=== PATIENT | male | born 1980 | race Caucasian/White ===

== ENCOUNTER 2016-12-22 23:49 | Emergency (ER) | payer OTHER ==
[~2016-12-22] VITALS: Ht 175.3 cm; Wt 137.8 kg
[~2016-12-22 23:49] MED LIST: ALBU1AER9 INH; CEPH500C2 PO; PRLSR20 PO; SERT50TA PO
[2016-12-23 00:03] VITALS: TEMP 37; Ht 175.3 cm; Wt 137.8 kg
[2016-12-23 00:15] VITALS: BP 154/100; PULSE 80; O2SAT 98
[2016-12-23] MEDS ORDERED: CEPH500C PO (00:20)
[2016-12-23] MEDS ORDERED: HYDR-5688 PO (00:20)
--- NOTE | 2016-12-23 00:25 | EMERGENCY ROOM VISIT NOTE ---
History First contact with patient: 00:06 Chief Complaint: WOUND INFECTION Stated Complaint: CYST UNDER LEFT ARM Nursing Triage Summary: Pt complains of cyst under left arm. Its been going on for a while. History of Present Illness The patient is a 36 year old male who presents to the Emergency Room with complaints of a left chest wall infection that has been worsening over the past 2 weeks. The patient reports a history of multiple skin abscesses. He has been trying to express the infection without relief. He reports that the area is now about the size of a marble. He also has a few other areas that are breaking out as well. He denies any fevers or chills. He rates his discomfort a 6 out of 10. The patient reports that he was recently diagnosed with stage I throat cancer, and is currently being managed through [facility] in [place]. Review of Systems 10 system review was performed and was negative except for pertinent positives and negatives as indicated in history of present illness Past Medical/Surgical History Medical Problems: (1) Abscess (2) Acute lymphangitis (3) Anxiety (4) Asthma, Unspecified (5) Cellulitis of scalp (6) Cellulitis of scalp (7) Diverticulitis (8) Diverticulitis (9) Tobacco user Surgical Problems: (1) History of bowel resection Family History Diabetes mellitus FH: heart disease Hypertension Social History Smoking Status: Current Every Day Smoker Alcohol Use: none Drug Use: marijuana Marital Status: single Housing Status: lives with family Occupation Status: disabled Current/Historical Medications Scheduled Cephalexin Monohydrate (Keflex), 500 MG PO QID Cephalexin Monohydrate (Keflex), 500 MG PO QID Omeprazole (Prilosec), 40 MG PO BID Ropinirole HCl (Ropinirole HCl), 1 MG PO HS Sertraline (Zoloft), 50 MG PO DAILY Scheduled PRN Albuterol (Proair Hfa), 2 PUFFS INH Q4H PRN for Shortness of Breath Hydrocodone/Acetaminophen 5MG/325MG ([place] 5MG/325MG), 1-2 TABLET PO Q4H PRN for Pain Allergies Coded Allergies: Doxycycline (Verified Allergy, Unknown, NEURO COMPLICATIONS, 12/23/16) GMG Prednisone (Unverified Allergy, Unknown, ., 12/23/16) Sulfa Drugs (Unverified Allergy, Unknown, hives, 12/23/16) Sulfamethoxazole w/Trimethoprim (Unverified Allergy, Unknown, hives, ) Physical Exam Vital Signs Date Time Temp Pulse Resp B/P Pulse Ox O2 Delivery O2 Flow Rate FiO2 12/23/16 00:03 37.0 93 20 156/99 97 Room Air Physical Exam CONSTITUTIONAL: Morbidly obese male, alert and oriented X 3 with positive affect. She does not appear in any acute distress. HEENT: Normocephalic, atraumatic. Pupils equal, round and reactive. NECK: Full active range of motion without discomfort. RESPIRATORY: Clear to auscultation bilaterally with no wheezing, crackles, rhonchi or stridor. CARDIOVASCULAR: Regular rate and rhythm with no murmurs, rubs or gallops. GASTROINTESTINAL: Bowel sounds present in all quadrants. MUSCULOSKELETAL: Full range of motion of all joints without discomfort. INTEGUMENTARY: Examination shows a marble-sized indurated mass on the left lateral chest wall. He has a few adjacent erythematous papules. There is no fluctuance or drainage from the larger mass. LYMPHATICS: No left axillary adenopathy noted. NEUROLOGIC: No focal neurologic deficits noted. Medical Decision & Procedures ED Course Patient history and physical exam were performed. Nurse's notes were reviewed. I did review prior medical records, showing a history of multiple skin abscesses. Review of cultures shows that most of them are pansensitive. The patient is allergic to sulfa medications. He therefore received home packs and prescriptions for Keflex and [place] 5/325. He was encouraged to keep the wounds covered with an ointment, and apply moist heat frequently to help promote drainage. He was encouraged to follow-up with his PCP in the next 2-3 days for recheck, returning to the emergency department for any significantly worsening swelling or developing fever. The patient was happy with plan of care, voiced understanding of all discharge instructions, and rated his pain a 5 out of 10 at the conclusion of my exam. Medical Decision Impression Primary Impression: Left chest wall folliculitis Departure Information Dispostion Home / Self-Care Prescriptions Hydrocodone/Acetaminophen 5MG/325MG ([place] 5MG/325MG) Tab 1-2 TABLET PO Q4H Y for Pain, #15 TAB For Initial Treatment Prov: Allan Carolina PA 12/23/16 Cephalexin Monohydrate (Keflex) 500 Mg Cap 500 MG PO QID for 6 Days, #24 CAP Prov: Allan Carolina PA 12/23/16 Forms HOME CARE DOCUMENTATION FORM, IMPORTANT VISIT INFORMATION Patient Instructions My [facility] Additional Instructions Complete all Keflex antibiotics as prescribed. Keep the larger wound covered with an ointment/salve and dressing to help promote drainage. Ibuprofen 600 mg every 6 hours for pain. [place] if needed for worse pain. Return for significantly worsening swelling or developing fever, otherwise follow-up with your family doctor in 2-3 days for recheck.
[2016-12-23] MEDS ORDERED: CEPHALEXIN 500MG HOME PACK 1 EA BTL PO ONE (00:30)
[2016-12-23] MEDS ORDERED: NORCO 5/325MG HOME PACK PO ONE (00:30)
[2017-01-13] MEDS ORDERED: morphine (13:24)
[2017-01-13] MEDS ORDERED: NCDT21X TOP (13:30)
[2017-01-18] MEDS ORDERED: MORPHINE PO (14:17)
[2017-01-21] MEDS ORDERED: OXYC-57 PO (13:14)
[2017-02-03] MEDS ORDERED: VNTHFA/IN PO (00:30)
[2017-02-03] MEDS ORDERED: RANI300T PO (00:31)
[2017-02-03] MEDS ORDERED: SUCR1TAB PO (00:31)
[2017-02-03] MEDS ORDERED: ACET-1256 PO (19:25)
[2017-02-03] MEDS ORDERED: ROPI1TAB29 PO (21:29)
[2017-02-09] MEDS ORDERED: VNCS125 PO (11:43)
[2017-02-21] MEDS ORDERED: RXNS20 PO (23:24)
[2017-02-23] MEDS ORDERED: VNCS125 PO (12:29)
[2017-02-23] MEDS ORDERED: BNT10 PO (12:29)
[2017-02-23] MEDS ORDERED: QSTP PO (12:29)
[2017-03-03] MEDS ORDERED: LCTX PO (16:52)
[2017-03-03] MEDS ORDERED: LVNIS120 SQ (16:52)
[2017-03-03] MEDS ORDERED: LVQ750 PO (16:52)
== END 2016-12-23 00:30 | disposition home or self-care (01) ==
LOC: C.EDB 23:50 → C.EDC 12-23 00:30
DX: L73.9 Follicular disorder, unspecified (principal); F17.200 Nicotine dependence, unspecified, uncomplicated; F41.9 Anxiety disorder, unspecified; J45.909 Unspecified asthma, uncomplicated

== ENCOUNTER 2017-01-06 18:29 | Emergency (ER) | payer OTHER ==
[~2017-01-06] VITALS: Ht 175.3 cm; Wt 136.1 kg
[~2017-01-06 18:29] MED LIST changes: -ALBU1AER9 INH; -CEPH500C2 PO; +HYDR-5688 PO
[2017-01-06 18:31] VITALS: TEMP 36.5; Ht 175.3 cm; Wt 136.1 kg
[2017-01-06] MEDS ORDERED: OMEP40CA41 PO (19:26)
[2017-01-06] MEDS ORDERED: SODIUM CHLORIDE 0.9% 500ML 500 ML IV STA (19:42)
[2017-01-06] MEDS ORDERED: MoRPHine SULFATE 4 MG/ML 1 ML CARP\\VIAL IV STA (19:42)
[2017-01-06] MEDS ORDERED: MAGIC SWIZZLE PO ONE (19:45)
[2017-01-06 19:56] LABS: BASO % 0.4 %; BASO ABS # 0.03 K/uL (0-0.2); COMPLETE YES; EOS % 2.4 %; HEMATOCRIT 41.8 % (42-52); IG% 0.4 %; LYMPH % 33.7 %; LYMPH ABS # 2.67 K/uL (1.2-3.4); MEAN CELL VOLUME 94.1 fL (80-100); MEAN CORPUSCULAR HEMOGLOBIN 33.6 pg (25-34); MEAN CORPUSCULAR HGB CONC 35.6 g/dl (32-36); MEAN PLATELET VOLUME 8.5 fL (7.4-10.4); MONO % 10.1 %; PLATELET COUNT 304 K/uL (130-400); RED BLOOD COUNT 4.44 M/uL (4.7-6.1); WHITE BLOOD COUNT 7.93 K/uL (4.8-10.8)
[2017-01-06] MEDS ORDERED: LIDOCAINE HCL 2% VISCOUS SOLN 1.25 ML, DiphenhydrAMINE HCL SYRUP 3.125 MG, ALUMINUM/MAG... MT ONE ×4 (20:00)
[2017-01-06 20:10] LABS: BUN/CREATININE RATIO 6.9 (10-20); CALCIUM 8.5 mg/dl (8.5-10.1); CREATININE 0.98 mg/dl (0.60-1.40); POTASSIUM 3.6 mmol/L (3.5-5.1)
--- NOTE | 2017-01-06 20:34 | DIAGNOSTIC IMAGING REPORT ---
CHEST 2 VIEWS ROUTINE CLINICAL HISTORY: Throat pain. COMPARISON STUDY: Chest radiograph September 30, 2015. FINDINGS: Lung volumes are normal. There is no consolidation to suggest pneumonia. There is no pneumothorax, pleural effusion or evidence of pneumomediastinum. Cardiomediastinal silhouette is normal. Interstitial prominence is unchanged. IMPRESSION: No acute cardiopulmonary findings. Electronically signed by: Saud Ryan M.D. 01/06/2017 8:33 PM Dictated Date/Time: 01/06/2017 8:32 PM
[2017-01-06] MEDS ORDERED: KETOROLAC TROMETHAMINE 30 MG/ML VIAL IV STA (21:26)
[2017-01-06] MEDS ORDERED: MBXC PO (22:06)
[2017-01-06 22:14] VITALS: BP 128/76; PULSE 74; O2SAT 97
--- NOTE | 2017-01-07 01:10 | EMERGENCY ROOM VISIT NOTE ---
History Report prepared by Padilla: Felipa Crawford Under the Supervision of: Dr. Rey Alonso D.O. First contact with patient: 19:10 Chief Complaint: PAIN (GENERALIZED) Stated Complaint: IN A LOT OF PAIN History of Present Illness The patient is a 36 year old male who presents to the Emergency Room with complaints of constant throat pain since last night. 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 He had a biopsy done about a month ago and yesterday he was at [facility] and had an US of his throat. The patient has had chronic pain on the left side of his throat for about a year. He finally went to his PCP and they found this cancer. The pain that he started having last night is much worse than normal and he has never experienced pain this bad before. It is located in the same spot as his chronic pain. The patient describes his pain as dull and achy, and he rates it as a 7/10 in severity. He has pain in his neck as well as nausea. He has been taking Tylenol for his pain. He has not been eating much because he has worsening pain with swallowing. The GI doctor at [facility] advised him to come to the ED with worsening symptoms. The patient is waiting to schedule an appointment with oncology. He denies vomiting, hematemesis, and black or bloody stools. Source of History: patient Onset: last night Position: throat Symptom Intensity: 7/10 Quality: ache, dull Timing: constant Modifying Factors (Worsening): eating, other (swallowing) Modifying Factors (Relieving): tylenol Associated Symptoms: + nausea, + neck pain, No hematochezia, No melena, No vomiting Review of Systems See HPI for pertinent positives & negatives. A total of 10 systems reviewed and were otherwise negative. Past Medical & Surgical Medical Problems: (1) Abscess (2) Acute lymphangitis (3) Anxiety (4) Asthma, Unspecified (5) Cellulitis of scalp (6) Cellulitis of scalp (7) Diverticulitis (8) Diverticulitis (9) Tobacco user Surgical Problems: (1) History of bowel resection Family History Diabetes mellitus FH: heart disease Hypertension Social History Smoking Status: Former Smoker Alcohol Use: none Drug Use: marijuana Marital Status: single Housing Status: lives with family Occupation Status: disabled Current/Historical Medications Scheduled Magic Swizzle (Magic Swizzle - SUCRALFA/ALUM/MAG/DIPHEN/LIDO), 3-4 TSP PO ACHS Omeprazole (Prilosec), 40 MG PO BID Ranitidine Hcl (Zantac), 300 MG PO DAILY Ropinirole HCl (Ropinirole HCl), 1 MG PO HS Sertraline (Zoloft), 50 MG PO DAILY Sucralfate (Sucralfate), 1 GM PO BID Scheduled PRN Acetaminophen (Tylenol), 500-1,500 MG PO DIRECTED PRN for Pain Albuterol Hfa (Ventolin Hfa), 2 PUFFS PO QID PRN for SOB/Wheezing Allergies Coded Allergies: Doxycycline (Verified Allergy, Unknown, NEURO COMPLICATIONS, 01/06/17) GMG Prednisone (Verified Allergy, Unknown, ., 01/06/17) Sulfa Drugs (Verified Allergy, Unknown, hives, 01/06/17) Sulfamethoxazole w/Trimethoprim (Verified Allergy, Unknown, hives, 01/06/17) Physical Exam Vital Signs Date Time Temp Pulse Resp B/P Pulse Ox O2 Delivery O2 Flow Rate FiO2 01/06/17 22:14 74 20 128/76 97 01/06/17 20:54 82 20 129/85 98 Room Air 01/06/17 19:24 80 20 143/90 99 Room Air 01/06/17 18:31 36.5 86 20 157/92 98 Room Air Physical Exam GENERAL: alert, sitting up in bed, well appearing, obese, no acute distress, non -toxic EYE EXAM: normal conjunctiva, PERRL and EOM's intact OROPHARYNX: no exudate, no erythema, lips, buccal mucosa, and tongue normal and mucous membranes are moist NECK: supple, no nuchal rigidity, no adenopathy, non-tender, no stridor, normal speech and voice, able to tolerate secretions. LUNGS: Clear to auscultation. Normal chest wall mechanics HEART: no murmurs, S1 normal and S2 normal ABDOMEN: abdomen soft, non-tender, normo-active bowel sounds, no masses, no rebound or guarding. BACK: Back is symmetrical on inspection and there is no deformity, no midline tenderness, no CVA tenderness. SKIN: no rashes and no bruising UPPER EXTREMITIES: upper extremities are grossly normal. LOWER EXTREMITIES: No pitting edema. NEURO EXAM: Normal sensorium, cranial nerves II-XII grossly intact, normal speech, no gross weakness of arms, no gross weakness of legs. Medical Decision & Procedures ER Provider Diagnostic Interpretation: Radiology results as stated below per my review and the radiologist's interpretation: CHEST 2 VIEWS ROUTINE CLINICAL HISTORY: Throat pain. COMPARISON STUDY: Chest radiograph September 30, 2015. FINDINGS: Lung volumes are normal. There is no consolidation to suggest pneumonia. There is no pneumothorax, pleural effusion or evidence of pneumomediastinum. Cardiomediastinal silhouette is normal. Interstitial prominence is unchanged. IMPRESSION: No acute cardiopulmonary findings. Electronically signed by: Saud Ryan M.D. 01/06/2017 8:33 PM Dictated Date/Time: 01/06/2017 8:32 PM Laboratory Results 01/06/17 19:45 Red Blood Count 4.44, Mean Corpuscular Volume 94.1, Mean Corpuscular Hemoglobin 33.6, Mean Corpuscular Hemoglobin Concent 35.6, Mean Platelet Volume 8.5, Neutrophils (%) (Auto) 53.0, Lymphocytes (%) (Auto) 33.7, Monocytes (%) (Auto) 10.1, Eosinophils (%) (Auto) 2.4, Basophils (%) (Auto) 0.4, Neutrophils # (Auto ) 4.21, Lymphocytes # (Auto) 2.67, Monocytes # (Auto) 0.80, Eosinophils # (Auto ) 0.19, Basophils # (Auto) 0.03 01/06/17 19:45 Test 01/06/17 19:45 White Blood Count 7.93 K/uL (4.8-10.8) Red Blood Count 4.44 M/uL (4.7-6.1) Hemoglobin 14.9 g/dL (14.0-18.0) Hematocrit 41.8 % (42-52) Mean Corpuscular Volume 94.1 fL (80-100) Mean Corpuscular Hemoglobin 33.6 pg (25-34) Mean Corpuscular Hemoglobin Concent 35.6 g/dl (32-36) Platelet Count 304 K/uL (130-400) Mean Platelet Volume 8.5 fL (7.4-10.4) Neutrophils (%) (Auto) 53.0 % Lymphocytes (%) (Auto) 33.7 % Monocytes (%) (Auto) 10.1 % Eosinophils (%) (Auto) 2.4 % Basophils (%) (Auto) 0.4 % Neutrophils # (Auto) 4.21 K/uL (1.4-6.5) Lymphocytes # (Auto) 2.67 K/uL (1.2-3.4) Monocytes # (Auto) 0.80 K/uL (0.11-0.59) Eosinophils # (Auto) 0.19 K/uL (0-0.5) Basophils # (Auto) 0.03 K/uL (0-0.2) RDW Standard Deviation 50.0 fL (36.4-46.3) RDW Coefficient of Variation 14.6 % (11.5-14.5) Immature Granulocyte % (Auto) 0.4 % Immature Granulocyte # (Auto) 0.03 K/uL (0.00-0.02) Anion Gap 5.0 mmol/L (3-11) Est Creatinine Clear Calc Drug Dose 142.8 ml/min Estimated GFR () 114.5 Estimated GFR (Non- 98.8 BUN/Creatinine Ratio 6.9 (10-20) Calcium Level 8.5 mg/dl (8.5-10.1) Laboratory results per my review. Medications Administered Medications (Trade) Dose Ordered Sig/Kaylin Route Start Time Stop Time Status Last Admin Dose Admin Sodium Chloride (Nss 500ml) 500 ml @ 999 mls/hr Q31M STAT IV 01/06/17 19:42 01/06/17 20:12 DC 01/06/17 19:52 999 MLS/HR Morphine Sulfate (MoRPHine SULFATE INJ) 4 mg NOW STAT IV 01/06/17 19:42 01/06/17 19:44 DC 01/06/17 19:51 4 MG Ketorolac Tromethamine (Toradol Inj) 30 mg NOW STAT IV 01/06/17 21:26 01/06/17 21:28 DC 01/06/17 21:34 30 MG ED Course ED COURSE: Vital signs were reviewed and showed normal vitals. The patients medical record was reviewed The above diagnostic studies were performed and reviewed. ED treatments and interventions as stated above. 0: The patient was evaluated in room A10. A complete history and physical examination was performed. 1941: Morphine sulfate 4 mg IV, NSS 500 ml @ 999 mls/hr IV 2123: Upon reevaluation, the patient is still having some mild pain. I discussed my findings with the patient and he understands and agrees with the treatment plan. Based on the patients age, coexisting illnesses, exam and lab findings the decision to treat as an outpatient was made. The patient remained stable while under my care. The patient appeared well at the time of discharge. 2125: Toradol 30 mg IV Medical Decision Differential diagnoses includes esophageal rupture, mass, infection, food bolus. 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 He had an upper endoscopy performed yesterday and since then has been having worsening of his chronic pain in his throat. He is able to eat and drink without difficulty. Has no shortness of breath. Labs show no significant leukocytosis or anemia. X-rays show no obvious perforation. Patient was given Toradol and narcotic IV. He felt significantly better. Following this he was discharged and I did not feel the need to CT him as he was well-appearing tolerating liquids and had no biopsy done or any symptoms to suggest a perforation. Discussed with Pt concerning signs and symptoms to watch out for. Pt was instructed to follow up with their PCP and discussed with the patient their option to return to the ED at anytime for persistent or worsening symptoms. The appropriate anticipatory guidance and out-patient management, including indications for return to the emergency department, were explained at length to the patient and understood. Impression Primary Impression: Throat pain in adult Scribe Attestation The scribe's documentation has been prepared under my direction and personally reviewed by me in its entirety. I confirm that the note above accurately reflects all work, treatment, procedures, and medical decision making performed by me. Departure Information Dispostion Home / Self-Care Prescriptions Magic Swizzle (Magic Swizzle - SUCRALFA/ALUM/MAG/DIPHEN/LIDO) 240 Ml Susp 3-4 TSP PO ACHS, #100 ML 100ml Sucralfate 50ml Maalox 50ml Diphenhydramine 40ml 2% Aq. Lidocaine Swish and Swallow Prov: Rey Alonso, DO 01/06/17 Referrals Camilo Weiner M.D. (PCP) Forms HOME CARE DOCUMENTATION FORM, IMPORTANT VISIT INFORMATION, WORK / SCHOOL INSTRUCTIONS Patient Instructions My [facility], Sore Throat Additional Instructions Please follow up with your primary care doctor with in the next 24 hours. Any worsening of your symptoms, please return to the ED immediately. This includes fevers greater than 100.4, inability to swallow, worsening pain, passing out, vomiting blood, or any other concerning signs or symptoms from your standpoint.
[2017-01-13] MEDS ORDERED: morphine (13:24)
[2017-01-13] MEDS ORDERED: NCDT21X TOP (13:30)
[2017-01-18] MEDS ORDERED: MORPHINE PO (14:17)
[2017-01-21] MEDS ORDERED: OXYC-57 PO (13:14)
[2017-02-03] MEDS ORDERED: VNTHFA/IN PO (00:30)
[2017-02-03] MEDS ORDERED: SUCR1TAB PO (00:31)
[2017-02-03] MEDS ORDERED: RANI300T PO (00:31)
[2017-02-03] MEDS ORDERED: ACET-1256 PO (19:25)
[2017-02-03] MEDS ORDERED: ROPI1TAB29 PO (21:29)
[2017-02-09] MEDS ORDERED: VNCS125 PO (11:43)
[2017-02-21] MEDS ORDERED: RXNS20 PO (23:24)
[2017-02-23] MEDS ORDERED: VNCS125 PO (12:29)
[2017-02-23] MEDS ORDERED: QSTP PO (12:29)
[2017-02-23] MEDS ORDERED: BNT10 PO (12:29)
[2017-03-03] MEDS ORDERED: LVNIS120 SQ (16:52)
[2017-03-03] MEDS ORDERED: LCTX PO (16:52)
[2017-03-03] MEDS ORDERED: LVQ750 PO (16:52)
== END 2017-01-06 22:15 | disposition home or self-care (01) ==
LOC: C.EDB 18:30 → C.EDA 22:15
DX: C15.9 Malignant neoplasm of esophagus, unspecified (principal); R07.0 Pain in throat; K22.70 Barrett's esophagus without dysplasia; Z87.891 Personal history of nicotine dependence

== ENCOUNTER 2017-01-21 11:04 | Day surgery (SDC) | payer OTHER ==
[2017-01-18 14:02] VITALS: BMI 43.0
[~2017-01-21] VITALS: Ht 175.3 cm; Wt 134.1 kg
[~2017-01-21 11:04] MED LIST changes: +CLINDAMYCIN 600 MG/54 ML D5W IV SCH; -HYDR-5688 PO; +LACTATED RINGER'S 1000ML 1,000 ML IV SCH; +MBXC PO; +MORPHINE PO; +NCDT21X TOP; +OMEP40CA41 PO; -PRLSR20 PO
[2017-01-21] MEDS ORDERED: BUPIVACAINE 0.5 % 5 MG/1 ML MPF 30ML VIAL ONE (11:08)
[2017-01-21] MEDS ORDERED: LIDOCAINE HCL 1% 20 ML VIAL ONE (11:08)
[2017-01-21] MEDS ORDERED: BACITRACIN OINT 15 GM TUBE ONE (11:08)
[2017-01-21 11:39] VITALS: BP 125/70; PULSE 88; TEMP 37; O2SAT 98; Ht 175.3 cm; Wt 134.1 kg
--- NOTE | 2017-01-21 11:42 | History & Physical Bridge Note ---
H&P Re-Evaluation Bridge Note: I have examined the patient, reviewed the History & Physical and in the interval since the performance of the History & Physical I have noted the following changes of clinical significance: No changes noted
[2017-01-21] MEDS ORDERED: MIDAZOLAM HCL 1 MG/ML 2ML VIAL ONE ×2 (11:46→12:26)
[2017-01-21] MEDS ORDERED: PROPOFOL IV EMULSION 10 MG/ML 20 ML VIAL IV ONE ×2 (11:46→12:45)
[2017-01-21] MEDS ORDERED: FENTANYL CITRATE INJ 50 MCG/1 ML 2 ML VIAL ONE (11:46)
[2017-01-21] MEDS ORDERED: LIDOCAINE HCL 2% 2 ML VIAL (20MG/ML) ONE (11:46)
[2017-01-21] MEDS ORDERED: ATROPINE SULFATE 0.1 MG/ML 5ML SYR IV PRN (12:00)
[2017-01-21] MEDS ORDERED: ONDANSETRON INJ 2 MG/ML 2 ML VIAL IV PRN (12:00)
[2017-01-21] MEDS ORDERED: FENTANYL CITRATE INJ 50 MCG/1 ML 2 ML VIAL IV PRN (12:00)
--- NOTE | 2017-01-21 13:09 | [facility] Post Operative Brief Note ---
Immediate Operative Summary Operative Date Jan 21, 2017. Pre-Operative Diagnosis Esphogeal cancer Post-Operative Diagnosis Esphogeal cancer Procedure(s) Performed Infusaport Insertion into Right Internal Jugular Vein Surgeon Dr. Oreilly [employer] Coordinator Surgeon(s) none Estimated Blood Loss 5mL Findings normal finding Fluids (cc crystalloids) 1000ml Specimens none per surgeon Drains none Anesthesia sedation + local Complication(s) None Disposition Recovery Room / PACU
[2017-01-21] MEDS ORDERED: SODIUM CHLORIDE 0.9% 1000ML 1,000 ML IV SCH ×3 (13:10)
[2017-01-21] MEDS ORDERED: OXYC-57 PO (13:14)
[2017-01-21] MEDS ORDERED: OXYCODONE/ACETAMINOPHEN 5-325 TAB PO PRN (13:15)
--- NOTE | 2017-01-21 13:17 | Discharge Instructions ---
Discharge Instructions Date of Service Jan 21, 2017. Visit Reason for Visit: Malignant Neoplasm Of The Esophagus Discharge Discharge Diagnosis / Problem: S/P port insertion Discharge Goals Goal(s): Decrease discomfort, Improve function Activity Recommendations Activity Limitations: per Instructions/Follow-up section Lifting Limitations: no more than 25 pounds Exercise/Sports Limitations: gradually increase as tolerated May Resume Sexual Activity: when tolerated Shower/Bathe: may shower/bathe in 3 days Driving or Machine Use: resume 3 days after discharge Anesthesia . Post Anesthesia Instructions: If you have had General Anesthesia or IV Sedation: * Do not drive today. * Resume driving when surgeon permits. * Do not make important decisions or sign legal documents today. * Call surgeon for: 1. Temperature elevations greater than 101 degrees F. 2. Uncontrollable pain. 3. Excessive bleeding. 4. Persistent nausea and vomiting. 5. Medication intolerance (nausea, vomiting or rash). * For nausea and vomiting use only clear liquids such as: tea, soda, bouillon until nausea subsides, then gradually increase diet as tolerated. * If you have any concerns or questions, call your surgeon's office. If physician is unavailable and it is an emergency, call 911 or go to the nearest emergency room. . Instructions / Follow-Up Instructions / Follow-Up keep the dressing on for 4 days, he can take a shower on 01/25/2017, no driving while taking pain medicine, follow up 1 week, . Diet Recommendations Recommended Home Diet: resume previous diet Procedures Procedures Performed: Infusaport Insertion into Right Internal Jugular Vein Pending Studies Studies pending at discharge: no Medical Emergencies . Who to Call and When: Medical Emergencies: If at any time you feel your situation is an emergency, please call 911 immediately. . Non-Emergent Contact Non-Emergency issues call your: Surgeon Call Non-Emergent contact if: you have a fever, temperature is above 100.5, your pain is not controlled, your pain is worsening, wound has increased drainage, wound has increased redness . . "Provider Documentation" section prepared by Yari Oreilly. . [place] Drug Monitoring Program Search Results: patient reviewed within database, no issues identified
--- NOTE | 2017-01-21 13:31 | DIAGNOSTIC IMAGING REPORT ---
SINGLE VIEW CHEST CLINICAL HISTORY: Infusion port placement. FINDINGS: An AP, portable, upright chest radiograph is compared to study dated 01/06/2017. Correlation is made with chest CT dated 11/19/2016. The examination is degraded by portable technique, large body habitus, and patient rotation. A right internal jugular central venous infusion port has been placed. The tip of the catheter projects over the confluence of the innominate veins. The cardiomediastinal silhouette is unremarkable. Mild emphysema and chronic interstitial thickening are similar to previous. No airspace consolidation or pleural effusion is identified. No pneumothorax is seen. The bony thorax is grossly intact. IMPRESSION: 1. A right internal jugular central venous infusion port has been placed. No pneumothorax is seen post procedure. 2. Mild emphysema with no airspace consolidation or pleural effusion. Electronically signed by: Fadi Mao M.D. 01/21/2017 1:29 PM Dictated Date/Time: 01/21/2017 1:25 PM
--- NOTE | 2017-01-21 13:31 | Anesthesiology Progress Note ---
Anesthesia Post Op Note Date & Time Jan 21, 2017 at 13:30 Vital Signs Pain Intensity: 0 Vital Signs Past 12 Hours Date Time Temp Pulse Resp B/P Pulse Ox O2 Delivery O2 Flow Rate FiO2 01/21/17 13:20 66 16 129/99 99 Room Air 01/21/17 13:10 36.2 73 16 120/81 100 Room Air 01/21/17 11:39 37 88 18 125/70 98 Room Air Notes Mental Status: alert / awake / arousable, participated in evaluation Pt Amnestic to Procedure: Yes Nausea / Vomiting: adequately controlled Pain: adequately controlled Airway Patency, RR, SpO2: stable & adequate BP & HR: stable & adequate Hydration State: stable & adequate Anesthetic Complications: no major complications apparent
[2017-01-21 13:35] VITALS: BP 126/82; PULSE 75; TEMP 37.2; O2SAT 95
[2017-01-21 14:05] VITALS: BP 137/91; PULSE 80; TEMP 36.9; O2SAT 96
--- NOTE | 2017-01-21 14:16 | OPERATIVE REPORT ---
DATE OF OPERATION: 01/21/2017 PREOPERATIVE DIAGNOSES: Need catheter insertion. POSTOPERATIVE DIAGNOSIS: Same. PROCEDURE: [id number] insertion on the right internal jugular vein. SURGEON: Dr. Yari Oreilly. ANESTHESIA: Conscious sedation plus local. ESTIMATED BLOOD LOSS: About 5 mL. IV FLUIDS: 1000 mL. FINDINGS: Normal finding. COMPLICATIONS: None. INDICATIONS FOR THE PROCEDURE: This is a 36-year-old gentleman who was diagnosed cancer. The patient need chemo treatment. The patient needs [id number]-Q-Hoalhpum insertion. I did talk to the patient about the benefit and risk alternate procedure. I indicated the risks may include but not limited such as bleeding, infection, dysfunction catheter, injury lung, may need more procedure, abscess, even . The patient understands. He signed informed consent and I answered all questions. DETAILS OF PROCEDURE: We brought the patient to the OR, put the patient in the supine position. The patient received SCD on bilateral legs to prevent DVT. Also, the patient received 600 mg of clindamycin IV for prophylactic antibiotic. The patient received conscious sedation by the anesthesiology. The patient's right side of the neck and right side upper chest was prepped and draped in routine sterile fashion. After a timeout, I used ultrasound to locate the right internal jugular vein and the injection local, made a small incision about 0.5 cm, then I used a 16 gauge needle to puncture the right internal trocar vein without difficulty, easy blood return, then I passed the wire in and removed the needle. Then I injected local anesthesia on the right upper chest, made about 2.5 cm incision, create a pouch for the port, then I used metal tunneler transducer connected to the incision and passed to the catheter in and then I used another sheath passed the wire over the right internal jugular vein and removed the wire and passed the catheter through the sheath and removed the sheath without difficulty. Once the wire in I used the C-arm to conform wire located in the SVC and now the catheter in. Again, I used the C-arm to locate the catheter around the junction between the internal jugular vein to the right atrium. Now I sided the catheter and connected the port and used 2-0 Prolene to fix the port on the chest wall at 3 points, tied the suture and hemostasis obtained. Then I used 2-0 Vicryl to close subcutaneous layer continuous running, closed skin by using 4-0 Vicryl continuous running. Then I used needle to puncture the port. I easily returned blood. Then I injection heparin saline 10 mL to the catheter. Then we put the dressing on. The patient tolerated the procedure well. All the instrument, needle and sponge count correct x2 at the end of case. The patient transferred to recovery room in stable condition. After the procedure and before the procedure also, I saw the patient and gave the patient the postop care instruction and I did talk to the patient about the OR finding and procedure we did. The patient understands. We will follow up the patient in 1 week. I attest to the content of the Intraoperative Record and any orders documented therein. Any exceptions are noted below. [id number]
[2017-01-21 14:25] VITALS: BP 131/85; PULSE 73; TEMP 36.5; O2SAT 96
[2017-01-22] MEDS ORDERED: CEFAZOLIN IV 2,000 MG/60 ML D5W IV ONE (06:00)
[2017-02-03] MEDS ORDERED: VNTHFA/IN PO (00:30)
[2017-02-03] MEDS ORDERED: SUCR1TAB PO (00:31)
[2017-02-03] MEDS ORDERED: RANI300T PO (00:31)
[2017-02-03] MEDS ORDERED: ACET-1256 PO (19:25)
[2017-02-03] MEDS ORDERED: ROPI1TAB29 PO (21:29)
[2017-02-09] MEDS ORDERED: VNCS125 PO (11:43)
[2017-02-21] MEDS ORDERED: RXNS20 PO (23:24)
[2017-02-23] MEDS ORDERED: VNCS125 PO (12:29)
[2017-02-23] MEDS ORDERED: QSTP PO (12:29)
[2017-02-23] MEDS ORDERED: BNT10 PO (12:29)
[2017-03-03] MEDS ORDERED: LCTX PO (16:52)
[2017-03-03] MEDS ORDERED: LVNIS120 SQ (16:52)
[2017-03-03] MEDS ORDERED: LVQ750 PO (16:52)
== END 2017-01-21 14:25 | disposition home or self-care (01) ==
LOC: C.ACU 11:04
PROVIDERS: ATTEND Surgery
DX: C15.5 Malignant neoplasm of lower third of esophagus (principal); K21.0 Gastro-esophageal reflux disease with esophagitis; G25.81 Restless legs syndrome; E66.9 Obesity, unspecified; Z68.41 Body mass index [BMI] 40.0-44.9, adult; Z87.891 Personal history of nicotine dependence; Z83.3 Family history of diabetes mellitus; Z82.5 Family history of asthma and other chronic lower respiratory diseases; Z82.49 Family history of ischemic heart disease and other diseases of the circulatory system; Z82.3 Family history of stroke

== ENCOUNTER 2017-02-03 22:28 | Emergency (ER) | payer OTHER ==
[~2017-02-03] VITALS: Ht 175.3 cm; Wt 56.7 kg
[~2017-02-03 22:28] MED LIST changes: +ACET-1256 PO; -CLINDAMYCIN 600 MG/54 ML D5W IV SCH; -LACTATED RINGER'S 1000ML 1,000 ML IV SCH; +RANI300T PO; +ROPI1TAB29 PO; +SUCR1TAB PO; +VNTHFA/IN PO
[2017-02-03 22:34] VITALS: O2SAT 97
[2017-02-03 22:41] VITALS: TEMP 36.8; Ht 175.3 cm; Wt 56.7 kg
[2017-02-03] MEDS ORDERED: ZLF/50 PO (22:55)
[2017-02-03] MEDS ORDERED: [UNRECOGNIZED DRUG - CODE] PO (22:55)
[2017-02-03] MEDS ORDERED: DXM/4 PO (22:55)
[2017-02-03] MEDS ORDERED: CMP/10 PO (22:55)
[2017-02-03] MEDS ORDERED: ONDA-63 PO (22:55)
[2017-02-03] MEDS ORDERED: OMEP20CA9 PO (22:55)
[2017-02-03] MEDS ORDERED: MAGIC1 PO (22:56)
[2017-02-03 23:31] LABS: HEMATOCRIT 39.8 % (42-52); MEAN CELL VOLUME 94.8 fL (80-100); MEAN CORPUSCULAR HEMOGLOBIN 33.1 pg (25-34); MEAN CORPUSCULAR HGB CONC 34.9 g/dl (32-36); PLATELET COUNT 253 K/uL (130-400); WHITE BLOOD COUNT 9.02 K/uL (4.8-10.8)
[2017-02-03] MEDS ORDERED: SODIUM CHLORIDE 0.9% 500ML 500 ML IV STA (23:44)
[2017-02-03] MEDS ORDERED: GI COCKTAIL PO STA (23:44)
[2017-02-03] MEDS ORDERED: HYDROmorphone INJ 1 MG/ML SYR IV STA (23:44)
[2017-02-03 23:47] LABS: INR 1.1 (0.9-1.1); PROTHROMBIN TIME (PATIENT) 11.5 SECONDS (9.0-12.0)
[2017-02-03 23:54] LABS: BUN/CREATININE RATIO 19.1 (10-20); CALCIUM 8.4 mg/dl (8.5-10.1); CREATININE 0.97 mg/dl (0.60-1.40); POTASSIUM 3.5 mmol/L (3.5-5.1)
[2017-02-03] MEDS ORDERED: ALUMINUM/MAGNESIUM SUSP 30 ML UDC ONE (23:55)
[2017-02-03] MEDS ORDERED: LIDOCAINE HCL 2% VISC SOLN 20 ML UDC ONE (23:55)
[2017-02-03 23:59] LABS: ALB/GLOB RATIO 1.1 (0.9-2)
--- NOTE | 2017-02-04 00:17 | EMERGENCY ROOM VISIT NOTE ---
History Report prepared by Padilla: Kelly Peralta Under the Supervision of: Dr. Jacob Diaz M.D. First contact with patient: 23:35 Chief Complaint: CHEST PAIN Stated Complaint: CHEST PAIN Nursing Triage Summary: Reports moderate, mid sternal CP that radiates to left & into back. Rates pain #5/10 at this time. Mild pain started intermittently at approx 1700 and has become consistant & increased in severity. Also reports "pressure" to chest but denies SOB. Denies cardiac hx Diagnosed with esophageal cancer in Oct this year. Last chemo tx on 02/02/17 & last radiation tx today 02/03/17 History of Present Illness The patient is a 36 year old male who presents to the Emergency Room with complaints of worsening mid chest pain starting about 6 hours ago. He reports pain radiation to into his back. He also reports some right sided neck pain. He currently rates a pain intensity of 5/10. He denies loss of consciousness, shortness of breath, nausea, vomiting, pain/swelling in lower extremities, or any other complaints. He denies any history of similar symptoms. He denies any history of heart disease. He does not have any personal or family history of blood clots. He is being treated for esophageal cancer. He last received chemotherapy yesterday and last received radiation treatment today. The patient has been prescribed Morphine as needed but does not take it since he states that he "does not want to become addicted". Source of History: patient Onset: about 6 hours ago Position: chest (mid) Symptom Intensity: 5/10 Timing: worsening Associated Symptoms: + neck pain, No LOC, No SOB, No nausea, No vomiting Review of Systems See HPI for pertinent positives & negatives. A total of 10 systems reviewed and were otherwise negative. Past Medical & Surgical Medical Problems: (1) Abscess (2) Acute lymphangitis (3) Anxiety (4) Asthma, Unspecified (5) Cellulitis of scalp (6) Cellulitis of scalp (7) Diverticulitis (8) Diverticulitis (9) Esophageal adenocarcinoma (10) Tobacco user Surgical Problems: (1) History of bowel resection Family History Diabetes mellitus FH: heart disease Hypertension Social History Smoking Status: Current Every Day Smoker Alcohol Use: none Drug Use: marijuana Marital Status: single Housing Status: lives with family Occupation Status: disabled Current/Historical Medications Scheduled Omeprazole (Prilosec), 40 MG PO BID Ranitidine Hcl (Zantac), 300 MG PO DAILY Ropinirole HCl (Ropinirole HCl), 1 MG PO HS Sertraline HCl (Sertraline HCl), 50 MG PO HS Sucralfate (Sucralfate), 1 GM PO BID Scheduled PRN Acetaminophen (Tylenol), 500-1,500 MG PO UD PRN for Pain Albuterol Hfa (Ventolin Hfa), 2 PUFFS PO Q4H PRN for Wheezing Dexamethasone (Decadron), 4 MG PO UD PRN for CHEMO PRE TREAT Diphenhy/Alum/Mag/Sucralfa (Magic Swizzle - Diphenhy/Alum/Mag/Sucralfa), 3-4 TSP PO ACHS PRN for Swallowing Pain Morphine Sulfate (Morphine Sulfate), 0.5 ML PO Q4-6HRS PRN for Pain Ondansetron (Ondansetron HCl), 8 MG PO TID PRN for Nausea Prochlorperazine Maleate (Prochlorperazine Maleate), 10 MG PO Q6H PRN for Nausea Allergies Coded Allergies: Prednisone (Verified Allergy, Intermediate, HIVES, 01/21/17) Sulfa Antibiotics (Verified Allergy, Intermediate, Hives/Thrush, 01/21/17) Doxycycline (Verified Allergy, Unknown, NEURO COMPLICATIONS, 01/21/17) GMG Sulfamethoxazole w/Trimethoprim (Verified Allergy, Unknown, hives, 01/21/17 ) Physical Exam Vital Signs Date Time Temp Pulse Resp B/P Pulse Ox O2 Delivery O2 Flow Rate FiO2 02/04/17 01:45 137/86 02/04/17 01:33 89 21 97 02/04/17 01:03 81 16 97 02/04/17 01:00 125/107 02/04/17 00:33 77 16 97 02/04/17 00:28 74 20 98 02/04/17 00:12 83 18 135/77 98 Room Air 02/03/17 23:28 91 14 02/03/17 22:41 97 Room Air 02/03/17 22:41 36.8 97 18 129/77 97 Room Air 02/03/17 22:39 85 02/03/17 22:36 129/77 02/03/17 22:34 97 Room Air Physical Exam GENERAL: Patient is uncomfortable appearing and in moderate distress. HEENT: No acute trauma, normocephalic atraumatic, mucous membranes moist, no nasal congestion, no scleral icterus. NECK: No stridor, no adenopathy, no meningismus, trachea is midline. CHEST: Port in the right upper chest. LUNGS: No dyspnea. Clear to auscultation and equal bilaterally. No wheeze, no rhonchi. HEART: Regular rate and rhythm. No murmurs, rubs, gallops appreciated. ABDOMEN: Soft, nontender, bowel sounds positive, no masses appreciated, no peritonitis. BACK: No midline tenderness, no CVA tenderness EXTREMITIES: Normal motion all extremities, no cyanosis, no edema. NEUROLOGIC: Alert and oriented, no acute motor or sensory deficits, no focal weakness, cranial nerves grossly intact. SKIN: No rash, no jaundice, no diaphoresis. Medical Decision & Procedures ER Provider Diagnostic Interpretation: X ray results are stated below per my interpretation: Chest: 1 view: No infiltrate, no effusion, normal cardiac border. Port right upper chest, line in place. Laboratory Results 02/03/17 23:15 02/03/17 23:15 Test 02/03/17 23:15 02/04/17 00:52 Red Blood Count 4.20 M/uL (4.7-6.1) Mean Corpuscular Volume 94.8 fL (80-100) Mean Corpuscular Hemoglobin 33.1 pg (25-34) Mean Corpuscular Hemoglobin Concent 34.9 g/dl (32-36) RDW Standard Deviation 46.9 fL (36.4-46.3) RDW Coefficient of Variation 13.6 % (11.5-14.5) Mean Platelet Volume 9.0 fL (7.4-10.4) Prothrombin Time 11.5 SECONDS (9.0-12.0) Prothromb Time International Ratio 1.1 (0.9-1.1) Activated Partial Thromboplast Time 26.0 SECONDS (21.0-31.0) Partial Thromboplastin Ratio 1.0 Anion Gap 9.0 mmol/L (3-11) Est Creatinine Clear Calc Drug Dose 84.4 ml/min Estimated GFR () 115.9 Estimated GFR (Non- 100.0 BUN/Creatinine Ratio 19.1 (10-20) Calcium Level 8.4 mg/dl (8.5-10.1) Total Bilirubin 0.6 mg/dl (0.2-1) Aspartate Amino Transf (AST/SGOT) 8 U/L (15-37) Alanine Aminotransferase (ALT/SGPT) 30 U/L (12-78) Alkaline Phosphatase 47 U/L (45-117) Total Creatine Kinase 67 U/L (39-308) Creatine Kinase MB 0.7 ng/ml (0.5-3.6) Creatine Kinase MB Ratio 1.0 (0-3.0) Total Protein 6.8 gm/dl (6.4-8.2) Albumin 3.5 gm/dl (3.4-5.0) Globulin 3.3 gm/dl (2.5-4.0) Albumin/Globulin Ratio 1.1 (0.9-2) Bedside Troponin I 0.000 ng/ml (0-0.045) Laboratory results as reviewed by me. Medications Administered Medications (Trade) Dose Ordered Sig/Kaylin Route Start Time Stop Time Status Last Admin Dose Admin Hydromorphone HCl 1 mg 1 mg NOW STAT IV 02/03/17 23:44 02/03/17 23:45 DC 02/03/17 23:58 1 MG Sodium Chloride (Nss 500ml) 500 ml @ 999 mls/hr Q31M STAT IV 02/03/17 23:44 02/04/17 00:14 DC 02/04/17 00:00 999 MLS/HR Lidocaine HCl (Viscous Lidocaine 2% Soln) 20 ml STK-MED ONCE .ROUTE 02/03/17 23:55 02/03/17 23:56 DC 02/04/17 00:00 10 ML Al Hydroxide/Mg Hydroxide (Maalox Susp) 30 ml STK-MED ONCE .ROUTE 02/03/17 23:55 02/03/17 23:56 DC 02/03/17 23:58 30 ML Hydromorphone HCl (Dilaudid Inj) 1 mg NOW STAT IV 02/04/17 01:00 02/04/17 01:02 DC 02/04/17 01:13 1 MG ECG Indication: chest pain Rate (beats per minute): 76 Rhythm: normal sinus Findings: no acute ischemic change, no ectopy ED Course 2335: The patient was evaluated in room C02B. A complete history and physical exam was performed. 2344: Sodium Chloride 500 ml @ 999 mls/hr IV, Dilaudid Inj 1 mg IV 0044: I reevaluated the patient who is feeling better but would like some more pain medications. We discussed CT scan and given his many previous, he would like to avoid that. 0100: Dilaudid Inj 1 mg IV 0130: Reevaluated the patient. Discussed results and discharge instructions: He verbalized understanding and agreement. The patient is ready for discharge. Medical Decision Differential: Cardiac Ischemia (STEMI, NSTEMI, Unstable Angina, etc), Aortic Dissection, Arrhythmia, Pulmonary Embolism, Pneumonia, Pneumothorax, MSK, Infectious, Pericarditis/Myocarditis, Esophageal Rupture, Gastrointestinal, amongst other pathologies entertained. 36 yr old male with esophageal cancer felt secondary to tobacco use and GERD who is currently undergoing chemo/radiation with last radiation this afternoon. Substernal chest pain radiating to back. No evidence dissection. Not significantly SHOB, hypoxic nor tachycardic without TTP of calves, nor history of PE. I feel Dimer unnecessary as even if positive may likely be chemo/cancer related. Discussed CT PE study with patient as only way to know for sure but with shared decision making he wishes to hold off on CT imaging at this time. Pain resolved with IV narcotics. POC trop x 2 > 6 hours post symptoms starting are both negative. EKG unremarkable. Patient feeling well. He has narcotics at home for this cancer related pain but has not been taking due to concern addiction. We had lengthy discussion about this and agree trying to avoid addiction but clearly there will be pain associated with his cancer and treatment. Wishes to go home with family which seems reasonable. Aware RTED at any time if worsening or other concerns. Stable and feels well at discharge. Impression Primary Impression: Cancer associated pain Additional Impression: Substernal precordial chest pain Scribe Attestation The scribe's documentation has been prepared under my direction and personally reviewed by me in its entirety. I confirm that the note above accurately reflects all work, treatment, procedures, and medical decision making performed by me. Departure Information Dispostion Home / Self-Care Referrals Camilo Weiner M.D. (PCP) Forms HOME CARE DOCUMENTATION FORM, IMPORTANT VISIT INFORMATION Patient Instructions ED Chest Pain Atypical Unkn Cause, My [facility] Problem Qualifiers
[2017-02-04] MEDS ORDERED: HYDROmorphone INJ 1 MG/ML SYR IV STA (01:00)
[2017-02-04 01:33] VITALS: PULSE 89; O2SAT 97
[2017-02-04 01:45] VITALS: BP 137/86
--- NOTE | 2017-02-04 06:38 | DIAGNOSTIC IMAGING REPORT ---
CHEST ONE VIEW PORTABLE CLINICAL HISTORY: Chest pain. COMPARISON STUDY: Chest radiograph January 21, 2017. FINDINGS: Lung volumes are normal. A right internal jugular Udnarg-s-Cdoi is in place. There is no pneumothorax or pleural effusion. Cardiomediastinal silhouette is within normal limits. There is no evidence of pulmonary edema. No consolidation is identified. IMPRESSION: No acute cardiopulmonary findings. Electronically signed by: Saud Ryan M.D. 02/04/2017 6:37 AM Dictated Date/Time: 02/04/2017 6:36 AM
[2017-02-09] MEDS ORDERED: VNCS125 PO (11:43)
[2017-02-21] MEDS ORDERED: RXNS20 PO (23:24)
[2017-02-23] MEDS ORDERED: QSTP PO (12:29)
[2017-02-23] MEDS ORDERED: VNCS125 PO (12:29)
[2017-02-23] MEDS ORDERED: BNT10 PO (12:29)
[2017-03-03] MEDS ORDERED: LVNIS120 SQ (16:52)
[2017-03-03] MEDS ORDERED: LVQ750 PO (16:52)
[2017-03-03] MEDS ORDERED: LCTX PO (16:52)
== END 2017-02-04 01:45 | disposition home or self-care (01) ==
LOC: EDBD 22:28 → C.EDC 22:30
DX: R07.2 Precordial pain (principal); G89.3 Neoplasm related pain (acute) (chronic); F41.9 Anxiety disorder, unspecified; K57.92 Diverticulitis of intestine, part unspecified, without perforation or abscess without bleeding; J45.909 Unspecified asthma, uncomplicated; F17.200 Nicotine dependence, unspecified, uncomplicated; Z86.19 Personal history of other infectious and parasitic diseases; Z85.01 Personal history of malignant neoplasm of esophagus; Z79.899 Other long term (current) drug therapy; Z98.890 Other specified postprocedural states; Z88.2 Allergy status to sulfonamides; Z88.3 Allergy status to other anti-infective agents; Z88.8 Allergy status to other drugs, medicaments and biological substances; Z83.3 Family history of diabetes mellitus; Z82.49 Family history of ischemic heart disease and other diseases of the circulatory system

== ENCOUNTER 2017-02-05 13:47 | Emergency (ER) | payer OTHER ==
[~2017-02-05] VITALS: Ht 172.7 cm; Wt 130.0 kg
[~2017-02-05 13:47] MED LIST changes: +CMP/10 PO; +DXM/4 PO; +MAGIC1 PO; -MBXC PO; -MORPHINE PO; -NCDT21X TOP; +OMEP20CA9 PO; -OMEP40CA41 PO; +ONDA-63 PO; -SERT50TA PO; +ZLF/50 PO; +[UNRECOGNIZED DRUG - CODE] PO
[2017-02-05 13:50] VITALS: TEMP 36.7; Ht 172.7 cm; Wt 130.0 kg
[2017-02-05 14:09] VITALS: O2SAT 96
[2017-02-05] MEDS ORDERED: HYDROmorphone INJ 1 MG/ML SYR IV STA (14:39)
[2017-02-05] MEDS ORDERED: SODIUM CHLORIDE 0.9% 1000ML 1,000 ML IV ONE (14:39)
[2017-02-05] MEDS ORDERED: SODIUM CHLORIDE 0.9% 1000ML 1,000 ML IV STA (14:39)
[2017-02-05] MEDS ORDERED: METOCLOPRAMIDE HCL INJ 5 MG/ML 2 ML VIAL IV STA (14:39)
--- NOTE | 2017-02-05 14:41 | EMERGENCY ROOM VISIT NOTE ---
History Report prepared by Padilla: Matthias Emery Under the Supervision of: Dr. Yan Hawkins M.D. First contact with patient: 14:25 Chief Complaint: WEAKNESS Stated Complaint: WEAKNESS, DIARRHEA Nursing Triage Summary: pt here with feeling weak since yesterday. pt began with diarrhea yesterday. pt sent here from radiation also has had 2 chemo tx for throat cancer. pt here this past wednesday night for chest pain History of Present Illness The patient is a 36 year old male who presents to the Emergency Room with complaints of episodes of diarrhea that started yesterday. He has throat cancer , and last had chemotherapy 3 days ago. The patient says that he started getting weak yesterday as well, and has not been sleeping well. He has been having episodes where he gets cold, and then gets hot. The patient states that earlier this morning, he had diarrhea every time he moved. He has been having associated abdominal pain. The patient denies any hematochezia. Source of History: patient Onset: Yesterday Position: other (global - diarrhea) Timing: other (episodes) Associated Symptoms: + abdominal pain, + weakness, No hematochezia Note: Associated symptoms: Gets hot, then cold. Review of Systems See HPI for pertinent positives & negatives. A total of 10 systems reviewed and were otherwise negative. Past Medical & Surgical Medical Problems: (1) Abscess (2) Acute lymphangitis (3) Anxiety (4) Asthma, Unspecified (5) C. difficile diarrhea (6) Cellulitis of scalp (7) Cellulitis of scalp (8) Diverticulitis (9) Diverticulitis (10) Esophageal adenocarcinoma (11) Tobacco user Surgical Problems: (1) History of bowel resection Family History Diabetes mellitus FH: heart disease Hypertension Social History Smoking Status: Current Every Day Smoker Alcohol Use: none Drug Use: marijuana Marital Status: single Housing Status: lives with family Occupation Status: disabled Current/Historical Medications Scheduled Omeprazole (Prilosec), 40 MG PO BID Ranitidine Hcl (Zantac), 300 MG PO DAILY Ropinirole HCl (Ropinirole HCl), 1 MG PO HS Sertraline HCl (Sertraline HCl), 50 MG PO HS Sucralfate (Sucralfate), 1 GM PO BID Scheduled PRN Albuterol Hfa (Ventolin Hfa), 2 PUFFS PO Q4H PRN for Wheezing Dexamethasone (Decadron), 4 MG PO UD PRN for CHEMO PRE TREAT Diphenhy/Alum/Mag/Sucralfa (Magic Swizzle - Diphenhy/Alum/Mag/Sucralfa), 3-4 TSP PO ACHS PRN for Swallowing Pain Morphine Sulfate (Morphine Sulfate), 0.5 ML PO Q4-6HRS PRN for Pain Ondansetron (Ondansetron HCl), 8 MG PO TID PRN for Nausea Prochlorperazine Maleate (Prochlorperazine Maleate), 10 MG PO Q6H PRN for Nausea Allergies Coded Allergies: Prednisone (Verified Allergy, Intermediate, HIVES, 02/05/17) Sulfa Antibiotics (Verified Allergy, Intermediate, Hives/Thrush, 02/05/17) Doxycycline (Verified Allergy, Unknown, NEURO COMPLICATIONS, 02/05/17) GMG Sulfamethoxazole w/Trimethoprim (Verified Allergy, Unknown, hives, 02/05/17) Physical Exam Vital Signs Date Time Temp Pulse Resp B/P Pulse Ox O2 Delivery O2 Flow Rate FiO2 02/05/17 16:57 99 16 133/76 97 Room Air 02/05/17 15:36 95 18 142/109 97 Room Air 02/05/17 14:10 90 02/05/17 14:09 96 18 150/91 97 Room Air 02/05/17 14:09 96 Room Air 02/05/17 13:50 36.7 109 16 134/92 97 Room Air Physical Exam GENERAL: Patient is a healthy-appearing well-nourished 36 year old male HEAD: Normocephalic atraumatic EYES: Ocular movements intact pupils equal and react to light OROPHARYNX mucous membranes are moist no exudates present no erythema or edema present NECK: Supple no nuchal rigidity CHEST: Good equal expansion LUNGS: Clear and equal to auscultation CARDIAC: Normal S1 and S2 ABDOMEN: Soft nontender no guarding BACK: No CVA tenderness EXTREMITIES: No pain upon palpation normal muscle strength in all groups no clubbing cyanosis or edema NEURO: Patient is following commands is answering questions appropriately. Alert and oriented x3 Cranial Nerves 2-12 grossly intact Medical Decision & Procedures ER Provider Diagnostic Interpretation: Radiology results as stated below per my review and radiologist interpretation: SINGLE VIEW CHEST CLINICAL HISTORY: Sepsis. FINDINGS: An AP, portable, upright chest radiograph is compared to study dated 02/03/2017. Correlation is made with chest CT dated 11/19/2016. The examination is degraded by portable technique, large body habitus, and patient rotation. A right internal jugular central venous infusion port is unchanged in position. The cardiomediastinal silhouette is unremarkable. Mild emphysema and chronic interstitial thickening are similar to previous. No airspace consolidation or pleural effusion is identified. No pneumothorax is seen. The bony thorax is grossly intact. IMPRESSION: Mild emphysema with no acute cardiopulmonary abnormality. Electronically signed by: Fadi Mao M.D. 02/05/2017 3:08 PM Dictated Date/Time: 02/05/2017 3:07 PM ABDOMEN AND PELVIS CT WITH IV CONTRAST CT DOSE: 1838.39 mGy.cm HISTORY: Pain Pt c/o diffuse abd pain TECHNIQUE: Multiaxial CT images of the abdomen and pelvis were performed following the use of intravenous contrast. COMPARISON STUDY: 03/31/2016 FINDINGS: Lung bases are clear. Liver spleen and pancreas are unremarkable. Bowel pattern is considered nonobstructive. Postoperative changes produces described are now completely resolved. There is an unremarkable anastomotic site of the mid sigmoid. Bladder is midline. There are no contained calcifications. The appendix is normal. IMPRESSION: No acute process of the abdomen or pelvis. Small hiatal hernia Electronically signed by: Isra Vazquez M.D. 02/05/2017 4:19 PM Dictated Date/Time: 02/05/2017 4:17 PM Laboratory Results 02/05/17 15:10 Red Blood Count 4.24, Mean Corpuscular Volume 94.8, Mean Corpuscular Hemoglobin 34.0, Mean Corpuscular Hemoglobin Concent 35.8, Mean Platelet Volume 9.1, Neutrophils (%) (Auto) 81.3, Lymphocytes (%) (Auto) 13.0, Monocytes (%) (Auto) 5.0, Eosinophils (%) (Auto) 0.3, Basophils (%) (Auto) 0.1, Neutrophils # (Auto) 9.07, Lymphocytes # (Auto) 1.45, Monocytes # (Auto) 0.56, Eosinophils # (Auto) 0.03, Basophils # (Auto) 0.01 02/05/17 15:10 Test 02/05/17 15:10 02/05/17 15:17 02/05/17 15:18 02/05/17 15:45 White Blood Count 11.15 K/uL (4.8-10.8) Red Blood Count 4.24 M/uL (4.7-6.1) Hemoglobin 14.4 g/dL (14.0-18.0) Hematocrit 40.2 % (42-52) Mean Corpuscular Volume 94.8 fL (80-100) Mean Corpuscular Hemoglobin 34.0 pg (25-34) Mean Corpuscular Hemoglobin Concent 35.8 g/dl (32-36) Platelet Count 236 K/uL (130-400) Mean Platelet Volume 9.1 fL (7.4-10.4) Neutrophils (%) (Auto) 81.3 % Lymphocytes (%) (Auto) 13.0 % Monocytes (%) (Auto) 5.0 % Eosinophils (%) (Auto) 0.3 % Basophils (%) (Auto) 0.1 % Neutrophils # (Auto) 9.07 K/uL (1.4-6.5) Lymphocytes # (Auto) 1.45 K/uL (1.2-3.4) Monocytes # (Auto) 0.56 K/uL (0.11-0.59) Eosinophils # (Auto) 0.03 K/uL (0-0.5) Basophils # (Auto) 0.01 K/uL (0-0.2) RDW Standard Deviation 46.2 fL (36.4-46.3) RDW Coefficient of Variation 13.4 % (11.5-14.5) Immature Granulocyte % (Auto) 0.3 % Immature Granulocyte # (Auto) 0.03 K/uL (0.00-0.02) Prothrombin Time 11.4 SECONDS (9.0-12.0) Prothromb Time International Ratio 1.1 (0.9-1.1) Activated Partial Thromboplast Time 25.7 SECONDS (21.0-31.0) Partial Thromboplastin Ratio 1.0 Est Creatinine Clear Calc Drug Dose 161.9 ml/min Estimated GFR () 131.2 Estimated GFR (Non- 113.2 BUN/Creatinine Ratio 16.2 (10-20) Calcium Level 9.1 mg/dl (8.5-10.1) Total Bilirubin 1.4 mg/dl (0.2-1) Aspartate Amino Transf (AST/SGOT) 13 U/L (15-37) Alanine Aminotransferase (ALT/SGPT) 28 U/L (12-78) Alkaline Phosphatase 51 U/L (45-117) Total Protein 7.3 gm/dl (6.4-8.2) Albumin 3.8 gm/dl (3.4-5.0) Globulin 3.5 gm/dl (2.5-4.0) Albumin/Globulin Ratio 1.1 (0.9-2) Bedside Lactic Acid Venous 1.26 mmol/L (0.90-1.70) Bedside Hemoglobin 14.3 g/dl (14.0-18.0) Bedside Hematocrit 42 % (42-52) Bedside Sodium 140 mEq/L (135-144) Bedside Potassium 3.9 mEq/L (3.3-5.0) Bedside Chloride 104 mEq/L (101-112) Bedside Total CO2 22 mEq/l (24-31) Anion Gap 19.0 mmol/L (16-25) Bedside Blood Urea Nitrogen 13 mg/dl (7-18) Bedside Creatinine 0.8 mg/dl (0.6-1.3) Bedside Glucose (other) 91 mg/dl (70-99) Bedside Ionized Calcium (Kayla) 1.18 mmol/l (1.12-1.32) Influenza Type A (RT-PCR) Neg for Influ A (NEG) Influenza Type A Antigen Neg for Influ A (NEG) Influenza Type B Antigen Neg for Influ B (NEG) Influenza Type B (RT-PCR) Neg for Influ B (NEG) Labs reviewed by ED physician. Medications Administered Medications (Trade) Dose Ordered Sig/Kaylin Route Start Time Stop Time Status Last Admin Dose Admin Sodium Chloride 1,000 ml @ 999 mls/hr Q1H1M ONCE IV 02/05/17 14:39 02/05/17 15:39 DC 02/05/17 15:40 999 MLS/HR Sodium Chloride (Nss 1000ml) 1,000 ml @ 999 mls/hr Q1H1M STAT IV 02/05/17 14:39 02/05/17 15:39 DC 02/05/17 15:40 999 MLS/HR Hydromorphone HCl (Dilaudid Inj) 1 mg NOW STAT IV 02/05/17 14:39 02/05/17 14:44 DC 5/5/17 15:40 1 MG Metoclopramide HCl (Reglan Inj) 10 mg NOW STAT IV 02/05/17 14:39 02/05/17 14:44 DC 02/05/17 15:36 10 MG Heparin Sodium (Porcine) (Heparin 100 Unit/ml 5ml Flush) 5 ml STK-MED ONCE .ROUTE 02/05/17 17:00 02/05/17 17:01 DC 02/05/17 17:06 5 ML ECG Indication: weakness Rate (beats per minute): 90 Rhythm: normal sinus Findings: no acute ischemic change, no ectopy ED Course 1437: Past medical records reviewed. The patient was evaluated in room C1B. A complete history and physical examination was performed. 1439: Ordered Reglan Inj 10 mg IV, Dilaudid Inj 1 mg IV, NSS 1000 ml @ 999 mls/ hr IV. 1645: Upon reexamination the patient is resting comfortably. I discussed results and treatment plan with the patient. He verbalizes agreement and understanding. The patient is ready for discharge. Medical Decision Prior records/ancillary studies reviewed. Triage Nursing notes reviewed. Differential diagnosis: Etiologies such as viral syndrome, otitis, pharyngitis, pneumonia, influenza, meningitis, urinary tract infection, sepsis, bacteremia, as well as others were entertained. This is a 36-year-old male who presents emergency department complaining of diffuse abdominal pain. The patient does not have an elevation in his white blood count has a normal renal profile has normal liver profile. He is given normal saline bolus here in the emergency department. Repeat examination revealed improvement patient's symptoms. I do believe that the patient as well as to be discharged home. Patient family were in agreement with the treatment plan. Impression Primary Impression: Diarrhea Scribe Attestation The scribe's documentation has been prepared under my direction and personally reviewed by me in its entirety. I confirm that the note above accurately reflects all work, treatment, procedures, and medical decision making performed by me. Departure Information Dispostion Home / Self-Care Referrals Camilo Weiner M.D. (PCP) Forms HOME CARE DOCUMENTATION FORM, IMPORTANT VISIT INFORMATION, School Instructions, Work Instructions Patient Instructions ED Diet Vomiting Diarrhea, ED Vomiting Diarrhea Nonspecific Ad, My [facility] Additional Instructions Use probiotic yogurt for diarrhea Increase fluids over next 48 hours Culture results are usually available in approx 48 hours You have been examined and treated today on an emergency basis only. This is not a substitute for, or an effort to provide, complete comprehensive medical care. It is impossible to recognize and treat all injuries or illnesses in a single emergency department visit. It is therefore important that you follow up closely with DR Weiner. Call as soon as possible for an appointment. Thank you for your time and consideration. I look forward to speaking with you again soon. Please don't hesitate to call us if you have any questions. Problem Qualifiers Primary Impression: Diarrhea Diarrhea type: unspecified type Qualified Codes: R19.7 - Diarrhea, unspecified
--- NOTE | 2017-02-05 15:09 | DIAGNOSTIC IMAGING REPORT ---
SINGLE VIEW CHEST CLINICAL HISTORY: Sepsis. FINDINGS: An AP, portable, upright chest radiograph is compared to study dated 02/03/2017. Correlation is made with chest CT dated 11/19/2016. The examination is degraded by portable technique, large body habitus, and patient rotation. A right internal jugular central venous infusion port is unchanged in position. The cardiomediastinal silhouette is unremarkable. Mild emphysema and chronic interstitial thickening are similar to previous. No airspace consolidation or pleural effusion is identified. No pneumothorax is seen. The bony thorax is grossly intact. IMPRESSION: Mild emphysema with no acute cardiopulmonary abnormality. Electronically signed by: Fadi Mao M.D. 02/05/2017 3:08 PM Dictated Date/Time: 02/05/2017 3:07 PM
[2017-02-05 15:27] LABS: BASO % 0.1 %; BASO ABS # 0.01 K/uL (0-0.2); COMPLETE YES; EOS % 0.3 %; HEMATOCRIT 40.2 % (42-52); IG% 0.3 %; LYMPH ABS # 1.45 K/uL (1.2-3.4); MEAN CELL VOLUME 94.8 fL (80-100); MEAN CORPUSCULAR HGB CONC 35.8 g/dl (32-36); MEAN PLATELET VOLUME 9.1 fL (7.4-10.4); NEUT % 81.3 %; PLATELET COUNT 236 K/uL (130-400); RED BLOOD COUNT 4.24 M/uL (4.7-6.1); WHITE BLOOD COUNT 11.15 K/uL (4.8-10.8)
[2017-02-05 15:34] LABS: INR 1.1 (0.9-1.1); PROTHROMBIN TIME (PATIENT) 11.4 SECONDS (9.0-12.0)
[2017-02-05 15:44] LABS: BUN/CREATININE RATIO 16.2 (10-20); CALCIUM 9.1 mg/dl (8.5-10.1); CREATININE 0.83 mg/dl (0.60-1.40); POTASSIUM 3.9 mmol/L (3.5-5.1)
[2017-02-05 16:01] LABS: ISTAT CREATININE 0.8 mg/dl (0.6-1.3); ISTAT HEMOGLOBIN 14.3 g/dl (14.0-18.0); ISTAT IONIZED CALCIUM 1.18 mmol/l (1.12-1.32)
[2017-02-05 16:16] LABS: ALB/GLOB RATIO 1.1 (0.9-2)
--- NOTE | 2017-02-05 16:20 | DIAGNOSTIC IMAGING REPORT ---
ABDOMEN AND PELVIS CT WITH IV CONTRAST CT DOSE: 1838.39 mGy.cm HISTORY: Pain Pt c/o diffuse abd pain TECHNIQUE: Multiaxial CT images of the abdomen and pelvis were performed following the use of intravenous contrast. COMPARISON STUDY: 03/31/2016 FINDINGS: Lung bases are clear. Liver spleen and pancreas are unremarkable. Bowel pattern is considered nonobstructive. Postoperative changes produces described are now completely resolved. There is an unremarkable anastomotic site of the mid sigmoid. Bladder is midline. There are no contained calcifications. The appendix is normal. IMPRESSION: No acute process of the abdomen or pelvis. Small hiatal hernia Electronically signed by: Isra Vazquez M.D. 02/05/2017 4:19 PM Dictated Date/Time: 02/05/2017 4:17 PM
[2017-02-05 16:57] VITALS: BP 133/76; PULSE 99; O2SAT 97
[2017-02-05 17:36] LABS: INFLUENZA A PCR Neg for Influ A (NEG); INFLUENZA B PCR Neg for Influ B (NEG)
[2017-02-09] MEDS ORDERED: VNCS125 PO (11:43)
[2017-02-21] MEDS ORDERED: RXNS20 PO (23:24)
[2017-02-23] MEDS ORDERED: BNT10 PO (12:29)
[2017-02-23] MEDS ORDERED: QSTP PO (12:29)
[2017-02-23] MEDS ORDERED: VNCS125 PO (12:29)
[2017-03-03] MEDS ORDERED: LCTX PO (16:52)
[2017-03-03] MEDS ORDERED: LVNIS120 SQ (16:52)
[2017-03-03] MEDS ORDERED: LVQ750 PO (16:52)
== END 2017-02-05 17:07 | disposition home or self-care (01) ==
LOC: C.EDB 13:50 → C.EDC 17:07
DX: R19.7 Diarrhea, unspecified (principal); F41.9 Anxiety disorder, unspecified; J45.909 Unspecified asthma, uncomplicated; K57.92 Diverticulitis of intestine, part unspecified, without perforation or abscess without bleeding; F17.200 Nicotine dependence, unspecified, uncomplicated; Z86.19 Personal history of other infectious and parasitic diseases; Z85.01 Personal history of malignant neoplasm of esophagus; Z79.899 Other long term (current) drug therapy; Z88.2 Allergy status to sulfonamides; Z88.3 Allergy status to other anti-infective agents; Z88.8 Allergy status to other drugs, medicaments and biological substances; Z83.3 Family history of diabetes mellitus; Z82.49 Family history of ischemic heart disease and other diseases of the circulatory system

== ENCOUNTER 2017-02-06 13:05 | Inpatient (IN) | payer OTHER ==
[~2017-02-06] VITALS: Ht 175.3 cm; Wt 127.4 kg
[2017-02-06] MEDS ORDERED: PROMETHAZINE HCL INJ 25 MG/ML 1 ML VIAL IV STA (14:09)
[2017-02-06] MEDS ORDERED: SODIUM CHLORIDE 0.9% 1000ML 1,000 ML IV STA ×2 (14:09)
[2017-02-06] MEDS ORDERED: MoRPHine SULFATE 4 MG/ML 1 ML CARP\\VIAL IV PRN (14:15)
--- NOTE | 2017-02-06 14:22 | EMERGENCY ROOM VISIT NOTE ---
History Report prepared by Padilla: Matthias Emery Under the Supervision of: Dr. Fadi Villavicencio M.D. First contact with patient: 14:02 Chief Complaint: DIARRHEA Stated Complaint: DIARRHEA X 3 DAYS WEAK History of Present Illness The patient is a 36 year old male who presents to the Emergency Room with complaints of persistent diarrhea that started 4 days ago. He says he has been having diarrhea constantly, and whenever he eats, it comes out shortly thereafter. The patient notes that his rectum is sore, and he has had some blood in his diarrhea when wiping. He states that there is no blood visible in the toilet. The patient says that he cannot urinate much because he feels dehydrated. The patient states that his pain from the diarrhea is a 6 or a 7 out of 10. He has not been using any medications for the pain. The patient also notes leg pain and foot pain. He denies any vomiting. The patient is currently being treated for stage 1 throat cancer with chemo and radiation--last chemo was Wednesday, the day before the diarrhea started. The patient was given fluids here in the ER yesterday, but he was unable to produce a bowel sample. The patient had a CT of his abdomen/pelvis with IV contrast, which was negative. His lab work yesterday was normal except for an elevated white count at 11.1. The patient has no history of bowel problems, and he denies any sick contacts recently. He has not used any antibiotics lately. Source of History: patient Onset: 4 days ago Position: other (global - diarrhea) Symptom Intensity: "constant Timing: other (persistent) Associated Symptoms: + hematochezia, + urinary symptoms (not urinating much - dehydrated), No vomiting Note: Associated symptoms: Rectal pain. Leg pain, foot pain. Review of Systems See HPI for pertinent positives & negatives. A total of 10 systems reviewed and were otherwise negative. Past Medical & Surgical Medical Problems: (1) Abscess (2) Acute lymphangitis (3) Anxiety (4) Asthma, Unspecified (5) C. difficile diarrhea (6) Cellulitis of scalp (7) Cellulitis of scalp (8) Diverticulitis (9) Diverticulitis (10) Esophageal adenocarcinoma (11) Tobacco user Surgical Problems: (1) History of bowel resection Family History Diabetes mellitus FH: heart disease Hypertension Social History Smoking Status: Current Every Day Smoker Alcohol Use: none Drug Use: marijuana Marital Status: single Housing Status: lives with family Occupation Status: disabled Current/Historical Medications Scheduled Omeprazole (Prilosec), 40 MG PO BID Ranitidine Hcl (Zantac), 300 MG PO DAILY Ropinirole HCl (Ropinirole HCl), 1 MG PO HS Sertraline HCl (Sertraline HCl), 50 MG PO HS Sucralfate (Sucralfate), 1 GM PO BID Scheduled PRN Albuterol Hfa (Ventolin Hfa), 2 PUFFS PO Q4H PRN for Wheezing Dexamethasone (Decadron), 4 MG PO UD PRN for CHEMO PRE TREAT Diphenhy/Alum/Mag/Sucralfa (Magic Swizzle - Diphenhy/Alum/Mag/Sucralfa), 3-4 TSP PO ACHS PRN for Swallowing Pain Morphine Sulfate (Morphine Sulfate), 0.5 ML PO Q4-6HRS PRN for Pain Ondansetron (Ondansetron HCl), 8 MG PO TID PRN for Nausea Prochlorperazine Maleate (Prochlorperazine Maleate), 10 MG PO Q6H PRN for Nausea Allergies Coded Allergies: Prednisone (Verified Allergy, Intermediate, HIVES, 02/05/17) Sulfa Antibiotics (Verified Allergy, Intermediate, Hives/Thrush, 02/05/17) Doxycycline (Verified Allergy, Unknown, NEURO COMPLICATIONS, 02/05/17) GMG Sulfamethoxazole w/Trimethoprim (Verified Allergy, Unknown, hives, 02/05/17) Physical Exam Vital Signs Date Time Temp Pulse Resp B/P Pulse Ox O2 Delivery O2 Flow Rate FiO2 02/06/17 15:22 101 20 121/73 100 Room Air 02/06/17 13:09 36.7 114 20 136/94 96 Room Air Physical Exam GENERAL: Patient is in no acute distress. HEENT: No acute trauma, normocephalic atraumatic, mucous membranes dry, no nasal congestion, no scleral icterus. NECK: No stridor, no adenopathy, no meningismus, trachea is midline. LUNGS: Clear to auscultation bilaterally, no wheeze, no rhonchi, breath sounds equal. HEART: Tachycardic with a regular rhythm, no murmurs. ABDOMEN: Soft, diffusely mildly tender, bowel sounds positive, no hernias, no peritonitis. EXTREMITIES: No cyanosis or edema, full range of motion of all the joints without pain or difficulty, no signs for acute trauma. NEUROLOGIC: Oriented x 3, no acute motor or sensory deficits, no focal weakness. SKIN: No rash, no jaundice, no diaphoresis. Medical Decision & Procedures Laboratory Results 02/06/17 14:35 Red Blood Count 4.35, Mean Corpuscular Volume 94.0, Mean Corpuscular Hemoglobin 33.6, Mean Corpuscular Hemoglobin Concent 35.7, Mean Platelet Volume 9.0, Neutrophils (%) (Auto) 78.3, Lymphocytes (%) (Auto) 9.6, Monocytes (%) (Auto) 11.1, Eosinophils (%) (Auto) 0.6, Basophils (%) (Auto) 0.2, Neutrophils # (Auto ) 6.91, Lymphocytes # (Auto) 0.85, Monocytes # (Auto) 0.98, Eosinophils # (Auto ) 0.05, Basophils # (Auto) 0.02 02/06/17 14:35 Test 02/06/17 14:35 02/06/17 15:40 White Blood Count 8.83 K/uL (4.8-10.8) Red Blood Count 4.35 M/uL (4.7-6.1) Hemoglobin 14.6 g/dL (14.0-18.0) Hematocrit 40.9 % (42-52) Mean Corpuscular Volume 94.0 fL (80-100) Mean Corpuscular Hemoglobin 33.6 pg (25-34) Mean Corpuscular Hemoglobin Concent 35.7 g/dl (32-36) Platelet Count 236 K/uL (130-400) Mean Platelet Volume 9.0 fL (7.4-10.4) Neutrophils (%) (Auto) 78.3 % Lymphocytes (%) (Auto) 9.6 % Monocytes (%) (Auto) 11.1 % Eosinophils (%) (Auto) 0.6 % Basophils (%) (Auto) 0.2 % Neutrophils # (Auto) 6.91 K/uL (1.4-6.5) Lymphocytes # (Auto) 0.85 K/uL (1.2-3.4) Monocytes # (Auto) 0.98 K/uL (0.11-0.59) Eosinophils # (Auto) 0.05 K/uL (0-0.5) Basophils # (Auto) 0.02 K/uL (0-0.2) RDW Standard Deviation 45.5 fL (36.4-46.3) RDW Coefficient of Variation 13.3 % (11.5-14.5) Immature Granulocyte % (Auto) 0.2 % Immature Granulocyte # (Auto) 0.02 K/uL (0.00-0.02) Anion Gap 10.0 mmol/L (3-11) Est Creatinine Clear Calc Drug Dose 158.6 ml/min Estimated GFR () 129.3 Estimated GFR (Non- 111.6 BUN/Creatinine Ratio 11.5 (10-20) Calcium Level 9.2 mg/dl (8.5-10.1) Magnesium Level 2.0 mg/dl (1.8-2.4) Total Bilirubin 1.4 mg/dl (0.2-1) Aspartate Amino Transf (AST/SGOT) 16 U/L (15-37) Alanine Aminotransferase (ALT/SGPT) 34 U/L (12-78) Alkaline Phosphatase 53 U/L (45-117) Total Protein 7.5 gm/dl (6.4-8.2) Albumin 3.9 gm/dl (3.4-5.0) Globulin 3.6 gm/dl (2.5-4.0) Albumin/Globulin Ratio 1.1 (0.9-2) Lipase 87 U/L (73-393) Urine Color YELLOW Urine Appearance CLEAR (CLEAR) Urine pH 8.0 (4.5-7.5) Urine Specific [place] 1.011 (1.000-1.030) Urine Protein NEG (NEG) Urine Glucose (UA) NEG (NEG) Urine Ketones NEG (NEG) Urine Occult Blood NEG (NEG) Urine Nitrite NEG (NEG) Urine Bilirubin NEG (NEG) Urine Urobilinogen NEG (NEG) Urine Leukocyte Esterase NEG (NEG) Laboratory results reviewed by me. Medications Administered Medications (Trade) Dose Ordered Sig/Kaylin Route Start Time Stop Time Status Last Admin Dose Admin Sodium Chloride 1,000 ml @ 200 mls/hr Q5H STAT IV 02/06/17 14:09 02/06/17 19:07 DC 02/06/17 15:38 200 MLS/HR Sodium Chloride (Nss 1000ml) 1,000 ml @ 999 mls/hr Q1H1M STAT IV 02/06/17 14:09 02/06/17 15:09 DC 02/06/17 14:35 999 MLS/HR Morphine Sulfate 4 mg 4 mg Q30M PRN IV 02/06/17 14:15 02/06/17 18:58 DC 02/06/17 15:19 4 MG Promethazine HCl 12.5 mg/Sodium Chloride 50.5 ml @ 202 mls/hr TODAY@1500 ONCE IV 02/06/17 15:00 02/06/17 15:14 DC 02/06/17 15:19 202 MLS/HR Sodium Chloride (Nss 1000ml) 1,000 ml @ 80 mls/hr [id number] IV 02/06/17 16:00 03/08/17 15:59 02/06/17 18:55 80 MLS/HR ED Course 1403: The patient was evaluated in room C11B. A complete history and physical exam was performed. 1409: Ordered NSS 1000 ml @ 999 mls/hr IV, NSS 1000 ml @ 200 mls/hr IV, Phenergan Inj 12.5 mg IV. 1415: Ordered Morphine Sulfate Inj 4 mg IV PRN. 1500: Ordered Promethazine HCl 12.5 mg/Sodium Chloride 50.5 ml @ 202 mls/hr IV. 1514: I discussed the patient with Dr. Sharath Ledesma collar shaper operator - she will evaluate the patient for further treatment. 1515: Upon reexamination the patient is resting in bed. I discussed results and treatment plan with the patient. He verbalizes agreement and understanding. The patient will be evaluated for further management. Medical Decision Differential diagnosis includes but is not limited to dehydration, electrolyte imbalance, medication reaction, bacterial or viral intestinal infection, C. difficile colitis, failed outpatient treatment. There is no leukocytosis or concerning anemia. No significant electrolyte abnormality, kidney failure or hepatitis. Urinalysis did not show evidence for infection. Stool cultures are pending. Stool C. difficile testing did return positive. The patient received IV saline, IV Phenergan and IV morphine. He requires admission/observation. He has persistent diarrhea since his last chemotherapy. He he is dehydrated. He has failed outpatient treatment. He does appear to have C. difficile colitis. I spoke to the patient and case management. The on- call hospitalist was consulted. Consults Time Called: 1510 Consulting Physician: Dr. Sharath Ledesma collar shaper operator Returned Call: 1514 I discussed the patient with Dr. Sharath Ledesma collar shaper operator - she will evaluate the patient for further treatment. Impression Primary Impression: Dehydration Additional Impressions: Diffuse abdominal pain Diarrhea C. difficile colitis Scribe Attestation The scribe's documentation has been prepared under my direction and personally reviewed by me in its entirety. I confirm that the note above accurately reflects all work, treatment, procedures, and medical decision making performed by me. Departure Information Dispostion Being Evaluated By Hospitalist Referrals Camilo Weiner M.D. (PCP) Patient Instructions My [facility] Problem Qualifiers
[2017-02-06 14:53] LABS: BASO % 0.2 %; BASO ABS # 0.02 K/uL (0-0.2); COMPLETE YES; EOS % 0.6 %; HEMATOCRIT 40.9 % (42-52); IG% 0.2 %; LYMPH % 9.6 %; LYMPH ABS # 0.85 K/uL (1.2-3.4); MEAN CORPUSCULAR HEMOGLOBIN 33.6 pg (25-34); MEAN CORPUSCULAR HGB CONC 35.7 g/dl (32-36); MONO % 11.1 %; NEUT % 78.3 %; PLATELET COUNT 236 K/uL (130-400); RED BLOOD COUNT 4.35 M/uL (4.7-6.1); WHITE BLOOD COUNT 8.83 K/uL (4.8-10.8)
[2017-02-06] MEDS ORDERED: PROMETHAZINE HCL INJ 12.5 MG in SODIUM CHLORIDE 0.9% 50ML 50 ML IV ONE (15:00)
[2017-02-06 15:04] LABS: BUN/CREATININE RATIO 11.5 (10-20); CALCIUM 9.2 mg/dl (8.5-10.1); CREATININE 0.86 mg/dl (0.60-1.40); POTASSIUM 3.7 mmol/L (3.5-5.1)
[2017-02-06 15:07] LABS: ALB/GLOB RATIO 1.1 (0.9-2)
[2017-02-06 15:51] LABS: URINE APPEARANCE CLEAR (CLEAR); URINE BILIRUBIN NEG (NEG); URINE COLOR YELLOW; URINE NITRITE NEG (NEG); URINE SPECIFIC GRAVITY 1.011 (1.000-1.030); UROBILINOGEN NEG (NEG); ZZUR CULT IF INDIC CLEAN CATCH NO
[2017-02-06 15:52] LABS: MANUAL MICROSCOPIC REQUIRED? NO; REVIEW REQ? NO
[2017-02-06] MEDS ORDERED: ONDANSETRON INJ 2 MG/ML 2 ML VIAL IV PRN (16:00)
[2017-02-06] MEDS ORDERED: ACETAMINOPHEN 325 MG TAB PO PRN (16:00)
[2017-02-06] MEDS ORDERED: NON-FORMULARY MEDICATION (Diphenhy/Alum/Mag/Sucralfa (Magic Swizzle - Diphenhy/Alum/Mag/Su PO PRN (16:15)
[2017-02-06] MEDS ORDERED: ALBUTEROL HFA 8 GM INHALER INH PRN (16:15)
[2017-02-06] MEDS ORDERED: MoRPHine SULFATE 0.4 MG/1 ML UDP PO PRN (16:15)
--- NOTE | 2017-02-06 16:29 | Progress Note ---
Progress Note Date of Service February 06, 2017. Progress Note Patient was seen and evaluated with TAD Bullard. Patient was here in ED yesterday for diarrhea and today for same reason. Diarrhea x 4 days- unable to cough, loose, with some blood. Abdominal pain, generalized. No fever, chills vomiting. CT scan abd/pelvis done yesterday- no acute abnormalities. On exam Gen- AAOX3, no distress Neck- No JVD Lungs- AEBE, no distress Heart- Sinus tachycardia Abd- soft, mild tenderness, generalized, BS present Ext- No edema LABS - no significant abnormalities A/P: DIARRHEA Secondary to C diff colitis/Chemotherapy induced diarrhea -Dehydrated clinically -IV Fluids C DIFF COLITIS First episode -Flagyl IV TID -Probiotics -IV Fluids STAGE I THROAT CARCINOMA -On chemotherapy/radiation rx -Last chemo on wednesday Agree with A/P of TAD Bullard.
--- NOTE | 2017-02-06 16:34 | History and Physical ---
History & Physical Date & Time of Service: February 06, 2017 at 16:14 Chief Complaint: Diarrhea X 3 Days Weak Primary Care Physician: Camilo Weiner M.D. History of Present Illness Source: patient This is a 36 y/o male with PMHx of Esophageal CA currently undergoing chemo and radiation and other problems as outlined below who presents to the ED c/o diarrhea x 4 days. Pt reports that 4 days ago after receiving chemotherapy he developed diarrhea. He estimates he has >20 episodes of watery diarrhea daily. He has noticed occasional small amounts of bright red blood on the tissue when he wipes but no blood in the toilet bowl. Sxs are assoc with weakness, fatigue, generalized abdominal pain and decreased urination. Pt has been unable to eat as everything he eats "runs through" him. Pt denies any recent abx use or sick contacts at home. Pt was recently diagnosed with Stage I esophageal CA. He is currently undergoing chemotherapy once weekly (Wednesday). He follows with oncology, Dr. Early. Pt denies fever/chills, chest pain, palpitations, SOB, N/V , LE edema ,calf pain, lightheadedness/dizziness. In the ED, mildly tachy otherwise stable. Pt is afebrile with no leukocytosis. Renal function and electrolytes WNL. C. diff positive. Pt will be admitted for further evaluation and treatment. Past Medical/Surgical History Medical Problems: (1) Abscess Status: Resolved (2) Acute lymphangitis Status: Resolved (3) Anxiety Status: Chronic (4) Asthma, Unspecified Status: Chronic (5) Cellulitis of scalp Status: Resolved (6) Cellulitis of scalp Status: Resolved (7) Diverticulitis Status: Resolved (8) Diverticulitis Status: Resolved (9) Tobacco user Status: Chronic Surgical Problems: (1) History of bowel resection Status: Resolved Family History Diabetes mellitus FH: heart disease Hypertension Social History Smoking Status: Current Every Day Smoker (1/2 ppd x 20 years; decreased to 4 cigarettes per day; trying to quit) Alcohol Use: rarely Drug Use: marijuana Marital Status: single Housing status: lives alone Occupational Status: disabled Immunizations History of Influenza Vaccine: Yes History of Tetanus Vaccine?: Yes History of Pneumococcal: Yes History of Hepatitis B Vaccine: Unknown Multi-Drug Resistant Organisms History of MDRO: No Allergies Coded Allergies: Prednisone (Verified Allergy, Intermediate, HIVES, 02/05/17) Sulfa Antibiotics (Verified Allergy, Intermediate, Hives/Thrush, 02/05/17) Doxycycline (Verified Allergy, Unknown, NEURO COMPLICATIONS, 02/05/17) GMG Sulfamethoxazole w/Trimethoprim (Verified Allergy, Unknown, hives, 02/05/17) Home Medications Scheduled Omeprazole (Prilosec), 40 MG PO BID Ranitidine Hcl (Zantac), 300 MG PO DAILY Ropinirole HCl (Ropinirole HCl), 1 MG PO HS Sertraline HCl (Sertraline HCl), 50 MG PO HS Sucralfate (Sucralfate), 1 GM PO BID Scheduled PRN Albuterol Hfa (Ventolin Hfa), 2 PUFFS PO Q4H PRN for Wheezing Dexamethasone (Decadron), 4 MG PO UD PRN for CHEMO PRE TREAT Diphenhy/Alum/Mag/Sucralfa (Magic Swizzle - Diphenhy/Alum/Mag/Sucralfa), 3-4 TSP PO ACHS PRN for Swallowing Pain Morphine Sulfate (Morphine Sulfate), 0.5 ML PO Q4-6HRS PRN for Pain Ondansetron (Ondansetron HCl), 8 MG PO TID PRN for Nausea Prochlorperazine Maleate (Prochlorperazine Maleate), 10 MG PO Q6H PRN for Nausea Review of Systems Constitutional: + fatigue, + weakness, No chills, No fever, No sweats Eyes: No worsening of vision ENT: No hearing loss Respiratory: No cough, No shortness of breath Cardiovascular: No chest pain, No claudication, No edema Abdomen: + diarrhea, + pain, No GI bleeding, No constipation, No nausea, No vomiting Musculoskeletal: No calf pain, No swelling Genitourinary - Male: + problem reported (decreased urination), No dysuria Neurologic: + weakness Psychiatric: No depression symptoms Endocrine: + fatigue Hematologic / Lymphatic: No abnormal bleeding/bruising Integumentary: No new/changing skin lesions Physical Exam Vital Signs Date Time Temp Pulse Resp B/P Pulse Ox O2 Delivery O2 Flow Rate FiO2 02/06/17 15:22 101 20 121/73 100 Room Air 02/06/17 13:09 36.7 114 20 136/94 96 Room Air General Appearance: WD/WN, no apparent distress, + obese, + pertinent finding ( Pt is sitting up in bed with no family at bedside) Head: normocephalic, atraumatic Eyes: normal inspection ENT: hearing grossly normal Neck: supple Respiratory/Chest: chest non-tender, lungs clear, normal breath sounds, no respiratory distress Cardiovascular: regular rate, rhythm, no edema, no murmur Abdomen/GI: normal bowel sounds, soft, + tenderness (mild diffuse) Back: normal inspection Extremities/Musculoskelatal: normal inspection, no calf tenderness, no pedal edema Neurologic/Psych: alert, normal mood/affect, oriented x 3 Skin: normal color, warm/dry Diagnostics Laboratory Results Results Past 24 Hours Test 02/06/17 14:35 02/06/17 15:40 Range/Units White Blood Count 8.83 4.8-10.8 K/uL Red Blood Count 4.35 4.7-6.1 M/uL Hemoglobin 14.6 14.0-18.0 g/dL Hematocrit 40.9 42-52 % Mean Corpuscular Volume 94.0 80-100 fL Mean Corpuscular Hemoglobin 33.6 25-34 pg Mean Corpuscular Hemoglobin Concent 35.7 32-36 g/dl Platelet Count 236 130-400 K/uL Mean Platelet Volume 9.0 7.4-10.4 fL Neutrophils (%) (Auto) 78.3 % Lymphocytes (%) (Auto) 9.6 % Monocytes (%) (Auto) 11.1 % Eosinophils (%) (Auto) 0.6 % Basophils (%) (Auto) 0.2 % Neutrophils # (Auto) 6.91 1.4-6.5 K/uL Lymphocytes # (Auto) 0.85 1.2-3.4 K/uL Monocytes # (Auto) 0.98 0.11-0.59 K/uL Eosinophils # (Auto) 0.05 0-0.5 K/uL Basophils # (Auto) 0.02 0-0.2 K/uL RDW Standard Deviation 45.5 36.4-46.3 fL RDW Coefficient of Variation 13.3 11.5-14.5 % Immature Granulocyte % (Auto) 0.2 % Immature Granulocyte # (Auto) 0.02 0.00-0.02 K/uL Sodium Level 141 136-145 mmol/L Potassium Level 3.7 3.5-5.1 mmol/L Chloride Level 107 98-107 mmol/L Carbon Dioxide Level 24 21-32 mmol/L Anion Gap 10.0 3-11 mmol/L Blood Urea Nitrogen 10 7-18 mg/dl Creatinine 0.86 0.60-1.40 mg/dl Est Creatinine Clear Calc Drug Dose 158.6 ml/min Estimated GFR () 129.3 Estimated GFR (Non- 111.6 BUN/Creatinine Ratio 11.5 10-20 Random Glucose 88 70-99 mg/dl Calcium Level 9.2 8.5-10.1 mg/dl Total Bilirubin 1.4 0.2-1 mg/dl Aspartate Amino Transf (AST/SGOT) 16 15-37 U/L Alanine Aminotransferase (ALT/SGPT) 34 12-78 U/L Alkaline Phosphatase 53 45-117 U/L Total Protein 7.5 6.4-8.2 gm/dl Albumin 3.9 3.4-5.0 gm/dl Globulin 3.6 2.5-4.0 gm/dl Albumin/Globulin Ratio 1.1 0.9-2 Lipase 87 73-393 U/L Urine Color YELLOW Urine Appearance CLEAR CLEAR Urine pH 8.0 4.5-7.5 Urine Specific [place] 1.011 1.000-1.030 Urine Protein NEG NEG Urine Glucose (UA) NEG NEG Urine Ketones NEG NEG Urine Occult Blood NEG NEG Urine Nitrite NEG NEG Urine Bilirubin NEG NEG Urine Urobilinogen NEG NEG Urine Leukocyte Esterase NEG NEG Microbiology Results 02/06/17 Shiga Toxin Test, Received Pending 02/06/17 Stool Culture, Received Pending 02/06/17 C.difficile Toxin B Gene (PCR) - Final, Complete Positive for C. difficile toxin B gene Impression Assessment and Plan C. DIFF COLITIS pt presented with >20 episodes of diarrhea daily for 4 days assoc with mild diffuse abd pain; no recent abx use -admit to med/surg -pt is afebrile with no leukocytosis -CT abd/pelvis yesterday-no acute abnormalities -renal function and electrolytes WNL; check mag -stool + C.diff -start Flagyl, IVF and probiotic -contact precautions -monitor STAGE I ESOPHAGEAL CA -dx October 2016; currently undergoing chemo and radiation -cont magic swizzle and morphine PRN pain -counseled regarding importance of smoking cessation -follows with oncology, Dr. Early GERD -cont PPI ANXIETY/DEPRESSION -stable -cont Zoloft DVT PROPHYLAXIS -subq Lovenox DISPO -Observation status until further workup is complete. Pt seen in collaboration with Dr. Early. Please see her addendum for further details. Thanks! -Of note: patient will be followed by Dr. Valadez starting tomorrow AM. VTE Prophylaxis VTE Risk Assessment Done? Y/N: Yes Risk Level: High
[2017-02-06 17:11] VITALS: O2SAT 100; Ht 175.3 cm; Wt 127.4 kg
[2017-02-06] MEDS ORDERED: MoRPHine SULFATE 2 MG/ML CARP IV PRN (18:15)
[2017-02-06] MEDS: SODIUM CHLORIDE 0.9% 1000ML 1,000 ML IV SCH (18:55)
[2017-02-06 19:00] VITALS: BP 112/82; PULSE 99; TEMP 36.9; O2SAT 100
[2017-02-06] MEDS ORDERED: OXYCODONE/ACETAMINOPHEN 5-325 TAB PO PRN (19:00)
[2017-02-06] MEDS ORDERED: MoRPHine SULFATE 2.5 MG/0.125 ML UDP PO PRN (19:30)
[2017-02-06 19:35] VITALS: BP 120/80; PULSE 94; TEMP 36.7; O2SAT 98
[2017-02-06] MEDS ORDERED: LIDOCAINE HCL 2% VISCOUS SOLN 60 ML, DiphenhydrAMINE HCL SYRUP 150 MG, ALUMINUM/MAGNESI... MT PRN ×4 (19:45)
[2017-02-06] MEDS: LACTOBACILLUS ACIDOPHILUS (FLORANEX) TAB PO SCH (21:22)
[2017-02-06] MEDS: METRONIDAZOLE / NSS 500 MG in PREMIXED NSS 100 ML IV SCH (21:22)
[2017-02-06] MEDS: SUCRALFATE 1 GM TAB PO SCH (21:23)
[2017-02-06] MEDS: ROPINIROLE HCL 1 MG TAB PO SCH (21:24)
[2017-02-06] MEDS: PANTOprazole SOD 40 MG TAB PO SCH (21:24)
[2017-02-06] MEDS: ENOXAPARIN 40 MG/0.4 ML SYR SQ SCH (21:24)
[2017-02-06] MEDS: SERTRALINE HCL 50 MG TAB PO SCH (21:25)
[2017-02-06 23:08] VITALS: BP 122/74; PULSE 97; TEMP 36.9; O2SAT 97
[2017-02-07] VITALS (8 sets, daily range): BP systolic 113–152; BP diastolic 65–86; PULSE 66–90; TEMP 36.4–36.9; O2SAT 97–100
[2017-02-07] MEDS: METRONIDAZOLE / NSS 500 MG in PREMIXED NSS 100 ML IV SCH ×2 (03:36→11:57)
[2017-02-07] MEDS: SODIUM CHLORIDE 0.9% 1000ML 1,000 ML IV SCH (04:56)
[2017-02-07 06:07] LABS: HEMATOCRIT 38.1 % (42-52); MEAN CELL VOLUME 95.7 fL (80-100); MEAN CORPUSCULAR HEMOGLOBIN 32.9 pg (25-34); MEAN CORPUSCULAR HGB CONC 34.4 g/dl (32-36); MEAN PLATELET VOLUME 8.9 fL (7.4-10.4); PLATELET COUNT 212 K/uL (130-400); RED BLOOD COUNT 3.98 M/uL (4.7-6.1); WHITE BLOOD COUNT 6.44 K/uL (4.8-10.8)
[2017-02-07 06:38] LABS: BUN/CREATININE RATIO 13.3 (10-20); CALCIUM 8.4 mg/dl (8.5-10.1); CREATININE 0.71 mg/dl (0.60-1.40)
[2017-02-07] MEDS: LACTOBACILLUS ACIDOPHILUS (FLORANEX) TAB PO SCH ×3 (08:13→18:04)
[2017-02-07] MEDS: SUCRALFATE 1 GM TAB PO SCH ×2 (08:13→21:03)
[2017-02-07] MEDS: RANITIDINE HCL 150 MG TAB PO SCH (08:13)
[2017-02-07] MEDS: PANTOprazole SOD 40 MG TAB PO SCH (10:37)
[2017-02-07] MEDS ORDERED: NURSING VERBAL MED ORDER ONE (13:45)
[2017-02-07] MEDS: VANCOMYCIN HCL 125 MG/2.5ML SOLN PO SCH ×3 (13:46→21:04)
[2017-02-07] MEDS: RASPBERRY SYRUP 5 ML UDP PO SCH ×3 (13:47→21:04)
--- NOTE | 2017-02-07 17:27 | Progress Note ---
Medicine Progress Note Date & Time of Visit: February 07, 2017 at 13:00. Subjective 36 yo M s/p two cycles of chemo and XRT in preparation for surgery for treatment of esophageal cancer (Stg I) who presents with voluminous diarrhea and was found to have c-diff colitis -he is tolerating clears this morning but drank some OJ and is now having some LLQ pain -bowel activity is present on that left side only on exam via auscultation -he has been without fevers or chills overnight and denies any nausea, vomiting , chest pain, shortness of breath or other symptoms at this time -he reports that his diarrhea has slowed down and he only has had 4 bouts of it this morning. Objective Last 8 Hrs Date Time Temp Pulse Resp B/P Pulse Ox O2 Delivery O2 Flow Rate FiO2 02/07/17 11:20 36.5 71 18 130/78 99 Room Air 02/07/17 08:30 99 Room Air 02/07/17 07:25 36.7 80 18 152/85 99 Room Air Physical Exam: GEN: WNWD, in no acute distress, alert and appropriate, not clinically ill- appearing HEENT: NC/AT, normal sclerae, mucous membranes are moist CARDIO: reg rate, S1/2 heard without m/g/r LUNGS: CTA bilaterally, no crackles, rales or wheezes, good diaphragmatic excursion ABD: soft, TTP in LLQ, non-distended, no rebound or guarding EXTREMITY: RP and DP palpable 2+ bilat, no LE swelling or edema, extremities are warm and well-perfused NEURO: CN 2-12 grossly intact MUSC: moves around easily in bed, no focal deficits SKIN: warm and dry Laboratory Results: 02/07/17 05:33 02/07/17 05:33 Test 02/06/17 14:35 02/06/17 15:40 02/07/17 05:33 Immature Granulocyte % (Auto) 0.2 % White Blood Count 8.83 K/uL (4.8-10.8) Red Blood Count 4.35 M/uL (4.7-6.1) 3.98 M/uL (4.7-6.1) Hemoglobin 14.6 g/dL (14.0-18.0) Hematocrit 40.9 % (42-52) Mean Corpuscular Volume 94.0 fL (80-100) 95.7 fL (80-100) Mean Corpuscular Hemoglobin 33.6 pg (25-34) 32.9 pg (25-34) Mean Corpuscular Hemoglobin Concent 35.7 g/dl (32-36) 34.4 g/dl (32-36) Platelet Count 236 K/uL (130-400) Mean Platelet Volume 9.0 fL (7.4-10.4) 8.9 fL (7.4-10.4) Neutrophils (%) (Auto) 78.3 % Lymphocytes (%) (Auto) 9.6 % Monocytes (%) (Auto) 11.1 % Eosinophils (%) (Auto) 0.6 % Basophils (%) (Auto) 0.2 % Neutrophils # (Auto) 6.91 K/uL (1.4-6.5) Lymphocytes # (Auto) 0.85 K/uL (1.2-3.4) Monocytes # (Auto) 0.98 K/uL (0.11-0.59) Eosinophils # (Auto) 0.05 K/uL (0-0.5) Basophils # (Auto) 0.02 K/uL (0-0.2) Immature Granulocyte # (Auto) 0.02 K/uL (0.00-0.02) Magnesium Level 2.0 mg/dl (1.8-2.4) Total Bilirubin 1.4 mg/dl (0.2-1) Aspartate Amino Transf (AST/SGOT) 16 U/L (15-37) Alanine Aminotransferase (ALT/SGPT) 34 U/L (12-78) Alkaline Phosphatase 53 U/L (45-117) Total Protein 7.5 gm/dl (6.4-8.2) Albumin 3.9 gm/dl (3.4-5.0) Globulin 3.6 gm/dl (2.5-4.0) Albumin/Globulin Ratio 1.1 (0.9-2) Lipase 87 U/L (73-393) Urine Color YELLOW Urine Appearance CLEAR (CLEAR) Urine pH 8.0 (4.5-7.5) Urine Specific [place] 1.011 (1.000-1.030) Urine Protein NEG (NEG) Urine Glucose (UA) NEG (NEG) Urine Ketones NEG (NEG) Urine Occult Blood NEG (NEG) Urine Nitrite NEG (NEG) Urine Bilirubin NEG (NEG) Urine Urobilinogen NEG (NEG) Urine Leukocyte Esterase NEG (NEG) RDW Standard Deviation 46.8 fL (36.4-46.3) RDW Coefficient of Variation 13.4 % (11.5-14.5) Anion Gap 7.0 mmol/L (3-11) Est Creatinine Clear Calc Drug Dose 192.1 ml/min Estimated GFR () 139.9 Estimated GFR (Non- 120.7 BUN/Creatinine Ratio 13.3 (10-20) Calcium Level 8.4 mg/dl (8.5-10.1) Date/Time Source Procedure Growth Status 02/06/17 14:35 Stool Shiga Toxin Test - Preliminary No E. Coli shiga toxin 1 or shiga tox... Resulted 02/06/17 14:35 Stool Stool Culture - Preliminary NO SALMONELLA ISOLATED TO DATE,... Resulted Last 24 Hours Test 02/06/17 14:35 02/06/17 15:40 02/07/17 05:33 White Blood Count 8.83 K/uL 6.44 K/uL Red Blood Count 4.35 M/uL 3.98 M/uL Hemoglobin 14.6 g/dL 13.1 g/dL Hematocrit 40.9 % 38.1 % Mean Corpuscular Volume 94.0 fL 95.7 fL Mean Corpuscular Hemoglobin 33.6 pg 32.9 pg Mean Corpuscular Hemoglobin Concent 35.7 g/dl 34.4 g/dl Platelet Count 236 K/uL 212 K/uL Mean Platelet Volume 9.0 fL 8.9 fL Neutrophils (%) (Auto) 78.3 % Lymphocytes (%) (Auto) 9.6 % Monocytes (%) (Auto) 11.1 % Eosinophils (%) (Auto) 0.6 % Basophils (%) (Auto) 0.2 % Neutrophils # (Auto) 6.91 K/uL Lymphocytes # (Auto) 0.85 K/uL Monocytes # (Auto) 0.98 K/uL Eosinophils # (Auto) 0.05 K/uL Basophils # (Auto) 0.02 K/uL RDW Standard Deviation 45.5 fL 46.8 fL RDW Coefficient of Variation 13.3 % 13.4 % Immature Granulocyte % (Auto) 0.2 % Immature Granulocyte # (Auto) 0.02 K/uL Sodium Level 141 mmol/L 142 mmol/L Potassium Level 3.7 mmol/L 4.0 mmol/L Chloride Level 107 mmol/L 110 mmol/L Carbon Dioxide Level 24 mmol/L 25 mmol/L Anion Gap 10.0 mmol/L 7.0 mmol/L Blood Urea Nitrogen 10 mg/dl 9 mg/dl Creatinine 0.86 mg/dl 0.71 mg/dl Est Creatinine Clear Calc Drug Dose 158.6 ml/min 192.1 ml/min Estimated GFR () 129.3 139.9 Estimated GFR (Non- 111.6 120.7 BUN/Creatinine Ratio 11.5 13.3 Random Glucose 88 mg/dl 89 mg/dl Calcium Level 9.2 mg/dl 8.4 mg/dl Magnesium Level 2.0 mg/dl Total Bilirubin 1.4 mg/dl Aspartate Amino Transf (AST/SGOT) 16 U/L Alanine Aminotransferase (ALT/SGPT) 34 U/L Alkaline Phosphatase 53 U/L Total Protein 7.5 gm/dl Albumin 3.9 gm/dl Globulin 3.6 gm/dl Albumin/Globulin Ratio 1.1 Lipase 87 U/L Urine Color YELLOW Urine Appearance CLEAR Urine pH 8.0 Urine Specific [place] 1.011 Urine Protein NEG Urine Glucose (UA) NEG Urine Ketones NEG Urine Occult Blood NEG Urine Nitrite NEG Urine Bilirubin NEG Urine Urobilinogen NEG Urine Leukocyte Esterase NEG Date/Time Source Procedure Growth Status 02/06/17 14:35 Stool Shiga Toxin Test - Preliminary No E. Coli shiga toxin 1 or shiga tox... Resulted 02/06/17 14:35 Stool Stool Culture - Preliminary NO SALMONELLA ISOLATED TO DATE,... Resulted 02/06/17 14:35 Stool C.difficile Toxin B Gene (PCR) - Final Positive for C. difficile toxin B gene Complete Assessment & Plan 36 yo M s/p two cycles of chemo and XRT in preparation for surgery for treatment of esophageal cancer (Stg I) who presents with voluminous diarrhea and was found to have c-diff colitis C. DIFF COLITIS pt presented with >20 episodes of diarrhea daily for 4 days assoc with mild diffuse abd pain; no recent abx use -this has slowed down this morning on the Flagyl IV -he remains afebrile with no leukocytosis -CT abd/pelvis yesterday-no acute abnormalities -renal function and electrolytes WNL -stop IVF as pt is tolerating PO, switch Flagyl IV to Vanc PO in preparation for discharge in next 1-2 days. -will cont this for 10 day course -contact precautions STAGE I ESOPHAGEAL CA -carboplatin and paclitaxel last received on 02/02 -October 2016; currently undergoing chemo and radiation in preparation for surgery -cont magic swizzle and morphine PRN pain -counseled regarding importance of smoking cessation -follows with oncology, Dr. Early -port in place on r anterior chest wall-looks clean with no signs of infection DYSPHAGIA per cork molder report, patient did not mention this to me likely a result of ongoing cancer therapy and location of cancer itself appreciate recs to boost nutrition and CRANE OILER eval GERD -stopping Protonix in setting of c-diff as there is no hard indication for it -will use Ranitidine and TUMS for any heartburn and sulcralfate, as well ANXIETY/DEPRESSION -stable -cont Zoloft DVT PROPHYLAXIS -subq Lovenox in setting of malignancy DISPO-cont to monitor him inpatient; change to inpatient status. Likely home in the next 1-2 days based on response to abx. Elyssa Valadez DO [facility] Hospitalist Current Inpatient Medications: Current Inpatient Medications Medications (Trade) Dose Ordered Sig/Kaylin Route Start Time Stop Time Status Last Admin Dose Admin Enoxaparin Sodium (Lovenox Inj) 40 mg Q24H SQ 02/06/17 20:00 03/08/17 19:59 02/06/17 21:24 40 MG Acetaminophen (Tylenol Tab) 650 mg Q4H PRN PO 02/06/17 16:00 03/08/17 15:59 Ondansetron HCl (Zofran Inj) 4 mg Q6H PRN IV 02/06/17 16:00 03/08/17 15:59 Albuterol (Ventolin Hfa Inhaler) 2 puffs Q4H PRN INH 02/06/17 16:15 03/08/17 16:14 Ropinirole HCl (Requip Tab) 1 mg HS PO 02/06/17 21:00 03/08/17 20:59 02/06/17 21:24 1 MG Sertraline HCl (Zoloft Tab) 50 mg HS PO 02/06/17 21:00 03/08/17 20:59 02/06/17 21:25 50 MG Sucralfate (Carafate Tab) 1 gm BID PO 02/06/17 20:00 03/08/17 20:59 02/07/17 08:13 1 GM Pantoprazole Sodium (Protonix Tab) 40 mg BID PO 02/06/17 20:00 03/08/17 20:59 02/07/17 10:37 40 MG Ranitidine HCl (zANTac TAB) 300 mg DAILY PO 02/07/17 08:00 03/09/17 08:59 02/07/17 08:13 300 MG Lactobacillus Acidophilus (Floranex Tab) 4 tab TIDM PO 02/06/17 18:00 03/08/17 17:59 02/07/17 11:57 4 TAB Morphine Sulfate (MoRPHine SULFATE INJ) 2 mg Q4H PRN IV 02/06/17 18:15 02/20/17 18:14 02/06/17 21:49 2 MG Morphine Sulfate 2.5 mg Q4H PRN PO 02/06/17 19:30 02/20/17 19:29 Lidocaine HCl/ Diphenhydramine HCl/Al Hydroxide/ Mg Hydroxide/ Glycerin/Barcode (VISCOUS LIDOCAINE 2% Soln/ Benadryl Syrup/ Maalox Susp/ Glycerin Anhydrous Soln) ACHS PRN MT 02/06/17 19:45 03/08/17 19:44 Heparin Sodium (Porcine) (Heparin 100 Unit/ml 5ml Flush) 5 ml PRN PRN IV 02/07/17 01:30 03/09/17 01:29
[2017-02-07] MEDS ORDERED: CALCIUM CARBONATE 500 MG CHEWABLE PO PRN (17:45)
[2017-02-07] MEDS: BOOST BREEZE NUTRITION DRINK 1 BOX PO SCH (21:02)
[2017-02-07] MEDS: SERTRALINE HCL 50 MG TAB PO SCH (21:05)
[2017-02-07] MEDS: ROPINIROLE HCL 1 MG TAB PO SCH (21:05)
[2017-02-07] MEDS: ENOXAPARIN 40 MG/0.4 ML SYR SQ SCH (21:05)
[2017-02-08] VITALS (8 sets, daily range): BP systolic 111–161; BP diastolic 64–85; PULSE 59–110; TEMP 36.5–36.9; O2SAT 94–100
[2017-02-08 06:12] LABS: HEMATOCRIT 37.8 % (42-52); MEAN CELL VOLUME 95.5 fL (80-100); MEAN CORPUSCULAR HEMOGLOBIN 34.1 pg (25-34); MEAN CORPUSCULAR HGB CONC 35.7 g/dl (32-36); PLATELET COUNT 193 K/uL (130-400); RED BLOOD COUNT 3.96 M/uL (4.7-6.1); WHITE BLOOD COUNT 6.14 K/uL (4.8-10.8)
[2017-02-08 06:42] LABS: BUN/CREATININE RATIO 11.1 (10-20); CALCIUM 8.8 mg/dl (8.5-10.1); CREATININE 0.8 mg/dl (0.60-1.40); MAGNESIUM 2.2 mg/dl (1.8-2.4); POTASSIUM 3.7 mmol/L (3.5-5.1)
[2017-02-08] MEDS: VANCOMYCIN HCL 125 MG/2.5ML SOLN PO SCH ×4 (08:42→20:48)
[2017-02-08] MEDS: RASPBERRY SYRUP 5 ML UDP PO SCH ×4 (08:42→20:48)
[2017-02-08] MEDS: RANITIDINE HCL 150 MG TAB PO SCH (08:42)
[2017-02-08] MEDS: LACTOBACILLUS ACIDOPHILUS (FLORANEX) TAB PO SCH ×3 (08:43→16:45)
[2017-02-08] MEDS: BOOST BREEZE NUTRITION DRINK 1 BOX PO SCH ×3 (08:43→20:00)
[2017-02-08] MEDS: SUCRALFATE 1 GM TAB PO SCH ×2 (08:43→20:51)
--- NOTE | 2017-02-08 09:31 | Radiation Oncology Progress Nt ---
Radiation Oncology Progress Nt Date of Service Date of Service: February 08, 2017. Subjective Pt evaluation today including: conversation w/ application support consultant Objective Vital Signs Date Time Temp Pulse Resp B/P Pulse Ox O2 Delivery O2 Flow Rate FiO2 02/08/17 08:40 Room Air 02/08/17 07:46 36.5 62 18 115/73 97 02/08/17 04:00 36.7 59 18 126/75 100 Room Air 02/08/17 00:00 Room Air 02/07/17 22:54 36.7 90 20 119/86 97 Room Air 02/07/17 19:20 36.9 72 18 113/65 100 Room Air 02/07/17 16:00 Room Air 02/07/17 15:13 36.4 66 18 122/77 100 Room Air 02/07/17 11:20 36.5 71 18 130/78 99 Room Air Laboratory Results Last 24 Hours Test 02/08/17 05:10 White Blood Count 6.14 K/uL Red Blood Count 3.96 M/uL Hemoglobin 13.5 g/dL Hematocrit 37.8 % Mean Corpuscular Volume 95.5 fL Mean Corpuscular Hemoglobin 34.1 pg Mean Corpuscular Hemoglobin Concent 35.7 g/dl RDW Standard Deviation 45.8 fL RDW Coefficient of Variation 13.3 % Platelet Count 193 K/uL Mean Platelet Volume 9.0 fL Sodium Level 142 mmol/L Potassium Level 3.7 mmol/L Chloride Level 108 mmol/L Carbon Dioxide Level 25 mmol/L Anion Gap 9.0 mmol/L Blood Urea Nitrogen 9 mg/dl Creatinine 0.80 mg/dl Est Creatinine Clear Calc Drug Dose 170.5 ml/min Estimated GFR () 133.2 Estimated GFR (Non- 114.9 BUN/Creatinine Ratio 11.1 Random Glucose 85 mg/dl Calcium Level 8.8 mg/dl Magnesium Level 2.2 mg/dl Assessment and Plan Mr. Roblero is a 36-year-old male who is currently under treatment for locally advanced esophageal cancer with concurrent chemoradiation therapy. The patient was seen in our clinic last week and was having severe diarrhea and was sent to the emergency room. The patient was admitted to the hospital and was diagnosed with C. difficile colitis. The patient is currently undergoing antibiotic therapy and IV hydration. I've spoken with the patient's primary care physician in the hospital and we have agreed to continue radiation therapy while the patient is in the inpatient setting. I did have the opportunity to evaluate the patient for myself as well and he is currently stable and eligible to undergo radiation therapy while on the inpatient setting.
[2017-02-08] MEDS: ENOXAPARIN 40 MG/0.4 ML SYR SQ SCH (20:49)
[2017-02-08] MEDS: ROPINIROLE HCL 1 MG TAB PO SCH (20:50)
[2017-02-08] MEDS: SERTRALINE HCL 50 MG TAB PO SCH (20:50)
[2017-02-09 04:05] VITALS: BP 132/80; PULSE 80; TEMP 36.5; O2SAT 98
[2017-02-09 07:27] VITALS: BP 130/84; PULSE 102; TEMP 36.7; O2SAT 99
[2017-02-09] MEDS: LACTOBACILLUS ACIDOPHILUS (FLORANEX) TAB PO SCH ×2 (07:43→12:21)
[2017-02-09] MEDS: RASPBERRY SYRUP 5 ML UDP PO SCH ×2 (07:43→12:20)
[2017-02-09] MEDS: SUCRALFATE 1 GM TAB PO SCH (07:43)
[2017-02-09] MEDS: VANCOMYCIN HCL 125 MG/2.5ML SOLN PO SCH ×2 (07:43→12:21)
[2017-02-09] MEDS: RANITIDINE HCL 150 MG TAB PO SCH (07:43)
[2017-02-09 07:45] VITALS: O2SAT 99
[2017-02-09] MEDS: BOOST BREEZE NUTRITION DRINK 1 BOX PO SCH (07:45)
--- NOTE | 2017-02-09 07:46 | Progress Note ---
Medicine Progress Note Date & Time of Visit: February 08, 2017. 0900 Subjective -pt reports doing well today -he is tolerating regular food and has no abdominal pain -He reports 3-4 loose stools this morning -ambulatory -afebrile and otherwise feeling fine -we discussed ways to avoid spreading infection at home when he is discharged including using a separate toilet and bathroom from other family members until diarrhea has resolved. He verbalized understanding that handwashing with soap and water is granda -XRT today as scheduled Objective 36.5 62 18 115/73 97% RA Physical Exam: GEN: WNWD, in no acute distress, alert and appropriate, appears well, sitting up , peppy disposition HEENT: NC/AT, normal sclerae, mucous membranes are moist CARDIO: reg rate, S1/2 heard without m/g/r LUNGS: CTA bilaterally, no crackles, rales or wheezes, good diaphragmatic excursion ABD: soft, nontender, non-distended, no rebound or guarding EXTREMITY: RP and DP palpable 2+ bilat, no LE swelling or edema, extremities are warm and well-perfused NEURO: CN 2-12 grossly intact MUSC: moves around easily in bed, no focal deficits SKIN: warm and dry Laboratory Results: 02/08/17 05:10 02/08/17 05:10 Test 02/06/17 14:35 02/06/17 15:40 02/08/17 05:10 Immature Granulocyte % (Auto) 0.2 % White Blood Count 8.83 K/uL (4.8-10.8) Red Blood Count 4.35 M/uL (4.7-6.1) 3.96 M/uL (4.7-6.1) Hemoglobin 14.6 g/dL (14.0-18.0) Hematocrit 40.9 % (42-52) Mean Corpuscular Volume 94.0 fL (80-100) 95.5 fL (80-100) Mean Corpuscular Hemoglobin 33.6 pg (25-34) 34.1 pg (25-34) Mean Corpuscular Hemoglobin Concent 35.7 g/dl (32-36) 35.7 g/dl (32-36) Platelet Count 236 K/uL (130-400) Mean Platelet Volume 9.0 fL (7.4-10.4) 9.0 fL (7.4-10.4) Neutrophils (%) (Auto) 78.3 % Lymphocytes (%) (Auto) 9.6 % Monocytes (%) (Auto) 11.1 % Eosinophils (%) (Auto) 0.6 % Basophils (%) (Auto) 0.2 % Neutrophils # (Auto) 6.91 K/uL (1.4-6.5) Lymphocytes # (Auto) 0.85 K/uL (1.2-3.4) Monocytes # (Auto) 0.98 K/uL (0.11-0.59) Eosinophils # (Auto) 0.05 K/uL (0-0.5) Basophils # (Auto) 0.02 K/uL (0-0.2) Immature Granulocyte # (Auto) 0.02 K/uL (0.00-0.02) Total Bilirubin 1.4 mg/dl (0.2-1) Aspartate Amino Transf (AST/SGOT) 16 U/L (15-37) Alanine Aminotransferase (ALT/SGPT) 34 U/L (12-78) Alkaline Phosphatase 53 U/L (45-117) Total Protein 7.5 gm/dl (6.4-8.2) Albumin 3.9 gm/dl (3.4-5.0) Globulin 3.6 gm/dl (2.5-4.0) Albumin/Globulin Ratio 1.1 (0.9-2) Lipase 87 U/L (73-393) Urine Color YELLOW Urine Appearance CLEAR (CLEAR) Urine pH 8.0 (4.5-7.5) Urine Specific [place] 1.011 (1.000-1.030) Urine Protein NEG (NEG) Urine Glucose (UA) NEG (NEG) Urine Ketones NEG (NEG) Urine Occult Blood NEG (NEG) Urine Nitrite NEG (NEG) Urine Bilirubin NEG (NEG) Urine Urobilinogen NEG (NEG) Urine Leukocyte Esterase NEG (NEG) RDW Standard Deviation 45.8 fL (36.4-46.3) RDW Coefficient of Variation 13.3 % (11.5-14.5) Anion Gap 9.0 mmol/L (3-11) Est Creatinine Clear Calc Drug Dose 170.5 ml/min Estimated GFR () 133.2 Estimated GFR (Non- 114.9 BUN/Creatinine Ratio 11.1 (10-20) Calcium Level 8.8 mg/dl (8.5-10.1) Magnesium Level 2.2 mg/dl (1.8-2.4) Date/Time Source Procedure Growth Status 02/06/17 14:35 Stool Shiga Toxin Test - Preliminary No E. Coli shiga toxin 1 or shiga tox... Resulted 02/06/17 14:35 Stool Stool Culture - Preliminary NO SALMONELLA ISOLATED TO DATE,... Resulted Assessment & Plan 36 yo M s/p two cycles of chemo and XRT in preparation for surgery for treatment of esophageal cancer (Stg I) who presents with voluminous diarrhea and was found to have c-diff colitis C. DIFF COLITIS pt presented with >20 episodes of diarrhea daily for 4 days assoc with mild diffuse abd pain; no recent abx use but on PPI -started on Flagyl IV-->switched to Vanc PO on 02/07 with improvement -CT abd/pelvis-no acute abnormalities -he remains afebrile with no leukocytosis -renal function and electrolytes WNL -will cont this for 10 day course -contact precautions STAGE I ESOPHAGEAL CA -carboplatin and paclitaxel last received on 02/02 -dx October 2016; currently undergoing chemo and radiation in preparation for surgery -XRT set up for today -cont magic swizzle and morphine PRN pain -counseled regarding importance of smoking cessation -follows with oncology, Dr. Early -port in place on r anterior chest wall-looks clean with no signs of infection DYSPHAGIA likely a result of ongoing cancer therapy and location of cancer itself appreciate recs to boost nutrition and DAMASCENER eval would reassess after treatment is completed--currently maintaining weight and reports no issues today GERD -stopping Protonix in setting of c-diff as there is no hard indication for it -will use Ranitidine and TUMS for any heartburn and sulcralfate, as well -patient is aware of this change and the relationship with C-diff ANXIETY/DEPRESSION -stable -cont Zoloft DVT PROPHYLAXIS -subq Lovenox in setting of malignancy DISPO-pt requesting to stay one more night to ensure no changes after XRT today. Plan for ssc in am. Elyssa Valadez DO [facility] Hospitalist Current Inpatient Medications: Current Inpatient Medications Medications (Trade) Dose Ordered Sig/Kaylin Route Start Time Stop Time Status Last Admin Dose Admin Enoxaparin Sodium (Lovenox Inj) 40 mg Q24H SQ 02/06/17 20:00 03/08/17 19:59 02/08/17 20:49 40 MG Acetaminophen (Tylenol Tab) 650 mg Q4H PRN PO 02/06/17 16:00 03/08/17 15:59 Ondansetron HCl (Zofran Inj) 4 mg Q6H PRN IV 02/06/17 16:00 03/08/17 15:59 Albuterol (Ventolin Hfa Inhaler) 2 puffs Q4H PRN INH 02/06/17 16:15 03/08/17 16:14 Ropinirole HCl (Requip Tab) 1 mg HS PO 02/06/17 21:00 03/08/17 20:59 02/08/17 20:50 1 MG Sertraline HCl (Zoloft Tab) 50 mg HS PO 02/06/17 21:00 03/08/17 20:59 02/08/17 20:50 50 MG Sucralfate (Carafate Tab) 1 gm BID PO 02/06/17 20:00 03/08/17 20:59 02/08/17 20:51 1 GM Ranitidine HCl (zANTac TAB) 300 mg DAILY PO 02/07/17 08:00 03/09/17 08:59 02/08/17 08:42 300 MG Lactobacillus Acidophilus (Floranex Tab) 4 tab TIDM PO 02/06/17 18:00 03/08/17 17:59 02/08/17 16:45 4 TAB Morphine Sulfate (MoRPHine SULFATE INJ) 2 mg Q4H PRN IV 02/06/17 18:15 02/20/17 18:14 02/06/17 21:49 2 MG Morphine Sulfate 2.5 mg Q4H PRN PO 02/06/17 19:30 02/20/17 19:29 Lidocaine HCl/ Diphenhydramine HCl/Al Hydroxide/ Mg Hydroxide/ Glycerin/Barcode (VISCOUS LIDOCAINE 2% Soln/ Benadryl Syrup/ Maalox Susp/ Glycerin Anhydrous Soln) ACHS PRN MT 02/06/17 19:45 03/08/17 19:44 Heparin Sodium (Porcine) (Heparin 100 Unit/ml 5ml Flush) 5 ml PRN PRN IV 02/07/17 01:30 03/09/17 01:29 02/07/17 16:35 5 ML Vancomycin HCl (Vancomycin Oral Soln) 125 mg QID PO 02/07/17 13:30 02/21/17 13:29 02/08/17 20:48 125 MG Raspberry (Raspberry Syrup 5ml Cup) 5 ml QID PO 02/07/17 13:30 02/21/17 13:29 02/08/17 20:48 5 ML Enteral Nutritional Formula (Boost Breeze Nutritional Drink) 1 box TID PO 02/07/17 20:00 03/09/17 19:59 02/08/17 15:21 1 BOX Calcium Carbonate (Tums Chew Tab) 500 mg Q6H PRN PO 02/07/17 17:45 03/09/17 17:44
[2017-02-09 11:20] VITALS: BP 146/82; PULSE 92; TEMP 36.7; O2SAT 99
[2017-02-09] MEDS ORDERED: VNCS125 PO (11:43)
--- NOTE | 2017-02-09 11:50 | Discharge Instructions ---
Discharge Instructions Date of Service February 09, 2017. Admission Reason for Admission: C Difficile Diarrhea Discharge Discharge Diagnosis / Problem: C- difficile diarrhea Discharge Goals Goal(s): Therapeutic intervention Activity Recommendations Activity Limitations: per Instructions/Follow-up section . Instructions / Follow-Up Instructions / Follow-Up Please take all medications as instructed. You antibiotic has been called into your pharmacy. Please note that Protonix has been stopped. It is HIGHLY recommended that you quit smoking. You are contagious until your diarrhea is completely resolved. Until this time , please use a separate bathroom than family members. Also, as we discussed, you will need to practice good handwashing techniques after using the restroom and before any food preparation to prevent the spread of this infection. You will need to follow-up with Dr. Weiner for re-evaluation to monitor your improvement. You are scheduled with him 02/15 @ 11:05am. Please bring all paperwork from this hospitalization with you and arrive 15 minutes early for appointment. It was a pleasure taking care of you! Call if you have any questions or problems. You can reach a [facility] hospitalist on duty at [facility] 24 hours a day by calling [phone]. Take care of yourself. Elyssa Valadez DO [facility] Hospitalist Current Hospital Diet Patient's current hospital diet: Regular Diet Discharge Diet Recommended Diet: Regular Diet Procedures Procedures Performed: none. Pending Studies Studies pending at discharge: no Medical Emergencies . Who to Call and When: Medical Emergencies: If at any time you feel your situation is an emergency, please call 911 immediately. . Non-Emergent Contact Non-Emergency issues call your: Primary Care Provider . . "Provider Documentation" section prepared by Elyssa Valadez. . VTE Core Measure Inpt VTE Proph given/why not?: Enoxaparin (Lovenox)SQ
--- NOTE | 2017-02-09 11:54 | Discharge Summary ---
Discharge Summary Date of Service February 09, 2017. Discharge Summary Admission Date: February 06, 2017 at 16:05 Discharge Date: February 09, 2017 Discharge Disposition: Home Principal Diagnosis: C-diff infection Stg I esophageal cancer-under treatment Dysphagia GERD Depression Procedures: XRT treatment-02/08/17 Vaccinations: None. Consultations: Radiation Oncology Pending Studies/Follow-Up: see instructions below Medication Reconciliation New Medications: Vancomycin HCl (Vancomycin HCl) 125 Mg/2.5 Ml Susp 125 MG PO QID for 10 Days, #40 DOSE Cont abx until complete. Last day is 02/09/17. Continued Medications: Albuterol Hfa (Ventolin Hfa) 200 Puffs/43136 Mcg Aers 2 PUFFS PO Q4H PRN for Wheezing Dexamethasone (Decadron) 4 Mg Tab 4 MG PO UD PRN for CHEMO PRE TREAT TAKE 3 TABLETS (12 MG) WITH FOOD THE NIGHT BEFORE CHEMO AND ON THE MORNING OF CHEMO. REPEAT WITH EACH CYCLE. Diphenhy/Alum/Mag/Sucralfa (Magic Swizzle - Diphenhy/Alum/Mag/Sucralfa) Susp 3-4 TSP PO ACHS PRN for Swallowing Pain, ML 30ML DIPHENHYDRAMINE SLN 12.5/5ML 60ML MAALOX 4GM CARAFATE SWISH AND SPIT Morphine Sulfate (Morphine Sulfate) 0.2 Mg/0.5 Ml Soln 0.5 ML PO Q4-6HRS PRN for Pain Ondansetron (Ondansetron HCl) 8 Mg Tab 8 MG PO TID PRN for Nausea Prochlorperazine Maleate (Prochlorperazine Maleate) 10 Mg Tab 10 MG PO Q6H PRN for Nausea Ranitidine Hcl (Zantac) 300 Mg Tab 300 MG PO DAILY Ropinirole HCl (Ropinirole HCl) 1 Mg Tab 1 MG PO HS Sertraline HCl (Sertraline HCl) 50 Mg Tab 50 MG PO HS Sucralfate (Sucralfate) 1 Gm Tab 1 GM PO BID Discontinued Medications: Omeprazole (Prilosec) 20 Mg Cap 40 MG PO BID Admission Information HPI (per Admitting provider): This is a 36 y/o male with PMHx of Esophageal CA currently undergoing chemo and radiation and other problems as outlined below who presents to the ED c/o diarrhea x 4 days. Pt reports that 4 days ago after receiving chemotherapy he developed diarrhea. He estimates he has >20 episodes of watery diarrhea daily. He has noticed occasional small amounts of bright red blood on the tissue when he wipes but no blood in the toilet bowl. Sxs are assoc with weakness, fatigue, generalized abdominal pain and decreased urination. Pt has been unable to eat as everything he eats "runs through" him. Pt denies any recent abx use or sick contacts at home. Pt was recently diagnosed with Stage I esophageal CA. He is currently undergoing chemotherapy once weekly (Wednesday). He follows with oncology, Dr. Early. Pt denies fever/chills, chest pain, palpitations, SOB, N/V , LE edema ,calf pain, lightheadedness/dizziness. In the ED, mildly tachy otherwise stable. Pt is afebrile with no leukocytosis. Renal function and electrolytes WNL. C. diff positive. Pt will be admitted for further evaluation and treatment. Physical Exam (per Admitting): General Appearance: WD/WN, no apparent distress, + obese, + pertinent finding (Pt is sitting up in bed with no family at bedside) Head: normocephalic, atraumatic Eyes: normal inspection ENT: hearing grossly normal Neck: supple Respiratory/Chest: chest non-tender, lungs clear, normal breath sounds, no respiratory distress Cardiovascular: regular rate, rhythm, no edema, no murmur Abdomen/GI: normal bowel sounds, soft, + tenderness (mild diffuse) Back: normal inspection Extremities/Musculoskelatal: normal inspection, no calf tenderness, no pedal edema Neurologic/Psych: alert, normal mood/affect, oriented x 3 Skin: normal color, warm/dry Hospital Course The patient was admitted to the medical floor and initially treated with IV Flagyl. He remained afebrile with no leukocytosis and normal renal function and electrolytes. He initially presented with >20 episodes of diarrhea daily for 4 days and after two days on Vancomycin PO (switched to this on HD2) he was down to 3-4 daily. On day on discharge he was afebrile and hemodynamically stable and was tolerating regular food for two days. He was ambulatory and was rearranging furniture in the room. He underwent his regularly scheduled XRT while in the hospital to stay on track with treatment. It is likely that his Protonix was related to this c-diff infection so this was stopped. He was taught and verbalized understanding of how to maintain infection control at home so others do not get sick. A follow-up appointment with his PCP was scheduled for him prior to discharge. He was discharged in good condition with a very strong recommendation to quit smoking. DO [facility] Total time spent on discharge = 60 minutes This includes examination of the patient, discharge planning, medication reconciliation, and communication with other providers. Discharge Instructions Discharge Instructions Date of Service February 09, 2017. Admission Reason for Admission: C Difficile Diarrhea Discharge Discharge Diagnosis / Problem: C- difficile diarrhea Discharge Goals Goal(s): Therapeutic intervention Activity Recommendations Activity Limitations: per Instructions/Follow-up section . Instructions / Follow-Up Instructions / Follow-Up Please take all medications as instructed. You antibiotic has been called into your pharmacy. Please note that Protonix has been stopped. It is HIGHLY recommended that you quit smoking. You are contagious until your diarrhea is completely resolved. Until this time , please use a separate bathroom than family members. Also, as we discussed, you will need to practice good handwashing techniques after using the restroom and before any food preparation to prevent the spread of this infection. You will need to follow-up with Dr. Weiner for re-evaluation to monitor your improvement. You are scheduled with him 02/15 @ 11:05am. Please bring all paperwork from this hospitalization with you and arrive 15 minutes early for appointment. It was a pleasure taking care of you! Call if you have any questions or problems. You can reach a [facility] on duty at [facility] 24 hours a day by calling [phone]. Take care of yourself. DO [facility] Additional Copies To Camilo Weiner M.D.
[2017-02-09 12:00] VITALS: BP 146/82; PULSE 92; TEMP 36.7; O2SAT 99
[2017-02-21] MEDS ORDERED: RXNS20 PO (23:24)
[2017-02-23] MEDS ORDERED: VNCS125 PO (12:29)
[2017-02-23] MEDS ORDERED: QSTP PO (12:29)
[2017-02-23] MEDS ORDERED: BNT10 PO (12:29)
[2017-03-03] MEDS ORDERED: LVQ750 PO (16:52)
[2017-03-03] MEDS ORDERED: LCTX PO (16:52)
[2017-03-03] MEDS ORDERED: LVNIS120 SQ (16:52)
== END 2017-02-09 13:00 | disposition home or self-care (01) | DRG 372 ==
LOC: ENRESERVTM → ENRESERVDT → C.EDB 13:06 → C.4E 16:05
PROVIDERS: ADMIT Internal Medicine; ATTEND Hospitalist
DX: A04.7 Enterocolitis due to Clostridium difficile (principal); C15.9 Malignant neoplasm of esophagus, unspecified; Z68.41 Body mass index [BMI] 40.0-44.9, adult; K52.1 Toxic gastroenteritis and colitis; E66.9 Obesity, unspecified; K21.9 Gastro-esophageal reflux disease without esophagitis; F41.9 Anxiety disorder, unspecified; F32.9 Major depressive disorder, single episode, unspecified; F17.210 Nicotine dependence, cigarettes, uncomplicated; E86.0 Dehydration; J45.909 Unspecified asthma, uncomplicated; T45.1X5A Adverse effect of antineoplastic and immunosuppressive drugs, initial encounter; T47.1X5A Adverse effect of other antacids and anti-gastric-secretion drugs, initial encounter; R10.9 Unspecified abdominal pain; R49.0 Dysphonia; Z87.19 Personal history of other diseases of the digestive system; Z90.49 Acquired absence of other specified parts of digestive tract; Z79.899 Other long term (current) drug therapy; Z79.52 Long term (current) use of systemic steroids; Z79.891 Long term (current) use of opiate analgesic; R19.7 Diarrhea, unspecified; F17.200 Nicotine dependence, unspecified, uncomplicated; Z86.19 Personal history of other infectious and parasitic diseases; Z85.01 Personal history of malignant neoplasm of esophagus; Z88.2 Allergy status to sulfonamides; Z88.3 Allergy status to other anti-infective agents; Z88.8 Allergy status to other drugs, medicaments and biological substances; Z83.3 Family history of diabetes mellitus; Z82.49 Family history of ischemic heart disease and other diseases of the circulatory system; R07.2 Precordial pain; G89.3 Neoplasm related pain (acute) (chronic); Z98.890 Other specified postprocedural states; Z51.0 Encounter for antineoplastic radiation therapy

== ENCOUNTER 2017-02-21 13:45 | Inpatient (IN) | payer OTHER ==
[~2017-02-21] VITALS: Ht 177.8 cm; Wt 125.3 kg
[~2017-02-21 13:45] MED LIST changes: -ACET-1256 PO; -OMEP20CA9 PO; +VNCS125 PO
[2017-02-21] MEDS ORDERED: MoRPHine SULFATE 4 MG/ML 1 ML CARP\\VIAL IV STA ×2 (14:14→17:43)
[2017-02-21] MEDS ORDERED: ONDANSETRON INJ 2 MG/ML 2 ML VIAL IV STA (14:14)
[2017-02-21] MEDS ORDERED: KETOROLAC TROMETHAMINE 30 MG/ML VIAL IV STA (14:14)
[2017-02-21] MEDS ORDERED: SODIUM CHLORIDE 0.9% 1000ML 2,000 ML IV STA (14:14)
[2017-02-21 14:40] LABS: BASO % 0.2 %; BASO ABS # 0.01 K/uL (0-0.2); COMPLETE YES; EOS % 0.5 %; HEMATOCRIT 38.2 % (42-52); IG% 0.2 %; LYMPH % 8.6 %; MEAN CELL VOLUME 95.3 fL (80-100); MEAN CORPUSCULAR HEMOGLOBIN 33.7 pg (25-34); MEAN CORPUSCULAR HGB CONC 35.3 g/dl (32-36); MEAN PLATELET VOLUME 9.2 fL (7.4-10.4); MONO % 7.5 %; PLATELET COUNT 143 K/uL (130-400); RED BLOOD COUNT 4.01 M/uL (4.7-6.1); WHITE BLOOD COUNT 5.83 K/uL (4.8-10.8)
[2017-02-21 15:04] LABS: BUN/CREATININE RATIO 10.7 (10-20); CREATININE 1.1 mg/dl (0.60-1.40); POTASSIUM 3.6 mmol/L (3.5-5.1)
--- NOTE | 2017-02-21 16:12 | DIAGNOSTIC IMAGING REPORT ---
CHEST AND ABDOMEN 2 VIEWS HISTORY: Generalized abdominal pain. COMPARISON: Abdomen and pelvis CT 02/05/2017. Chest 02/05/2017. FINDINGS: The lungs are clear. The cardiomediastinal silhouette is within normal limits. There is no pneumoperitoneum or pneumatosis. The bowel gas pattern is unremarkable. No evidence for bowel obstruction. No renal calculi. The right jugular Port-A-Cath has been slightly pulled back and likely resides at the brachiocephalic/internal jugular vein junction. IMPRESSION: No acute cardiopulmonary process. No evidence for bowel obstruction. Right jugular Port-A-Cath has been slightly pulled back and likely resides at the brachiocephalic/internal vein junction. Electronically signed by: Dane Betts M.D. 02/21/2017 4:11 PM Dictated Date/Time: 02/21/2017 4:09 PM
[2017-02-21 16:26] LABS: URINE APPEARANCE CLOUDY (CLEAR); URINE COLOR DK YELLOW; URINE NITRITE NEG (NEG); URINE PH 5.5 (4.5-7.5); URINE SPECIFIC GRAVITY 1.028 (1.000-1.030); UROBILINOGEN NEG (NEG); ZZUR CULT IF INDIC CLEAN CATCH NO
[2017-02-21 16:28] LABS: MANUAL MICROSCOPIC REQUIRED? NO; REVIEW REQ? YES
[2017-02-21 16:29] LABS: URINE BILIRUBIN NEG (NEG)
[2017-02-21] MEDS ORDERED: VANCOMYCIN HCL 150 MG/3 ML SOLN PO SCH (17:30)
--- NOTE | 2017-02-21 18:01 | History and Physical ---
History & Physical Date & Time of Service: February 21, 2017 at 18:00 . Chief Complaint: diarrhea, nausea, vomiting . Primary Care Physician: Camilo Weiner M.D. . History of Present Illness Source: patient, clinic records, hospital records 36 YO male followed by Dr. Weiner for Family Medicine and Dr. Bin Early for Hematology / Oncology. History of esophageal carcinoma, undergoing radiation therapy and chemotherapy. Hospitalized at [facility] 02/06/17 with diarrhea and dehydration. Found to have C diff. Treated with vancomycin with improvement. Discharged to home on 02/09/17. Continued to have intermittent loose stools without blood. Completed 10 day course of vancomycin yesterday. Worsening diarrhea today- about 10 episodes of watery stool. Associated with nausea and vomiting. No fever, abdominal pain, hematemesis, melena, hematochezia. . Past Medical/Surgical History Chronic Medical Problems: Diverticular disease of colon Status: Chronic Diverticulitis Status: Resolved Esophageal adenocarcinoma Permanent Comment: -Presented with dysphagia in May 2016 -Upper EGD - 11/16/16 - Biopsy - Adenocarinoma -Upper EGD with EUS - 11/24/16 Status: Chronic Gastroesophageal reflux disease Status: Chronic Surgical Problems: Status post partial colectomy Permanent Comment: diverticulitis with perforation Status: Chronic . Family History Diabetes mellitus FH: heart disease Hypertension Social History Smoking Status: Former Smoker Drug Use: marijuana Marital Status: single Housing status: lives alone Occupational Status: disabled Immunizations History of Influenza Vaccine: Yes History of Tetanus Vaccine?: Yes History of Pneumococcal: Yes History of Hepatitis B Vaccine: Unknown Multi-Drug Resistant Organisms History of MDRO: No Allergies Coded Allergies: Prednisone (Verified Allergy, Intermediate, HIVES, 02/05/17) Sulfa Antibiotics (Verified Allergy, Intermediate, Hives/Thrush, 02/05/17) Doxycycline (Verified Allergy, Unknown, NEURO COMPLICATIONS, 02/05/17) GMG Mushroom (Verified Allergy, Unknown, GI SYMPTOMS, 02/07/17) Sulfamethoxazole w/Trimethoprim (Verified Allergy, Unknown, hives, 02/05/17) Home Medications Scheduled Ranitidine Hcl (Zantac), 300 MG PO DAILY Ropinirole HCl (Ropinirole HCl), 1 MG PO HS Sertraline HCl (Sertraline HCl), 100 MG PO HS Sucralfate (Sucralfate), 1 GM PO BID Scheduled PRN Albuterol Hfa (Ventolin Hfa), 2 PUFFS PO Q4H PRN for Wheezing Dexamethasone (Decadron), 4 MG PO UD PRN for CHEMO PRE TREAT Diphenhy/Alum/Mag/Sucralfa (Magic Swizzle - Diphenhy/Alum/Mag/Sucralfa), 3-4 TSP PO ACHS PRN for Swallowing Pain Morphine Sulfate (Morphine Sulfate), 0.5 ML PO UD PRN for Pain Ondansetron (Ondansetron HCl), 8 MG PO TID PRN for Nausea Prochlorperazine Maleate (Prochlorperazine Maleate), 10 MG PO Q6H PRN for Nausea Review of Systems Constitutional: + weight loss, No fever Eyes: No worsening of vision ENT: No nasal symptoms, No sore throat Respiratory: No cough, No shortness of breath Cardiovascular: No chest pain, No edema Abdomen: + problem reported (as noted in HPI) Musculoskeletal: + joint pain, + muscle pain Genitourinary - Male: No dysuria, No hematuria Endocrine: + fatigue, No excessive thirst, No excessive urination Hematologic / Lymphatic: + abnormal bleeding/bruising (bruises easily) Integumentary: No new/changing skin lesions, No rash Physical Exam Vital Signs Date Time Temp Pulse Resp B/P Pulse Ox O2 Delivery O2 Flow Rate FiO2 02/21/17 16:58 107 20 114/69 94 Room Air 02/21/17 15:24 36.7 106 20 117/71 94 Room Air 02/21/17 13:49 36.7 111 20 114/69 94 Room Air General Appearance: WD/WN, no apparent distress, + mild distress Head: normocephalic, atraumatic Eyes: normal inspection, PERRL, EOMI, sclerae normal, + pertinent finding ( conjunctivae pink) ENT: normal ENT inspection, hearing grossly normal, pharynx normal Neck: supple, no adenopathy, thyroid normal, no JVD, trachea midline Respiratory/Chest: lungs clear, no respiratory distress, no accessory muscle use Cardiovascular: regular rate, rhythm, no edema, no gallop, no JVD, no murmur Abdomen/GI: normal bowel sounds, non tender, soft, no organomegaly, no pulsatile mass, + pertinent finding (slightly distended) Extremities/Musculoskelatal: normal inspection, no calf tenderness Neurologic/Psych: assessment director II-XII nml as tested (PERRL, EOMI, no facial palsy, no dysarthria), no motor/sensory deficits (motor grossly intact), alert, oriented x 3 Skin: normal color, warm/dry, no rash Lymphatic: no adenopathy (cervical) Diagnostics Laboratory Results Results Past 24 Hours Test 02/21/17 14:30 02/21/17 16:15 02/21/17 16:40 Range/Units White Blood Count 5.83 4.8-10.8 K/uL Red Blood Count 4.01 4.7-6.1 M/uL Hemoglobin 13.5 14.0-18.0 g/dL Hematocrit 38.2 42-52 % Mean Corpuscular Volume 95.3 80-100 fL Mean Corpuscular Hemoglobin 33.7 25-34 pg Mean Corpuscular Hemoglobin Concent 35.3 32-36 g/dl Platelet Count 143 130-400 K/uL Mean Platelet Volume 9.2 7.4-10.4 fL Neutrophils (%) (Auto) 83.0 % Lymphocytes (%) (Auto) 8.6 % Monocytes (%) (Auto) 7.5 % Eosinophils (%) (Auto) 0.5 % Basophils (%) (Auto) 0.2 % Neutrophils # (Auto) 4.84 1.4-6.5 K/uL Lymphocytes # (Auto) 0.50 1.2-3.4 K/uL Monocytes # (Auto) 0.44 0.11-0.59 K/uL Eosinophils # (Auto) 0.03 0-0.5 K/uL Basophils # (Auto) 0.01 0-0.2 K/uL RDW Standard Deviation 47.2 36.4-46.3 fL RDW Coefficient of Variation 13.9 11.5-14.5 % Immature Granulocyte % (Auto) 0.2 % Immature Granulocyte # (Auto) 0.01 0.00-0.02 K/uL Sodium Level 142 136-145 mmol/L Potassium Level 3.6 3.5-5.1 mmol/L Chloride Level 109 98-107 mmol/L Carbon Dioxide Level 21 21-32 mmol/L Anion Gap 12.0 3-11 mmol/L Blood Urea Nitrogen 12 7-18 mg/dl Creatinine 1.10 0.60-1.40 mg/dl Est Creatinine Clear Calc Drug Dose 119.5 ml/min Estimated GFR () 99.6 Estimated GFR (Non- 85.9 BUN/Creatinine Ratio 10.7 10-20 Random Glucose 146 70-99 mg/dl Calcium Level 9.0 8.5-10.1 mg/dl Total Bilirubin 0.8 0.2-1 mg/dl Direct Bilirubin 0.2 0-0.2 mg/dl Aspartate Amino Transf (AST/SGOT) 24 15-37 U/L Alanine Aminotransferase (ALT/SGPT) 57 12-78 U/L Alkaline Phosphatase 55 45-117 U/L Total Protein 7.4 6.4-8.2 gm/dl Albumin 3.8 3.4-5.0 gm/dl Lipase 101 73-393 U/L Urine Color DK YELLOW Urine Appearance CLOUDY CLEAR Urine pH 5.5 4.5-7.5 Urine Specific [place] 1.028 1.000-1.030 Urine Protein 1+ NEG Urine Glucose (UA) NEG NEG Urine Ketones TRACE NEG Urine Occult Blood NEG NEG Urine Nitrite NEG NEG Urine Bilirubin NEG NEG Urine Urobilinogen NEG NEG Urine Leukocyte Esterase NEG NEG Urine WBC (Auto) 1-5 0-5 /hpf Urine RBC (Auto) 0-4 0-4 /hpf Urine Hyaline Casts (Auto) 10-30 0-5 /lpf Urine Epithelial Cells (Auto) 10-20 0-5 /lpf Urine Bacteria (Auto) NEG NEG Urine Crystals CALCIUM OXALATE NONE PRSENT Lactic Acid Level 1.2 0.4-2.0 mmol/L Diagnostic Radiology CHEST AND ABDOMEN 2 VIEWS FINDINGS: The lungs are clear. The cardiomediastinal silhouette is within normal limits. There is no pneumoperitoneum or pneumatosis. The bowel gas pattern is unremarkable. No evidence for bowel obstruction. No renal calculi. The right jugular Port-A-Cath has been slightly pulled back and likely resides at the brachiocephalic/internal jugular vein junction. IMPRESSION: No acute cardiopulmonary process. No evidence for bowel obstruction. Right jugular Port-A-Cath has been slightly pulled back and likely resides at the brachiocephalic/internal vein junction. Electronically signed by: Dane Betts M.D. 02/21/2017 4:11 PM Dictated Date/Time: 02/21/2017 4:09 PM . Impression Assessment and Plan SEVERE DIARRHEA Just finished course of vancomycin for C diff. Persistent or recurrent C diff? Other etiology? Check stools for C diff and routine enteric pathogens. Monitor fluid status, lytes. ESOPHAGEAL CA Management per Hematology / Oncology. VTE PROPHYLAXIS Moderate-high risk for VTE. SQ enoxaparin. Ambulate. DISPOSITION Admit to Oncology Unit. Expected discharge to home. Family Medicine follow-up with Dr. Weiner. Hematology / Oncology follow-up with Dr. Bin Early. . VTE Prophylaxis Risk Level: Moderate Given or contraindicated: Enoxaparin (Lovenox)SQ
[2017-02-21] MEDS ORDERED: ONDANSETRON INJ 2 MG/ML 2 ML VIAL IV PRN (18:15)
[2017-02-21 18:27] VITALS: BMI 41.9
[2017-02-21] MEDS ORDERED: VANCOMYCIN HCL 150 MG/3 ML SOLN PO ONE (18:30)
[2017-02-21] MEDS ORDERED: RASPBERRY SYRUP 5 ML UDP PO ONE (18:30)
[2017-02-21 18:41] LABS: INR 1.1 (0.9-1.1); PROTHROMBIN TIME (PATIENT) 11.5 SECONDS (9.0-12.0)
[2017-02-21 19:21] VITALS: O2SAT 98
[2017-02-21 19:45] VITALS: BP 125/94; PULSE 99; TEMP 36.5; O2SAT 99
[2017-02-21] MEDS: ENOXAPARIN 40 MG/0.4 ML SYR SQ SCH (20:22)
--- NOTE | 2017-02-21 21:08 | EMERGENCY ROOM VISIT NOTE ---
History Report prepared by Padilla: Viktor Simons Under the Supervision of: Dr. Rey Alonso D.O. First contact with patient: 14:02 Chief Complaint: DIARRHEA Stated Complaint: DIARRHEA,ABDOMINAL PAIN,VOMITING,NAUSEA Nursing Triage Summary: triage note: pt reports hx of stage 1 throat cancer. pt reports he was dx with c-diff and admitted to hospital approx 2 weeks ago. pt reports continued diarrhea. History of Present Illness The patient is a 36 year old male who presents to the Emergency Room with complaints of persistent diarrhea beginning two weeks ago. He was found to have C-Diff two weeks ago and was hospitalized for it. He states that he was discharged on antibiotics, and finished the treatment yesterday. The patient also complains of abdominal pain, body aches, SOB, weakness, and nausea. He states "everything I eat just goes right through me". He states that the diarrhea has been constant and has not improved since it began two weeks ago. Pt denies headache, change in vision, fevers, chest pain, vomiting, pain with urination, and melena. He has a history of stage 1 esophageal cancer. He is receiving chemotherapy and radiation therapy with his most recent chemotherapy treatment occurring three days ago. Source of History: patient Onset: Two weeks ago Quality: other (diarrhea) Timing: other (persistent) Associated Symptoms: + SOB, + abdominal pain, + nausea, + weakness, No back pain, No chest pain, No chills, No fevers, No headache, No vomiting Note: The patient also complains of body aches. Review of Systems See HPI for pertinent positives & negatives. A total of 10 systems reviewed and were otherwise negative. Past Medical & Surgical Medical Problems: (1) Abscess (2) Acute lymphangitis (3) Anxiety (4) Asthma, Unspecified (5) C. difficile diarrhea (6) Cellulitis of scalp (7) Cellulitis of scalp (8) Diarrhea (9) Diverticulitis (10) Diverticulitis (11) Esophageal adenocarcinoma (12) Esophageal carcinoma (13) Tobacco user Surgical Problems: (1) History of bowel resection Family History Diabetes mellitus FH: heart disease Hypertension Social History Smoking Status: Current Every Day Smoker Alcohol Use: none Drug Use: marijuana Marital Status: single Housing Status: lives with family Occupation Status: disabled Current/Historical Medications Scheduled Ranitidine Hcl (Zantac), 300 MG PO DAILY Ropinirole HCl (Ropinirole HCl), 1 MG PO HS Sertraline HCl (Sertraline HCl), 100 MG PO HS Sucralfate (Sucralfate), 1 GM PO BID Scheduled PRN Albuterol Hfa (Ventolin Hfa), 2 PUFFS PO Q4H PRN for Wheezing Dexamethasone (Decadron), 4 MG PO UD PRN for CHEMO PRE TREAT Diphenhy/Alum/Mag/Sucralfa (Magic Swizzle - Diphenhy/Alum/Mag/Sucralfa), 3-4 TSP PO ACHS PRN for Swallowing Pain Morphine Sulfate (Morphine Sulfate), 0.5 ML PO Q4-6HRS PRN for Pain Ondansetron (Ondansetron HCl), 8 MG PO TID PRN for Nausea Prochlorperazine Maleate (Prochlorperazine Maleate), 10 MG PO Q6H PRN for Nausea Allergies Coded Allergies: Prednisone (Verified Allergy, Intermediate, HIVES, 02/05/17) Sulfa Antibiotics (Verified Allergy, Intermediate, Hives/Thrush, 02/05/17) Doxycycline (Verified Allergy, Unknown, NEURO COMPLICATIONS, 02/05/17) GMG Mushroom (Verified Allergy, Unknown, GI SYMPTOMS, 02/07/17) Sulfamethoxazole w/Trimethoprim (Verified Allergy, Unknown, hives, 02/05/17) Physical Exam Vital Signs Date Time Temp Pulse Resp B/P Pulse Ox O2 Delivery O2 Flow Rate FiO2 02/21/17 16:58 107 20 114/69 94 Room Air 02/21/17 15:24 36.7 106 20 117/71 94 Room Air 02/21/17 13:49 36.7 111 20 114/69 94 Room Air Physical Exam GENERAL: Sitting up in bed, disheveled, no distress, non-toxic EYE EXAM: normal conjunctiva OROPHARYNX: no exudate, no erythema, lips, buccal mucosa, and tongue normal and mucous membranes are moist NECK: supple, no nuchal rigidity, no adenopathy, non-tender LUNGS: Clear to auscultation. Normal chest wall mechanics HEART: no murmurs, S1 normal and S2 normal ABDOMEN: abdomen soft, normo-active bowel sounds, no masses, no rebound or guarding. Mild diffuse tenderness to palpation. BACK: Back is symmetrical on inspection and there is no deformity, no CVA tenderness. Acute reproducible tenderness along the right medial aspect of the scaphoid. Pain worsens with ROM of the shoulder. SKIN: no rashes and no bruising UPPER EXTREMITIES: upper extremities are grossly normal. LOWER EXTREMITIES: No pitting edema. NEURO EXAM: Normal sensorium, cranial nerves II-XII grossly intact, normal speech, no gross weakness of arms, no gross weakness of legs. Medical Decision & Procedures ER Provider Diagnostic Interpretation: Radiology results as stated below per my review and the radiologist's interpretation: CHEST AND ABDOMEN 2 VIEWS FINDINGS: The lungs are clear. The cardiomediastinal silhouette is within normal limits. There is no pneumoperitoneum or pneumatosis. The bowel gas pattern is unremarkable. No evidence for bowel obstruction. No renal calculi. The right jugular Port-A-Cath has been slightly pulled back and likely resides at the brachiocephalic/internal jugular vein junction. IMPRESSION: No acute cardiopulmonary process. No evidence for bowel obstruction. Right jugular Port-A-Cath has been slightly pulled back and likely resides at the brachiocephalic/internal vein junction. Electronically signed by: Dane Betts M.D. Laboratory Results 02/21/17 14:30 Red Blood Count 4.01, Mean Corpuscular Volume 95.3, Mean Corpuscular Hemoglobin 33.7, Mean Corpuscular Hemoglobin Concent 35.3, Mean Platelet Volume 9.2, Neutrophils (%) (Auto) 83.0, Lymphocytes (%) (Auto) 8.6, Monocytes (%) (Auto) 7.5, Eosinophils (%) (Auto) 0.5, Basophils (%) (Auto) 0.2, Neutrophils # (Auto) 4.84, Lymphocytes # (Auto) 0.50, Monocytes # (Auto) 0.44, Eosinophils # (Auto) 0.03, Basophils # (Auto) 0.01 02/21/17 14:30 Test 02/21/17 14:30 02/21/17 16:15 02/21/17 16:40 White Blood Count 5.83 K/uL (4.8-10.8) Red Blood Count 4.01 M/uL (4.7-6.1) Hemoglobin 13.5 g/dL (14.0-18.0) Hematocrit 38.2 % (42-52) Mean Corpuscular Volume 95.3 fL (80-100) Mean Corpuscular Hemoglobin 33.7 pg (25-34) Mean Corpuscular Hemoglobin Concent 35.3 g/dl (32-36) Platelet Count 143 K/uL (130-400) Mean Platelet Volume 9.2 fL (7.4-10.4) Neutrophils (%) (Auto) 83.0 % Lymphocytes (%) (Auto) 8.6 % Monocytes (%) (Auto) 7.5 % Eosinophils (%) (Auto) 0.5 % Basophils (%) (Auto) 0.2 % Neutrophils # (Auto) 4.84 K/uL (1.4-6.5) Lymphocytes # (Auto) 0.50 K/uL (1.2-3.4) Monocytes # (Auto) 0.44 K/uL (0.11-0.59) Eosinophils # (Auto) 0.03 K/uL (0-0.5) Basophils # (Auto) 0.01 K/uL (0-0.2) RDW Standard Deviation 47.2 fL (36.4-46.3) RDW Coefficient of Variation 13.9 % (11.5-14.5) Immature Granulocyte % (Auto) 0.2 % Immature Granulocyte # (Auto) 0.01 K/uL (0.00-0.02) Prothrombin Time 11.5 SECONDS (9.0-12.0) Prothromb Time International Ratio 1.1 (0.9-1.1) Activated Partial Thromboplast Time 26.1 SECONDS (21.0-31.0) Partial Thromboplastin Ratio 1.0 Anion Gap 12.0 mmol/L (3-11) Est Creatinine Clear Calc Drug Dose 119.5 ml/min Estimated GFR () 99.6 Estimated GFR (Non- 85.9 BUN/Creatinine Ratio 10.7 (10-20) Calcium Level 9.0 mg/dl (8.5-10.1) Total Bilirubin 0.8 mg/dl (0.2-1) Direct Bilirubin 0.2 mg/dl (0-0.2) Aspartate Amino Transf (AST/SGOT) 24 U/L (15-37) Alanine Aminotransferase (ALT/SGPT) 57 U/L (12-78) Alkaline Phosphatase 55 U/L (45-117) Total Protein 7.4 gm/dl (6.4-8.2) Albumin 3.8 gm/dl (3.4-5.0) Lipase 101 U/L (73-393) Urine Color DK YELLOW Urine Appearance CLOUDY (CLEAR) Urine pH 5.5 (4.5-7.5) Urine Specific [place] 1.028 (1.000-1.030) Urine Protein 1+ (NEG) Urine Glucose (UA) NEG (NEG) Urine Ketones TRACE (NEG) Urine Occult Blood NEG (NEG) Urine Nitrite NEG (NEG) Urine Bilirubin NEG (NEG) Urine Urobilinogen NEG (NEG) Urine Leukocyte Esterase NEG (NEG) Urine WBC (Auto) 1-5 /hpf (0-5) Urine RBC (Auto) 0-4 /hpf (0-4) Urine Hyaline Casts (Auto) 10-30 /lpf (0-5) Urine Epithelial Cells (Auto) 10-20 /lpf (0-5) Urine Bacteria (Auto) NEG (NEG) Urine Crystals CALCIUM OXALATE (NONE Lactic Acid Level 1.2 mmol/L (0.4-2.0) Laboratory results per my review. Medications Administered Medications (Trade) Dose Ordered Sig/Kaylin Route Start Time Stop Time Status Last Admin Dose Admin Sodium Chloride (Nss 1000ml) 2,000 ml @ 999 mls/hr Q2H1M STAT IV 02/21/17 14:14 02/21/17 16:14 DC 02/21/17 14:41 999 MLS/HR Ondansetron HCl (Zofran Inj) 4 mg NOW STAT IV 02/21/17 14:14 02/21/17 14:16 DC 02/21/17 14:41 4 MG Morphine Sulfate (MoRPHine SULFATE INJ) 4 mg NOW STAT IV 02/21/17 14:14 02/21/17 14:16 DC 02/21/17 14:42 4 MG Ketorolac Tromethamine (Toradol Inj) 30 mg NOW STAT IV 02/21/17 14:14 02/21/17 14:16 DC 02/21/17 14:41 30 MG Morphine Sulfate (MoRPHine SULFATE INJ) 4 mg NOW STAT IV 02/21/17 17:43 02/21/17 17:44 DC 02/21/17 17:53 4 MG ED Course ED COURSE: Vital signs were reviewed and showed tachycardia The patients medical record was reviewed The above diagnostic studies were performed and reviewed. ED treatments and interventions as stated above. 1405: The patient was evaluated in room B12B. A complete history and physical examination was performed. 1414: Ordered Toradol Inj 30 mg IV, Morphine Sulfate 4 mg IV, Zofran Inj 4 mg IV , Sodium Chloride 2000 ml @ 999 mls/hr IV. 1730: Ordered Vancomycin HCl 150 mg PO. 1743: Ordered Morphine Sulfate 4 mg IV. 1747: Upon reevaluation, the patient is resting comfortably. I discussed my findings with the patient and he understands and agrees with the treatment plan. Based on the patients age, coexisting illnesses, exam and lab findings the decision to treat as an inpatient was made. The patient remained stable while under my care. The patient will be evaluated for further management. Medical Decision Differential diagnoses includes but is not limited to gastritis, peptic ulcer disease, GERD, gallbladder disease, pancreatitis, small bowel obstruction, acute coronary syndrome, pericarditis, ischemic bowel, irritable bowel disease, irritable bowel syndrome, appendicitis, diverticulitis, malignancy, hernia, urinary tract infection, torsion, perforation, trauma, infectious. Patient is a 36-year-old who presents the ER for persistent diarrhea. He was recently admitted on the sixth and found to have C. difficile and was eventually discharged on vancomycin. He is receiving chemotherapy with his last dose early last week. He notes that he has been feeling extremely weak and tired. Abdominal exam was benign. He was given 2 L normal saline he remained persistently tachycardic. I discussed the case with his district medical examiner oncologist they recommended observation. Labs show no significant leukocytosis or anemia. BMP is unremarkable along with LFTs, bilirubin and lipase. Lactic acid was negative. UA was negative. No stool is obtained along the ER. Obstruction series was unremarkable. He was given a dose of oral vancomycin and was discussed with internal medicine for observation overnight. Consults Time Called: 1724 Consulting Physician: Dr. Early -Hematology/Oncology Returned Call: [phone] I reviewed the patient's case. Dr. Early recommends that the patient be observed overnight. Additional Consults: Time Called: 174 Consulted Physician: Dr. Devi Dunn Returned Call: 174 Additional Comments: I reviewed the patient's case with Dr. Quinonez. Baltazar will evaluate the patient for further management. Impression Primary Impression: C. difficile diarrhea Additional Impressions: Dehydration Failure of outpatient treatment Scribe Attestation The scribe's documentation has been prepared under my direction and personally reviewed by me in its entirety. I confirm that the note above accurately reflects all work, treatment, procedures, and medical decision making performed by me. Departure Information Referrals Camilo Weiner M.D. (PCP) Patient Instructions [facility] Problem Qualifiers
[2017-02-21] MEDS ORDERED: ALBUTEROL HFA 8 GM INHALER INH PRN (23:00)
[2017-02-21] MEDS ORDERED: RXNS20 PO ×2 (23:24)
[2017-02-21] MEDS ORDERED: MoRPHine SULFATE 10 MG/0.5 ML UDP PO PRN (23:30)
[2017-02-21 23:42] VITALS: BP 107/74; PULSE 102; TEMP 36.7; O2SAT 99
[2017-02-22] MEDS ORDERED: DIPHENOXYLATE/ATROPINE 2.5/0.025MG TAB PO PRN (04:15)
[2017-02-22 04:45] VITALS: BP 104/75; PULSE 115; TEMP 36.7; O2SAT 97
[2017-02-22 06:14] LABS: HEMATOCRIT 35.8 % (42-52); MEAN CELL VOLUME 95.7 fL (80-100); MEAN CORPUSCULAR HEMOGLOBIN 32.6 pg (25-34); MEAN CORPUSCULAR HGB CONC 34.1 g/dl (32-36); MEAN PLATELET VOLUME 9.7 fL (7.4-10.4); PLATELET COUNT 138 K/uL (130-400); RED BLOOD COUNT 3.74 M/uL (4.7-6.1); WHITE BLOOD COUNT 4.01 K/uL (4.8-10.8)
[2017-02-22 06:19] VITALS: BMI 41.7
[2017-02-22 06:54] LABS: BUN/CREATININE RATIO 12.1 (10-20); CALCIUM 8.3 mg/dl (8.5-10.1); CREATININE 0.85 mg/dl (0.60-1.40); POTASSIUM 4.4 mmol/L (3.5-5.1)
[2017-02-22] MEDS: LACTATED RINGER'S 1000ML 1,000 ML IV SCH ×2 (07:10→12:06)
[2017-02-22] MEDS: RANITIDINE HCL 150 MG TAB PO SCH (07:31)
[2017-02-22] MEDS: SUCRALFATE 1 GM TAB PO SCH ×2 (07:32→20:08)
[2017-02-22 07:38] VITALS: BP 116/72; PULSE 88; TEMP 36.7; O2SAT 98
--- NOTE | 2017-02-22 08:15 | Gastrointestinal Consultation ---
Gastrointestinal Consultation Date of Consultation: February 22, 2017 Attending Physician: Rory Consulting Physician: Rivera Reason for Consultation: diarrhea, h/o c.diff History of Present Illness Patient is a 36 year old male w/ PMH significant for GERD, diverticulitis s/p partial colectomy, esophageal adenocarcinoma diagnosed 11/20 started on paclitaxel and carboplatin once weekly with daily radiation, asthma, depression , anxiety and tobacco use who presents through the ED for evaluation of weakness , fatigue and worsening diarrhea. He was admitted and discharged 02/06/17-02/09/17 for c.diff diarrhea. He took his last dose of PO vancomycin Wednesday prior to arrival. He notes mild improvement of his diarrheal symptoms while being on vancomycin, however, his stool remained loose with abdominal cramping and urgency. Yesterday he had 10+ BMs that were watery with abdominal pain before a BM and up to 5 minutes after a BM. No black or bloody stools. No mucous in his stools. This AM he is feeling better. 3 loose, watery stools with urgency and abdominal cramping. + nausea which has been persistent since starting chemotherapy. + unintentional weight loss. No black/bloody stools. He denies fever, chills, chest pain, SOB, painful/difficulty swallowing, epigastric pain/ burning, hematemesis/coffee ground emesis. Stool for c.diff negative. Stool culture pending. Family history of IBD: unaware ABD XRAY 02/21/17: No acute cardiopulmonary process. No evidence for bowel obstruction. Right jugular Port-A-Cath has been slightly pulled back and likely resides at the brachiocephalic/internal vein junction. EUS 01/20/17: A previously known mass was found in the gastroesophageal junction , consistent with adenocarcinoma. This was staged T3 N0 Mx by endosonographic criteria. There was abnormal echogenicity in the left lobe of the liver suggestive of focal fatty sparing. Fine needle aspiration performed to rule out metastatic disease. EUS-guided fiducial markers were successfully deployed in the GE junction mass for upcoming radiation therapy. EGD 01/20/17: Partially obstructing, known malignant esophageal tumor was found in the lower third of the esophagus and at the gastroesophageal junction. Balloon cryotherapy ablation using nitrous oxide for tumor debulking to help with symptomatic dysphagia was successfully performed. EUS 01/05/17: A mass was found in the gastroesophageal junction and in the lower third of the esophagus. The esophagitis has significantly improved allowing for better staging. A tissue diagnosis was obtained prior to this exam. This is consistent with adenocarcinoma. This was staged T3 N0 Mx by endosonographic criteria. EGD 01/05/17: Previously known malignant esophageal tumor(adenocarcinoma) was found in the lower third of the esophagus and at the gastroesophageal junction. The esophagitis has significantly improved allowing for better staging, which now shows a T3 N0 mass, thus endoscopic resection was not performed. EUS 11/24/16: A mass was found in the lower third of the esophagus. A tissue diagnosis was obtained prior to this exam. This is consistent with adenocarcinoma. This was staged T1b N0 Mx by endosonographic criteria. Endosonographic images of the left adrenal gland were unremarkable. There was abnormal echogenicity in the entire examined liver. This was hyperechoic. The diagnosis is fatty infiltration. No specimens collected. EGD 11/16/16: LA Grade D reflux esophagitis. Rule out Samson's esophagus. Hiatus hernia. Normal stomach. Normal examined duodenum. Multiple biopsies were obtained at 36, 38 and 40 cm from the incisors. EGD 09/14/16: LA Grade C reflux esophagitis. Normal gastric body. No specimens collected Colonoscopy 09/12/13: Patent end-to-side ileo-colonic anastomosis. Past Medical/Surgical History Medical Problems: (1) Abdominal pain Status: Acute (2) C. difficile colitis Status: Acute (3) Cancer associated pain Status: Acute (4) Chest wall pain Status: Acute (5) Dehydration Status: Acute (6) Diarrhea Status: Acute (7) Diarrhea Status: Acute (8) Diffuse abdominal pain Status: Acute (9) Substernal precordial chest pain Status: Acute (10) Throat pain in adult Status: Acute Past Medical History: GERD, diverticulitis s/p partial colectomy, esophageal adenocarcinoma, asthma, depression, anxiety and tobacco use Past Surgical History: EGD, EUS, colonoscopy, partial colectomy Family History Diabetes mellitus FH: heart disease Hypertension Social History Smoking Status: Current Every Day Smoker Alcohol Use: none Drug Use: marijuana Marital Status: single Housing Status: lives with family Occupation Status: disabled Allergies Coded Allergies: Prednisone (Verified Allergy, Intermediate, HIVES, 02/05/17) Sulfa Antibiotics (Verified Allergy, Intermediate, Hives/Thrush, 02/05/17) Doxycycline (Verified Allergy, Unknown, NEURO COMPLICATIONS, 02/05/17) GMG Mushroom (Verified Allergy, Unknown, GI SYMPTOMS, 02/07/17) Sulfamethoxazole w/Trimethoprim (Verified Allergy, Unknown, hives, 02/05/17) Current Medications Home Meds and Scripts Medications Dose Route/Sig Max Daily Dose Days Date Category Dose Instructions Morphine Sulfate 20 Mg/1 Ml Soln 0.5 Ml PO UD PRN 02/21/17 Reported 0.5 ML (=10 MG) by mouth every 4-6 hours as needed for pain Magic Swizzle - Diphenhy/Alum/Mag/Sucralfa (Miscellaneous Medication) Susp 3-4 Tsp PO ACHS PRN 02/03/17 Reported 30ML DIPHENHYDRAMINE SLN 12.5/5ML 60ML MAALOX 4GM CARAFATE SWISH AND SPIT Sertraline HCl 50 Mg Tab 100 Mg PO HS 02/03/17 Reported Ondansetron HCl (Ondansetron) 8 Mg Tab 8 Mg PO TID PRN 02/03/17 Reported Decadron (Dexamethasone) 4 Mg Tab 4 Mg PO UD PRN 02/03/17 Reported TAKE 3 TABLETS (12 MG) WITH FOOD THE NIGHT BEFORE CHEMO AND ON THE MORNING OF CHEMO. REPEAT WITH EACH CYCLE. Prochlorperazine Maleate 10 Mg Tab 10 Mg PO Q6H PRN 02/03/17 Reported Sucralfate 1 Gm Tab 1 Gm PO BID 12/23/16 Reported Zantac (Ranitidine Hcl) 300 Mg Tab 300 Mg PO DAILY 12/23/16 Reported Ventolin Hfa (Albuterol) 200 Puffs/97440 Mcg Aers 2 Puffs PO Q4H PRN 12/23/16 Reported Ropinirole HCl 1 Mg Tab 1 Mg PO HS 06/03/14 Reported Review of Systems Constitutional: No chills, No fever Respiratory: No cough, No shortness of breath Cardiac: No chest pain, No edema Abdomen: + diarrhea (3 episodes of loose, watery stools this AM), + nausea ( chronic since starting chemotherapy - well controlled on antiemetics ), + pain ( bilateral lower abdominal cramping w/ radiation to his back before a BM and up to 5 minutes after a BM), No GI bleeding, No constipation, No dysphagia, No odynophagia, No vomiting Physical Exam Date Time Temp Pulse Resp B/P Pulse Ox O2 Delivery O2 Flow Rate FiO2 02/22/17 07:40 Room Air 02/22/17 07:38 36.7 88 20 116/72 98 Room Air 02/22/17 04:45 36.7 115 20 104/75 97 Room Air 02/22/17 00:00 Room Air 02/21/17 23:42 36.7 102 20 107/74 99 Room Air 02/21/17 20:30 Room Air 02/21/17 19:45 36.5 99 20 125/94 99 Room Air 02/21/17 19:21 36.7 98 18 118/67 98 02/21/17 19:20 98 18 118/67 98 Room Air 02/21/17 18:47 98 18 118/67 98 Room Air 02/21/17 18:27 Room Air 02/21/17 16:58 107 20 114/69 94 Room Air 02/21/17 15:24 36.7 106 20 117/71 94 Room Air 02/21/17 13:49 36.7 111 20 114/69 94 Room Air General Appearance: no apparent distress Eyes: PERRL ENT: hearing grossly normal Neck: supple Respiratory/Chest: lungs clear, normal breath sounds, no respiratory distress, no accessory muscle use Cardiovascular: regular rate, rhythm, no gallop, no JVD Abdomen: normal bowel sounds, non tender, soft, no organomegaly, no pulsatile mass Neurologic/Psych: alert, normal mood/affect, oriented x 3 Skin: normal color, no jaundice Laboratory Results Last 24 Hours Test 02/21/17 14:30 02/21/17 16:15 02/21/17 16:40 02/22/17 05:35 White Blood Count 5.83 K/uL 4.01 K/uL Red Blood Count 4.01 M/uL 3.74 M/uL Hemoglobin 13.5 g/dL 12.2 g/dL Hematocrit 38.2 % 35.8 % Mean Corpuscular Volume 95.3 fL 95.7 fL Mean Corpuscular Hemoglobin 33.7 pg 32.6 pg Mean Corpuscular Hemoglobin Concent 35.3 g/dl 34.1 g/dl Platelet Count 143 K/uL 138 K/uL Mean Platelet Volume 9.2 fL 9.7 fL Neutrophils (%) (Auto) 83.0 % Lymphocytes (%) (Auto) 8.6 % Monocytes (%) (Auto) 7.5 % Eosinophils (%) (Auto) 0.5 % Basophils (%) (Auto) 0.2 % Neutrophils # (Auto) 4.84 K/uL Lymphocytes # (Auto) 0.50 K/uL Monocytes # (Auto) 0.44 K/uL Eosinophils # (Auto) 0.03 K/uL Basophils # (Auto) 0.01 K/uL RDW Standard Deviation 47.2 fL 48.4 fL RDW Coefficient of Variation 13.9 % 14.3 % Immature Granulocyte % (Auto) 0.2 % Immature Granulocyte # (Auto) 0.01 K/uL Prothrombin Time 11.5 SECONDS Prothromb Time International Ratio 1.1 Activated Partial Thromboplast Time 26.1 SECONDS Partial Thromboplastin Ratio 1.0 Sodium Level 142 mmol/L 144 mmol/L Potassium Level 3.6 mmol/L 4.4 mmol/L Chloride Level 109 mmol/L 112 mmol/L Carbon Dioxide Level 21 mmol/L 25 mmol/L Anion Gap 12.0 mmol/L 7.0 mmol/L Blood Urea Nitrogen 12 mg/dl 10 mg/dl Creatinine 1.10 mg/dl 0.85 mg/dl Est Creatinine Clear Calc Drug Dose 119.5 ml/min 154.3 ml/min Estimated GFR () 99.6 129.9 Estimated GFR (Non- 85.9 112.1 BUN/Creatinine Ratio 10.7 12.1 Random Glucose 146 mg/dl 84 mg/dl Calcium Level 9.0 mg/dl 8.3 mg/dl Total Bilirubin 0.8 mg/dl Direct Bilirubin 0.2 mg/dl Aspartate Amino Transf (AST/SGOT) 24 U/L Alanine Aminotransferase (ALT/SGPT) 57 U/L Alkaline Phosphatase 55 U/L Total Protein 7.4 gm/dl Albumin 3.8 gm/dl Lipase 101 U/L Urine Color DK YELLOW Urine Appearance CLOUDY Urine pH 5.5 Urine Specific [place] 1.028 Urine Protein 1+ Urine Glucose (UA) NEG Urine Ketones TRACE Urine Occult Blood NEG Urine Nitrite NEG Urine Bilirubin NEG Urine Urobilinogen NEG Urine Leukocyte Esterase NEG Urine WBC (Auto) 1-5 /hpf Urine RBC (Auto) 0-4 /hpf Urine Hyaline Casts (Auto) 10-30 /lpf Urine Epithelial Cells (Auto) 10-20 /lpf Urine Bacteria (Auto) NEG Urine Crystals CALCIUM OXALATE Lactic Acid Level 1.2 mmol/L Chemistry Specimen Hemolysis Impression Patient is a 36 year old male with 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 Repeat stool for c.diff was negative. Cultures are pending. He is also s/p partial colectomy for complicated diverticulitis. Differentials include infectious diarrhea, post- infectious IBS, medication induced diarrhea etc. KUB rules out overflow diarrhea. Plan Conservative management IVF Clear liquids as tolerated for bowel rest Monitor electrolytes Follow up stool culture Tapering course of vancomycin for suspected recurrent c.diff Vanco 125 TID x 5 days Vanco 125 BID x 5 days Vanco 125 daily x 5 days Further recommendations pending results of stool Continue antiemetics PRN Continue pain medications PRN Trial of Questran as needed Trial of Bentyl 10 mg TID PRN Medication induced? PPI vs Sertraline vs Paclitaxel vs Carboplatin Attg addendum: I interviewed and examined pt, reviewe chart and labs. He has esophageal cancer on chemo/XRT, s/p recent hosp for C diff. He is admit for diarrhea, which is improved. I assume that he has chemo induced diarrhea. - will give bentyl. He is at high risk for C diff recurrence - will plan Vanco taper. He is ok for discharge; no need for GI f/u, but please reconsult as needed.
[2017-02-22 11:45] VITALS: BP 121/82; PULSE 89; TEMP 36.6; O2SAT 99
[2017-02-22] MEDS ORDERED: VANCOMYCIN HCL 125 MG/2.5ML SOLN PO SCH (12:00)
[2017-02-22] MEDS ORDERED: RASPBERRY SYRUP 5 ML UDP PO SCH (12:00)
[2017-02-22] MEDS: DICYCLOMINE HCL 10 MG CAP PO SCH ×2 (12:05→20:08)
--- NOTE | 2017-02-22 13:00 | Clinical Documentation Query ---
QUERY 1 OF [address] SÁNCHEZ, In your clinical opinion is this patient being managed for: ( ) possible Gastroenteritis due to radiation ( x ) possible Toxic gastroenteritis due to chemotherapy ( ) Other explanation of clinical findings (Please Explain) ( ) Unable to determine (Please Define) ( ) Need to Discuss ( ) Not Agree The medical record reflects the following clinical findings, treatment, and risk factors. Clinical Indicators:46 yo male presenting with persistent diarrhea who was recently treated for C diff colitis. Currently stool for C diff is negative. Pt also with hx of esophagel cancer, currently receiving chemotherapy and radiation treatments with most recent chemo on 02/18/17. Pt also experiencing nausea and vomiting and abdominal pain Treatment: GI consult, IV fluids including IV bolus in ER, IV morphine, IV toradol, CL diet, trial of questran and bentyl, zantac, IV zofran, Risk Factors: esophageal cancer with current radiation and chemotherapy tx. Radiation Colitis Review your patient's underlying history closely; if the patient is/has undergone radiation therapy, your patient may have a more definitive diagnosis_ What is radiation colitis? an inflammation of the colon that occurs as a side effect of cancer radiation therapy to the abdomen or pelvis. The condition can arise from internal or external radiation treatment. The severity of the condition depends on the size of the radiation dose and other factors such as the frequency of treatment and tumor size. Radiation colitis can be acute or chronic; patients with acute radiation colitis develop symptoms within eight weeks of starting their treatment. With the chronic form of the condition, symptoms may not arise until months or years after radiation therapy is over. Signs and Symptoms: abdominal cramps, diarrhea, nausea, vomiting, rectal bleeding, weight loss, fatty stools How is it treated? The symptoms are treated (nausea, vomiting, diarrhea) and steroids might be given to treat inflammation. In rare cases, the patient may need a bypass procedure to allow the gut to rest. If the colon is too damaged, a colectomy may be required. Toxic Gastroenteritis Chemotherapy can cause inflammation anywhere along the GI tract resulting in the symptoms generally associated with "GE." GE caused by chemotherapy (or exposure to other toxic substances) is referred to as "toxic gastroenteritis." QUERY 2 OF 2 In your clinical opinion is this patient being managed for: ( ) Morbid obesity with BMI 41.7 ( ) Other explanation of clinical findings (Please Explain) ( ) Unable to determine (Please Define) ( ) Need to Discuss ( ) Not Agree The medical record reflects the following clinical findings, treatment, and risk factors. Clinical Indicators: Noted BMI of 41.7 BMI: A significantly high (> 40) BMI will impact the severity of illness and risk of mortality of your patient. However, the physician must document a correlating diagnosis in the medical Record. Please clarify and document your clinical opinion in the progress notes and discharge summary. Terms such as "probable", "suspected", "likely", "questionable", "possible", or "still to be ruled out" are acceptable. IF IN AGREEMENT, YOU MUST DOCUMENT ABOVE DIAGNOSTIC STATEMENT IN DAILY PROGRESS NOTES AND DISCHARGE SUMMARY. This document is not part of the patient's record. Thank You, Lucrecia Cohn, RN [phone]
--- NOTE | 2017-02-22 14:16 | Progress Note ---
Medicine Progress Note Date & Time of Visit: February 22, 2017 at 14:06. Subjective 36 yo M with active esophageal cancer undergoing XRT and chemo presents with recurrent diarrhea s/p recent c-diff infection. -3 BMs loose today -tolerating PO ; eating lunch right now. -ambulatory -some abdominal cramping during BMs that resolves after -denies fevers or chills. Objective Last 8 Hrs Date Time Temp Pulse Resp B/P Pulse Ox O2 Delivery O2 Flow Rate FiO2 02/22/17 11:45 36.6 89 20 121/82 99 Room Air 02/22/17 07:40 Room Air 02/22/17 07:38 36.7 88 20 116/72 98 Room Air Physical Exam: GEN: Obese, in no acute distress, alert and appropriate HEENT: NC/AT, pupils equal and round, normal sclerae, MMM CARDIO: reg rate, S1/2 heard without m/g/r LUNGS: CTA bilaterally, no crackles, rales or wheezes, good diaphragmatic excursion ABD: soft, non-tender, non-distended, no rebound or guarding, +BS EXTREMITY: extremities are warm and well-perfused NEURO: CN 2-12 grossly intact MUSC: moves all extremities equally, no gross focal deficits. SKIN: warm and dry Laboratory Results: 02/22/17 05:35 02/22/17 05:35 Test 02/21/17 14:30 02/21/17 16:15 02/21/17 16:40 02/22/17 05:35 Immature Granulocyte % (Auto) 0.2 % White Blood Count 5.83 K/uL (4.8-10.8) Red Blood Count 4.01 M/uL (4.7-6.1) 3.74 M/uL (4.7-6.1) Hemoglobin 13.5 g/dL (14.0-18.0) Hematocrit 38.2 % (42-52) Mean Corpuscular Volume 95.3 fL (80-100) 95.7 fL (80-100) Mean Corpuscular Hemoglobin 33.7 pg (25-34) 32.6 pg (25-34) Mean Corpuscular Hemoglobin Concent 35.3 g/dl (32-36) 34.1 g/dl (32-36) Platelet Count 143 K/uL (130-400) Mean Platelet Volume 9.2 fL (7.4-10.4) 9.7 fL (7.4-10.4) Neutrophils (%) (Auto) 83.0 % Lymphocytes (%) (Auto) 8.6 % Monocytes (%) (Auto) 7.5 % Eosinophils (%) (Auto) 0.5 % Basophils (%) (Auto) 0.2 % Neutrophils # (Auto) 4.84 K/uL (1.4-6.5) Lymphocytes # (Auto) 0.50 K/uL (1.2-3.4) Monocytes # (Auto) 0.44 K/uL (0.11-0.59) Eosinophils # (Auto) 0.03 K/uL (0-0.5) Basophils # (Auto) 0.01 K/uL (0-0.2) Immature Granulocyte # (Auto) 0.01 K/uL (0.00-0.02) Prothrombin Time 11.5 SECONDS (9.0-12.0) Prothromb Time International Ratio 1.1 (0.9-1.1) Activated Partial Thromboplast Time 26.1 SECONDS (21.0-31.0) Partial Thromboplastin Ratio 1.0 Total Bilirubin 0.8 mg/dl (0.2-1) Direct Bilirubin 0.2 mg/dl (0-0.2) Aspartate Amino Transf (AST/SGOT) 24 U/L (15-37) Alanine Aminotransferase (ALT/SGPT) 57 U/L (12-78) Alkaline Phosphatase 55 U/L (45-117) Total Protein 7.4 gm/dl (6.4-8.2) Albumin 3.8 gm/dl (3.4-5.0) Lipase 101 U/L (73-393) Urine Color DK YELLOW Urine Appearance CLOUDY (CLEAR) Urine pH 5.5 (4.5-7.5) Urine Specific [place] 1.028 (1.000-1.030) Urine Protein 1+ (NEG) Urine Glucose (UA) NEG (NEG) Urine Ketones TRACE (NEG) Urine Occult Blood NEG (NEG) Urine Nitrite NEG (NEG) Urine Bilirubin NEG (NEG) Urine Urobilinogen NEG (NEG) Urine Leukocyte Esterase NEG (NEG) Urine WBC (Auto) 1-5 /hpf (0-5) Urine RBC (Auto) 0-4 /hpf (0-4) Urine Hyaline Casts (Auto) 10-30 /lpf (0-5) Urine Epithelial Cells (Auto) 10-20 /lpf (0-5) Urine Bacteria (Auto) NEG (NEG) Urine Crystals CALCIUM OXALATE (NONE Lactic Acid Level 1.2 mmol/L (0.4-2.0) RDW Standard Deviation 48.4 fL (36.4-46.3) RDW Coefficient of Variation 14.3 % (11.5-14.5) Anion Gap 7.0 mmol/L (3-11) Est Creatinine Clear Calc Drug Dose 154.3 ml/min Estimated GFR () 129.9 Estimated GFR (Non- 112.1 BUN/Creatinine Ratio 12.1 (10-20) Calcium Level 8.3 mg/dl (8.5-10.1) Chemistry Specimen Hemolysis Date/Time Source Procedure Growth Status 02/21/17 22:45 Stool C.difficile Toxin B Gene (PCR) - Final No C. difficile toxin B gene detected Complete Last 24 Hours Test 02/21/17 14:30 02/21/17 16:15 02/21/17 16:40 02/22/17 05:35 White Blood Count 5.83 K/uL 4.01 K/uL Red Blood Count 4.01 M/uL 3.74 M/uL Hemoglobin 13.5 g/dL 12.2 g/dL Hematocrit 38.2 % 35.8 % Mean Corpuscular Volume 95.3 fL 95.7 fL Mean Corpuscular Hemoglobin 33.7 pg 32.6 pg Mean Corpuscular Hemoglobin Concent 35.3 g/dl 34.1 g/dl Platelet Count 143 K/uL 138 K/uL Mean Platelet Volume 9.2 fL 9.7 fL Neutrophils (%) (Auto) 83.0 % Lymphocytes (%) (Auto) 8.6 % Monocytes (%) (Auto) 7.5 % Eosinophils (%) (Auto) 0.5 % Basophils (%) (Auto) 0.2 % Neutrophils # (Auto) 4.84 K/uL Lymphocytes # (Auto) 0.50 K/uL Monocytes # (Auto) 0.44 K/uL Eosinophils # (Auto) 0.03 K/uL Basophils # (Auto) 0.01 K/uL RDW Standard Deviation 47.2 fL 48.4 fL RDW Coefficient of Variation 13.9 % 14.3 % Immature Granulocyte % (Auto) 0.2 % Immature Granulocyte # (Auto) 0.01 K/uL Prothrombin Time 11.5 SECONDS Prothromb Time International Ratio 1.1 Activated Partial Thromboplast Time 26.1 SECONDS Partial Thromboplastin Ratio 1.0 Sodium Level 142 mmol/L 144 mmol/L Potassium Level 3.6 mmol/L 4.4 mmol/L Chloride Level 109 mmol/L 112 mmol/L Carbon Dioxide Level 21 mmol/L 25 mmol/L Anion Gap 12.0 mmol/L 7.0 mmol/L Blood Urea Nitrogen 12 mg/dl 10 mg/dl Creatinine 1.10 mg/dl 0.85 mg/dl Est Creatinine Clear Calc Drug Dose 119.5 ml/min 154.3 ml/min Estimated GFR () 99.6 129.9 Estimated GFR (Non- 85.9 112.1 BUN/Creatinine Ratio 10.7 12.1 Random Glucose 146 mg/dl 84 mg/dl Calcium Level 9.0 mg/dl 8.3 mg/dl Total Bilirubin 0.8 mg/dl Direct Bilirubin 0.2 mg/dl Aspartate Amino Transf (AST/SGOT) 24 U/L Alanine Aminotransferase (ALT/SGPT) 57 U/L Alkaline Phosphatase 55 U/L Total Protein 7.4 gm/dl Albumin 3.8 gm/dl Lipase 101 U/L Urine Color DK YELLOW Urine Appearance CLOUDY Urine pH 5.5 Urine Specific [place] 1.028 Urine Protein 1+ Urine Glucose (UA) NEG Urine Ketones TRACE Urine Occult Blood NEG Urine Nitrite NEG Urine Bilirubin NEG Urine Urobilinogen NEG Urine Leukocyte Esterase NEG Urine WBC (Auto) 1-5 /hpf Urine RBC (Auto) 0-4 /hpf Urine Hyaline Casts (Auto) 10-30 /lpf Urine Epithelial Cells (Auto) 10-20 /lpf Urine Bacteria (Auto) NEG Urine Crystals CALCIUM OXALATE Lactic Acid Level 1.2 mmol/L Chemistry Specimen Hemolysis Date/Time Source Procedure Growth Status 02/21/17 22:45 Stool C.difficile Toxin B Gene (PCR) - Final No C. difficile toxin B gene detected Complete 02/21/17 22:45 Stool Shiga Toxin Test Pending Received 02/21/17 22:45 Stool Stool Culture Pending Received Assessment & Plan 36 yo M with active esophageal cancer undergoing XRT and chemo presents with recurrent diarrhea s/p recent c-diff infection. SEVERE DIARRHEA Just finished course of vancomycin for C diff. Poss persistent of recurrent c- diff. Per GI will extend course of Vanc another 10 days. Would cont contact precautions in the meantime until diarrhea resolves despite repeat c-diff negative. Tolerating PO and only 3 BMs this am. Will stop IVF right now and follow electrolytes in am. Questran and Bentyl added by GI team. ESOPHAGEAL CA Management per Hematology / Oncology. Had 4 chemo treatments, last was 5 days ago. XRT ongoing, but will hold this today in the setting of severe diarrhea just yesterday. Will consult Rad Oncology to consider resuming treatments as inpatient. OBESITY TOBACCO ABUSE VTE PROPHYLAXIS Moderate-high risk for VTE. SQ enoxaparin. Ambulate. DISPOSITION Expected discharge to home in next 1-2 days. Family Medicine follow-up with Dr. Weiner. Hematology / Oncology follow-up with Dr. Bin Early. . Elyssa Valadez DO [facility] Hospitalist Current Inpatient Medications: Current Inpatient Medications Medications (Trade) Dose Ordered Sig/Kaylin Route Start Time Stop Time Status Last Admin Dose Admin Enoxaparin Sodium (Lovenox Inj) 40 mg HS SQ 02/21/17 21:00 03/23/17 20:59 02/21/17 20:22 40 MG Ondansetron HCl (Zofran Inj) 4 mg Q6H PRN IV 02/21/17 18:15 03/23/17 18:14 02/22/17 07:37 4 MG Albuterol (Ventolin Hfa Inhaler) 2 puffs Q4H PRN INH 02/21/17 23:00 03/23/17 22:59 Ropinirole HCl (Requip Tab) 1 mg HS PO 02/22/17 21:00 03/24/17 20:59 Sertraline HCl (Zoloft Tab) 100 mg HS PO 02/22/17 21:00 03/24/17 20:59 Sucralfate (Carafate Tab) 1 gm BID PO 02/22/17 08:00 03/24/17 07:59 02/22/17 07:32 1 GM Miscellaneous Information (Order Awaiting Action) 1 ea QS N/A 02/22/17 08:00 03/24/17 07:59 Ranitidine HCl (zANTac TAB) 300 mg DAILY PO 02/22/17 08:00 03/24/17 07:59 02/22/17 07:31 300 MG Morphine Sulfate (Roxanol Oral Soln) 10 mg Q4H PRN PO 02/21/17 23:30 03/07/17 23:29 02/22/17 07:38 10 MG Diphenoxylate HCl/ Atropine 1 tab 1 tab Q6H PRN PO 02/22/17 04:15 03/24/17 04:14 Lactated Ringer's (Lr 1000ml) 1,000 ml @ 150 mls/hr Q6H40M IV 02/22/17 04:15 03/24/17 04:14 02/22/17 12:06 150 MLS/HR Heparin Sodium (Porcine) (Heparin 100 Unit/ml 5ml Flush) 5 ml PRN PRN IV 02/22/17 06:30 03/24/17 06:29 Dicyclomine HCl (Bentyl Cap) 10 mg TID PO 02/22/17 14:00 03/24/17 13:59 02/22/17 12:05 10 MG Cholestyramine Resin (Questran Powder Light) 1 gm BID@1000,2200 PO 02/22/17 22:00 03/24/17 21:59 Vancomycin HCl (Vancomycin Oral Soln) 125 mg QID PO 02/22/17 12:00 03/04/17 11:59 02/22/17 12:04 125 MG Raspberry (Raspberry Syrup 5ml Cup) 5 ml QID PO 02/22/17 12:00 03/08/17 11:59 02/22/17 12:04 5 ML
[2017-02-22 15:35] VITALS: BP 110/75; PULSE 75; TEMP 36.7; O2SAT 100
--- NOTE | 2017-02-22 18:23 | Radiation Oncology Progress Nt ---
Radiation Oncology Progress Nt Date of Service Date of Service: February 22, 2017. Subjective Pt evaluation today including: conversation w/ consultant rn (Dr. Valadez) Objective Vital Signs Date Time Temp Pulse Resp B/P Pulse Ox O2 Delivery O2 Flow Rate FiO2 02/22/17 16:05 Room Air 02/22/17 15:35 36.7 75 18 110/75 100 02/22/17 11:45 36.6 89 20 121/82 99 Room Air 02/22/17 07:40 Room Air 02/22/17 07:38 36.7 88 20 116/72 98 Room Air 02/22/17 04:45 36.7 115 20 104/75 97 Room Air 02/22/17 00:00 Room Air 02/21/17 23:42 36.7 102 20 107/74 99 Room Air 02/21/17 20:30 Room Air 02/21/17 19:45 36.5 99 20 125/94 99 Room Air 02/21/17 19:21 36.7 98 18 118/67 98 02/21/17 19:20 98 18 118/67 98 Room Air 02/21/17 18:47 98 18 118/67 98 Room Air 02/21/17 18:27 Room Air Laboratory Results Last 24 Hours Test 02/22/17 05:35 White Blood Count 4.01 K/uL Red Blood Count 3.74 M/uL Hemoglobin 12.2 g/dL Hematocrit 35.8 % Mean Corpuscular Volume 95.7 fL Mean Corpuscular Hemoglobin 32.6 pg Mean Corpuscular Hemoglobin Concent 34.1 g/dl RDW Standard Deviation 48.4 fL RDW Coefficient of Variation 14.3 % Platelet Count 138 K/uL Mean Platelet Volume 9.7 fL Sodium Level 144 mmol/L Potassium Level 4.4 mmol/L Chloride Level 112 mmol/L Carbon Dioxide Level 25 mmol/L Anion Gap 7.0 mmol/L Blood Urea Nitrogen 10 mg/dl Creatinine 0.85 mg/dl Est Creatinine Clear Calc Drug Dose 154.3 ml/min Estimated GFR () 129.9 Estimated GFR (Non- 112.1 BUN/Creatinine Ratio 12.1 Random Glucose 84 mg/dl Calcium Level 8.3 mg/dl Chemistry Specimen Hemolysis Assessment and Plan Mr. Roblero is a 36-year-old gentleman who is currently under treatment for esophageal cancer with chemotherapy and radiation therapy. The patient has been admitted for nausea, vomiting and diarrhea. I have spoken on the phone with Dr. Valadez who is the patient's primary provider in the hospital setting. Dr. Valadez has recommended against radiation therapy today due to the patient's condition which we feel is reasonable. We will reevaluate the patient tomorrow and discuss the patient's case with Dr. Valadez. If the patient is doing better , we can potentially consider continuing radiation therapy while the patient is in the inpatient setting. Please call so any further questions or concerns.
[2017-02-22] MEDS ORDERED: NURSING VERBAL MED ORDER ONE (19:30)
[2017-02-22 19:31] VITALS: BP 127/80; PULSE 92; TEMP 36.7; O2SAT 98
[2017-02-22] MEDS: CALCIUM CARBONATE 500 MG CHEWABLE PO PRN (19:42)
[2017-02-22] MEDS: VANCOMYCIN HCL 125 MG/2.5ML SOLN PO SCH (20:07)
[2017-02-22] MEDS: RASPBERRY SYRUP 5 ML UDP PO SCH (20:07)
[2017-02-22] MEDS ORDERED: SERTRALINE HCL 100 MG TAB PO SCH (21:00)
[2017-02-22] MEDS ORDERED: ROPINIROLE HCL 1 MG TAB PO SCH (21:00)
[2017-02-22] MEDS: ENOXAPARIN 40 MG/0.4 ML SYR SQ SCH (21:38)
[2017-02-22] MEDS ORDERED: CHOLESTYRAMINE LIGHT 4 GM PKT PO SCH ×2 (22:00)
[2017-02-23 00:24] VITALS: BP 114/70; PULSE 90; TEMP 37; O2SAT 97
[2017-02-23 05:02] VITALS: BP 109/75; PULSE 90; TEMP 36.7; O2SAT 97
[2017-02-23 07:01] VITALS: Ht 177.8 cm; Wt 125.3 kg
[2017-02-23 07:27] VITALS: BP 112/79; PULSE 100; TEMP 36.8; O2SAT 98
[2017-02-23] MEDS: VANCOMYCIN HCL 125 MG/2.5ML SOLN PO SCH ×2 (08:28→12:49)
[2017-02-23] MEDS: RANITIDINE HCL 150 MG TAB PO SCH (08:28)
[2017-02-23] MEDS: RASPBERRY SYRUP 5 ML UDP PO SCH ×2 (08:29→12:49)
[2017-02-23] MEDS: CALCIUM CARBONATE 500 MG CHEWABLE PO PRN (08:29)
[2017-02-23] MEDS: SUCRALFATE 1 GM TAB PO SCH (08:29)
[2017-02-23] MEDS: DICYCLOMINE HCL 10 MG CAP PO SCH ×2 (08:30→12:49)
--- NOTE | 2017-02-23 10:00 | Gastroenterology Progress Note ---
Progress Note Date of Service: February 23, 2017 Subjective Pt evaluation today including: conversation w/ patient, physical exam, chart review Pt was seen and examined this morning. He had two loose BMs since rounds yesterday with abdominal pain and cramping before and for a few minutes after the BM. No black/bloody stools. He has no complaints this AM and wants to go home. He did not have radiation yesterday. Denies fever, chills, chest pain, SOB , black/bloody stools, nausea or vomiting. Review of Systems Constitutional: No fever Respiratory: No cough Cardiac: No chest pain Abdomen: + diarrhea, No GI bleeding, No constipation, No nausea, No pain, No vomiting Medications Current Inpatient Medications Medications (Trade) Dose Ordered Sig/Kaylin Route Start Time Stop Time Status Last Admin Dose Admin Enoxaparin Sodium (Lovenox Inj) 40 mg HS SQ 02/21/17 21:00 03/23/17 20:59 02/22/17 21:38 40 MG Ondansetron HCl (Zofran Inj) 4 mg Q6H PRN IV 02/21/17 18:15 03/23/17 18:14 02/22/17 07:37 4 MG Albuterol (Ventolin Hfa Inhaler) 2 puffs Q4H PRN INH 02/21/17 23:00 03/23/17 22:59 Ropinirole HCl (Requip Tab) 1 mg HS PO 02/22/17 21:00 03/24/17 20:59 02/22/17 21:38 1 MG Sertraline HCl (Zoloft Tab) 100 mg HS PO 02/22/17 21:00 03/24/17 20:59 02/22/17 21:38 100 MG Sucralfate (Carafate Tab) 1 gm BID PO 02/22/17 08:00 03/24/17 07:59 02/23/17 08:29 1 GM Miscellaneous Information (Order Awaiting Action) 1 ea QS N/A 02/22/17 08:00 03/24/17 07:59 Ranitidine HCl (zANTac TAB) 300 mg DAILY PO 02/22/17 08:00 03/24/17 07:59 02/23/17 08:28 300 MG Morphine Sulfate (Roxanol Oral Soln) 10 mg Q4H PRN PO 02/21/17 23:30 03/07/17 23:29 02/22/17 07:38 10 MG Diphenoxylate HCl/ Atropine (Lomotil Tab) 1 tab Q6H PRN PO 02/22/17 04:15 03/24/17 04:14 Heparin Sodium (Porcine) (Heparin 100 Unit/ml 5ml Flush) 5 ml PRN PRN IV 02/22/17 06:30 03/24/17 06:29 02/23/17 09:55 5 ML Dicyclomine HCl (Bentyl Cap) 10 mg TID PO 02/22/17 14:00 03/24/17 13:59 02/23/17 08:30 10 MG Cholestyramine Resin (Questran Powder Light) 1 gm Q24H PO 02/22/17 22:00 03/24/17 21:59 02/22/17 22:08 1 GM Raspberry (Raspberry Syrup 5ml Cup) 5 ml TID PO 02/22/17 20:00 03/08/17 19:59 02/23/17 08:29 5 ML Vancomycin HCl (Vancomycin Oral Soln) 125 mg TID PO 02/22/17 20:00 02/27/17 11:59 02/23/17 08:28 125 MG Calcium Carbonate (Tums Chew Tab) 1,000 mg QID PRN PO 02/22/17 19:30 03/24/17 19:29 02/23/17 08:29 1,000 MG Objective Vital Signs Date Time Temp Pulse Resp B/P Pulse Ox O2 Delivery O2 Flow Rate FiO2 02/23/17 07:27 36.8 100 20 112/79 98 Room Air 02/23/17 05:02 36.7 90 20 109/75 97 Room Air 02/23/17 00:24 37.0 90 18 114/70 97 Room Air 02/23/17 00:00 Room Air 02/22/17 19:31 36.7 92 18 127/80 98 Room Air 02/22/17 16:05 Room Air 02/22/17 15:35 36.7 75 18 110/75 100 02/22/17 11:45 36.6 89 20 121/82 99 Room Air Physical Exam General Appearance: no apparent distress Eyes: PERRL ENT: hearing grossly normal Neck: supple Respiratory/Chest: lungs clear, no respiratory distress Cardiovascular: regular rate, rhythm, no murmur Abdomen: normal bowel sounds, non tender, soft, no organomegaly, no pulsatile mass, + pertinent finding (obese abdomen) Neurologic/Psych: alert, normal mood/affect, oriented x 3 Skin: normal color Laboratory Results Last 24 Hours Test 02/23/17 04:44 Assessment and Plan Patient is a 36 year old male with 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 Repeat stool for c.diff was negative. Cultures are pending. He is also s/p partial colectomy for complicated diverticulitis. Differentials include infectious diarrhea, post- infectious IBS, medication induced diarrhea etc. KUB rules out overflow diarrhea. Conservative management IVF Clear liquids as tolerated for bowel rest Monitor electrolytes Follow up stool culture Tapering course of vancomycin for suspected recurrent c.diff Vanco 125 TID x 5 days Vanco 125 BID x 5 days Vanco 125 daily x 5 days Continue antiemetics PRN Continue pain medications PRN Trial of Questran HS as needed for loose stools Trial of Bentyl 10 mg TID PRN Attg addendum I reviewed chart and labs. Pt improved. OK for d/c, can use Bentyl and Questran PRN for diarrhea.
[2017-02-23 10:39] LABS: BUN/CREATININE RATIO 11.3 (10-20); CALCIUM 8.3 mg/dl (8.5-10.1); CREATININE 0.77 mg/dl (0.60-1.40)
[2017-02-23 11:30] VITALS: BP 117/74; PULSE 64; TEMP 36.5; O2SAT 100
[2017-02-23] MEDS ORDERED: BNT10 PO ×2 (12:29)
[2017-02-23] MEDS ORDERED: VNCS125 PO ×2 (12:29)
[2017-02-23] MEDS ORDERED: QSTP PO ×2 (12:29)
--- NOTE | 2017-02-23 12:35 | Discharge Instructions ---
Discharge Instructions Date of Service February 23, 2017. Admission Reason for Admission: Diarrhea; Esophageal Carcinoma Discharge Discharge Diagnosis / Problem: Diarrhea Discharge Goals Goal(s): Prevent Disease Progression Activity Recommendations Activity Limitations: per Instructions/Follow-up section . Instructions / Follow-Up Instructions / Follow-Up Please take all medications as instructed. Your new scripts were sent electronically to the [facility] pharmacy you assigned. You have a hospital follow-up scheduled with your PCP, Dr. Weiner, scheduled on 03/03 @ 11:05. Please bring all paperwork from this hospital stay with you. It was a pleasure taking care of you! Call if you have any questions or problems. You can reach a [facility] hospitalist on duty at [facility] 24 hours a day by calling [phone]. Take care of yourself. Elyssa Valadez DO [facility] Hospitalist Current Hospital Diet Patient's current hospital diet: Low Lactose Diet, Low Fat Diet Discharge Diet Recommended Diet: Low Fat Diet, Low Lactose Diet Procedures Procedures Performed: Radiation therapy Pending Studies Studies pending at discharge: no Medical Emergencies . Who to Call and When: Medical Emergencies: If at any time you feel your situation is an emergency, please call 911 immediately. . Non-Emergent Contact Non-Emergency issues call your: Primary Care Provider . . "Provider Documentation" section prepared by Elyssa Valadez. . VTE Core Measure Inpt VTE Proph given/why not?: Enoxaparin (Lovenox)SQ
--- NOTE | 2017-02-23 12:43 | Discharge Summary ---
Discharge Summary Date of Service February 23, 2017. Discharge Summary Admission Date: February 21, 2017 at 18:13 Discharge Date: February 23, 2017 Discharge Disposition: Home Principal Diagnosis: Recurrent diarrhea 2/2 possible toxic gastroenteritis 2/2 chemotherapy vs postinfectious IBS vs recurrent c-diff infection Esophageal cancer Morbid obesity Tobacco abuse Procedures: Radiation Vaccinations: None. Consultations: Radiation Oncology, GI Pending Studies/Follow-Up: see instructions below Medication Reconciliation New Medications: Cholestyramine (Cholestyramine Light) 4 Gm Pack 1 GM PO Q24H PRN for diarrhea for 4 Days, #4 GM 1 Refill Continue as needed while diarrhea persists. Dicyclomine HCl (Dicyclomine HCl) 10 Mg Cap 10 MG PO TID PRN for diarrhea for 20 Days, #30 CAP Vancomycin HCl (Vancomycin HCl) 125 Mg/2.5 Ml Susp 125 MG PO UD for 15 Days, #30 EA 125mg by mouth three times daily x 5 days, then 125mg by mouth twice daily x 5 days, then 125mg by mouth daily, then stop. Continued Medications: Albuterol Hfa (Ventolin Hfa) 200 Puffs/81855 Mcg Aers 2 PUFFS PO Q4H PRN for Wheezing Dexamethasone (Decadron) 4 Mg Tab 4 MG PO UD PRN for CHEMO PRE TREAT TAKE 3 TABLETS (12 MG) WITH FOOD THE NIGHT BEFORE CHEMO AND ON THE MORNING OF CHEMO. REPEAT WITH EACH CYCLE. Diphenhy/Alum/Mag/Sucralfa (Magic Swizzle - Diphenhy/Alum/Mag/Sucralfa) Susp 3-4 TSP PO ACHS PRN for Swallowing Pain, ML 30ML DIPHENHYDRAMINE SLN 12.5/5ML 60ML MAALOX 4GM CARAFATE SWISH AND SPIT Morphine Sulfate (Morphine Sulfate) 20 Mg/1 Ml Soln 0.5 ML PO UD PRN for Pain 0.5 ML (=10 MG) by mouth every 4-6 hours as needed for pain Ondansetron (Ondansetron HCl) 8 Mg Tab 8 MG PO TID PRN for Nausea Prochlorperazine Maleate (Prochlorperazine Maleate) 10 Mg Tab 10 MG PO Q6H PRN for Nausea Ranitidine Hcl (Zantac) 300 Mg Tab 300 MG PO DAILY Ropinirole HCl (Ropinirole HCl) 1 Mg Tab 1 MG PO HS Sertraline HCl (Sertraline HCl) 50 Mg Tab 100 MG PO HS Sucralfate (Sucralfate) 1 Gm Tab 1 GM PO BID Admission Information HPI (per Admitting provider): 36 YO male followed by Dr. Weiner for Family Medicine and Dr. Bin Early for Hematology / Oncology. History of esophageal carcinoma, undergoing radiation therapy and chemotherapy. Hospitalized at [facility] 02/06/17 with diarrhea and dehydration. Found to have C diff. Treated with vancomycin with improvement. Discharged to home on 02/09/17. Continued to have intermittent loose stools without blood. Completed 10 day course of vancomycin yesterday. Worsening diarrhea today- about 10 episodes of watery stool. Associated with nausea and vomiting. No fever, abdominal pain, hematemesis, melena, hematochezia. . Physical Exam (per Admitting): General Appearance: WD/WN, no apparent distress, + mild distress Head: normocephalic, atraumatic Eyes: normal inspection, PERRL, EOMI, sclerae normal, + pertinent finding ( conjunctivae pink) ENT: normal ENT inspection, hearing grossly normal, pharynx normal Neck: supple, no adenopathy, thyroid normal, no JVD, trachea midline Respiratory/Chest: lungs clear, no respiratory distress, no accessory muscle use Cardiovascular: regular rate, rhythm, no edema, no gallop, no JVD, no murmur Abdomen/GI: normal bowel sounds, non tender, soft, no organomegaly, no pulsatile mass, + pertinent finding (slightly distended) Extremities/Musculoskelatal: normal inspection, no calf tenderness Neurologic/Psych: 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 Last chemo treatment for esophageal cancer was 5 days prior to arrival and he is simultaneously undergoing XRT. Just finished course of vancomycin for C diff. Poss persistent of recurrent c-diff. GI was consulted and restarted vancomycin taper. BM slowed down and firmed up within 24 hours. By discharge he was tolerating regular food, hemodynamically stable and afebrile , and ambulatory. He was discharged on a vancomycin taper with devorayl and Questran for symptom management. Total time spent on discharge = 60 minutes This includes examination of the patient, discharge planning, medication reconciliation, and communication with other providers. Discharge Instructions Discharge Instructions Date of Service February 23, 2017. Admission Reason for Admission: Diarrhea; Esophageal Carcinoma Discharge Discharge Diagnosis / Problem: Diarrhea Discharge Goals Goal(s): Prevent Disease Progression Activity Recommendations Activity Limitations: per Instructions/Follow-up section . Instructions / Follow-Up Instructions / Follow-Up Please take all medications as instructed. Your new scripts were sent electronically to the [facility] pharmacy you assigned. You have a hospital follow-up scheduled with your PCP, Dr. Weiner, scheduled on 03/03 @ 11:05. Please bring all paperwork from this hospital stay with you. It was a pleasure taking care of you! Call if you have any questions or problems. You can reach a [facility] hospitalist on duty at [facility] 24 hours a day by calling [phone]. Take care of yourself. Elyssa Valadez, [facility] Hospitalist Current Hospital Diet Patient's current hospital diet: Low Lactose Diet, Low Fat Diet Discharge Diet Recommended Diet: Low Fat Diet, Low Lactose Diet Procedures Procedures Performed: Radiation therapy Pending Studies Studies pending at discharge: no Additional Copies To Camilo Weiner M.D.
[2017-02-23 13:31] VITALS: BP 110/73; PULSE 97; TEMP 36.8; O2SAT 98
[2017-02-23 14:07] VITALS: BP 110/73; PULSE 97; TEMP 36.8; O2SAT 98
[2017-02-23] MEDS ORDERED: OXYC1TAB3 PO (22:06)
[2017-03-03] MEDS ORDERED: LCTX PO (16:52)
[2017-03-03] MEDS ORDERED: LVQ750 PO (16:52)
[2017-03-03] MEDS ORDERED: LVNIS120 SQ (16:52)
== END 2017-02-23 15:00 | disposition home or self-care (01) | DRG 372 ==
LOC: ENRESERVDT → ENRESERVTM → C.EDB 13:47 → C.4E 18:13
PROVIDERS: ADMIT Hospitalist; ATTEND Hospitalist
DX: A04.7 Enterocolitis due to Clostridium difficile (principal); K52.1 Toxic gastroenteritis and colitis; C16.0 Malignant neoplasm of cardia; T45.1X5A Adverse effect of antineoplastic and immunosuppressive drugs, initial encounter; E86.0 Dehydration; K21.9 Gastro-esophageal reflux disease without esophagitis; J45.909 Unspecified asthma, uncomplicated; F32.9 Major depressive disorder, single episode, unspecified; F41.9 Anxiety disorder, unspecified; F17.200 Nicotine dependence, unspecified, uncomplicated; E66.01 Morbid (severe) obesity due to excess calories; Z68.39 Body mass index [BMI] 39.0-39.9, adult; Z90.49 Acquired absence of other specified parts of digestive tract; Z79.891 Long term (current) use of opiate analgesic; Z79.899 Other long term (current) drug therapy

== ENCOUNTER 2017-02-23 20:46 | Emergency (ER) | payer OTHER ==
[~2017-02-23] VITALS: Ht 172.7 cm; Wt 122.0 kg
[~2017-02-23 20:46] MED LIST changes: +BNT10 PO; +QSTP PO; +RXNS20 PO
[2017-02-23 20:54] VITALS: TEMP 36.8; Ht 172.7 cm; Wt 122.0 kg
[2017-02-23] MEDS ORDERED: HYDROmorphone INJ 1 MG/ML SYR IV STA (21:13)
[2017-02-23] MEDS ORDERED: CYCLOBENZAPRINE HCL 10 MG TAB PO STA (21:13)
[2017-02-23] MEDS ORDERED: KETOROLAC TROMETHAMINE 30 MG/ML VIAL IV STA (21:13)
[2017-02-23] MEDS ORDERED: OXYC1TAB3 PO (22:06)
--- NOTE | 2017-02-23 22:13 | EMERGENCY ROOM VISIT NOTE ---
History First contact with patient: 21:04 Chief Complaint: PAIN (GENERALIZED) Stated Complaint: SEVERE PAIN GOING DOWN RIGHT SIDE History of Present Illness The patient is a 36 year old male who presents to the Emergency Room with complaints of right-sided pain. The patient states that the pain starts in his back and goes down the right side of his chest, side of abdomen and into his right hip. The patient states this has been intermittent. He states he complained of these symptoms in the past when he was here as well as while he was hospitalized today. He was just discharged today from the hospital. The patient did not take any morphine today. The patient states he does not like the way it makes him feel plus he does not want to get addicted to the morphine. The patient states that the pain makes it difficult for him to ambulate. He also states it hurts to take in a deep breath. The patient has stage I esophageal cancer. The patient's family doctor is Dr. Weiner. He has never been referred to pain management.. Review of Systems 10 system review was performed and was negative unless stated otherwise history of present illness. Past Medical/Surgical History Medical Problems: (1) Abscess (2) Acute lymphangitis (3) Cellulitis of scalp (4) Cellulitis of scalp (5) Diverticular disease of colon (6) Diverticulitis (7) Diverticulitis (8) Diverticulitis (9) Esophageal adenocarcinoma (10) Gastroesophageal reflux disease Surgical Problems: (1) History of bowel resection (2) Status post partial colectomy Family History Diabetes mellitus FH: heart disease Hypertension Social History Smoking Status: Current Some Day Smoker Alcohol Use: none Drug Use: marijuana Marital Status: single Housing Status: lives with family Occupation Status: disabled Current/Historical Medications Scheduled Ranitidine Hcl (Zantac), 300 MG PO DAILY Ropinirole HCl (Ropinirole HCl), 1 MG PO HS Sertraline HCl (Sertraline HCl), 100 MG PO HS Sucralfate (Sucralfate), 1 GM PO BID Vancomycin HCl (Vancomycin HCl), 125 MG PO UD Scheduled PRN Albuterol Hfa (Ventolin Hfa), 2 PUFFS PO Q4H PRN for Wheezing Cholestyramine (Cholestyramine Light), 1 GM PO Q24H PRN for diarrhea Dexamethasone (Decadron), 4 MG PO UD PRN for CHEMO PRE TREAT Dicyclomine HCl (Dicyclomine HCl), 10 MG PO TID PRN for diarrhea Diphenhy/Alum/Mag/Sucralfa (Magic Swizzle - Diphenhy/Alum/Mag/Sucralfa), 3-4 TSP PO ACHS PRN for Swallowing Pain Morphine Sulfate (Morphine Sulfate), 0.5 ML PO UD PRN for Pain Ondansetron (Ondansetron HCl), 8 MG PO TID PRN for Nausea Oxycodone Immediate Rel Tab (Roxicodone Ir), 1-2 TAB PO Q6 PRN for Pain Prochlorperazine Maleate (Prochlorperazine Maleate), 10 MG PO Q6H PRN for Nausea Allergies Coded Allergies: Prednisone (Verified Allergy, Intermediate, HIVES, 02/23/17) Sulfa Antibiotics (Verified Allergy, Intermediate, Hives/Thrush, 02/23/17) Doxycycline (Verified Allergy, Unknown, NEURO COMPLICATIONS, 02/23/17) GMG Mushroom (Verified Allergy, Unknown, GI SYMPTOMS, 02/23/17) Sulfamethoxazole w/Trimethoprim (Verified Allergy, Unknown, hives, 02/23/17 ) Physical Exam Vital Signs Date Time Temp Pulse Resp B/P Pulse Ox O2 Delivery O2 Flow Rate FiO2 02/23/17 20:54 36.8 67 16 112/72 98 Room Air Physical Exam GENERAL: Obese 36-year-old white male appears in no acute distress. MENTAL Status: Alert and oriented 3. EYES: PERRLA. NECK: Firm this noted on the right side of the neck. Left sided supple and nontender. LUNGS: Clear auscultation without wheezes rales or rhonchi. CARDIAC: Regular rate and rhythm without murmur. Pulses is full and equal throughout. CHEST WALL: Patient has tenderness palpation over the right lateral chest wall. RIGHT SHOULDER: Tenderness palpation over the entire shoulder joint. ABDOMEN: Positive bowel sounds all 4 quadrants. Patient has tenderness to palpation over the right flank area otherwise nontender. RIGHT HIP: No gross bony deformity noted. No erythema or edema noted. Patient is tenderness palpation over the lateral aspect of the hip joint. Medical Decision & Procedures Medications Administered Medications (Trade) Dose Ordered Sig/Kaylin Route Start Time Stop Time Status Last Admin Dose Admin Hydromorphone HCl (Dilaudid Inj) 1 mg NOW STAT IV 02/23/17 21:13 02/23/17 21:15 DC 02/23/17 21:35 1 MG Ketorolac Tromethamine (Toradol Inj) 30 mg NOW STAT IV 02/23/17 21:13 02/23/17 21:15 DC 02/23/17 21:34 30 MG Cyclobenzaprine HCl (Flexeril Tab) 10 mg NOW STAT PO 02/23/17 21:13 02/23/17 21:15 DC 02/23/17 21:34 10 MG ED Course The patient's EMR and medication list were reviewed. The patient complained of the same symptoms on his ER encounter of 02/05/2017. The patient has a port which will be access for his medications. The patient was given Dilaudid 1 mg via port as well as Toradol 30 mg IV. Patient was also given Flexeril 10 mg by mouth. The patient was reevaluated and was feeling much better. The patient was given an OxyIR home pack to take this evening if needed. The patient was discharged home in stable condition with a family member driving. The patient also later stated that he was out of the morphine at home. I looked the patient up and the prescription drug monitoring program and he was given 20 days worth of the morphine over one month ago. Therefore he is eligible for narcotic pain medication. Medical Decision The patient has had chronic pain in this area for over a month therefore no diagnostic imaging was performed. The patient did not take any pain medication at home and therefore he was given medication here which relieved the pain. Impression Primary Impression: Neck pain on right side Additional Impression: Right-sided chest wall pain Departure Information Dispostion Home / Self-Care Condition GOOD Prescriptions Oxycodone Immediate Rel Tab (ROXICODONE IR) 5 Mg Tab 1-2 TAB PO Q6 Y for Pain, #14 TAB Prov: Birdie Vazquez PA-C 02/23/17 Referrals No Doctor, Assigned (PCP) Forms HOME CARE DOCUMENTATION FORM, IMPORTANT VISIT INFORMATION, WORK / SCHOOL INSTRUCTIONS Patient Instructions My [facility] Additional Instructions Take OxyIR as directed for pain. Do not drive while taking the OxyIR. Call your oncologist for a prescription for your morphine. Continue all other medications as prescribed. Problem Qualifiers
[2017-02-23] MEDS ORDERED: OXYCODONE IR HOME PACK PO ONE (22:15)
[2017-02-23 22:28] VITALS: BP 121/76; PULSE 71; O2SAT 99
[2017-03-03] MEDS ORDERED: LCTX PO (16:52)
[2017-03-03] MEDS ORDERED: LVQ750 PO (16:52)
[2017-03-03] MEDS ORDERED: LVNIS120 SQ (16:52)
== END 2017-02-23 22:32 | disposition home or self-care (01) ==
LOC: C.EDB 20:48 → C.EDA 22:32
DX: M54.2 Cervicalgia (principal); R07.89 Other chest pain; K21.9 Gastro-esophageal reflux disease without esophagitis; K57.90 Diverticulosis of intestine, part unspecified, without perforation or abscess without bleeding; K57.92 Diverticulitis of intestine, part unspecified, without perforation or abscess without bleeding; F17.200 Nicotine dependence, unspecified, uncomplicated; Z85.01 Personal history of malignant neoplasm of esophagus; Z86.19 Personal history of other infectious and parasitic diseases; Z79.899 Other long term (current) drug therapy; Z98.890 Other specified postprocedural states; Z88.2 Allergy status to sulfonamides; Z88.3 Allergy status to other anti-infective agents; Z88.8 Allergy status to other drugs, medicaments and biological substances; Z83.3 Family history of diabetes mellitus; Z82.49 Family history of ischemic heart disease and other diseases of the circulatory system

== ENCOUNTER 2017-02-27 22:04 | Inpatient (IN) | payer OTHER ==
[~2017-02-27] VITALS: Ht 172.7 cm; Wt 120.2 kg
[~2017-02-27 22:04] MED LIST changes: +OXYC1TAB3 PO; -[UNRECOGNIZED DRUG - CODE] PO
[2017-02-27] MEDS ORDERED: ALUMINUM/MAGNESIUM SUSP 30 ML UDC PO STA (22:34)
[2017-02-27] MEDS ORDERED: LIDOCAINE HCL 2% VISC SOLN 20 ML UDC PO STA (22:34)
[2017-02-27] MEDS ORDERED: METOCLOPRAMIDE HCL INJ 5 MG/ML 2 ML VIAL IV STA (22:34)
[2017-02-27] MEDS ORDERED: DiphenhydrAMINE HCL 50 MG/ML VIAL IV STA (22:34)
[2017-02-27] MEDS ORDERED: RANITIDINE HCL 50 MG/100 ML D5W IV STA (22:34)
[2017-02-27] MEDS ORDERED: SODIUM CHLORIDE 0.9% 1000ML 1,000 ML IV STA ×2 (22:34)
--- NOTE | 2017-02-27 23:00 | DIAGNOSTIC IMAGING REPORT ---
SINGLE VIEW CHEST CLINICAL HISTORY: Atypical chest pain. FINDINGS: An AP, portable, upright chest radiograph is compared to study dated 02/21/2017. Correlation is made with chest CT dated 11/19/2016. The examination is degraded by portable technique, large body habitus, and patient rotation. A right internal jugular central venous infusion port is unchanged in position. The cardiomediastinal silhouette is unremarkable. Mild emphysema and chronic interstitial thickening are similar to previous. No airspace consolidation or pleural effusion is identified. No pneumothorax is seen. The bony thorax is grossly intact. IMPRESSION: Mild emphysema with no acute cardiopulmonary abnormality. No significant change from 02/21/2017. Electronically signed by: Fadi Mao M.D. 02/27/2017 10:59 PM Dictated Date/Time: 02/27/2017 10:58 PM
[2017-02-27 23:27] LABS: BASO % 0.2 %; BASO ABS # 0.01 K/uL (0-0.2); COMPLETE YES; EOS % 0.4 %; HEMATOCRIT 36.2 % (42-52); IG% 0.2 %; LYMPH % 11.5 %; LYMPH ABS # 0.63 K/uL (1.2-3.4); MEAN CORPUSCULAR HEMOGLOBIN 33.7 pg (25-34); MEAN CORPUSCULAR HGB CONC 35.1 g/dl (32-36); MEAN PLATELET VOLUME 9.4 fL (7.4-10.4); MONO % 12.4 %; NEUT % 75.3 %; PLATELET COUNT 140 K/uL (130-400); RED BLOOD COUNT 3.77 M/uL (4.7-6.1); WHITE BLOOD COUNT 5.47 K/uL (4.8-10.8)
[2017-02-27 23:50] LABS: ALT/SGPT 47 U/L (12-78); AST/SGOT 15 U/L (15-37); BLOOD UREA NITROGEN 10 mg/dl (7-18); BUN/CREATININE RATIO 10.8 (10-20); CALCIUM 8.6 mg/dl (8.5-10.1); CARBON DIOXIDE 24 mmol/L (21-32); CHLORIDE 110 mmol/L (98-107); CREATININE 0.93 mg/dl (0.60-1.40); GLUCOSE 88 mg/dl (70-99); MAGNESIUM 1.9 mg/dl (1.8-2.4); POTASSIUM 3.9 mmol/L (3.5-5.1); SODIUM 145 mmol/L (136-145)
[2017-02-27 23:59] LABS: ALKALINE PHOSPHATASE 55 U/L (45-117); THYROID STIMULATING HORMONE 0.981 uIu/ml (0.300-4.500)
[2017-02-28] MEDS ORDERED: OPTIRAY 320 IV PRN
[2017-02-28] MEDS ORDERED: HEPARIN SOD (PORCINE) 1000 UNIT/ML 10 ML VIAL ONE (02:34)
[2017-02-28] MEDS ORDERED: HEPARIN 25000 UNIT/500 ML D5W ONE (02:34)
[2017-02-28 02:58] LABS: INR 1.1 (0.9-1.1); PROTHROMBIN TIME (PATIENT) 11.3 SECONDS (9.0-12.0)
--- NOTE | 2017-02-28 03:59 | EMERGENCY ROOM VISIT NOTE ---
History First contact with patient: 22:25 Chief Complaint: SHORTNESS OF BREATH Stated Complaint: SOB Nursing Triage Summary: patient states around one hour ago he developed SOB/cough and was unable to get in under control. patient states he has hx of stage 1 throat cancer and is having radiation daily and chemo once weekly. currently spo2 100% on RA. patient states breathing has improved upon arrival to ED. History of Present Illness The patient is a 36 year old male who presents to the Emergency Room with complaints of shortness of breath and occasional cough with nausea and vomiting and lightheadedness for the past day. Patient has esophageal carcinoma and follows at Dr. Early. He receives radiation daily for the past 4 weeks. He receives chemotherapy once a week. Last dose was . Patient does smoke. Patient denies fever, chills, chest pain, headache, neck stiffness, abdominal pain, leg pain or swelling. Review of Systems See HPI for pertinent positives & negatives. A total of 10 systems reviewed and were otherwise negative. Past Medical/Surgical History Medical Problems: (1) Abscess (2) Acute lymphangitis (3) Cellulitis of scalp (4) Cellulitis of scalp (5) Diverticular disease of colon (6) Diverticulitis (7) Diverticulitis (8) Diverticulitis (9) Esophageal adenocarcinoma (10) Gastroesophageal reflux disease Surgical Problems: (1) History of bowel resection (2) Status post partial colectomy Family History Diabetes mellitus FH: heart disease Hypertension Social History Smoking Status: Former Smoker Alcohol Use: none Drug Use: marijuana Marital Status: single Housing Status: lives with family Occupation Status: disabled Current/Historical Medications Scheduled Ranitidine Hcl (Zantac), 300 MG PO DAILY Ropinirole HCl (Ropinirole HCl), 1 MG PO HS Sertraline HCl (Sertraline HCl), 100 MG PO HS Sucralfate (Sucralfate), 1 GM PO BID Vancomycin HCl (Vancomycin HCl), 125 MG PO UD Scheduled PRN Albuterol Hfa (Ventolin Hfa), 2 PUFFS PO Q4H PRN for Wheezing Cholestyramine (Cholestyramine Light), 1 GM PO Q24H PRN for diarrhea Dexamethasone (Decadron), 4 MG PO UD PRN for CHEMO PRE TREAT Dicyclomine HCl (Dicyclomine HCl), 10 MG PO TID PRN for diarrhea Diphenhy/Alum/Mag/Sucralfa (Magic Swizzle - Diphenhy/Alum/Mag/Sucralfa), 3-4 TSP PO ACHS PRN for Swallowing Pain Morphine Sulfate (Morphine Sulfate), 0.5 ML PO UD PRN for Pain Ondansetron (Ondansetron HCl), 8 MG PO TID PRN for Nausea Oxycodone Immediate Rel Tab (Roxicodone Ir), 1-2 TAB PO Q6 PRN for Pain Prochlorperazine Maleate (Prochlorperazine Maleate), 10 MG PO Q6H PRN for Nausea Allergies Coded Allergies: Prednisone (Verified Allergy, Intermediate, HIVES, 02/23/17) Sulfa Antibiotics (Verified Allergy, Intermediate, Hives/Thrush, 02/23/17) Doxycycline (Verified Allergy, Unknown, NEURO COMPLICATIONS, 02/23/17) GMG Mushroom (Verified Allergy, Unknown, GI SYMPTOMS, 02/23/17) Sulfamethoxazole w/Trimethoprim (Verified Allergy, Unknown, hives, 02/23/17 ) Physical Exam Vital Signs Date Time Temp Pulse Resp B/P Pulse Ox O2 Delivery O2 Flow Rate FiO2 02/28/17 03:22 91 20 113/79 97 Room Air 02/28/17 03:00 89 02/28/17 01:19 90 20 105/62 95 Room Air 02/28/17 00:25 87 18 117/65 95 Room Air 02/27/17 23:13 110 20 110/76 99 Room Air 02/27/17 22:57 99 Room Air 02/27/17 22:57 99 Room Air 02/27/17 22:15 116 02/27/17 22:09 36.9 110 22 114/79 100 Room Air 02/27/17 22:09 100 Room Air Physical Exam VITALS: Vitals are noted on the nurse's note and reviewed by myself. Vital signs tachycardic. GENERAL: White male, in no acute distress, nondiaphoretic, well-developed well- nourished. SKIN: The skin was without rashes, erythema, edema, or bruising. There is no tenting of the skin. Capillary reflex less than 2 seconds. HEAD: Normocephalic atraumatic. EARS: External auditory canals clear, tympanic membranes pearly kaba without erythema or effusion bilaterally. EYES: Pupils equal round and reactive to light and accommodation. Conjunctivae without injection, sclerae without icterus. Extraocular movements intact. NOSE: Patent, turbinates without inflammation or discharge. MOUTH: Mucous membranes mildly dry. Pharynx without erythema or exudate. Uvula midline. Airway patent. Tongue does not deviate. NECK: Supple without nuchal rigidity. No lymphadenopathy. No thyromegaly. Cervical spine is nontender. No JVD. HEART: Tachycardic Regular rate and rhythm without murmurs gallops or rubs. LUNGS: Clear to auscultation bilaterally without wheezes, rales or rhonchi. No dullness to percussion. No retractions or accessory muscle use. ABDOMEN: Positive bowel sounds x 4. Normal tympanic percussion. Soft, protuberant, obese, nontender, without masses or organomegaly. Morris sign negative. No guarding or rebound tenderness. MUSCULOSKELETAL: No muscle atrophy, erythema, or edema noted. NEURO: Patient was alert and oriented to person place and time. Normal sensation to light and sharp touch. No focal neurological deficits. Medical Decision & Procedures Laboratory Results 02/27/17 23:08 Red Blood Count 3.77, Mean Corpuscular Volume 96.0, Mean Corpuscular Hemoglobin 33.7, Mean Corpuscular Hemoglobin Concent 35.1, Mean Platelet Volume 9.4, Neutrophils (%) (Auto) 75.3, Lymphocytes (%) (Auto) 11.5, Monocytes (%) (Auto) 12.4, Eosinophils (%) (Auto) 0.4, Basophils (%) (Auto) 0.2, Neutrophils # (Auto ) 4.12, Lymphocytes # (Auto) 0.63, Monocytes # (Auto) 0.68, Eosinophils # (Auto ) 0.02, Basophils # (Auto) 0.01 02/27/17 23:08 Test 02/27/17 23:05 02/27/17 23:08 Prothrombin Time 11.3 SECONDS (9.0-12.0) Prothromb Time International Ratio 1.1 (0.9-1.1) Activated Partial Thromboplast Time 25.4 SECONDS (21.0-31.0) Partial Thromboplastin Ratio 1.0 White Blood Count 5.47 K/uL (4.8-10.8) Red Blood Count 3.77 M/uL (4.7-6.1) Hemoglobin 12.7 g/dL (14.0-18.0) Hematocrit 36.2 % (42-52) Mean Corpuscular Volume 96.0 fL (80-100) Mean Corpuscular Hemoglobin 33.7 pg (25-34) Mean Corpuscular Hemoglobin Concent 35.1 g/dl (32-36) Platelet Count 140 K/uL (130-400) Mean Platelet Volume 9.4 fL (7.4-10.4) Neutrophils (%) (Auto) 75.3 % Lymphocytes (%) (Auto) 11.5 % Monocytes (%) (Auto) 12.4 % Eosinophils (%) (Auto) 0.4 % Basophils (%) (Auto) 0.2 % Neutrophils # (Auto) 4.12 K/uL (1.4-6.5) Lymphocytes # (Auto) 0.63 K/uL (1.2-3.4) Monocytes # (Auto) 0.68 K/uL (0.11-0.59) Eosinophils # (Auto) 0.02 K/uL (0-0.5) Basophils # (Auto) 0.01 K/uL (0-0.2) RDW Standard Deviation 48.8 fL (36.4-46.3) RDW Coefficient of Variation 14.7 % (11.5-14.5) Immature Granulocyte % (Auto) 0.2 % Immature Granulocyte # (Auto) 0.01 K/uL (0.00-0.02) Anion Gap 11.0 mmol/L (3-11) Est Creatinine Clear Calc Drug Dose 139.0 ml/min Estimated GFR () 122.0 Estimated GFR (Non- 105.2 BUN/Creatinine Ratio 10.8 (10-20) Calcium Level 8.6 mg/dl (8.5-10.1) Magnesium Level 1.9 mg/dl (1.8-2.4) Total Bilirubin 0.6 mg/dl (0.2-1) Direct Bilirubin < 0.1 mg/dl (0-0.2) Aspartate Amino Transf (AST/SGOT) 15 U/L (15-37) Alanine Aminotransferase (ALT/SGPT) 47 U/L (12-78) Alkaline Phosphatase 55 U/L (45-117) Total Creatine Kinase 38 U/L (39-308) Creatine Kinase MB < 0.5 ng/ml (0.5-3.6) Creatine Kinase MB Ratio (0-3.0) Troponin I < 0.015 ng/ml (0-0.045) Total Protein 7.2 gm/dl (6.4-8.2) Albumin 3.5 gm/dl (3.4-5.0) Lipase 87 U/L (73-393) Thyroid Stimulating Hormone (TSH) 0.981 uIu/ml (0.300-4.500) Medications Administered Medications (Trade) Dose Ordered Sig/Kaylin Route Start Time Stop Time Status Last Admin Dose Admin Sodium Chloride 1,000 ml @ 999 mls/hr Q1H1M STAT IV 02/27/17 22:34 02/27/17 23:34 DC 02/27/17 23:10 999 MLS/HR Sodium Chloride (Nss 1000ml) 1,000 ml @ 125 mls/hr Q8H STAT IV 02/27/17 22:34 02/28/17 06:33 02/27/17 22:34 125 MLS/HR Metoclopramide HCl (Reglan Inj) 10 mg NOW STAT IV 02/27/17 22:34 02/27/17 22:37 DC 02/27/17 23:06 10 MG Diphenhydramine HCl (Benadryl Inj) 12.5 mg NOW STAT IV 02/27/17 22:34 02/27/17 22:37 DC 02/27/17 23:06 12.5 MG Ranitidine HCl (zANTac IV) 50 mg NOW STAT IV 02/27/17 22:34 02/27/17 22:37 DC 02/27/17 23:06 50 MG Lidocaine HCl (Viscous Lidocaine 2% Soln) 10 ml NOW STAT PO 02/27/17 22:34 02/27/17 22:37 DC 02/27/17 23:07 10 ML Al Hydroxide/Mg Hydroxide (Maalox Susp) 30 ml NOW STAT PO 02/27/17 22:34 02/27/17 22:37 DC 02/27/17 23:06 30 ML Heparin Sodium (Porcine) (Heparin Iv Bolus) 10,000 unit STK-MED ONCE .ROUTE 02/28/17 02:34 02/28/17 02:35 DC 02/28/17 02:40 10,000 UNIT Heparin Sodium/ Dextrose (Heparin 25,000 Unit/500ml D5W) 25,000 unit STK-MED ONCE .ROUTE 02/28/17 02:34 02/28/17 02:35 DC 02/28/17 03:11 25,000 UNIT ED Course Prior records/ancillary studies reviewed. Triage Nursing notes reviewed. Additional history obtained from the family. The patient's history was concerning for respiratory difficulties. Differential diagnosis: Etiologies such as infections, reactive airway disease, pneumonia, pneumothorax , COPD, CHF, cardiac ischemia, pulmonary embolism, musculoskeletal, gastrointestinal, as well as others were entertained. Physical examination: As above. ER treatment provided: NSS, reglan, benadryl On reassessment the patient felt better. Diagnostic interpretation by me: The electrocardiogram was negative for acute ischemic or pathologic change. Normal sinus, normal intervals, no acute ST-T wave changes. Impression normal sinus rhythm interpreted by myself The labs revealed mild anemia. Elevated d-dimer. Negative troponin Imaging studies: Chest x-ray as above. SINGLE VIEW CHEST CLINICAL HISTORY: Atypical chest pain. FINDINGS: An AP, portable, upright chest radiograph is compared to study dated 02/21/2017. Correlation is made with chest CT dated 11/19/2016. The examination is degraded by portable technique, large body habitus, and patient rotation. A right internal jugular central venous infusion port is unchanged in position. The cardiomediastinal silhouette is unremarkable. Mild emphysema and chronic interstitial thickening are similar to previous. No airspace consolidation or pleural effusion is identified. No pneumothorax is seen. The bony thorax is grossly intact. IMPRESSION: Mild emphysema with no acute cardiopulmonary abnormality. No significant change from 02/21/2017. Electronically signed by: Fadi Mao M.D. CTA CHEST: Evaluation for pulmonary embolism is somewhat limited by timing of contrast bolus, but there is evidence of pulmonary embolism in the right lower lobe pulmonary artery at segmental branches (image 42, series 2). 2.5 cm wedge-shaped opacity at right lung base is suspicious for small region of pulmonary ischemia and is within distribution of the pulmonary embolism. No evidence of right heart strain. Right-sided infusion port entering via the internal jugular vein and with tip in superior aspect of SVC. Prominent flow of contrast through collateral pathways and the central aspect of the right subclavian vein and superior SVC are predominantly unopacified, consistent with thrombus. No pleural effusion. No significantly enlarged lymph nodes noted. Radiologist: Jacob Lindo MD Study ready at 01:26 and initial results transmitted at 01:57 Critical Value Communications Consultation: A consultation was placed with Dr Del Valle, hospitalist. The case was discussed and diagnostics were reviewed. The patient was evaluated in the ER for further treatment. This appears to be consistent with P with infarct and SVC thrombosis. Patient is no history GI bleeding in the past. Heparin was started. He agrees to treatment plan of admission. Hospitalist was consulted. Patient remained stable throughout his stay in the ER. By the evaluation outlined above emergent etiologies such as CHF, cardiac ischemia, reactive airway disease, pneumonia, pneumothorax, musculoskeletal, serious bacterial infections, as well as others were deemed relatively unlikely. The pt informed about the findings as listed above. All questions were answered and pleased with the treatment. 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 This includes bedside care, interpretation of diagnostic studies, and testing, discussion with consultants, patient, and family members, and other required patient management activities. This 30 minutes is in excess of all separately billable procedures. Departure Information Dispostion Being Evaluated By Hospitalist Condition FAIR Referrals Camilo Weiner M.D. (PCP) Patient Instructions My [facility] Problem Qualifiers Primary Impression: Pulmonary embolism Pulmonary embolism type: other Chronicity: acute Acute cor pulmonale presence: without acute cor pulmonale Qualified Codes: I26.99 - Other pulmonary embolism without acute cor pulmonale
[2017-02-28] MEDS ORDERED: DICYCLOMINE HCL 10 MG CAP PO PRN (04:45)
[2017-02-28] MEDS ORDERED: NON-FORMULARY MEDICATION (Diphenhy/Alum/Mag/Sucralfa (Magic Swizzle - Diphenhy/Alum/Mag/Su PO PRN (04:45)
[2017-02-28] MEDS ORDERED: MoRPHine SULFATE 5 MG/0.25 ML UDP PO PRN (04:45)
--- NOTE | 2017-02-28 04:56 | History and Physical ---
History & Physical Date & Time of Service: February 28, 2017 at 04:48 Chief Complaint: SOB Primary Care Physician: Camilo Weiner M.D. History of Present Illness Source: patient, hospital records 36 year old male with history of Esophageal Cancer on chemo and radiation therapy presenting with shortness of breath. Follows with Dr. Weiner for PCP and Dr. Early for Oncology. Patient was discharged from [facility] last February 23, 2017 for C diff diarrhea. He was doing fine and had last chemo February 25, 2017. Today, patient presents to the ER for shortness of breath. Denies chest pain, dizziness, syncope, cough, fever/chills, diarrhea. CT angio showed right lower lobe pulmonary embolism, possible thrombus in the SVC. Heparin drip started. On exam, patient resting comfortably in bed. Denies chest pain, dyspnea, palpitations, dizziness, bleeding. No other symptoms on my evaluation. Past Medical/Surgical History Medical Problems: (1) Abscess Status: Resolved (2) Acute lymphangitis Status: Resolved (3) Cellulitis of scalp Status: Resolved (4) Cellulitis of scalp Status: Resolved (5) Diverticular disease of colon Status: Chronic (6) Diverticulitis Status: Resolved (7) Diverticulitis Status: Resolved (8) Diverticulitis Status: Resolved (9) Esophageal adenocarcinoma Permanent Comment: -Presented with dysphagia in May 2016 -Upper EGD - 11/16/16 - Biopsy - Adenocarinoma -Upper EGD with EUS - 11/24/16 Status: Chronic (10) Gastroesophageal reflux disease Status: Chronic Surgical Problems: (1) History of bowel resection Status: Resolved (2) Status post partial colectomy Permanent Comment: diverticulitis with perforation Status: Chronic Family History Diabetes mellitus FH: heart disease Hypertension Social History Smoking Status: Former Smoker Alcohol Use: occasionally Drug Use: marijuana Marital Status: single Housing status: lives alone Occupational Status: disabled Immunizations History of Influenza Vaccine: Yes History of Tetanus Vaccine?: Yes History of Pneumococcal: Yes History of Hepatitis B Vaccine: Unknown Multi-Drug Resistant Organisms History of MDRO: No Allergies Coded Allergies: Prednisone (Verified Allergy, Intermediate, HIVES, 02/23/17) Sulfa Antibiotics (Verified Allergy, Intermediate, Hives/Thrush, 02/23/17) Doxycycline (Verified Allergy, Unknown, NEURO COMPLICATIONS, 02/23/17) GMG Mushroom (Verified Allergy, Unknown, GI SYMPTOMS, 02/23/17) Sulfamethoxazole w/Trimethoprim (Verified Allergy, Unknown, hives, 02/23/17 ) Home Medications Scheduled Ranitidine Hcl (Zantac), 300 MG PO DAILY Ropinirole HCl (Ropinirole HCl), 1 MG PO HS Sertraline HCl (Sertraline HCl), 100 MG PO HS Sucralfate (Sucralfate), 1 GM PO BID Vancomycin HCl (Vancomycin HCl), 125 MG PO UD Scheduled PRN Albuterol Hfa (Ventolin Hfa), 2 PUFFS PO Q4H PRN for Wheezing Cholestyramine (Cholestyramine Light), 1 GM PO Q24H PRN for diarrhea Dexamethasone (Decadron), 4 MG PO UD PRN for CHEMO PRE TREAT Dicyclomine HCl (Dicyclomine HCl), 10 MG PO TID PRN for diarrhea Diphenhy/Alum/Mag/Sucralfa (Magic Swizzle - Diphenhy/Alum/Mag/Sucralfa), 3-4 TSP PO ACHS PRN for Swallowing Pain Morphine Sulfate (Morphine Sulfate), 0.5 ML PO UD PRN for Pain Ondansetron (Ondansetron HCl), 8 MG PO TID PRN for Nausea Oxycodone Immediate Rel Tab (Roxicodone Ir), 1-2 TAB PO Q6 PRN for Pain Prochlorperazine Maleate (Prochlorperazine Maleate), 10 MG PO Q6H PRN for Nausea Review of Systems Constitutional- no fever; no weight loss Eyes- no acute visual changes ENT- no sinus drainage; no pharyngitis Pulmonary- (+) as noted above Cardiac- no chest pain, no palpitations, no orthopnea, no dependent edema GI- no nausea, no vomiting, no diarrhea, no melena, no hematochezia - no dysuria, no hematuria Musculoskeletal- no arthralgias, no myalgias Derm- no rashes, no new skin lesions, no changing skin lesions Hematologic- no unusual bruising, no unusual bleeding Lymphatics- no adenopathy Endocrine- no polyuria or polydipsia; no heat or cold intolerance Neuro- no headaches, no focal neurologic symptoms Psych- no anxiety, no depression Physical Exam Vital Signs Date Time Temp Pulse Resp B/P Pulse Ox O2 Delivery O2 Flow Rate FiO2 02/28/17 04:32 102 20 99/61 97 Room Air 02/28/17 03:22 91 20 113/79 97 Room Air 02/28/17 03:00 89 02/28/17 01:19 90 20 105/62 95 Room Air 02/28/17 00:25 87 18 117/65 95 Room Air 02/27/17 23:13 110 20 110/76 99 Room Air 02/27/17 22:57 99 Room Air 02/27/17 22:57 99 Room Air 02/27/17 22:15 116 02/27/17 22:09 36.9 110 22 114/79 100 Room Air 02/27/17 22:09 100 Room Air General Appearance: WD/WN, no apparent distress, + obese Head: normocephalic, atraumatic Eyes: normal inspection, PERRL, EOMI, sclerae normal ENT: normal ENT inspection, hearing grossly normal, pharynx normal Neck: supple, no adenopathy, thyroid normal, no JVD Respiratory/Chest: chest non-tender, lungs clear, normal breath sounds, no respiratory distress, no accessory muscle use Cardiovascular: regular rate, rhythm, no edema, no JVD, no murmur, normal peripheral pulses Abdomen/GI: normal bowel sounds, non tender, soft Back: normal inspection, no CVA tenderness Extremities/Musculoskelatal: normal inspection, no calf tenderness, no pedal edema 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, no motor/sensory deficits, alert, normal mood/affect, normal reflexes, oriented x 3 Skin: normal color, warm/dry, no rash Lymphatic: no adenopathy Diagnostics Laboratory Results Results Past 24 Hours Test 02/27/17 23:05 02/27/17 23:08 Range/Units Prothrombin Time 11.3 9.0-12.0 SECONDS Prothromb Time International Ratio 1.1 0.9-1.1 Activated Partial Thromboplast Time 25.4 21.0-31.0 SECONDS Partial Thromboplastin Ratio 1.0 White Blood Count 5.47 4.8-10.8 K/uL Red Blood Count 3.77 4.7-6.1 M/uL Hemoglobin 12.7 14.0-18.0 g/dL Hematocrit 36.2 42-52 % Mean Corpuscular Volume 96.0 80-100 fL Mean Corpuscular Hemoglobin 33.7 25-34 pg Mean Corpuscular Hemoglobin Concent 35.1 32-36 g/dl Platelet Count 140 130-400 K/uL Mean Platelet Volume 9.4 7.4-10.4 fL Neutrophils (%) (Auto) 75.3 % Lymphocytes (%) (Auto) 11.5 % Monocytes (%) (Auto) 12.4 % Eosinophils (%) (Auto) 0.4 % Basophils (%) (Auto) 0.2 % Neutrophils # (Auto) 4.12 1.4-6.5 K/uL Lymphocytes # (Auto) 0.63 1.2-3.4 K/uL Monocytes # (Auto) 0.68 0.11-0.59 K/uL Eosinophils # (Auto) 0.02 0-0.5 K/uL Basophils # (Auto) 0.01 0-0.2 K/uL RDW Standard Deviation 48.8 36.4-46.3 fL RDW Coefficient of Variation 14.7 11.5-14.5 % Immature Granulocyte % (Auto) 0.2 % Immature Granulocyte # (Auto) 0.01 0.00-0.02 K/uL Sodium Level 145 136-145 mmol/L Potassium Level 3.9 3.5-5.1 mmol/L Chloride Level 110 98-107 mmol/L Carbon Dioxide Level 24 21-32 mmol/L Anion Gap 11.0 3-11 mmol/L Blood Urea Nitrogen 10 7-18 mg/dl Creatinine 0.93 0.60-1.40 mg/dl Est Creatinine Clear Calc Drug Dose 139.0 ml/min Estimated GFR () 122.0 Estimated GFR (Non- 105.2 BUN/Creatinine Ratio 10.8 10-20 Random Glucose 88 70-99 mg/dl Calcium Level 8.6 8.5-10.1 mg/dl Magnesium Level 1.9 1.8-2.4 mg/dl Total Bilirubin 0.6 0.2-1 mg/dl Direct Bilirubin < 0.1 0-0.2 mg/dl Aspartate Amino Transf (AST/SGOT) 15 15-37 U/L Alanine Aminotransferase (ALT/SGPT) 47 12-78 U/L Alkaline Phosphatase 55 45-117 U/L Total Creatine Kinase 38 39-308 U/L Creatine Kinase MB < 0.5 0.5-3.6 ng/ml Creatine Kinase MB Ratio 0-3.0 Troponin I < 0.015 0-0.045 ng/ml Total Protein 7.2 6.4-8.2 gm/dl Albumin 3.5 3.4-5.0 gm/dl Lipase 87 73-393 U/L Thyroid Stimulating Hormone (TSH) 0.981 0.300-4.500 uIu/ml Diagnostic Radiology cxr IMPRESSION: Mild emphysema with no acute cardiopulmonary abnormality. No significant change from 02/21/2017. CT chest per H&P EKG HR 102, sinus rhythm, no acute infarcts Impression Assessment and Plan 36 year old male with history of Esophageal Cancer on chemo and radiation therapy presenting with shortness of breath. ACUTE PULMONARY EMBOLISM, RIGHT LOWER LOBE POSSIBLE SVC THROMBUS - risk factor: underlying CA - Heparin standard dose with bolus started - hemodynamically stable will consult Oncology, may need Lovenox on discharge ESOPHAGEAL CANCER ongoing chemo and radiation therapy will consult oncology HISTORY OF C DIFF no diarrhea continue Vanco taper DVT prophylaxis will be on heparin drip Full code Disposition pending anticipate d/c home when medically stable VTE Prophylaxis VTE Risk Assessment Done? Y/N: Yes Risk Level: Moderate Given or contraindicated: Unfractionated heparin SQ
[2017-02-28 05:23] VITALS: BP 110/75; PULSE 83; TEMP 36.7; O2SAT 98; Ht 172.7 cm; Wt 120.2 kg
[2017-02-28] MEDS: SODIUM CHLORIDE 0.9% 1000ML 1,000 ML IV SCH ×2 (05:43→16:29)
[2017-02-28 07:30] VITALS: BP 108/60; PULSE 76; TEMP 36.7; O2SAT 98
[2017-02-28] MEDS ORDERED: ALUMINUM PO PRN ×3 (07:30)
[2017-02-28] MEDS ORDERED: MAGNESIUM PO PRN ×3 (07:30)
[2017-02-28] MEDS ORDERED: DIPHENHYDRAMINE HCL PO PRN ×3 (07:30)
[2017-02-28] MEDS ORDERED: SUCRALFATE PO PRN ×3 (07:30)
[2017-02-28] MEDS ORDERED: [UNRECOGNIZED DRUG - OTHER] PO PRN ×3 (07:30)
[2017-02-28] MEDS: VANCOMYCIN HCL 125 MG/2.5ML SOLN PO SCH ×2 (08:35→21:35)
[2017-02-28] MEDS: RASPBERRY SYRUP 5 ML UDP PO SCH ×2 (08:35→21:35)
[2017-02-28] MEDS: SUCRALFATE 1 GM TAB PO SCH ×2 (08:35→21:34)
[2017-02-28] MEDS: RANITIDINE HCL 150 MG TAB PO SCH (08:36)
--- NOTE | 2017-02-28 09:20 | DIAGNOSTIC IMAGING REPORT ---
CT ANGIOGRAPHY OF THE CHEST, PULMONARY EMBOLUS PROTOCOL CLINICAL HISTORY: Shortness of breath and elevated d-dimer. History of malignancy. COMPARISON STUDY: Chest CT November 19, 2016 and PET/CT December 02, 2016. TECHNIQUE: Following IV administration of 120 mL of [id number]-[id number], helical axial images of the chest were obtained utilizing the pulmonary embolus protocol. Maximal intensity projections and sagittal and coronal reformats were viewed on an independent 3D workstation. IV contrast was administered without complication. CT DOSE: 690.99 mGy.cm FINDINGS: There are multiple pulmonary emboli within the right lung, including segmental emboli within the right lower lobe. There may be a small segmental embolus within the right upper lobe as well. A small subpleural opacity within the right lower lobe reflects a pulmonary infarct. The size of the heart is normal. There are no enlarged thoracic lymph nodes. Central airways are patent. A right internal jugular [id number] is in place. The tip is within the right brachiocephalic vein. There may be thrombus adjacent to the tip of the catheter. Collaterals are noted within the right lower neck and chest wall which contain contrast. The SVC is somewhat diminutive. The SVC is suboptimally assessed on this exam. There is mild emphysema. IMPRESSION: 1. Multiple segmental pulmonary emboli within the right lung with a small right lower lobe pulmonary infarct. 2. Right internal jugular [id number] in place. Suspected thrombus along the catheter tip. Electronically signed by: Saud Ryan M.D. 02/28/2017 9:19 AM Dictated Date/Time: 02/28/2017 9:07 AM
[2017-02-28 09:38] LABS: PARTIAL THROMBOPLASTIN RATIO 1.8
--- NOTE | 2017-02-28 10:46 | Progress Note ---
Internal Med Progress Note Date of Service: February 28, 2017. Provider Documentation: SUBJECTIVE: The patient was seen and examined Admitted with SOB and nopted to haver Pulmonary Embolism on CAT scan Clinically better this morning OBJECTIVE: Vital Signs-as noted below Exam: General-no distress at rest Eyes-normal ENT-normal Neck-supple Lungs-clear to ausucltate bilaterally Heart-Regular,no murmur appreciated Abdomen-Benign,no masses,bowel sound present Extremities-No edema Neuro-AAOx3 No focal Neuro deficit Lab data as noted below. ASSESSMENT & PLAN: ACUTE PULMONARY EMBOLISM, RIGHT LOWER LOBE POSSIBLE SVC THROMBUS - risk factor: underlying CA - Heparin standard dose with bolus started - hemodynamically stable -will consult Oncology, likely to need Lovenox on discharge -clinically much better ESOPHAGEAL CANCER -ongoing chemo and radiation therapy -will consult oncology -No acute issues now -no problem with feeding HISTORY OF C DIFF no diarrhea continue Vanco taper Check stool for C Diff toxin DVT prophylaxis-IV heparin for now Code status-Full Disposition Awaiting Vital Signs: Date Time Temp Pulse Resp B/P Pulse Ox O2 Delivery O2 Flow Rate FiO2 02/28/17 07:30 36.7 76 20 108/60 98 Room Air 02/28/17 07:30 Room Air 02/28/17 05:23 36.7 83 16 110/75 98 Room Air 02/28/17 04:53 71 20 95/64 98 02/28/17 04:32 102 20 99/61 97 Room Air 02/28/17 03:22 91 20 113/79 97 Room Air 02/28/17 03:00 89 02/28/17 01:19 90 20 105/62 95 Room Air 02/28/17 00:25 87 18 117/65 95 Room Air 02/27/17 23:13 110 20 110/76 99 Room Air 02/27/17 22:57 99 Room Air 02/27/17 22:57 99 Room Air 02/27/17 22:15 116 02/27/17 22:09 36.9 110 22 114/79 100 Room Air 02/27/17 22:09 100 Room Air Lab Results: Results Past 24 Hours Test 02/27/17 23:05 02/27/17 23:08 02/28/17 09:06 Range/Units Prothrombin Time 11.3 9.0-12.0 SECONDS Prothromb Time International Ratio 1.1 0.9-1.1 Activated Partial Thromboplast Time 25.4 47.4 21.0-31.0 SECONDS Partial Thromboplastin Ratio 1.0 1.8 White Blood Count 5.47 4.8-10.8 K/uL Red Blood Count 3.77 4.7-6.1 M/uL Hemoglobin 12.7 14.0-18.0 g/dL Hematocrit 36.2 42-52 % Mean Corpuscular Volume 96.0 80-100 fL Mean Corpuscular Hemoglobin 33.7 25-34 pg Mean Corpuscular Hemoglobin Concent 35.1 32-36 g/dl Platelet Count 140 130-400 K/uL Mean Platelet Volume 9.4 7.4-10.4 fL Neutrophils (%) (Auto) 75.3 % Lymphocytes (%) (Auto) 11.5 % Monocytes (%) (Auto) 12.4 % Eosinophils (%) (Auto) 0.4 % Basophils (%) (Auto) 0.2 % Neutrophils # (Auto) 4.12 1.4-6.5 K/uL Lymphocytes # (Auto) 0.63 1.2-3.4 K/uL Monocytes # (Auto) 0.68 0.11-0.59 K/uL Eosinophils # (Auto) 0.02 0-0.5 K/uL Basophils # (Auto) 0.01 0-0.2 K/uL RDW Standard Deviation 48.8 36.4-46.3 fL RDW Coefficient of Variation 14.7 11.5-14.5 % Immature Granulocyte % (Auto) 0.2 % Immature Granulocyte # (Auto) 0.01 0.00-0.02 K/uL Sodium Level 145 136-145 mmol/L Potassium Level 3.9 3.5-5.1 mmol/L Chloride Level 110 98-107 mmol/L Carbon Dioxide Level 24 21-32 mmol/L Anion Gap 11.0 3-11 mmol/L Blood Urea Nitrogen 10 7-18 mg/dl Creatinine 0.93 0.60-1.40 mg/dl Est Creatinine Clear Calc Drug Dose 139.0 ml/min Estimated GFR () 122.0 Estimated GFR (Non- 105.2 BUN/Creatinine Ratio 10.8 10-20 Random Glucose 88 70-99 mg/dl Calcium Level 8.6 8.5-10.1 mg/dl Magnesium Level 1.9 1.8-2.4 mg/dl Total Bilirubin 0.6 0.2-1 mg/dl Direct Bilirubin < 0.1 0-0.2 mg/dl Aspartate Amino Transf (AST/SGOT) 15 15-37 U/L Alanine Aminotransferase (ALT/SGPT) 47 12-78 U/L Alkaline Phosphatase 55 45-117 U/L Total Creatine Kinase 38 39-308 U/L Creatine Kinase MB < 0.5 0.5-3.6 ng/ml Creatine Kinase MB Ratio 0-3.0 Troponin I < 0.015 0-0.045 ng/ml Total Protein 7.2 6.4-8.2 gm/dl Albumin 3.5 3.4-5.0 gm/dl Lipase 87 73-393 U/L Thyroid Stimulating Hormone (TSH) 0.981 0.300-4.500 uIu/ml Microbiology Results 02/28/17 MRSA DNA Surveillance Screen - Final, Complete Specimen Negative for MRSA by DNA Probe
[2017-02-28 11:30] VITALS: BP 123/68; PULSE 107; TEMP 36.7; O2SAT 98
[2017-02-28 16:00] VITALS: BP 124/66; PULSE 102; TEMP 36.6; O2SAT 98
[2017-02-28] MEDS: HEPARIN 25,000 UNIT/500ML D5W 500 ML IV PRN (17:51)
[2017-02-28 19:51] VITALS: BP 125/87; PULSE 89; TEMP 36.6; O2SAT 98
[2017-02-28] MEDS: ROPINIROLE HCL 1 MG TAB PO SCH (21:34)
[2017-02-28] MEDS: SERTRALINE HCL 50 MG TAB PO SCH (21:35)
[2017-02-28 22:20] VITALS: BP 153/92; PULSE 74
[2017-03-01] VITALS (9 sets, daily range): BP systolic 109–141; BP diastolic 69–82; PULSE 83–112; TEMP 36.7–37.3; O2SAT 97–100
[2017-03-01] MEDS: OXYCODONE HCL IR 5 MG TAB (IMMEDIATE RELEASE) PO PRN ×2 (01:16→22:37)
[2017-03-01] MEDS: SODIUM CHLORIDE 0.9% 1000ML 1,000 ML IV SCH ×2 (06:10→15:06)
[2017-03-01 07:25] LABS: BASO % 0.2 %; BASO ABS # 0.01 K/uL (0-0.2); COMPLETE YES; EOS % 0.6 %; HEMATOCRIT 31.8 % (42-52); IG% 0.2 %; LYMPH % 8.6 %; MEAN CELL VOLUME 96.7 fL (80-100); MEAN CORPUSCULAR HEMOGLOBIN 33.7 pg (25-34); MEAN CORPUSCULAR HGB CONC 34.9 g/dl (32-36); MEAN PLATELET VOLUME 9.4 fL (7.4-10.4); MONO % 13.1 %; NEUT % 77.3 %; PLATELET COUNT 103 K/uL (130-400); RED BLOOD COUNT 3.29 M/uL (4.7-6.1); WHITE BLOOD COUNT 4.65 K/uL (4.8-10.8)
[2017-03-01 07:42] LABS: PARTIAL THROMBOPLASTIN RATIO 1.6
[2017-03-01 07:54] LABS: BUN/CREATININE RATIO 11.1 (10-20); CALCIUM 8.2 mg/dl (8.5-10.1); CREATININE 0.76 mg/dl (0.60-1.40); POTASSIUM 4.2 mmol/L (3.5-5.1)
[2017-03-01] MEDS ORDERED: COUGH DROP (SUGAR FREE) LOZ 24 LOZ/1 BOX ONE (08:03)
[2017-03-01] MEDS: VANCOMYCIN HCL 125 MG/2.5ML SOLN PO SCH ×2 (08:10→20:49)
[2017-03-01] MEDS: RASPBERRY SYRUP 5 ML UDP PO SCH ×2 (08:10→20:43)
[2017-03-01] MEDS: SUCRALFATE 1 GM TAB PO SCH ×2 (08:11→20:44)
[2017-03-01] MEDS: RANITIDINE HCL 150 MG TAB PO SCH (08:11)
[2017-03-01] MEDS ORDERED: HEPARIN IV BOLUS 7,000 UNIT in SYRINGE 0 ML IV ONE (09:15)
[2017-03-01] MEDS: HEPARIN 25,000 UNIT/500ML D5W 500 ML IV PRN ×3 (09:43→16:14)
[2017-03-01 15:35] LABS: PARTIAL THROMBOPLASTIN RATIO 3.1
[2017-03-01] MEDS ORDERED: NURSING VERBAL MED ORDER ONE (15:45)
[2017-03-01] MEDS ORDERED: ONDANSETRON INJ 2 MG/ML 2 ML VIAL IV PRN (18:30)
[2017-03-01] MEDS: SERTRALINE HCL 50 MG TAB PO SCH (20:44)
[2017-03-01] MEDS: ROPINIROLE HCL 1 MG TAB PO SCH (20:44)
[2017-03-01 22:40] LABS: PARTIAL THROMBOPLASTIN RATIO 1.8
[2017-03-02] VITALS (7 sets, daily range): BP systolic 113–143; BP diastolic 63–83; PULSE 72–107; TEMP 36.6–37.1; O2SAT 97–99
[2017-03-02] MEDS: GUAIFENESIN 200 MG TAB PO PRN ×3 (00:23→23:20)
[2017-03-02] MEDS: HEPARIN 25,000 UNIT/500ML D5W 500 ML IV PRN (03:43)
[2017-03-02] MEDS: VANCOMYCIN HCL 125 MG/2.5ML SOLN PO SCH ×2 (07:39→21:09)
[2017-03-02] MEDS: RANITIDINE HCL 150 MG TAB PO SCH (07:39)
[2017-03-02] MEDS: SUCRALFATE 1 GM TAB PO SCH ×2 (07:39→21:09)
[2017-03-02] MEDS: RASPBERRY SYRUP 5 ML UDP PO SCH ×2 (07:39→21:09)
[2017-03-02 07:54] LABS: BASO % 0.3 %; BASO ABS # 0.01 K/uL (0-0.2); COMPLETE YES; EOS % 0.8 %; HEMATOCRIT 33.1 % (42-52); IG% 0.8 %; LYMPH % 15.2 %; LYMPH ABS # 0.59 K/uL (1.2-3.4); MEAN CELL VOLUME 96.8 fL (80-100); MEAN CORPUSCULAR HEMOGLOBIN 34.5 pg (25-34); MEAN CORPUSCULAR HGB CONC 35.6 g/dl (32-36); MEAN PLATELET VOLUME 9.2 fL (7.4-10.4); MONO % 9.3 %; NEUT % 73.6 %; PLATELET COUNT 107 K/uL (130-400); RED BLOOD COUNT 3.42 M/uL (4.7-6.1); WHITE BLOOD COUNT 3.87 K/uL (4.8-10.8)
[2017-03-02 08:19] LABS: BUN/CREATININE RATIO 7.5 (10-20); CREATININE 0.85 mg/dl (0.60-1.40); POTASSIUM 4.3 mmol/L (3.5-5.1)
[2017-03-02 08:47] LABS: CALCIUM 8.9 mg/dl (8.5-10.1)
--- NOTE | 2017-03-02 09:08 | Progress Note ---
Internal Med Progress Note Date of Service: March 01, 2017. Provider Documentation: This is a bill for 03/01/17 SUBJECTIVE: The patient was seen and examined on 03/01/17 Admitted with SOB and noted to have Pulmonary Embolism on CAT scan Clinically better this morning OBJECTIVE: Vital Signs-as noted below Exam: General-no distress at rest Eyes-normal ENT-normal Neck-supple Lungs-clear to ausucltate bilaterally Heart-Regular,no murmur appreciated Abdomen-Benign,no masses,bowel sound present Extremities-No edema Neuro-AAOx3 No focal Neuro deficit Lab data as noted below. ASSESSMENT & PLAN: ACUTE PULMONARY EMBOLISM, RIGHT LOWER LOBE POSSIBLE SVC THROMBUS - risk factor: underlying CA - Heparin standard dose with bolus started - hemodynamically stable -will consult Oncology, likely to need Lovenox on discharge -clinically much better -remains stable ESOPHAGEAL CANCER -ongoing chemo and radiation therapy -will consult oncology -No acute issues now -no problem with feeding -will need Radiation therapy-ongoing HISTORY OF C DIFF no diarrhea continue Vanco taper Check stool for C Diff toxin-negative DVT prophylaxis-IV heparin for now Code status-Full Disposition Awaiting Vital Signs: Date Time Temp Pulse Resp B/P Pulse Ox O2 Delivery O2 Flow Rate FiO2 03/02/17 08:00 Room Air 03/02/17 04:00 Room Air 03/02/17 03:57 36.7 72 18 113/63 97 Room Air 03/01/17 23:59 Room Air 03/01/17 23:33 36.8 96 22 122/79 99 Room Air 03/01/17 20:00 98 Room Air 03/01/17 19:57 36.7 112 22 141/82 98 Room Air 03/01/17 16:00 100 Room Air 03/01/17 15:27 37.3 91 22 111/81 100 Room Air 03/01/17 12:03 36.7 95 22 119/77 97 Room Air 03/01/17 12:00 Room Air Lab Results: Results Past 24 Hours Test 03/01/17 15:12 03/01/17 22:18 03/02/17 07:44 Range/Units Activated Partial Thromboplast Time 81.5 47.6 21.0-31.0 SECONDS Partial Thromboplastin Ratio 3.1 1.8 White Blood Count 3.87 4.8-10.8 K/uL Red Blood Count 3.42 4.7-6.1 M/uL Hemoglobin 11.8 14.0-18.0 g/dL Hematocrit 33.1 42-52 % Mean Corpuscular Volume 96.8 80-100 fL Mean Corpuscular Hemoglobin 34.5 25-34 pg Mean Corpuscular Hemoglobin Concent 35.6 32-36 g/dl Platelet Count 107 130-400 K/uL Mean Platelet Volume 9.2 7.4-10.4 fL Neutrophils (%) (Auto) 73.6 % Lymphocytes (%) (Auto) 15.2 % Monocytes (%) (Auto) 9.3 % Eosinophils (%) (Auto) 0.8 % Basophils (%) (Auto) 0.3 % Neutrophils # (Auto) 2.85 1.4-6.5 K/uL Lymphocytes # (Auto) 0.59 1.2-3.4 K/uL Monocytes # (Auto) 0.36 0.11-0.59 K/uL Eosinophils # (Auto) 0.03 0-0.5 K/uL Basophils # (Auto) 0.01 0-0.2 K/uL RDW Standard Deviation 51.1 36.4-46.3 fL RDW Coefficient of Variation 14.8 11.5-14.5 % Immature Granulocyte % (Auto) 0.8 % Immature Granulocyte # (Auto) 0.03 0.00-0.02 K/uL Sodium Level 139 136-145 mmol/L Potassium Level 4.3 3.5-5.1 mmol/L Chloride Level 110 98-107 mmol/L Carbon Dioxide Level 22 21-32 mmol/L Anion Gap 7.0 3-11 mmol/L Blood Urea Nitrogen 6 7-18 mg/dl Creatinine 0.85 0.60-1.40 mg/dl Est Creatinine Clear Calc Drug Dose 154.1 ml/min Estimated GFR () 129.9 Estimated GFR (Non- 112.1 BUN/Creatinine Ratio 7.5 10-20 Random Glucose 91 70-99 mg/dl Calcium Level 8.9 8.5-10.1 mg/dl
[2017-03-02 11:24] LABS: PARTIAL THROMBOPLASTIN RATIO 1.8
[2017-03-02] MEDS: LEVOFLOXACIN 750 MG TAB PO SCH (12:47)
--- NOTE | 2017-03-02 14:29 | DIAGNOSTIC IMAGING REPORT ---
BILATERAL LOWER EXTREMITY VENOUS DOPPLER HISTORY: R/O DVT ,has pulmonary embolus COMPARISON STUDY: None. FINDINGS: There is normal compressibility, flow, and augmentation within the bilateral lower extremity deep venous systems. IMPRESSION: No DVT within the right or left lower extremity. Electronically signed by: Dane Betts M.D. 03/02/2017 2:27 PM Dictated Date/Time: 03/02/2017 2:27 PM
--- NOTE | 2017-03-02 15:00 | Progress Note ---
Internal Med Progress Note Date of Service: March 02, 2017. Provider Documentation: SUBJECTIVE: The patient was seen and examined Admitted with SOB and noted to have Pulmonary Embolism on CAT scan Has cough with some wheezing No SOB and or Chest pain OBJECTIVE: Vital Signs-as noted below Exam: General-no distress at rest Looks flashed Eyes-normal ENT-normal Neck-supple Lungs-clear to ausucltate bilaterally Heart-Regular,no murmur appreciated Abdomen-Benign,no masses,bowel sound present Extremities-No edema Neuro-AAOx3 No focal Neuro deficit Lab data as noted below. ASSESSMENT & PLAN: ACUTE PULMONARY EMBOLISM, RIGHT LOWER LOBE POSSIBLE SVC THROMBUS - risk factor: underlying CA - Heparin standard dose with bolus started - hemodynamically stable -appreciate Oncology input -US legs -no DVT -Lovenox on discharge -Has cough with sputum -will start Levaquin and Cough Med -likely home in AM ESOPHAGEAL CANCER -ongoing chemo and radiation therapy -will consult oncology -No acute issues now -no problem with feeding -will need Radiation therapy-ongoing HISTORY OF C DIFF no diarrhea continue Vanco taper Check stool for C Diff toxin-negative DVT prophylaxis-IV heparin for now Code status-Full Disposition Likely discharge tomorrow Vital Signs: Date Time Temp Pulse Resp B/P Pulse Ox O2 Delivery O2 Flow Rate FiO2 03/02/17 12:00 Room Air 03/02/17 08:00 Room Air 03/02/17 04:00 Room Air 03/02/17 03:57 36.7 72 18 113/63 97 Room Air 03/01/17 23:59 Room Air 03/01/17 23:33 36.8 96 22 122/79 99 Room Air 03/01/17 20:00 98 Room Air 03/01/17 19:57 36.7 112 22 141/82 98 Room Air 03/01/17 16:00 100 Room Air 03/01/17 15:27 37.3 91 22 111/81 100 Room Air Lab Results: Results Past 24 Hours Test 03/01/17 15:12 03/01/17 22:18 03/02/17 07:44 Range/Units Activated Partial Thromboplast Time 81.5 47.6 46.9 21.0-31.0 SECONDS Partial Thromboplastin Ratio 3.1 1.8 1.8 White Blood Count 3.87 4.8-10.8 K/uL Red Blood Count 3.42 4.7-6.1 M/uL Hemoglobin 11.8 14.0-18.0 g/dL Hematocrit 33.1 42-52 % Mean Corpuscular Volume 96.8 80-100 fL Mean Corpuscular Hemoglobin 34.5 25-34 pg Mean Corpuscular Hemoglobin Concent 35.6 32-36 g/dl Platelet Count 107 130-400 K/uL Mean Platelet Volume 9.2 7.4-10.4 fL Neutrophils (%) (Auto) 73.6 % Lymphocytes (%) (Auto) 15.2 % Monocytes (%) (Auto) 9.3 % Eosinophils (%) (Auto) 0.8 % Basophils (%) (Auto) 0.3 % Neutrophils # (Auto) 2.85 1.4-6.5 K/uL Lymphocytes # (Auto) 0.59 1.2-3.4 K/uL Monocytes # (Auto) 0.36 0.11-0.59 K/uL Eosinophils # (Auto) 0.03 0-0.5 K/uL Basophils # (Auto) 0.01 0-0.2 K/uL RDW Standard Deviation 51.1 36.4-46.3 fL RDW Coefficient of Variation 14.8 11.5-14.5 % Immature Granulocyte % (Auto) 0.8 % Immature Granulocyte # (Auto) 0.03 0.00-0.02 K/uL Sodium Level 139 136-145 mmol/L Potassium Level 4.3 3.5-5.1 mmol/L Chloride Level 110 98-107 mmol/L Carbon Dioxide Level 22 21-32 mmol/L Anion Gap 7.0 3-11 mmol/L Blood Urea Nitrogen 6 7-18 mg/dl Creatinine 0.85 0.60-1.40 mg/dl Est Creatinine Clear Calc Drug Dose 154.1 ml/min Estimated GFR () 129.9 Estimated GFR (Non- 112.1 BUN/Creatinine Ratio 7.5 10-20 Random Glucose 91 70-99 mg/dl Calcium Level 8.9 8.5-10.1 mg/dl
--- NOTE | 2017-03-02 16:34 | Radiation Oncology Progress Nt ---
Radiation Oncology Progress Nt Date of Service Date of Service: March 02, 2017. Subjective Pt evaluation today including: conversation w/ patient, conversation w/ wellness consultant Objective Vital Signs Date Time Temp Pulse Resp B/P Pulse Ox O2 Delivery O2 Flow Rate FiO2 03/02/17 15:33 36.6 97 20 123/81 99 Room Air 03/02/17 12:00 Room Air 03/02/17 08:00 Room Air 03/02/17 04:00 Room Air 03/02/17 03:57 36.7 72 18 113/63 97 Room Air 03/01/17 23:59 Room Air 03/01/17 23:33 36.8 96 22 122/79 99 Room Air 03/01/17 20:00 98 Room Air 03/01/17 19:57 36.7 112 22 141/82 98 Room Air Laboratory Results Last 24 Hours Test 03/01/17 22:18 03/02/17 07:44 Activated Partial Thromboplast Time 47.6 SECONDS 46.9 SECONDS Partial Thromboplastin Ratio 1.8 1.8 White Blood Count 3.87 K/uL Red Blood Count 3.42 M/uL Hemoglobin 11.8 g/dL Hematocrit 33.1 % Mean Corpuscular Volume 96.8 fL Mean Corpuscular Hemoglobin 34.5 pg Mean Corpuscular Hemoglobin Concent 35.6 g/dl Platelet Count 107 K/uL Mean Platelet Volume 9.2 fL Neutrophils (%) (Auto) 73.6 % Lymphocytes (%) (Auto) 15.2 % Monocytes (%) (Auto) 9.3 % Eosinophils (%) (Auto) 0.8 % Basophils (%) (Auto) 0.3 % Neutrophils # (Auto) 2.85 K/uL Lymphocytes # (Auto) 0.59 K/uL Monocytes # (Auto) 0.36 K/uL Eosinophils # (Auto) 0.03 K/uL Basophils # (Auto) 0.01 K/uL RDW Standard Deviation 51.1 fL RDW Coefficient of Variation 14.8 % Immature Granulocyte % (Auto) 0.8 % Immature Granulocyte # (Auto) 0.03 K/uL Sodium Level 139 mmol/L Potassium Level 4.3 mmol/L Chloride Level 110 mmol/L Carbon Dioxide Level 22 mmol/L Anion Gap 7.0 mmol/L Blood Urea Nitrogen 6 mg/dl Creatinine 0.85 mg/dl Est Creatinine Clear Calc Drug Dose 154.1 ml/min Estimated GFR () 129.9 Estimated GFR (Non- 112.1 BUN/Creatinine Ratio 7.5 Random Glucose 91 mg/dl Calcium Level 8.9 mg/dl Assessment and Plan Mr. Roblero is currently under treatment for esophageal cancer with concurrent chemotherapy and radiation therapy. He has been admitted to the hospital due to development of pulmonary emboli. He will remain in the hospital for anti- coagulation and work up regarding his pulmonary symptoms. I have spoken to the primary medical team and we will continue to treat the patient while he is an inpatient. The patient will be brought down today to continue treatment and will be evaluated in our department. Please call us with any questions or concerns.
[2017-03-02] MEDS: ENOXAPARIN 120 MG/0.8 ML SYR SQ SCH (18:01)
--- NOTE | 2017-03-02 18:55 | Medical Consult ---
Consultation Date of Consultation: March 02, 2017. Attending Physician: Lata Machado M.D. Reason for Consultation: Bilateral multiple PE in setting of esophageal cancer treatment History of Present Illness Mr. Roblero is a 36-year-old male known to the consulting Medical Oncology Service for lower esophageal adenocarcinoma. He is currently on neoadjuvant weekly paclitaxel/carboplatin with radiation therapy. This was started on 01/26 and most recent treatment was 02/25/2017. 2 days after his last treatment, he noted dyspnea, chest pain and cough. He was admitted to [facility] on 02/28/2017 and diagnosed with right sided multiple pulmonary emboli. There does appear to be clot on the aspect of his central venous catheter. He was started on heparin drip and the plan is to change therapy over to Lovenox. He states that his respiratory symptoms are improving since admission. He has no lower extremity edema or pain. He denies abdominal pain or bowel issues. He is not having bleeding from any sites or bruising. He has no prior history of VTE. ?Question history of family history VTE with her mother. Past Medical/Surgical History Medical Problems: (1) Abdominal pain Status: Acute (2) C. 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 Family History Diabetes mellitus FH: heart disease Hypertension Social History Smoking Status: Current Some Day Smoker Alcohol Use: occasionally Drug Use: marijuana Marital Status: single Housing Status: lives with family Occupation Status: disabled Allergies Coded Allergies: Prednisone (Verified Allergy, Intermediate, HIVES, 02/23/17) Sulfa Antibiotics (Verified Allergy, Intermediate, Hives/Thrush, 02/23/17) Doxycycline (Verified Allergy, Unknown, NEURO COMPLICATIONS, 02/23/17) GMG Mushroom (Verified Allergy, Unknown, GI SYMPTOMS, 02/23/17) Sulfamethoxazole w/Trimethoprim (Verified Allergy, Unknown, hives, 02/23/17 ) Current Inpatient Medications Current Inpatient Medications Medications (Trade) Dose Ordered Sig/Kaylin Route Start Time Stop Time Status Last Admin Dose Admin Ioversol (Optiray 320) 100 ml UD PRN IV 02/28/17 00:00 03/04/17 00:00 Dicyclomine HCl (Bentyl Cap) 10 mg TID PRN PO 02/28/17 04:45 03/30/17 04:44 Morphine Sulfate (Roxanol Oral Soln) 10 mg Q4H PRN PO 02/28/17 04:45 03/14/17 04:44 Oxycodone HCl (Roxicodone Immediate Rel Tab) 5 mg Q6 PRN PO 02/28/17 04:45 03/14/17 04:44 03/01/17 22:37 5 MG Ropinirole HCl (Requip Tab) 1 mg HS PO 02/28/17 21:00 03/30/17 20:59 03/01/17 20:44 1 MG Sertraline HCl (Zoloft Tab) 100 mg HS PO 02/28/17 21:00 03/30/17 20:59 03/01/17 20:44 100 MG Sucralfate (Carafate Tab) 1 gm BID PO 02/28/17 09:00 03/30/17 08:59 03/02/17 07:39 1 GM Vancomycin HCl (Vancomycin Oral Soln) 125 mg Taper BID PO 02/28/17 09:00 04/04/17 08:59 03/02/17 07:39 125 MG Ranitidine HCl (zANTac TAB) 300 mg DAILY PO 02/28/17 09:00 03/30/17 08:59 03/02/17 07:39 300 MG Raspberry 5 ml Taper BID PO 02/28/17 09:00 04/04/17 08:59 03/02/17 07:39 5 ML Sucralfate/ Diphenhydramine HCl/Al Hydroxide/ Mg Hydroxide/ Barcode (Carafate Susp/ Benadryl Syrup/ Maalox Susp) ACHS PRN PO 02/28/17 07:30 03/30/17 07:29 Ondansetron HCl (Zofran Inj) 4 mg Q6H PRN IV 03/01/17 18:30 03/31/17 18:29 03/01/17 18:36 4 MG Guaifenesin (Organidin Nr Tab) 200 mg Q4H PRN PO 03/01/17 23:30 03/31/17 23:29 03/02/17 07:39 200 MG Levofloxacin (Levaquin Tab) 750 mg DAILY@11 PO 03/02/17 11:00 03/09/17 10:59 03/02/17 12:47 750 MG Codeine Phosphate/ Guaifenesin (Robitussin-AC Sugar Free Syrup) 10 ml Q6H PRN PO 03/02/17 09:15 04/01/17 09:14 Enoxaparin Sodium (Lovenox Inj) 120 mg Q12@0500,1700 SQ 03/02/17 17:00 04/01/17 16:59 03/02/17 18:01 120 MG Review of Systems Constitutional: No chills, No fever Respiratory: + cough, + shortness of breath, No hemoptysis Cardiovascular: + chest pain, No edema Abdomen: No GI bleeding, No constipation, No diarrhea, No nausea, No pain, No vomiting Genitourinary - Male: No hematuria Hematologic / Lymphatic: No abnormal bleeding/bruising Integumentary: No rash Physical Exam Date Time Temp Pulse Resp B/P Pulse Ox O2 Delivery O2 Flow Rate FiO2 03/02/17 18:09 36.9 101 20 114/83 98 Room Air 03/02/17 16:44 36.6 97 20 99 03/02/17 16:23 36.6 97 20 123/81 99 03/02/17 16:00 99 Room Air 03/02/17 15:33 36.6 97 20 123/81 99 Room Air 03/02/17 12:00 Room Air 03/02/17 08:00 Room Air 03/02/17 04:00 Room Air 03/02/17 03:57 36.7 72 18 113/63 97 Room Air 03/01/17 23:59 Room Air 03/01/17 23:33 36.8 96 22 122/79 99 Room Air 03/01/17 20:00 98 Room Air 03/01/17 19:57 36.7 112 22 141/82 98 Room Air General Appearance: WD/WN, no apparent distress ENT: hearing grossly normal Respiratory/Chest: no respiratory distress, no accessory muscle use, + decreased breath sounds Cardiovascular: regular rate, rhythm, no edema Abdomen/GI: normal bowel sounds, non tender, soft Extremities/Musculoskelatal: no calf tenderness, no pedal edema Neurologic/Psych: alert, oriented x 3 Skin: warm/dry, no rash Laboratory Results 02/27/17 23:08 Red Blood Count 3.77, Mean Corpuscular Volume 96.0, Mean Corpuscular Hemoglobin 33.7, Mean Corpuscular Hemoglobin Concent 35.1, Mean Platelet Volume 9.4, Neutrophils (%) (Auto) 75.3, Lymphocytes (%) (Auto) 11.5, Monocytes (%) (Auto) 12.4, Eosinophils (%) (Auto) 0.4, Basophils (%) (Auto) 0.2, Neutrophils # (Auto ) 4.12, Lymphocytes # (Auto) 0.63, Monocytes # (Auto) 0.68, Eosinophils # (Auto ) 0.02, Basophils # (Auto) 0.01 03/01/17 07:03 Red Blood Count 3.29, Mean Corpuscular Volume 96.7, Mean Corpuscular Hemoglobin 33.7, Mean Corpuscular Hemoglobin Concent 34.9, Mean Platelet Volume 9.4, Neutrophils (%) (Auto) 77.3, Lymphocytes (%) (Auto) 8.6, Monocytes (%) (Auto) 13.1, Eosinophils (%) (Auto) 0.6, Basophils (%) (Auto) 0.2, Neutrophils # (Auto ) 3.59, Lymphocytes # (Auto) 0.40, Monocytes # (Auto) 0.61, Eosinophils # (Auto ) 0.03, Basophils # (Auto) 0.01 03/02/17 07:44 Red Blood Count 3.42, Mean Corpuscular Volume 96.8, Mean Corpuscular Hemoglobin 34.5, Mean Corpuscular Hemoglobin Concent 35.6, Mean Platelet Volume 9.2, Neutrophils (%) (Auto) 73.6, Lymphocytes (%) (Auto) 15.2, Monocytes (%) (Auto) 9.3, Eosinophils (%) (Auto) 0.8, Basophils (%) (Auto) 0.3, Neutrophils # (Auto) 2.85, Lymphocytes # (Auto) 0.59, Monocytes # (Auto) 0.36, Eosinophils # (Auto) 0.03, Basophils # (Auto) 0.01 02/27/17 23:08 03/01/17 07:03 03/02/17 07:44 Test 02/27/17 23:05 02/27/17 23:08 02/27/17 23:14 02/28/17 09:06 Prothrombin Time 11.3 SECONDS (9.0-12.0) Prothromb Time International Ratio 1.1 (0.9-1.1) Activated Partial Thromboplast Time 25.4 SECONDS (21.0-31.0) 47.4 SECONDS (21.0-31.0) Partial Thromboplastin Ratio 1.0 1.8 White Blood Count 5.47 K/uL (4.8-10.8) Red Blood Count 3.77 M/uL (4.7-6.1) Hemoglobin 12.7 g/dL (14.0-18.0) Hematocrit 36.2 % (42-52) Mean Corpuscular Volume 96.0 fL (80-100) Mean Corpuscular Hemoglobin 33.7 pg (25-34) Mean Corpuscular Hemoglobin Concent 35.1 g/dl (32-36) Platelet Count 140 K/uL (130-400) Mean Platelet Volume 9.4 fL (7.4-10.4) Neutrophils (%) (Auto) 75.3 % Lymphocytes (%) (Auto) 11.5 % Monocytes (%) (Auto) 12.4 % Eosinophils (%) (Auto) 0.4 % Basophils (%) (Auto) 0.2 % Neutrophils # (Auto) 4.12 K/uL (1.4-6.5) Lymphocytes # (Auto) 0.63 K/uL (1.2-3.4) Monocytes # (Auto) 0.68 K/uL (0.11-0.59) Eosinophils # (Auto) 0.02 K/uL (0-0.5) Basophils # (Auto) 0.01 K/uL (0-0.2) RDW Standard Deviation 48.8 fL (36.4-46.3) RDW Coefficient of Variation 14.7 % (11.5-14.5) Immature Granulocyte % (Auto) 0.2 % Immature Granulocyte # (Auto) 0.01 K/uL (0.00-0.02) Anion Gap 11.0 mmol/L (3-11) Est Creatinine Clear Calc Drug Dose 139.0 ml/min Estimated GFR () 122.0 Estimated GFR (Non- 105.2 BUN/Creatinine Ratio 10.8 (10-20) Calcium Level 8.6 mg/dl (8.5-10.1) Magnesium Level 1.9 mg/dl (1.8-2.4) Total Bilirubin 0.6 mg/dl (0.2-1) Direct Bilirubin < 0.1 mg/dl (0-0.2) Aspartate Amino Transf (AST/SGOT) 15 U/L (15-37) Alanine Aminotransferase (ALT/SGPT) 47 U/L (12-78) Alkaline Phosphatase 55 U/L (45-117) Total Creatine Kinase 38 U/L (39-308) Creatine Kinase MB < 0.5 ng/ml (0.5-3.6) Creatine Kinase MB Ratio (0-3.0) Troponin I < 0.015 ng/ml (0-0.045) Total Protein 7.2 gm/dl (6.4-8.2) Albumin 3.5 gm/dl (3.4-5.0) Lipase 87 U/L (73-393) Thyroid Stimulating Hormone (TSH) 0.981 uIu/ml (0.300-4.500) Bedside D-Dimer > 450 ng/mlFEU (0-450) Bedside Troponin I 0.000 ng/ml (0-0.045) Test 03/01/17 07:03 03/01/17 15:12 03/01/17 22:18 03/02/17 07:44 White Blood Count 4.65 K/uL (4.8-10.8) 3.87 K/uL (4.8-10.8) Red Blood Count 3.29 M/uL (4.7-6.1) 3.42 M/uL (4.7-6.1) Hemoglobin 11.1 g/dL (14.0-18.0) 11.8 g/dL (14.0-18.0) Hematocrit 31.8 % (42-52) 33.1 % (42-52) Mean Corpuscular Volume 96.7 fL (80-100) 96.8 fL (80-100) Mean Corpuscular Hemoglobin 33.7 pg (25-34) 34.5 pg (25-34) Mean Corpuscular Hemoglobin Concent 34.9 g/dl (32-36) 35.6 g/dl (32-36) Platelet Count 103 K/uL (130-400) 107 K/uL (130-400) Mean Platelet Volume 9.4 fL (7.4-10.4) 9.2 fL (7.4-10.4) Neutrophils (%) (Auto) 77.3 % 73.6 % Lymphocytes (%) (Auto) 8.6 % 15.2 % Monocytes (%) (Auto) 13.1 % 9.3 % Eosinophils (%) (Auto) 0.6 % 0.8 % Basophils (%) (Auto) 0.2 % 0.3 % Neutrophils # (Auto) 3.59 K/uL (1.4-6.5) 2.85 K/uL (1.4-6.5) Lymphocytes # (Auto) 0.40 K/uL (1.2-3.4) 0.59 K/uL (1.2-3.4) Monocytes # (Auto) 0.61 K/uL (0.11-0.59) 0.36 K/uL (0.11-0.59) Eosinophils # (Auto) 0.03 K/uL (0-0.5) 0.03 K/uL (0-0.5) Basophils # (Auto) 0.01 K/uL (0-0.2) 0.01 K/uL (0-0.2) RDW Standard Deviation 50.6 fL (36.4-46.3) 51.1 fL (36.4-46.3) RDW Coefficient of Variation 14.7 % (11.5-14.5) 14.8 % (11.5-14.5) Immature Granulocyte % (Auto) 0.2 % 0.8 % Immature Granulocyte # (Auto) 0.01 K/uL (0.00-0.02) 0.03 K/uL (0.00-0.02) Activated Partial Thromboplast Time 40.8 SECONDS (21.0-31.0) 81.5 SECONDS (21.0-31.0) 47.6 SECONDS (21.0-31.0) 46.9 SECONDS (21.0-31.0) Partial Thromboplastin Ratio 1.6 3.1 1.8 1.8 Anion Gap 8.0 mmol/L (3-11) 7.0 mmol/L (3-11) Est Creatinine Clear Calc Drug Dose 174.6 ml/min 154.1 ml/min Estimated GFR () 136.0 129.9 Estimated GFR (Non- 117.4 112.1 BUN/Creatinine Ratio 11.1 (10-20) 7.5 (10-20) Calcium Level 8.2 mg/dl (8.5-10.1) 8.9 mg/dl (8.5-10.1) Date/Time Source Procedure Growth Status 02/28/17 00:00 Nasal MRSA DNA Surveillance Screen - Final Specimen Negative for MRSA by DNA Probe Complete 02/28/17 14:30 Stool C.difficile Toxin B Gene (PCR) - Final No C. difficile toxin B gene detected Complete Chest x-ray from 02/27/2017: Right internal jugular central venous infusion port is unchanged in position. Cardiomediastinal silhouette is unremarkable. Mild emphysema and chronic interstitial thickening are similar to previous. No airspace consolidation or pleural effusion. CT a from 02/27/2017: Multiple pulmonary emboli within the right lung in a including segmental emboli within the right lower lobe. May be a small segmental embolus within the right upper lobe as well. Small subpleural opacity within the right lower lobe with Lexapro pulmonary infarct. No enlarged thoracic lymph nodes. The tip of a right internal jugular feet [id number] is within the right brachiocephalic vein. There may be thrombus adjacent to the tip of the catheter. Bilateral lower extremity Dopplers from 03/02/2017: No DVT within the right or left lower extremities. Assessment & Plan 1. Multiple right lung pulmonary emboli with right pulmonary infarct * Provoked VTE episode in setting of active malignancy * Patient is currently on heparin gtt with transition planned to Lovenox * Patient will likely be managed on Lovenox during time of neoadjuvant treatment for esophageal cancer * Anticoagulation should be able to reversed if patient should develop UGI bleeding 2. Esophageal cancer- T3 N0 * Patient currently on neoadjuvant taxol/carboplatin with RT with planned surgical intervention upon completion 3. Panyctopenia' * WBC and PLT decrease mildly, likely from chemotherapy and RT * PLT is adequate at this time * Anemia about 1 g/dL lower than admission, but better than yesterday when checked * Continue to monitor CBC daily Thanks for the consult. Will continue to follow the patient while hospitalized. I performed history and physical examination of the patient . I have discussed the patient's case, impression and plan with Kalyn Beltran PA-C. Her note reflects my findings and plan. I saw him at bedside, he is sitting comfortably, has some increasing cough, no increasing shortness of breath, received Lovenox yesterday, no new problems, no new bleeding complications. He will go home soon with Lovenox twice a day (for the diagnosis of pulmonary embolism), he will continue to have follow-up with the anticoagulation Clinic. He is due for next cycle of chemotherapy (last cycle) with weekly paclitaxel and carboplatin tomorrow. Will continue chemotherapy as we planned earlier along with radiation treatment. Once he is done with combined chemo and radiation treatment for the esophageal cancer diagnosis, he will have follow-up PET-CT scan followed by surgery evaluation (already scheduled). Dr. Bin Early Hem/Onc (This note was completed using the dictation program Fluency Direct. As such, there may be misspellings, word substitutions, or other variations that should not change the essence of the clinical content of this encounter note. If there is need for further clarification, please direct questions to the provider listed above.)
[2017-03-02] MEDS: ROPINIROLE HCL 1 MG TAB PO SCH (21:09)
[2017-03-02] MEDS: GUAIFENESIN/CODEINE 200MG/20MG 10ML UDC PO PRN (21:09)
[2017-03-02] MEDS: SERTRALINE HCL 50 MG TAB PO SCH (21:09)
[2017-03-02] MEDS: OXYCODONE HCL IR 5 MG TAB (IMMEDIATE RELEASE) PO PRN (23:15)
[2017-03-03 03:57] VITALS: BP 124/78; PULSE 104; TEMP 36.6; O2SAT 97
[2017-03-03 05:51] LABS: BASO % 0.3 %; BASO ABS # 0.01 K/uL (0-0.2); COMPLETE YES; EOS % 1.3 %; HEMATOCRIT 32.8 % (42-52); LYMPH % 14.7 %; LYMPH ABS # 0.58 K/uL (1.2-3.4); MEAN CELL VOLUME 96.2 fL (80-100); MEAN CORPUSCULAR HEMOGLOBIN 33.7 pg (25-34); MEAN CORPUSCULAR HGB CONC 35.1 g/dl (32-36); MEAN PLATELET VOLUME 9.1 fL (7.4-10.4); MONO % 14.2 %; NEUT % 68.5 %; PLATELET COUNT 101 K/uL (130-400); RED BLOOD COUNT 3.41 M/uL (4.7-6.1); WHITE BLOOD COUNT 3.94 K/uL (4.8-10.8)
[2017-03-03] MEDS: ENOXAPARIN 120 MG/0.8 ML SYR SQ SCH ×2 (06:00→16:08)
[2017-03-03] MEDS: OXYCODONE HCL IR 5 MG TAB (IMMEDIATE RELEASE) PO PRN (06:02)
[2017-03-03] MEDS: GUAIFENESIN/CODEINE 200MG/20MG 10ML UDC PO PRN (06:03)
[2017-03-03 06:29] LABS: BUN/CREATININE RATIO 11.8 (10-20); CALCIUM 9.1 mg/dl (8.5-10.1); CREATININE 0.74 mg/dl (0.60-1.40); POTASSIUM 4.1 mmol/L (3.5-5.1)
[2017-03-03 07:38] VITALS: BP 118/72; PULSE 90; TEMP 36.6; O2SAT 97
[2017-03-03] MEDS: RANITIDINE HCL 150 MG TAB PO SCH (08:11)
[2017-03-03] MEDS: RASPBERRY SYRUP 5 ML UDP PO SCH (08:11)
[2017-03-03] MEDS: VANCOMYCIN HCL 125 MG/2.5ML SOLN PO SCH (08:15)
[2017-03-03] MEDS: SUCRALFATE 1 GM TAB PO SCH (08:32)
[2017-03-03] MEDS: LEVOFLOXACIN 750 MG TAB PO SCH (10:50)
[2017-03-03 11:05] VITALS: BP 100/62; PULSE 81; TEMP 36.5; O2SAT 100
--- NOTE | 2017-03-03 12:50 | Progress Note ---
Internal Med Progress Note Date of Service: March 03, 2017. Provider Documentation: SUBJECTIVE: The patient was seen and examined Admitted with SOB and noted to have Pulmonary Embolism on CAT scan Has cough with some wheezing No SOB and or Chest pain Still has some cough and minimal SOB Will get CXR-PA and lateral 2 steps before discharge OBJECTIVE: Vital Signs-as noted below Exam: General-no distress at rest Eyes-normal ENT-normal Neck-supple Lungs-clear to ausucltate bilaterally Heart-Regular,no murmur appreciated Abdomen-Benign,no masses,bowel sound present Extremities-No edema Neuro-AAOx3 No focal Neuro deficit Lab data as noted below. ASSESSMENT & PLAN: ACUTE PULMONARY EMBOLISM, RIGHT LOWER LOBE POSSIBLE SVC THROMBUS - risk factor: underlying CA - Heparin standard dose with bolus started - hemodynamically stable -appreciate Oncology input -US legs -no DVT -Lovenox on discharge -Has cough with sputum -will start Levaquin and Cough Med -likely home this afternoon ESOPHAGEAL CANCER -ongoing chemo and radiation therapy -will consult oncology -No acute issues now -no problem with feeding -will need Radiation therapy-ongoing -RT today before discharge HISTORY OF C DIFF no diarrhea continue Vanco taper Check stool for C Diff toxin-negative No more disrrhea DVT prophylaxis-IV heparin for now Code status-Full Disposition Likely discharge today Vital Signs: Date Time Temp Pulse Resp B/P Pulse Ox O2 Delivery O2 Flow Rate FiO2 03/03/17 11:05 36.5 81 20 100/62 100 Room Air 03/03/17 08:00 Room Air 03/03/17 07:38 36.6 90 18 118/72 97 Room Air 03/03/17 03:57 36.6 104 20 124/78 97 03/03/17 00:25 Room Air 03/02/17 23:52 37.1 107 20 143/71 98 Nasal Cannula 2.0 03/02/17 18:09 36.9 101 20 114/83 98 Room Air 03/02/17 16:44 36.6 97 20 99 03/02/17 16:23 36.6 97 20 123/81 99 03/02/17 16:00 99 Room Air 03/02/17 15:33 36.6 97 20 123/81 99 Room Air Lab Results: Results Past 24 Hours Test 03/03/17 05:20 Range/Units White Blood Count 3.94 4.8-10.8 K/uL Red Blood Count 3.41 4.7-6.1 M/uL Hemoglobin 11.5 14.0-18.0 g/dL Hematocrit 32.8 42-52 % Mean Corpuscular Volume 96.2 80-100 fL Mean Corpuscular Hemoglobin 33.7 25-34 pg Mean Corpuscular Hemoglobin Concent 35.1 32-36 g/dl Platelet Count 101 130-400 K/uL Mean Platelet Volume 9.1 7.4-10.4 fL Neutrophils (%) (Auto) 68.5 % Lymphocytes (%) (Auto) 14.7 % Monocytes (%) (Auto) 14.2 % Eosinophils (%) (Auto) 1.3 % Basophils (%) (Auto) 0.3 % Neutrophils # (Auto) 2.70 1.4-6.5 K/uL Lymphocytes # (Auto) 0.58 1.2-3.4 K/uL Monocytes # (Auto) 0.56 0.11-0.59 K/uL Eosinophils # (Auto) 0.05 0-0.5 K/uL Basophils # (Auto) 0.01 0-0.2 K/uL RDW Standard Deviation 50.6 36.4-46.3 fL RDW Coefficient of Variation 14.8 11.5-14.5 % Immature Granulocyte % (Auto) 1.0 % Immature Granulocyte # (Auto) 0.04 0.00-0.02 K/uL Sodium Level 139 136-145 mmol/L Potassium Level 4.1 3.5-5.1 mmol/L Chloride Level 109 98-107 mmol/L Carbon Dioxide Level 23 21-32 mmol/L Anion Gap 7.0 3-11 mmol/L Blood Urea Nitrogen 9 7-18 mg/dl Creatinine 0.74 0.60-1.40 mg/dl Est Creatinine Clear Calc Drug Dose 177.0 ml/min Estimated GFR () 137.5 Estimated GFR (Non- 118.7 BUN/Creatinine Ratio 11.8 10-20 Random Glucose 84 70-99 mg/dl Calcium Level 9.1 8.5-10.1 mg/dl
--- NOTE | 2017-03-03 14:26 | DIAGNOSTIC IMAGING REPORT ---
CHEST 2 VIEWS ROUTINE CLINICAL HISTORY: Pneumonia. Cough. COMPARISON STUDY: Chest CT February 28, 2017. FINDINGS: A right internal jugular [id number] is in place. There is no pneumothorax or pleural effusion. No consolidation is identified. Cardiac size is normal. Mediastinal contours are normal. There is no evidence of pulmonary edema. IMPRESSION: No acute cardiopulmonary findings. Electronically signed by: Saud Ryan M.D. 03/03/2017 2:25 PM Dictated Date/Time: 03/03/2017 2:24 PM
[2017-03-03 15:39] VITALS: BP 123/78; PULSE 91; TEMP 36.6; O2SAT 100
[2017-03-03] MEDS ORDERED: LVQ750 PO (16:52)
[2017-03-03] MEDS ORDERED: LCTX PO (16:52)
[2017-03-03] MEDS ORDERED: LVNIS120 SQ (16:52)
--- NOTE | 2017-03-03 16:54 | Discharge Instructions ---
Discharge Instructions Date of Service March 03, 2017. Admission Reason for Admission: Pulmonary Embolism Discharge Discharge Diagnosis / Problem: Pulmonary Embolism,Esophageal Cancer Discharge Goals Goal(s): Prevent Disease Progression Activity Recommendations Activity Limitations: resume your previous activity . Instructions / Follow-Up Instructions / Follow-Up Will call with appointments Current Hospital Diet Patient's current hospital diet: Regular Diet Discharge Diet Recommended Diet: Regular Diet Pending Studies Studies pending at discharge: no Medical Emergencies . Who to Call and When: Medical Emergencies: If at any time you feel your situation is an emergency, please call 911 immediately. . Non-Emergent Contact Non-Emergency issues call your: Primary Care Provider . Past History Medical & Surgical History: (1) Thrombosis of superior vena cava (2) Pulmonary embolism (3) Gastroesophageal reflux disease (4) Esophageal adenocarcinoma (5) Status post partial colectomy . "Provider Documentation" section prepared by Lata Machado. . VTE Core Measure Inpt VTE Proph given/why not?: Enoxaparin (Lovenox)SQ, Unfractionated heparin SQ
[2017-03-03 16:59] VITALS: BP 123/78; PULSE 91; TEMP 36.6; O2SAT 100
--- NOTE | 2017-03-03 18:16 | Discharge Summary ---
Discharge Summary Date of Service March 03, 2017. Discharge Summary Admission Date: February 28, 2017 at 04:37 Discharge Date: March 03, 2017 Discharge Disposition: Home Principal Diagnosis: Pulmonary Embolism,Esophageal Cancer,Pancytopenia, likely from chemotherapy and RT was present and treated/monitored during this admission Secondary Diagnoses/Problems: Please see H&P and Hospital Progress note Consultations: Oncology and Radiation Oncology Medication Reconciliation New Medications: Lactobacillus Acidophilus (Lactinex) Tab 2 TAB PO BID, #30 TAB Enoxaparin (Lovenox) 120 Mg/0.8 Ml Inj 120 MG SQ Q12@0500,1700 for 10 Days, #20 Levofloxacin (Levofloxacin) 750 Mg Tab 750 MG PO DAILY@11 for 4 Days, #4 TAB Continued Medications: Albuterol Hfa (Ventolin Hfa) 200 Puffs/21348 Mcg Aers 2 PUFFS PO Q4H PRN for Wheezing Cholestyramine (Cholestyramine Light) 4 Gm Pack 1 GM PO Q24H PRN for diarrhea for 4 Days, #4 GM 1 Refill Continue as needed while diarrhea persists. Dexamethasone (Decadron) 4 Mg Tab 4 MG PO UD PRN for CHEMO PRE TREAT TAKE 3 TABLETS (12 MG) WITH FOOD THE NIGHT BEFORE CHEMO AND ON THE MORNING OF CHEMO. REPEAT WITH EACH CYCLE. Dicyclomine HCl (Dicyclomine HCl) 10 Mg Cap 10 MG PO TID PRN for diarrhea for 20 Days, #30 CAP Diphenhy/Alum/Mag/Sucralfa (Magic Swizzle - Diphenhy/Alum/Mag/Sucralfa) Susp 3-4 TSP PO ACHS PRN for Swallowing Pain, ML 30ML DIPHENHYDRAMINE SLN 12.5/5ML 60ML MAALOX 4GM CARAFATE SWISH AND SPIT Morphine Sulfate (Morphine Sulfate) 20 Mg/1 Ml Soln 0.5 ML PO UD PRN for Pain 0.5 ML (=10 MG) by mouth every 4-6 hours as needed for pain Ondansetron (Ondansetron HCl) 8 Mg Tab 8 MG PO TID PRN for Nausea Oxycodone Immediate Rel Tab (Roxicodone Ir) 5 Mg Tab 1-2 TAB PO Q6 PRN for Pain, #14 TAB Prochlorperazine Maleate (Prochlorperazine Maleate) 10 Mg Tab 10 MG PO Q6H PRN for Nausea Ranitidine Hcl (Zantac) 300 Mg Tab 300 MG PO DAILY Ropinirole HCl (Ropinirole HCl) 1 Mg Tab 1 MG PO HS Sertraline HCl (Sertraline HCl) 50 Mg Tab 100 MG PO HS Sucralfate (Sucralfate) 1 Gm Tab 1 GM PO BID Vancomycin HCl (Vancomycin HCl) 125 Mg/2.5 Ml Susp 125 MG PO UD for 15 Days, #30 EA 125mg by mouth three times daily x 5 days, then 125mg by mouth twice daily x 5 days, then 125mg by mouth daily, then stop. Admission Information HPI (per Admitting provider): 36 year old male with history of Esophageal Cancer on chemo and radiation therapy presenting with shortness of breath. Follows with Dr. Weiner for PCP and Dr. Early for Oncology. Patient was discharged from [facility] last February 23, 2017 for C diff diarrhea. He was doing fine and had last chemo February 25, 2017. Today, patient presents to the ER for shortness of breath. Denies chest pain, dizziness, syncope, cough, fever/chills, diarrhea. CT angio showed right lower lobe pulmonary embolism, possible thrombus in the SVC. Heparin drip started. On exam, patient resting comfortably in bed. Denies chest pain, dyspnea, palpitations, dizziness, bleeding. No other symptoms on my evaluation. Past Medical/Surgical History Medical Problems: (1) Abscess Status: Resolved (2) Acute lymphangitis Status: Resolved (3) Cellulitis of scalp Status: Resolved (4) Cellulitis of scalp Status: Resolved (5) Diverticular disease of colon Status: Chronic (6) Diverticulitis Status: Resolved (7) Diverticulitis Status: Resolved (8) Diverticulitis Status: Resolved (9) Esophageal adenocarcinoma Permanent Comment: -Presented with dysphagia in May 2016 -Upper EGD - 11/16/16 - Biopsy - Adenocarinoma -Upper EGD with EUS - 11/24/16 Status: Chronic (10) Gastroesophageal reflux disease Status: Chronic Surgical Problems: (1) History of bowel resection Status: Resolved (2) Status post partial colectomy Permanent Comment: diverticulitis with perforation Status: Chronic Family History Diabetes mellitus FH: heart disease Hypertension Social History Smoking Status: Former Smoker Alcohol Use: occasionally Drug Use: marijuana Marital Status: single Housing status: lives alone Occupational Status: disabled Immunizations History of Influenza Vaccine: Yes History of Tetanus Vaccine?: Yes History of Pneumococcal: Yes History of Hepatitis B Vaccine: Unknown Multi-Drug Resistant Organisms History of MDRO: No Allergies Coded Allergies: Prednisone (Verified Allergy, Intermediate, HIVES, 02/23/17) Sulfa Antibiotics (Verified Allergy, Intermediate, Hives/Thrush, 02/23/17) Doxycycline (Verified Allergy, Unknown, NEURO COMPLICATIONS, 02/23/17) GMG Mushroom (Verified Allergy, Unknown, GI SYMPTOMS, 02/23/17) Sulfamethoxazole w/Trimethoprim (Verified Allergy, Unknown, hives, 02/23/17 ) Home Medications Scheduled Ranitidine Hcl (Zantac), 300 MG PO DAILY Ropinirole HCl (Ropinirole HCl), 1 MG PO HS Sertraline HCl (Sertraline HCl), 100 MG PO HS Sucralfate (Sucralfate), 1 GM PO BID Vancomycin HCl (Vancomycin HCl), 125 MG PO UD Scheduled PRN Albuterol Hfa (Ventolin Hfa), 2 PUFFS PO Q4H PRN for Wheezing Cholestyramine (Cholestyramine Light), 1 GM PO Q24H PRN for diarrhea Dexamethasone (Decadron), 4 MG PO UD PRN for CHEMO PRE TREAT Dicyclomine HCl (Dicyclomine HCl), 10 MG PO TID PRN for diarrhea Diphenhy/Alum/Mag/Sucralfa (Magic Swizzle - Diphenhy/Alum/Mag/Sucralfa), 3-4 TSP PO ACHS PRN for Swallowing Pain Morphine Sulfate (Morphine Sulfate), 0.5 ML PO UD PRN for Pain Ondansetron (Ondansetron HCl), 8 MG PO TID PRN for Nausea Oxycodone Immediate Rel Tab (Roxicodone Ir), 1-2 TAB PO Q6 PRN for Pain Prochlorperazine Maleate (Prochlorperazine Maleate), 10 MG PO Q6H PRN for Nausea Review of Systems Constitutional- no fever; no weight loss Eyes- no acute visual changes ENT- no sinus drainage; no pharyngitis Pulmonary- (+) as noted above Cardiac- no chest pain, no palpitations, no orthopnea, no dependent edema GI- no nausea, no vomiting, no diarrhea, no melena, no hematochezia - no dysuria, no hematuria Musculoskeletal- no arthralgias, no myalgias Derm- no rashes, no new skin lesions, no changing skin lesions Hematologic- no unusual bruising, no unusual bleeding Lymphatics- no adenopathy Endocrine- no polyuria or polydipsia; no heat or cold intolerance Neuro- no headaches, no focal neurologic symptoms Psych- no anxiety, no depression Physical Ex - H&P Physical Exam Vital Signs Date Time Temp Pulse Resp B/P Pulse Ox O2 Delivery O2 Flow Rate FiO2 02/28/17 04:32 102 20 99/61 97 Room Air 02/28/17 03:22 91 20 113/79 97 Room Air 02/28/17 03:00 89 02/28/17 01:19 90 20 105/62 95 Room Air 02/28/17 00:25 87 18 117/65 95 Room Air 02/27/17 23:13 110 20 110/76 99 Room Air 02/27/17 22:57 99 Room Air 02/27/17 22:57 99 Room Air 02/27/17 22:15 116 02/27/17 22:09 36.9 110 22 114/79 100 Room Air 02/27/17 22:09 100 Room Air General Appearance: WD/WN, no apparent distress, + obese Head: normocephalic, atraumatic Eyes: normal inspection, PERRL, EOMI, sclerae normal ENT: normal ENT inspection, hearing grossly normal, pharynx normal Neck: supple, no adenopathy, thyroid normal, no JVD Respiratory/Chest: chest non-tender, lungs clear, normal breath sounds, no respiratory distress, no accessory muscle use Cardiovascular: regular rate, rhythm, no edema, no JVD, no murmur, normal peripheral pulses Abdomen/GI: normal bowel sounds, non tender, soft Back: normal inspection, no CVA tenderness Extremities/Musculoskelatal: normal inspection, no calf tenderness, no pedal edema Neurologic/Psych: dye can operator II-XII nml as tested, no motor/sensory deficits, alert, normal mood/affect, normal reflexes, oriented x 3 Skin: normal color, warm/dry, no rash Lymphatic: no adenopathy Diagnostics - H&P Diagnostics Laboratory Results Results Past 24 Hours Test 02/27/17 23:05 02/27/17 23:08 Range/Units Prothrombin Time 11.3 9.0-12.0 SECONDS Prothromb Time International Ratio 1.1 0.9-1.1 Activated Partial Thromboplast Time 25.4 21.0-31.0 SECONDS Partial Thromboplastin Ratio 1.0 White Blood Count 5.47 4.8-10.8 K/uL Red Blood Count 3.77 4.7-6.1 M/uL Hemoglobin 12.7 14.0-18.0 g/dL Hematocrit 36.2 42-52 % Mean Corpuscular Volume 96.0 80-100 fL Mean Corpuscular Hemoglobin 33.7 25-34 pg Mean Corpuscular Hemoglobin Concent 35.1 32-36 g/dl Platelet Count 140 130-400 K/uL Mean Platelet Volume 9.4 7.4-10.4 fL Neutrophils (%) (Auto) 75.3 % Lymphocytes (%) (Auto) 11.5 % Monocytes (%) (Auto) 12.4 % Eosinophils (%) (Auto) 0.4 % Basophils (%) (Auto) 0.2 % Neutrophils # (Auto) 4.12 1.4-6.5 K/uL Lymphocytes # (Auto) 0.63 1.2-3.4 K/uL Monocytes # (Auto) 0.68 0.11-0.59 K/uL Eosinophils # (Auto) 0.02 0-0.5 K/uL Basophils # (Auto) 0.01 0-0.2 K/uL RDW Standard Deviation 48.8 36.4-46.3 fL RDW Coefficient of Variation 14.7 11.5-14.5 % Immature Granulocyte % (Auto) 0.2 % Immature Granulocyte # (Auto) 0.01 0.00-0.02 K/uL Sodium Level 145 136-145 mmol/L Potassium Level 3.9 3.5-5.1 mmol/L Chloride Level 110 98-107 mmol/L Carbon Dioxide Level 24 21-32 mmol/L Anion Gap 11.0 3-11 mmol/L Blood Urea Nitrogen 10 7-18 mg/dl Creatinine 0.93 0.60-1.40 mg/dl Est Creatinine Clear Calc Drug Dose 139.0 ml/min Estimated GFR () 122.0 Estimated GFR (Non- 105.2 BUN/Creatinine Ratio 10.8 10-20 Random Glucose 88 70-99 mg/dl Calcium Level 8.6 8.5-10.1 mg/dl Magnesium Level 1.9 1.8-2.4 mg/dl Total Bilirubin 0.6 0.2-1 mg/dl Direct Bilirubin < 0.1 0-0.2 mg/dl Aspartate Amino Transf (AST/SGOT) 15 15-37 U/L Alanine Aminotransferase (ALT/SGPT) 47 12-78 U/L Alkaline Phosphatase 55 45-117 U/L Total Creatine Kinase 38 39-308 U/L Creatine Kinase MB < 0.5 0.5-3.6 ng/ml Creatine Kinase MB Ratio 0-3.0 Troponin I < 0.015 0-0.045 ng/ml Total Protein 7.2 6.4-8.2 gm/dl Albumin 3.5 3.4-5.0 gm/dl Lipase 87 73-393 U/L Thyroid Stimulating Hormone (TSH) 0.981 0.300-4.500 uIu/ml Diagnostic Radiology cxr IMPRESSION: Mild emphysema with no acute cardiopulmonary abnormality. No significant change from 02/21/2017. CT chest per H&P EKG HR 102, sinus rhythm, no acute infarcts Impression - H&P Impression Assessment and Plan 36 year old male with history of Esophageal Cancer on chemo and radiation therapy presenting with shortness of breath. ACUTE PULMONARY EMBOLISM, RIGHT LOWER LOBE POSSIBLE SVC THROMBUS - risk factor: underlying CA - Heparin standard dose with bolus started - hemodynamically stable will consult Oncology, may need Lovenox on discharge ESOPHAGEAL CANCER ongoing chemo and radiation therapy will consult oncology HISTORY OF C DIFF no diarrhea continue Vanco taper DVT prophylaxis will be on heparin drip Full code Disposition pending anticipate d/c home when medically stable VTE Prophylaxis VTE Risk Assessment Done? Y/N: Yes Risk Level: Moderate Given or contraindicated: Unfractionated heparin SQ Physical Exam (per Admitting): General Appearance: WD/WN, no apparent distress, + obese Head: normocephalic, atraumatic Eyes: normal inspection, PERRL, EOMI, sclerae normal ENT: normal ENT inspection, hearing grossly normal, pharynx normal Neck: supple, no adenopathy, thyroid normal, no JVD Respiratory/Chest: chest non-tender, lungs clear, normal breath sounds, no respiratory distress, no accessory muscle use Cardiovascular: regular rate, rhythm, no edema, no JVD, no murmur, normal peripheral pulses Abdomen/GI: normal bowel sounds, non tender, soft Back: normal inspection, no CVA tenderness Extremities/Musculoskelatal: normal inspection, no calf tenderness, no pedal edema Neurologic/Psych: dye can operator II-XII nml as tested, no motor/sensory deficits, alert , normal mood/affect, normal reflexes, oriented x 3 Skin: normal color, warm/dry, no rash Lymphatic: no adenopathy Hospital Course ACUTE PULMONARY EMBOLISM, RIGHT LOWER LOBE POSSIBLE SVC THROMBUS - risk factor: underlying CA - Heparin standard dose with bolus started - hemodynamically stable -appreciate Oncology input -US legs -no DVT -Lovenox on discharge -Has cough with sputum -will start Levaquin and Cough Med -likely home this afternoon Pancytopenia, Likely from chemotherapy and RT was present and treated/monitored during this admission ESOPHAGEAL CANCER -ongoing chemo and radiation therapy -will consult oncology -No acute issues now -no problem with feeding -will need Radiation therapy-ongoing -RT today before discharge HISTORY OF C DIFF no diarrhea continue Vanco taper Check stool for C Diff toxin-negative No more disrrhea DVT prophylaxis-IV heparin for now Code status-Full Disposition Likely discharge today Total time spent on discharge = 35 minutes This includes examination of the patient, discharge planning, medication reconciliation, and communication with other providers. Discharge Instructions Date of Service March 03, 2017. Admission Reason for Admission: Pulmonary Embolism Discharge Discharge Diagnosis / Problem: Pulmonary Embolism,Esophageal Cancer Discharge Goals Goal(s): Prevent Disease Progression Activity Recommendations Activity Limitations: resume your previous activity . Instructions / Follow-Up Instructions / Follow-Up Will call with appointments Current Hospital Diet Patient's current hospital diet: Regular Diet Discharge Diet Recommended Diet: Regular Diet Pending Studies Studies pending at discharge: no Medical Emergencies . Who to Call and When: Medical Emergencies: If at any time you feel your situation is an emergency, please call 911 immediately. . Non-Emergent Contact Non-Emergency issues call your: Primary Care Provider . Past History Medical & Surgical History: (1) Thrombosis of superior vena cava (2) Pulmonary embolism (3) Gastroesophageal reflux disease (4) Esophageal adenocarcinoma (5) Status post partial colectomy . "Provider Documentation" section prepared by Lata Machado. . VTE Core Measure Inpt VTE Proph given/why not?: Enoxaparin (Lovenox)SQ, Unfractionated heparin SQ <Electronically signed by Lata Machado M.D.> Signed: 03/03/17 [id number] Additional Copies To Camilo Weiner M.D.
--- NOTE | 2017-03-04 10:07 | EDITING REQUIRED CODING QUERY ---
CODING QUERY To promote full compliance with coding requirements relating to patient care, provider participation is requested in all cases of publications editor uncertainty. Please assist us with the question(s) below: Coding Question(s): The Consultation by Dr. Sharath Steward on 03/02/17 documents Pancytopenia with WBC and PLT decrease mildly, likely from chemotherapy and RT and anemia about 1 g/dl lower than admission. There is no mention of Pancytopenia on the Discharge Summary. Please clarify below, in your clinical opinion. (+ ) Pancytopenia, likely from chemotherapy and RT was present and treated/monitored during this admission ( ) Pancytopenia was not present and treated/monitored during this admission ( ) Other: Specify Physician's Response(s): Thank you Danisha Stallworth Principal Diagnosis: "_that condition established after study, to be chiefly responsible for occasioning the admission of the patient to the hospital for care." Co-Existing Principal Diagnosis: "_when two or more diagnoses equally meet the criteria for principal diagnosis as determined by the circumstances of admission, diagnostic work up, and/or therapy provided, and the Alphabetic Index, Tabular List, or another coding guideline does not provide sequencing direction, any one of the diagnoses may be sequenced first." "When the physician has documented what appears to be a current diagnosis in the body of the record, but has not included the diagnosis in the final diagnostic statement, the physician should be asked whether the diagnosis should be added." (Source Coding [facility] 2 QTR90. p3-4)
== END 2017-03-03 17:54 | disposition home or self-care (01) | DRG 175 ==
LOC: ENRESERVTM → ENRESERVDT → EDBD 22:04 → C.EDB 22:06 → C.MSICU 02-28 04:37 → C.2T 02-28 18:29 → EDBEDREQSVC 03-02 15:38 → C.4E 03-02 17:46
PROVIDERS: ADMIT Internal Medicine; ATTEND Internal Medicine
DX: I26.99 Other pulmonary embolism without acute cor pulmonale (principal); D61.810 Antineoplastic chemotherapy induced pancytopenia; I82.210 Acute embolism and thrombosis of superior vena cava; Z68.41 Body mass index [BMI] 40.0-44.9, adult; K21.9 Gastro-esophageal reflux disease without esophagitis; E66.9 Obesity, unspecified; F17.200 Nicotine dependence, unspecified, uncomplicated; Z51.81 Encounter for therapeutic drug level monitoring; Z79.899 Other long term (current) drug therapy; Z86.19 Personal history of other infectious and parasitic diseases; Z83.3 Family history of diabetes mellitus; Z82.49 Family history of ischemic heart disease and other diseases of the circulatory system; Z51.0 Encounter for antineoplastic radiation therapy; C15.5 Malignant neoplasm of lower third of esophagus

== ENCOUNTER 2017-03-09 14:21 | Emergency (ER) | payer OTHER ==
[~2017-03-09] VITALS: Ht 175.3 cm; Wt 119.5 kg
[~2017-03-09 14:21] MED LIST changes: +LCTX PO; +LVNIS120 SQ
[2017-03-09 14:25] VITALS: TEMP 36.7
[2017-03-09] MEDS ORDERED: ONDANSETRON INJ 2 MG/ML 2 ML VIAL IV STA (14:36)
[2017-03-09] MEDS ORDERED: SODIUM CHLORIDE 0.9% 1000ML 1,000 ML IV STA ×3 (14:36→18:31)
--- NOTE | 2017-03-09 14:55 | EMERGENCY ROOM VISIT NOTE ---
History Report prepared by Padilla: Felipa Crawford Under the Supervision of: Dr. Yan Hawkins M.D. First contact with patient: 14:29 Chief Complaint: DIZZY Stated Complaint: PULSE DROPS WHEN STANDING, DOCTOR REFERRED Nursing Triage Summary: patient presents with dizziness and bradycardia when standing Patient states symptoms began yesterday Referred to ED by radiation oncology Patient has history of stage 1 throat cancer History of Present Illness The patient is a 37 year old male who presents to the Emergency Room with complaints of intermittent dizziness for the past 2 days. He states that when he stands up his "pulse drops" and he gets extremely dizzy. He has some dizziness all the time, but it is worse with standing. He is currently being treated for throat cancer. The patient was a radiation today and was sent to the ED for further evaluation. He has never experienced these symptoms before. He is having some pain in his spine that he thinks is due to chemotherapy. He denies any abdominal pain. The patient rates his pain as a 7/10 in severity. Source of History: patient Onset: 2 days ago Position: other (global) Symptom Intensity: 7/10 Quality: other (dizziness) Timing: intermittent Modifying Factors (Worsening): other (standing) Associated Symptoms: No abdominal pain Review of Systems See HPI for pertinent positives & negatives. A total of 10 systems reviewed and were otherwise negative. Past Medical & Surgical Medical Problems: (1) Abscess (2) Acute lymphangitis (3) Cellulitis of scalp (4) Cellulitis of scalp (5) Diverticular disease of colon (6) Diverticulitis (7) Diverticulitis (8) Diverticulitis (9) Esophageal adenocarcinoma (10) Gastroesophageal reflux disease Surgical Problems: (1) History of bowel resection (2) Status post partial colectomy Family History Diabetes mellitus FH: heart disease Hypertension Social History Smoking Status: Current Some Day Smoker Alcohol Use: none Drug Use: marijuana Marital Status: single Housing Status: lives with family Occupation Status: disabled Current/Historical Medications Scheduled Enoxaparin (Lovenox), 120 MG SQ Q12@0500,1700 Lactobacillus Acidophilus (Lactinex), 2 TAB PO BID Ranitidine Hcl (Zantac), 300 MG PO DAILY Ropinirole HCl (Ropinirole HCl), 1 MG PO HS Sertraline HCl (Sertraline HCl), 100 MG PO HS Vancomycin HCl (Vancomycin HCl), 125 MG PO UD Scheduled PRN Albuterol Hfa (Ventolin Hfa), 2 PUFFS PO Q4H PRN for Wheezing Cholestyramine (Cholestyramine Light), 1 GM PO Q24H PRN for diarrhea Dexamethasone (Decadron), 4 MG PO UD PRN for CHEMO PRE TREAT Dicyclomine HCl (Dicyclomine HCl), 10 MG PO TID PRN for diarrhea Diphenhy/Alum/Mag/Sucralfa (Magic Swizzle - Diphenhy/Alum/Mag/Sucralfa), 3-4 TSP PO ACHS PRN for Swallowing Pain Morphine Sulfate (Morphine Sulfate), 0.5 ML PO UD PRN for Pain Oxycodone Immediate Rel Tab (Roxicodone Ir), 1-2 TAB PO Q6 PRN for Pain Oxycodone/Acetaminophen 5MG/325MG (Percocet 5MG/325MG), 1-2 TAB PO Q4H PRN for Pain Prochlorperazine Maleate (Prochlorperazine Maleate), 10 MG PO Q6H PRN for Nausea Allergies Coded Allergies: Prednisone (Verified Allergy, Intermediate, HIVES, 03/09/17) Sulfa Antibiotics (Verified Allergy, Intermediate, Hives/Thrush, 03/09/17) Doxycycline (Verified Allergy, Unknown, NEURO COMPLICATIONS, 03/09/17) GMG Mushroom (Verified Allergy, Unknown, GI SYMPTOMS, 03/09/17) Sulfamethoxazole w/Trimethoprim (Verified Allergy, Unknown, hives, 03/09/17) Physical Exam Vital Signs Date Time Temp Pulse Resp B/P (MAP) Pulse Ox O2 Delivery O2 Flow Rate FiO2 03/09/17 22:40 110 20 104/57 100 03/09/17 20:27 127 20 100/63 99 Room Air 03/09/17 18:30 109 18 100/63 100 Nebulizer 8.0 03/09/17 17:40 92 18 95 Room Air 03/09/17 17:00 111 20 146/80 99 Room Air 03/09/17 15:54 94 18 97/64 99 Room Air 03/09/17 15:14 97 16 102/78 99 Room Air 03/09/17 15:08 98 Room Air 03/09/17 15:00 107 16 104/70 99 118 105/64 120 102/87 03/09/17 14:25 36.7 111 20 128/79 97 Room Air Physical Exam GENERAL: Patient is a pale-appearing well-nourished male. HEAD: Normocephalic atraumatic EYES: Ocular movements intact pupils equal and react to light OROPHARYNX mucous membranes are moist no exudates present no erythema or edema present NECK: Supple no nuchal rigidity CHEST: Good equal expansion LUNGS: Clear and equal to auscultation CARDIAC: Normal S1 and S2 ABDOMEN: Soft nontender no guarding BACK: No CVA tenderness EXTREMITIES: No pain upon palpation normal muscle strength in all groups no clubbing cyanosis or edema NEURO: Patient is following commands is answering questions appropriately. Alert and oriented x3 Cranial Nerves 2-12 grossly intact Medical Decision & Procedures ER Provider Diagnostic Interpretation: Radiology results as stated below per my review and radiologist interpretation: CHEST ONE VIEW PORTABLE CLINICAL HISTORY: Pt c/o SOB dyspnea COMPARISON STUDY: 03/03/2017 FINDINGS: Lungs are clear. Diaphragms smooth. Central catheter in superior vena cava. IMPRESSION: No acute process. Electronically signed by: Isra Vazquez M.D. 03/09/2017 2:55 PM Dictated Date/Time: 03/09/2017 2:55 PM Laboratory Results 03/09/17 15:05 Red Blood Count 3.43, Mean Corpuscular Volume 95.6, Mean Corpuscular Hemoglobin 33.8, Mean Corpuscular Hemoglobin Concent 35.4, Mean Platelet Volume 9.6, Neutrophils (%) (Auto) 72.1, Lymphocytes (%) (Auto) 14.9, Monocytes (%) (Auto) 11.8, Eosinophils (%) (Auto) 0.4, Basophils (%) (Auto) 0.0, Neutrophils # (Auto ) 1.84, Lymphocytes # (Auto) 0.38, Monocytes # (Auto) 0.30, Eosinophils # (Auto ) 0.01, Basophils # (Auto) 0.00 03/09/17 15:05 Test 03/09/17 14:56 03/09/17 15:05 03/09/17 15:06 Urine Color DK YELLOW Urine Appearance CLEAR (CLEAR) Urine pH 7.5 (4.5-7.5) Urine Specific Huntly 1.024 (1.000-1.030) Urine Protein 2+ (NEG) Urine Glucose (UA) NEG (NEG) Urine Ketones TRACE (NEG) Urine Occult Blood NEG (NEG) Urine Nitrite NEG (NEG) Urine Bilirubin NEG (NEG) Urine Urobilinogen NEG (NEG) Urine Leukocyte Esterase TRACE (NEG) Urine WBC (Auto) 1-5 /hpf (0-5) Urine RBC (Auto) 0-4 /hpf (0-4) Urine Hyaline Casts (Auto) 5-10 /lpf (0-5) Urine Epithelial Cells (Auto) >30 /lpf (0-5) Urine Bacteria (Auto) NEG (NEG) Urine Renal Epithelial Cells /lpf (0-5) Urine Pathogenic Casts /lpf (0) Urine Mucus PRESENT (NONE PRSENT) White Blood Count 2.55 K/uL (4.8-10.8) Red Blood Count 3.43 M/uL (4.7-6.1) Hemoglobin 11.6 g/dL (14.0-18.0) Hematocrit 32.8 % (42-52) Mean Corpuscular Volume 95.6 fL (80-100) Mean Corpuscular Hemoglobin 33.8 pg (25-34) Mean Corpuscular Hemoglobin Concent 35.4 g/dl (32-36) Platelet Count 96 K/uL (130-400) Mean Platelet Volume 9.6 fL (7.4-10.4) Neutrophils (%) (Auto) 72.1 % Lymphocytes (%) (Auto) 14.9 % Monocytes (%) (Auto) 11.8 % Eosinophils (%) (Auto) 0.4 % Basophils (%) (Auto) 0.0 % Neutrophils # (Auto) 1.84 K/uL (1.4-6.5) Lymphocytes # (Auto) 0.38 K/uL (1.2-3.4) Monocytes # (Auto) 0.30 K/uL (0.11-0.59) Eosinophils # (Auto) 0.01 K/uL (0-0.5) Basophils # (Auto) 0.00 K/uL (0-0.2) RDW Standard Deviation 51.9 fL (36.4-46.3) RDW Coefficient of Variation 15.7 % (11.5-14.5) Immature Granulocyte % (Auto) 0.8 % Immature Granulocyte # (Auto) 0.02 K/uL (0.00-0.02) Platelet Estimate DECREASED Erythrocyte Sedimentation Rate 25 mm/hr (0-14) Prothrombin Time 12.3 SECONDS (9.0-12.0) Prothromb Time International Ratio 1.1 (0.9-1.1) Activated Partial Thromboplast Time 33.3 SECONDS (21.0-31.0) Partial Thromboplastin Ratio 1.3 Anion Gap 10.0 mmol/L (3-11) Est Creatinine Clear Calc Drug Dose 138.8 ml/min Estimated GFR () 121.1 Estimated GFR (Non- 104.5 BUN/Creatinine Ratio 12.2 (10-20) Calcium Level 9.0 mg/dl (8.5-10.1) Total Bilirubin 0.9 mg/dl (0.2-1) Direct Bilirubin 0.2 mg/dl (0-0.2) Aspartate Amino Transf (AST/SGOT) 20 U/L (15-37) Alanine Aminotransferase (ALT/SGPT) 39 U/L (12-78) Alkaline Phosphatase 48 U/L (45-117) Total Creatine Kinase 35 U/L (39-308) Creatine Kinase MB < 0.5 ng/ml (0.5-3.6) Creatine Kinase MB Ratio (0-3.0) Troponin I < 0.015 ng/ml (0-0.045) C-Reactive Protein 1.00 mg/dl (0-0.29) Total Protein 7.3 gm/dl (6.4-8.2) Albumin 3.7 gm/dl (3.4-5.0) Thyroid Stimulating Hormone (TSH) 0.699 uIu/ml (0.300-4.500) Bedside Glucose 100 mg/dl (70-99) Labs reviewed by ED physician. Medications Administered Medications (Trade) Dose Ordered Sig/Kaylin Route Start Time Stop Time Status Last Admin Dose Admin Sodium Chloride 1,000 ml @ 999 mls/hr Q1H1M STAT IV 03/09/17 14:36 03/09/17 15:36 DC 03/09/17 15:09 999 MLS/HR Ondansetron HCl (Zofran Inj) 4 mg NOW STAT IV 03/09/17 14:36 03/09/17 14:39 DC 03/09/17 15:08 4 MG Sodium Chloride 1,000 ml @ 999 mls/hr Q1H1M STAT IV 03/09/17 15:48 03/09/17 16:48 DC 03/09/17 16:06 999 MLS/HR Hydromorphone HCl (Dilaudid Inj) 1 mg NOW STAT IV 03/09/17 16:42 03/09/17 16:43 DC 03/09/17 17:00 1 MG Ketorolac Tromethamine (Toradol Inj) 30 mg NOW STAT IV 03/09/17 16:42 03/09/17 16:43 DC 03/09/17 17:00 30 MG Albuterol (Ventolin Hfa Inhaler) 2 puffs NOW STAT INH 03/09/17 17:18 03/09/17 17:20 DC 03/09/17 17:40 2 PUFFS Albuterol/ Ipratropium (Duoneb) 12 ml ONE ONCE INH 03/09/17 17:30 03/09/17 17:31 DC 03/09/17 17:40 12 ML Heparin Sodium (Porcine) (Heparin 100 Unit/ml 5ml Flush) 5 ml STK-MED ONCE .ROUTE 03/09/17 17:31 03/09/17 17:32 DC 03/09/17 17:31 5 ML Sodium Chloride 1,000 ml @ 999 mls/hr Q1H1M STAT IV 03/09/17 18:31 03/09/17 19:31 DC 03/09/17 18:39 999 MLS/HR Hydromorphone HCl (Dilaudid Inj) 1 mg Q2HWA PRN IV 03/09/17 18:45 03/09/17 23:31 DC 03/09/17 20:24 1 MG Oxycodone/ Acetaminophen (Percocet 5/ 325MG Home Pack) 1 homepack UD STAT PO 03/09/17 18:34 03/09/17 18:36 DC 03/09/17 22:27 1 HOMEPACK Heparin Sodium (Porcine) (Heparin 100 Unit/ml 5ml Flush) 5 ml STK-MED ONCE .ROUTE 03/09/17 22:22 03/09/17 22:23 DC 03/09/17 22:22 5 ML ED Course 1429: Past medical records reviewed. The patient was evaluated in room A2. A complete history and physical examination was performed. 1436: Zofran 4 mg IV, NSS 1000 ml @ 999 mls/hr IV 1548: NSS 1000 ml @ 999 mls/hr IV Medical Decision Etiologies such as metabolic, infection, hypo/hyperglycemia, electrolyte abnormalities, cardiac sources, intracerebral event, toxicologic, neurologic, as well as others were entertained. Medication Reconciliation: I attest that I have personally reviewed the patient' s current medication list. This is a 37-year-old male who presents emergency department complaining of dizziness. I will note that the patient is orthostatic on examination. For this reason IV was established, the patient is given normal saline bolus 2. On repeat examination the patient is complaining of back pain that he states started suddenly. I will note that the patient is on Lovenox for previous PE. He denies missing any doses. The patient is slightly wheezing on examination therefore he was given an hour-long breathing treatment and was given an albuterol inhaler for home. Due to the fact that the patient has acute back pain along with cancer along with the fact that he is on Lovenox, he was sent for an MRI of the back. The patient has a normal MRI and I feels well enough to be discharged home. I will note he is afebrile here. Impression Primary Impression: Back pain Scribe Attestation The scribe's documentation has been prepared under my direction and personally reviewed by me in its entirety. I confirm that the note above accurately reflects all work, treatment, procedures, and medical decision making performed by me. Departure Information Dispostion Home / Self-Care Prescriptions Oxycodone/Acetaminophen 5MG/325MG (PERCOCET 5MG/325MG) Tab 1-2 TAB PO Q4H Y for Pain, #14 TAB Prov: Yan Hawkins MD 03/09/17 Referrals Camilo Weiner M.D. (PCP) Patient Instructions My [facility] Problem Qualifiers Primary Impression: Back pain Back pain location: low back pain Chronicity: acute Back pain laterality: midline Sciatica presence: without sciatica Qualified Codes: M54.5 - Low back pain
[2017-03-09 15:07] VITALS: Ht 175.3 cm; Wt 119.5 kg
[2017-03-09 15:08] VITALS: O2SAT 98
[2017-03-09 15:15] LABS: HEMATOCRIT 32.8 % (42-52); MEAN CELL VOLUME 95.6 fL (80-100); MEAN CORPUSCULAR HEMOGLOBIN 33.8 pg (25-34); MEAN CORPUSCULAR HGB CONC 35.4 g/dl (32-36); RED BLOOD COUNT 3.43 M/uL (4.7-6.1); WHITE BLOOD COUNT 2.55 K/uL (4.8-10.8)
[2017-03-09 15:34] LABS: BLOOD UREA NITROGEN 11 mg/dl (7-18); BUN/CREATININE RATIO 12.2 (10-20); CARBON DIOXIDE 21 mmol/L (21-32); CHLORIDE 110 mmol/L (98-107); CREATININE 0.93 mg/dl (0.60-1.40); GLUCOSE 90 mg/dl (70-99); POTASSIUM 3.7 mmol/L (3.5-5.1); SODIUM 141 mmol/L (136-145)
[2017-03-09 15:35] LABS: URINE APPEARANCE CLEAR (CLEAR); URINE COLOR DK YELLOW; URINE EPITHELIAL CELL AUTO >30 /lpf (0-5); URINE NITRITE NEG (NEG); URINE PH 7.5 (4.5-7.5); URINE SPECIFIC GRAVITY 1.024 (1.000-1.030); UROBILINOGEN NEG (NEG)
[2017-03-09 15:43] LABS: COMPLETE YES; EOS % 0.4 %; IG% 0.8 %; LYMPH % 14.9 %; LYMPH ABS # 0.38 K/uL (1.2-3.4); MEAN PLATELET VOLUME 9.6 fL (7.4-10.4); MONO % 11.8 %; NEUT % 72.1 %; PLATELET COUNT 96 K/uL (130-400); PLT ESTIMATE DECREASED
[2017-03-09 15:45] LABS: ALKALINE PHOSPHATASE 48 U/L (45-117); ALT/SGPT 39 U/L (12-78); AST/SGOT 20 U/L (15-37); THYROID STIMULATING HORMONE 0.699 uIu/ml (0.300-4.500)
[2017-03-09 15:57] LABS: MANUAL MICROSCOPIC REQUIRED? NO; REVIEW REQ? YES; SULFASALICYLIC ACID POS (NEG); URINE BILIRUBIN NEG (NEG)
[2017-03-09 15:58] LABS: URINE MUCUS PRESENT (NONE PRSENT)
[2017-03-09] MEDS ORDERED: HYDROmorphone INJ 1 MG/ML SYR IV STA (16:42)
[2017-03-09] MEDS ORDERED: KETOROLAC TROMETHAMINE 30 MG/ML VIAL IV STA (16:42)
[2017-03-09] MEDS ORDERED: ALBUTEROL HFA 8 GM INHALER INH STA (17:18)
[2017-03-09] MEDS ORDERED: ALBUT/IPRATROP 3MG/0.5MG NEB 3 ML VIAL INH ONE (17:30)
[2017-03-09 17:38] LABS: INR 1.1 (0.9-1.1); PARTIAL THROMBOPLASTIN RATIO 1.3; PROTHROMBIN TIME (PATIENT) 12.3 SECONDS (9.0-12.0)
[2017-03-09 17:40] VITALS: PULSE 92; O2SAT 95
[2017-03-09] MEDS ORDERED: PERCOCET HOME PACK PO STA (18:34)
[2017-03-09] MEDS ORDERED: OXYC-57 PO (18:38)
[2017-03-09] MEDS ORDERED: ONDANSETRON INJ 2 MG/ML 2 ML VIAL IV PRN (18:45)
[2017-03-09] MEDS ORDERED: HYDROmorphone INJ 1 MG/ML SYR IV PRN (18:45)
[2017-03-09] MEDS ORDERED: GADAVIST IV PRN (20:15)
--- NOTE | 2017-03-09 21:38 | DIAGNOSTIC IMAGING REPORT ---
MRI LUMBAR SPINE COMBO CLINICAL HISTORY: Back pain. COMPARISON STUDY: Abdominal CT dated 02/05/2017. TECHNIQUE: MRI of the lumbar spine is performed utilizing various T1 and T2-weighted sequences in the axial and sagittal planes. Contrast-enhanced sequences are acquired following the IV administration of 11.5 cc of Gadavist. The postcontrast images are significantly degraded by motion artifact. The patient was unable to tolerate repeat examination. FINDINGS: Lumbar spine: Vertebral body height and alignment are maintained throughout the lumbar spine. The transverse and spinous processes appear intact. There is no evidence of spondylolysis. Chronic degenerative endplate change/sclerosis is seen at L5-S1. No marrow edema is seen. There is no evidence of destructive bony lesion. Intervertebral discs: There is degenerative disc desiccation and moderate loss of height at L5-S1. Mild desiccation is seen at L4-L5. The remaining discs are normal in height and signal intensity. Spinal cord: The visualized spinal cord is normal in morphology and signal intensity. The conus medullaris terminates at the T12-L1 interspace. The nerve roots of the cauda equina are normal in morphology. No abnormal enhancement is seen on the postcontrast images. L1-L2: Unremarkable. L2-L3: Unremarkable. L3-L4: Unremarkable. L4-L5: There is minimal posterior disc bulge. The central canal and neural foramina are widely patent. L5-S1: There is posterior disc bulge eccentric to the left. There is no central canal stenosis. The disc bulge causes mild left-sided subarticular stenosis. The neural foramina are patent. The disc bulge may abut the transiting left S1 nerve root. Sacrum: Visualized sacrum is normal in morphology and signal intensity. Soft tissues: The paraspinous soft tissues are within normal limits. The partially imaged retroperitoneal structures are grossly unremarkable but incompletely assessed. A circumaortic left renal vein is incidentally noted. IMPRESSION: 1. There is no disc herniation, central canal stenosis, or significant neural foraminal narrowing seen throughout the lumbar spine. 2. Degenerative disc disease at L4-L5 and L5-S1 as above. See discussion for detailed level by level analysis. 3. No destructive bony process is seen. 4. Chronic degenerative endplate change/sclerosis is noted at L5-S1. Dictated: 03/09/2017 8:15 PM Transcribed: 03/09/2017 9:38 PM [email or web address] Electronically signed by: Fadi Mao M.D. 03/09/2017 9:39 PM Dictated Date/Time: 03/09/2017 8:15 PM
[2017-03-09] MEDS ORDERED: PERCOCET HOME PACK PO ONE (22:30)
[2017-03-09 22:40] VITALS: BP 104/57; PULSE 110; O2SAT 100
== END 2017-03-09 22:58 | disposition home or self-care (01) ==
LOC: C.EDB 14:22 → C.EDA 22:58
DX: R42 Dizziness and giddiness (principal); C15.5 Malignant neoplasm of lower third of esophagus; Z51.0 Encounter for antineoplastic radiation therapy; M54.9 Dorsalgia, unspecified; K21.9 Gastro-esophageal reflux disease without esophagitis; K57.30 Diverticulosis of large intestine without perforation or abscess without bleeding; K57.92 Diverticulitis of intestine, part unspecified, without perforation or abscess without bleeding; F17.200 Nicotine dependence, unspecified, uncomplicated; Z86.711 Personal history of pulmonary embolism; Z85.01 Personal history of malignant neoplasm of esophagus; Z86.19 Personal history of other infectious and parasitic diseases; Z90.49 Acquired absence of other specified parts of digestive tract; Z79.899 Other long term (current) drug therapy; Z88.2 Allergy status to sulfonamides; Z88.8 Allergy status to other drugs, medicaments and biological substances; Z83.3 Family history of diabetes mellitus; Z82.49 Family history of ischemic heart disease and other diseases of the circulatory system

== ENCOUNTER 2017-03-11 20:35 | Emergency (ER) | payer OTHER ==
[~2017-03-11] VITALS: Ht 172.7 cm; Wt 123.0 kg
[~2017-03-11 20:35] MED LIST changes: -ONDA-63 PO; +OXYC-57 PO; -SUCR1TAB PO
[2017-03-11 20:40] VITALS: Ht 172.7 cm; Wt 123.0 kg
[2017-03-11] MEDS ORDERED: SODIUM CHLORIDE 0.9% 1000ML 1,000 ML IV STA (21:22)
[2017-03-11] MEDS ORDERED: KETOROLAC TROMETHAMINE 30 MG/ML VIAL IV STA (21:22)
[2017-03-11] MEDS ORDERED: HYDROmorphone INJ 1 MG/ML SYR IV STA (21:22)
[2017-03-11] MEDS ORDERED: ONDANSETRON INJ 2 MG/ML 2 ML VIAL IV STA (21:22)
[2017-03-11 22:22] LABS: BASO % 0.3 %; BASO ABS # 0.01 K/uL (0-0.2); COMPLETE YES; EOS % 0.6 %; HEMATOCRIT 32.7 % (42-52); IG% 0.9 %; MEAN CELL VOLUME 97.6 fL (80-100); MEAN CORPUSCULAR HEMOGLOBIN 33.1 pg (25-34); MEAN CORPUSCULAR HGB CONC 33.9 g/dl (32-36); MEAN PLATELET VOLUME 10.2 fL (7.4-10.4); MONO % 21.9 %; NEUT % 64.3 %; PLATELET COUNT 119 K/uL (130-400); RED BLOOD COUNT 3.35 M/uL (4.7-6.1); WHITE BLOOD COUNT 3.34 K/uL (4.8-10.8)
[2017-03-11 22:52] LABS: ALT/SGPT 39 U/L (12-78); AST/SGOT 22 U/L (15-37); BLOOD UREA NITROGEN 6 mg/dl (7-18); BUN/CREATININE RATIO 6.4 (10-20); CALCIUM 8.9 mg/dl (8.5-10.1); CARBON DIOXIDE 26 mmol/L (21-32); CHLORIDE 110 mmol/L (98-107); GLUCOSE 81 mg/dl (70-99); POTASSIUM 3.6 mmol/L (3.5-5.1); SODIUM 146 mmol/L (136-145)
[2017-03-11 22:54] LABS: ALKALINE PHOSPHATASE 49 U/L (45-117)
[2017-03-11] MEDS ORDERED: GI COCKTAIL PO STA (23:06)
[2017-03-11] MEDS ORDERED: SUCRALFATE 1 GM TAB PO STA (23:06)
[2017-03-11] MEDS ORDERED: FAMOTIDINE 20 MG TAB PO STA (23:06)
[2017-03-11 23:10] LABS: ISTAT CREATININE 0.8 mg/dl (0.6-1.3); ISTAT HEMOGLOBIN 9.2 g/dl (14.0-18.0); ISTAT IONIZED CALCIUM 1.2 mmol/l (1.12-1.32)
[2017-03-11] MEDS ORDERED: ALUMINUM/MAGNESIUM SUSP 30 ML UDC ONE (23:11)
[2017-03-11] MEDS ORDERED: LIDOCAINE HCL 2% VISC SOLN 20 ML UDC ONE (23:11)
[2017-03-11] MEDS ORDERED: OPTIRAY 320 IV PRN (23:45)
[2017-03-12] MEDS ORDERED: ENOXAPARIN 1 MG/KG SQ STA (00:09)
[2017-03-12] MEDS ORDERED: ENOXAPARIN 120 MG/0.8 ML SYR SQ STA (00:13)
[2017-03-12 00:23] VITALS: BP 121/74; PULSE 107; TEMP 36.7; O2SAT 99
[2017-03-12] MEDS ORDERED: CHOLESTYRAMINE LIGHT 4 GM PKT PO STA (00:27)
[2017-03-12] MEDS ORDERED: ONDANSETRON HOME PACK 4MG OD TAB PO ONE (00:45)
--- NOTE | 2017-03-12 00:51 | EMERGENCY ROOM VISIT NOTE ---
History Report prepared by Padilla: Dolores Irvin Under the Supervision of: Dr. Yan Hawkins M.D. First contact with patient: 21:18 Chief Complaint: FLU LIKE SX Stated Complaint: VOMITING,SHAKEY,COUGHING,BODY ACHES,DIZZY,DIARRHEA History of Present Illness The patient is a 37 year old male who presents to the Emergency Room with complaints of persistent flu symptoms starting last night. He reports vomiting, shaking, chills, abdominal pain, body aches, and diarrhea. He had 6 episodes of diarrhea today. He denies any fever. Source of History: patient Onset: last night Position: other (global) Quality: other (flu symptoms) Timing: other (persistent) Associated Symptoms: + chills, + vomiting, + abdominal pain, + diarrhea, No fevers Note: Pt reports body aches. Review of Systems See HPI for pertinent positives & negatives. A total of 10 systems reviewed and were otherwise negative. Past Medical & Surgical Medical Problems: (1) Abscess (2) Acute lymphangitis (3) Cellulitis of scalp (4) Cellulitis of scalp (5) Diverticular disease of colon (6) Diverticulitis (7) Diverticulitis (8) Diverticulitis (9) Esophageal adenocarcinoma (10) Gastroesophageal reflux disease Surgical Problems: (1) History of bowel resection (2) Status post partial colectomy Family History Diabetes mellitus FH: heart disease Hypertension Social History Smoking Status: Current Every Day Smoker Alcohol Use: none Drug Use: marijuana Marital Status: single Housing Status: lives with family Occupation Status: disabled Current/Historical Medications Scheduled Enoxaparin (Lovenox), 120 MG SQ Q12@0500,1700 Lactobacillus Acidophilus (Lactinex), 2 TAB PO BID Ranitidine Hcl (Zantac), 300 MG PO DAILY Ropinirole HCl (Ropinirole HCl), 1 MG PO HS Sertraline HCl (Sertraline HCl), 100 MG PO HS Vancomycin HCl (Vancomycin HCl), 125 MG PO UD Scheduled PRN Albuterol Hfa (Ventolin Hfa), 2 PUFFS PO Q4H PRN for Wheezing Cholestyramine (Cholestyramine Light), 1 GM PO Q24H PRN for diarrhea Dexamethasone (Decadron), 4 MG PO UD PRN for CHEMO PRE TREAT Dicyclomine HCl (Dicyclomine HCl), 10 MG PO TID PRN for diarrhea Diphenhy/Alum/Mag/Sucralfa (Magic Swizzle - Diphenhy/Alum/Mag/Sucralfa), 3-4 TSP PO ACHS PRN for Swallowing Pain Morphine Sulfate (Morphine Sulfate), 0.5 ML PO UD PRN for Pain Oxycodone Immediate Rel Tab (Roxicodone Ir), 1-2 TAB PO Q6 PRN for Pain Oxycodone/Acetaminophen 5MG/325MG (Percocet 5MG/325MG), 1-2 TAB PO Q4H PRN for Pain Prochlorperazine Maleate (Prochlorperazine Maleate), 10 MG PO Q6H PRN for Nausea Allergies Coded Allergies: Prednisone (Verified Allergy, Intermediate, HIVES, 03/09/17) Sulfa Antibiotics (Verified Allergy, Intermediate, Hives/Thrush, 03/09/17) Doxycycline (Verified Allergy, Unknown, NEURO COMPLICATIONS, 03/09/17) GMG Mushroom (Verified Allergy, Unknown, GI SYMPTOMS, 03/09/17) Sulfamethoxazole w/Trimethoprim (Verified Allergy, Unknown, hives, 03/09/17) Physical Exam Vital Signs Date Time Temp Pulse Resp B/P (MAP) Pulse Ox O2 Delivery O2 Flow Rate FiO2 03/12/17 00:23 36.7 107 18 121/74 99 Room Air 03/11/17 22:44 110 03/11/17 22:44 115 20 94/48 93 Room Air 03/11/17 20:40 36.9 133 20 112/77 99 Room Air Physical Exam GENERAL: Patient is a healthy-appearing well-nourished HEAD: Normocephalic atraumatic EYES: Ocular movements intact pupils equal and react to light OROPHARYNX mucous membranes are moist no exudates present no erythema or edema present NECK: Supple no nuchal rigidity CHEST: Good equal expansion LUNGS: Clear and equal to auscultation CARDIAC: Normal S1 and S2 ABDOMEN: Soft nontender no guarding BACK: No CVA tenderness EXTREMITIES: No pain upon palpation normal muscle strength in all groups no clubbing cyanosis or edema NEURO: Patient is following commands is answering questions appropriately. Alert and oriented x3 Cranial Nerves 2-12 grossly intact Medical Decision & Procedures ER Provider Diagnostic Interpretation: Radiology results as stated below per my review and [facility] radiologist interpretation: CT Abdomen & Pelvis: Comparison 02/05 There is decreased attenuation in pulmonary arteries. Suspect PE, example right lower lobe. Pleural-based wedge-shaped opacity right lower lobe may represent infarct. Subpleural nodularity. Hiatal hernia. CTA chest could confirm. Trace pericardial fluid. Sigmoidectomy again noted. Prominent fluid within GI tract including colon. Gastric distention. No bowel obstruction. No perienteric inflammatory changes. No appendicitis. Nonobstructive left renal stone. Low-density left renal lesion too small to characterize, gallbladder contraction and other incidentals. Laboratory Results 03/11/17 22:00 Red Blood Count 3.35, Mean Corpuscular Volume 97.6, Mean Corpuscular Hemoglobin 33.1, Mean Corpuscular Hemoglobin Concent 33.9, Mean Platelet Volume 10.2, Neutrophils (%) (Auto) 64.3, Lymphocytes (%) (Auto) 12.0, Monocytes (%) (Auto) 21.9, Eosinophils (%) (Auto) 0.6, Basophils (%) (Auto) 0.3, Neutrophils # (Auto ) 2.15, Lymphocytes # (Auto) 0.40, Monocytes # (Auto) 0.73, Eosinophils # (Auto ) 0.02, Basophils # (Auto) 0.01 03/11/17 22:00 Test 03/11/17 22:00 03/11/17 22:20 03/11/17 22:34 White Blood Count 3.34 K/uL (4.8-10.8) Red Blood Count 3.35 M/uL (4.7-6.1) Hemoglobin 11.1 g/dL (14.0-18.0) Hematocrit 32.7 % (42-52) Mean Corpuscular Volume 97.6 fL (80-100) Mean Corpuscular Hemoglobin 33.1 pg (25-34) Mean Corpuscular Hemoglobin Concent 33.9 g/dl (32-36) Platelet Count 119 K/uL (130-400) Mean Platelet Volume 10.2 fL (7.4-10.4) Neutrophils (%) (Auto) 64.3 % Lymphocytes (%) (Auto) 12.0 % Monocytes (%) (Auto) 21.9 % Eosinophils (%) (Auto) 0.6 % Basophils (%) (Auto) 0.3 % Neutrophils # (Auto) 2.15 K/uL (1.4-6.5) Lymphocytes # (Auto) 0.40 K/uL (1.2-3.4) Monocytes # (Auto) 0.73 K/uL (0.11-0.59) Eosinophils # (Auto) 0.02 K/uL (0-0.5) Basophils # (Auto) 0.01 K/uL (0-0.2) RDW Standard Deviation 54.7 fL (36.4-46.3) RDW Coefficient of Variation 16.3 % (11.5-14.5) Immature Granulocyte % (Auto) 0.9 % Immature Granulocyte # (Auto) 0.03 K/uL (0.00-0.02) Nucleated RBC Absolute Count (auto) 0.04 K/uL (0-0) Nucleated Red Blood Cells % 1.2 % Est Creatinine Clear Calc Drug Dose 129.1 ml/min Estimated GFR () 110.9 Estimated GFR (Non- 95.7 BUN/Creatinine Ratio 6.4 (10-20) Calcium Level 8.9 mg/dl (8.5-10.1) Total Bilirubin 0.4 mg/dl (0.2-1) Direct Bilirubin < 0.1 mg/dl (0-0.2) Aspartate Amino Transf (AST/SGOT) 22 U/L (15-37) Alanine Aminotransferase (ALT/SGPT) 39 U/L (12-78) Alkaline Phosphatase 49 U/L (45-117) Total Protein 7.1 gm/dl (6.4-8.2) Albumin 3.4 gm/dl (3.4-5.0) Lipase 76 U/L (73-393) Bedside Hemoglobin 9.2 g/dl (14.0-18.0) Bedside Hematocrit 27 % (42-52) Bedside Sodium 142 mEq/L (135-144) Bedside Potassium 3.5 mEq/L (3.3-5.0) Bedside Chloride 107 mEq/L (101-112) Bedside Total CO2 22 mEq/l (24-31) Anion Gap 19.0 mmol/L (16-25) Bedside Blood Urea Nitrogen 4 mg/dl (7-18) Bedside Creatinine 0.8 mg/dl (0.6-1.3) Bedside Glucose (other) 87 mg/dl (70-99) Bedside Ionized Calcium (Kayla) 1.20 mmol/l (1.12-1.32) Date/Time Source Procedure Growth Status 03/11/17 22:20 Stool C.difficile Toxin B Gene (PCR) - Final No C. difficile toxin B gene detected Complete Labs reviewed by ED physician. Medications Administered Medications (Trade) Dose Ordered Sig/Kaylin Route Start Time Stop Time Status Last Admin Dose Admin Sodium Chloride 1,000 ml @ 999 mls/hr Q1H1M STAT IV 03/11/17 21:22 03/11/17 22:22 DC 03/11/17 22:00 999 MLS/HR Ketorolac Tromethamine (Toradol Inj) 30 mg NOW STAT IV 03/11/17 21:22 03/11/17 21:25 DC 03/11/17 22:00 30 MG Hydromorphone HCl (Dilaudid Inj) 1 mg NOW STAT IV 03/11/17 21:22 03/11/17 21:25 DC 03/11/17 22:00 1 MG Ondansetron HCl (Zofran Inj) 4 mg NOW STAT IV 03/11/17 21:22 03/11/17 21:25 DC 03/11/17 22:00 4 MG Famotidine (Pepcid Tab) 20 mg NOW STAT PO 03/11/17 23:06 03/11/17 23:08 DC 03/11/17 23:13 20 MG Sucralfate (Carafate Tab) 1 gm NOW STAT PO 03/11/17 23:06 03/11/17 23:08 DC 03/11/17 23:13 1 GM Al Hydroxide/Mg Hydroxide (Maalox Susp) 30 ml STK-MED ONCE .ROUTE 03/11/17 23:11 03/11/17 23:12 DC 03/11/17 23:13 30 ML Lidocaine HCl (Viscous Lidocaine 2% Soln) 20 ml STK-MED ONCE .ROUTE 03/11/17 23:11 03/11/17 23:12 DC 03/11/17 23:13 20 ML Enoxaparin Sodium (Lovenox Inj) 120 mg ONE STAT SQ 03/12/17 00:13 03/12/17 00:14 DC 03/12/17 00:19 120 MG Cholestyramine Resin (Questran Powder Light) 4 gm NOW STAT PO 03/12/17 00:27 03/12/17 00:29 DC 03/12/17 00:39 4 GM Ondansetron HCl (ZOFRAN ODT 4MG Home Pack) 1 homepack UD ONCE PO 03/12/17 00:45 03/12/17 00:46 DC 03/12/17 00:40 1 HOMEPACK ED Course 2119: Past medical records reviewed. The patient was evaluated in room A11B. A complete history and physical examination was performed. 2121: Zofran Inj 4 mg IV, Dilaudid Inj 1 mg IV, Toradol Inj 30 mg IV, NSS 1000 ml @ 999 mls/hr IV. 2305: Sucralfate 1 gm PO, Famotidine 20 mg PO. 2311: Lidocaine HCl 20 ml PO, Maalox Susp 30 ml PO. 0013: Lovenox Inj 120 mg SQ. 0027: Cholestyramine Resin 4 gm PO. 0045: Ondansetron HCl 1 homepack PO. 0046: Upon reexamination the patient is resting comfortably. I discussed results and treatment plan with the patient. He verbalizes agreement and understanding. The patient is ready for discharge. Medical Decision Differential diagnosis: Etiologies such as appendicitis, diverticulitis, PUD, biliary pathology, UTI, pancreatitis, obstruction, mesenteric ischemia, aortic pathology, infections, inflammatory bowel disease, renal colic, as well as others were entertained. Medication Reconciliation: I attest that I have personally reviewed the patient' s current medication list Blood Pressure Screening: Patient was found to have normal blood pressure on screening and does not require follow up. This is a 37-year-old male who presents emergency department complaining of diarrhea. I will note that the patient has a past medical history of C. difficile therefore a stool sample was obtained. This is negative for C. difficile. Serial abdominal examinations were performed on the patient in the emergency department and at no tender the patient exhibit surgical abdomen. In addition the patient has minimal tenderness on examination. His CAT scan is concerning for pulmonary embolus however I will note that the patient was just admitted here for that and is being treated with Lovenox. The patient was given his Lovenox injection here in the emergency department. The patient did not try anything for nausea or pain at home. I will note that the patient is afebrile here and his white blood cell count appears to be at its baseline. Blood cultures were obtained because the patient is on chemotherapy and radiation. I do feel that he is safe enough to be discharged home for follow- up with his oncologist. The patient was given cholestyramine prior to discharge. Patient was in agreement with the treatment plan. Impression Primary Impression: Gastroenteritis Scribe Attestation The scribe's documentation has been prepared under my direction and personally reviewed by me in its entirety. I confirm that the note above accurately reflects all work, treatment, procedures, and medical decision making performed by me. Departure Information Dispostion Home / Self-Care Referrals Camilo Weiner M.D. (PCP) Forms HOME CARE DOCUMENTATION FORM, IMPORTANT VISIT INFORMATION Patient Instructions ED Gastroenteritis Report [place], My [facility] Additional Instructions Increase fluid intake next 48 hours You received narcotic or benzodiazepene medication while in the emergency room today. Do not drive, operate heavy machinery, or drink alcohol under the influence of this medication. Take probiotic yogurt for diarrhea Culture results are normally ready in 48 hours You have been examined and treated today on an emergency basis only. This is not a substitute for, or an effort to provide, complete comprehensive medical care. It is impossible to recognize and treat all injuries or illnesses in a single emergency department visit. It is therefore important that you follow up closely with Dr Weiner. Call as soon as possible for an appointment. Thank you for your time and consideration. I look forward to speaking with you again soon. Please don't hesitate to call us if you have any questions.
--- NOTE | 2017-03-12 06:49 | DIAGNOSTIC IMAGING REPORT ---
CT OF THE ABDOMEN AND PELVIS WITH CONTRAST CLINICAL HISTORY: Diffuse abdominal pain. History of colon cancer. COMPARISON STUDY: CT of the abdomen and pelvis February 05, 2017 and abdominal series February 21, [address] February 28, 2017. TECHNIQUE: Following IV administration of 116 mL of Optiray-320, axial images of the abdomen and pelvis were obtained from the lung bases to the proximal femurs. Images were reviewed in the axial, sagittal, and coronal planes. IV contrast was administered without complication. CT DOSE: 1421.59 mGy.cm FINDINGS: Visualized portions of the lower chest demonstrate segmental pulmonary emboli within the right lower lobe. These were shown on exam of February 20, 2017. A small subpleural right lower lobe opacity reflects a resolving pulmonary infarct. There is fatty infiltration of the liver. No hepatic lesions are identified. The spleen, adrenal glands, right kidney and pancreas are normal. A 1 cm hypodense lesion within the midpole of the left kidney is too small to characterize. This likely reflects a cyst. There is a 3 mm left renal calculus. There are no ureteral calculi. There is no evidence for a bowel obstruction status post sigmoid resection. No enlarged abdominal or pelvic lymph nodes are present. No suspicious skeletal lesions are identified. The appendix is normal. There is no free fluid. IMPRESSION: 1. No acute process within the abdomen or pelvis. 2. Redemonstration of segmental right lower lobe pulmonary emboli and a resolving right lower lobe pulmonary infarct which were shown on CT of February 28, 2017. 3. Fatty liver. 4. No evidence of metastatic disease within the abdomen or pelvis status post sigmoid resection. 5. 3 mm left renal calculus. Electronically signed by: Saud Ryan M.D. 03/12/2017 6:48 AM Dictated Date/Time: 03/12/2017 6:40 AM
== END 2017-03-12 00:48 | disposition home or self-care (01) ==
LOC: C.EDB 20:36 → C.EDA 03-12 00:48
DX: K52.9 Noninfective gastroenteritis and colitis, unspecified (principal); C15.9 Malignant neoplasm of esophagus, unspecified; K21.9 Gastro-esophageal reflux disease without esophagitis; F17.200 Nicotine dependence, unspecified, uncomplicated; Z90.49 Acquired absence of other specified parts of digestive tract; Z79.01 Long term (current) use of anticoagulants; Z83.3 Family history of diabetes mellitus; Z82.49 Family history of ischemic heart disease and other diseases of the circulatory system; Z86.711 Personal history of pulmonary embolism

== ENCOUNTER 2017-03-19 00:02 | Emergency (ER) | payer OTHER ==
[~2017-03-19] VITALS: Ht 172.7 cm; Wt 124.0 kg
[2017-03-19 00:14] VITALS: PULSE 135; TEMP 36.7; Ht 172.7 cm; Wt 124.0 kg
[2017-03-19] MEDS ORDERED: ONDANSETRON INJ 2 MG/ML 2 ML VIAL IV STA (00:34)
[2017-03-19] MEDS ORDERED: ACETAMINOPHEN IV 1,000 MG in EMPTY BAG 0 ML IV ONE (00:45)
[2017-03-19] MEDS ORDERED: SODIUM CHLORIDE 0.9% 1000ML 1,000 ML, SODIUM CHLORIDE 0.9% 1000ML 1,000 ML IV ONE (00:45)
[2017-03-19 01:07] LABS: BASO % 0.5 %; BASO ABS # 0.02 K/uL (0-0.2); COMPLETE YES; EOS % 0.5 %; HEMATOCRIT 34.1 % (42-52); IG% 0.9 %; LYMPH % 22.9 %; LYMPH ABS # 0.99 K/uL (1.2-3.4); MEAN CELL VOLUME 99.1 fL (80-100); MEAN CORPUSCULAR HGB CONC 34.3 g/dl (32-36); MEAN PLATELET VOLUME 9.6 fL (7.4-10.4); MONO % 21.2 %; PLATELET COUNT 198 K/uL (130-400); RED BLOOD COUNT 3.44 M/uL (4.7-6.1); WHITE BLOOD COUNT 4.33 K/uL (4.8-10.8)
[2017-03-19 01:28] LABS: BUN/CREATININE RATIO 9.6 (10-20); CALCIUM 8.5 mg/dl (8.5-10.1); CREATININE 1.1 mg/dl (0.60-1.40); POTASSIUM 3.8 mmol/L (3.5-5.1)
[2017-03-19 01:31] LABS: ALB/GLOB RATIO 0.9 (0.9-2)
[2017-03-19 02:25] VITALS: O2SAT 98
[2017-03-19] MEDS ORDERED: KETOROLAC TROMETHAMINE 30 MG/ML VIAL IV STA (02:28)
[2017-03-19 02:55] LABS: URINE APPEARANCE CLOUDY (CLEAR); URINE COLOR DK YELLOW; URINE EPITHELIAL CELL AUTO >30 /lpf (0-5); URINE NITRITE NEG (NEG); URINE PH 5.5 (4.5-7.5); URINE SPECIFIC GRAVITY 1.035 (1.000-1.030); UROBILINOGEN NEG (NEG); ZZUR CULT IF INDIC CLEAN CATCH NO
[2017-03-19 03:10] LABS: MANUAL MICROSCOPIC REQUIRED? NO; REVIEW REQ? YES
[2017-03-19 03:11] LABS: URINE BILIRUBIN NEG (NEG)
[2017-03-19 03:12] LABS: URINE MUCUS PRESENT (NONE PRSENT)
[2017-03-19] MEDS ORDERED: ONDA4TAB10 SL (03:16)
--- NOTE | 2017-03-19 03:33 | EMERGENCY ROOM VISIT NOTE ---
History First contact with patient: 00:18 Chief Complaint: VOMITING Stated Complaint: VOMITING,BACK AND STOMACH PAIN,DIZZINESS,DIARRHEA Nursing Triage Summary: Patient has been having nausea, vomiting and diarrhea for two days. Patient notes that he is feeling dizzy when coughing or vomiting. Patient states that he has been feeling weak as well. History of Present Illness The patient is a 37 year old male who presents to the Emergency Room with complaints of nausea and vomiting for the past 2 days. The patient states that he initially began with the vomiting. He does have a burning sensation in his epigastrium when he vomits. The patient has had some dizziness and does report some diarrhea. He has a history of esophageal cancer and is currently not undergoing chemotherapy. The patient rates his overall discomfort a 9/10. He is currently on oral vancomycin for C. difficile. Review of Systems More than 10 systems were reviewed and otherwise negative with the exception of history of present illness. Past Medical/Surgical History Medical Problems: (1) Abscess (2) Acute lymphangitis (3) Cellulitis of scalp (4) Cellulitis of scalp (5) Diverticular disease of colon (6) Diverticulitis (7) Diverticulitis (8) Diverticulitis (9) Esophageal adenocarcinoma (10) Gastroesophageal reflux disease Surgical Problems: (1) History of bowel resection (2) Status post partial colectomy Family History Diabetes mellitus FH: heart disease Hypertension Social History Smoking Status: Current Some Day Smoker Alcohol Use: none Drug Use: marijuana Marital Status: single Housing Status: lives with family Occupation Status: disabled Current/Historical Medications Scheduled Enoxaparin (Lovenox), 120 MG SQ Q12@0500,1700 Lactobacillus Acidophilus (Lactinex), 2 TAB PO BID Ondasetron Odt (Zofran Odt), 4 MG SL Q6H Ranitidine Hcl (Zantac), 300 MG PO DAILY Ropinirole HCl (Ropinirole HCl), 1 MG PO HS Sertraline HCl (Sertraline HCl), 100 MG PO HS Vancomycin HCl (Vancomycin HCl), 125 MG PO UD Scheduled PRN Albuterol Hfa (Ventolin Hfa), 2 PUFFS PO Q4H PRN for Wheezing Cholestyramine (Cholestyramine Light), 1 GM PO Q24H PRN for diarrhea Dexamethasone (Decadron), 4 MG PO UD PRN for CHEMO PRE TREAT Dicyclomine HCl (Dicyclomine HCl), 10 MG PO TID PRN for diarrhea Diphenhy/Alum/Mag/Sucralfa (Magic Swizzle - Diphenhy/Alum/Mag/Sucralfa), 3-4 TSP PO ACHS PRN for Swallowing Pain Morphine Sulfate (Morphine Sulfate), 0.5 ML PO UD PRN for Pain Oxycodone Immediate Rel Tab (Roxicodone Ir), 1-2 TAB PO Q6 PRN for Pain Oxycodone/Acetaminophen 5MG/325MG (Percocet 5MG/325MG), 1-2 TAB PO Q4H PRN for Pain Prochlorperazine Maleate (Prochlorperazine Maleate), 10 MG PO Q6H PRN for Nausea Allergies Coded Allergies: Prednisone (Verified Allergy, Intermediate, HIVES, 03/09/17) Sulfa Antibiotics (Verified Allergy, Intermediate, Hives/Thrush, 03/09/17) Doxycycline (Verified Allergy, Unknown, NEURO COMPLICATIONS, 03/09/17) GMG Mushroom (Verified Allergy, Unknown, GI SYMPTOMS, 03/09/17) Sulfamethoxazole w/Trimethoprim (Verified Allergy, Unknown, hives, 03/09/17) Physical Exam Vital Signs Date Time Temp Pulse Resp B/P (MAP) Pulse Ox O2 Delivery O2 Flow Rate FiO2 03/19/17 02:25 101/62 98 Room Air 03/19/17 00:14 36.7 135 18 96/61 95 Room Air Physical Exam VITALS: Vitals are noted on the nurse's note and reviewed by myself. Vital signs stable. GENERAL: Well-developed, well-nourished, white male, who is in no acute distress and resting comfortably. Patient is cooperative with the examination. HEAD: Normocephalic atraumatic. EARS: External ear normal. External auditory canals clear, tympanic membranes pearly kaba without erythema or effusion bilaterally. EYES: Pupils equal round and reactive to light and accommodation. Conjunctivae without injection, sclerae without icterus. Extraocular movements intact. NOSE: Patent, turbinates without inflammation or discharge. MOUTH: Mucous membranes moist. Tonsils are not enlarged. Pharynx without erythema, blood, or exudate. Uvula midline. Airway patent. NECK: Supple without nuchal rigidity. No lymphadenopathy. No thyromegaly. Cervical spine is nontender. HEART: Regular rate and rhythm without murmurs gallops or rubs. LUNGS: Clear to auscultation bilaterally without wheezes, rales or rhonchi. No retractions or accessory muscle use. ABDOMEN: Positive normal bowel sounds x 4. Soft, nontender, without masses or organomegaly. No guarding or rebound tenderness. MUSCULOSKELETAL: No muscle atrophy, erythema, or edema noted. Full range of motion without joint tenderness in all extremities. Medical Decision & Procedures Laboratory Results 03/19/17 00:50 Red Blood Count 3.44, Mean Corpuscular Volume 99.1, Mean Corpuscular Hemoglobin 34.0, Mean Corpuscular Hemoglobin Concent 34.3, Mean Platelet Volume 9.6, Neutrophils (%) (Auto) 54.0, Lymphocytes (%) (Auto) 22.9, Monocytes (%) (Auto) 21.2, Eosinophils (%) (Auto) 0.5, Basophils (%) (Auto) 0.5, Neutrophils # (Auto ) 2.34, Lymphocytes # (Auto) 0.99, Monocytes # (Auto) 0.92, Eosinophils # (Auto ) 0.02, Basophils # (Auto) 0.02 03/19/17 00:50 Test 03/19/17 00:50 03/19/17 02:35 White Blood Count 4.33 K/uL (4.8-10.8) Red Blood Count 3.44 M/uL (4.7-6.1) Hemoglobin 11.7 g/dL (14.0-18.0) Hematocrit 34.1 % (42-52) Mean Corpuscular Volume 99.1 fL (80-100) Mean Corpuscular Hemoglobin 34.0 pg (25-34) Mean Corpuscular Hemoglobin Concent 34.3 g/dl (32-36) Platelet Count 198 K/uL (130-400) Mean Platelet Volume 9.6 fL (7.4-10.4) Neutrophils (%) (Auto) 54.0 % Lymphocytes (%) (Auto) 22.9 % Monocytes (%) (Auto) 21.2 % Eosinophils (%) (Auto) 0.5 % Basophils (%) (Auto) 0.5 % Neutrophils # (Auto) 2.34 K/uL (1.4-6.5) Lymphocytes # (Auto) 0.99 K/uL (1.2-3.4) Monocytes # (Auto) 0.92 K/uL (0.11-0.59) Eosinophils # (Auto) 0.02 K/uL (0-0.5) Basophils # (Auto) 0.02 K/uL (0-0.2) RDW Standard Deviation 64.4 fL (36.4-46.3) RDW Coefficient of Variation 18.6 % (11.5-14.5) Immature Granulocyte % (Auto) 0.9 % Immature Granulocyte # (Auto) 0.04 K/uL (0.00-0.02) Anion Gap 11.0 mmol/L (3-11) Est Creatinine Clear Calc Drug Dose 117.9 ml/min Estimated GFR () 98.9 Estimated GFR (Non- 85.3 BUN/Creatinine Ratio 9.6 (10-20) Calcium Level 8.5 mg/dl (8.5-10.1) Magnesium Level 2.0 mg/dl (1.8-2.4) Total Bilirubin 0.3 mg/dl (0.2-1) Aspartate Amino Transf (AST/SGOT) 24 U/L (15-37) Alanine Aminotransferase (ALT/SGPT) 48 U/L (12-78) Alkaline Phosphatase 53 U/L (45-117) Total Protein 7.3 gm/dl (6.4-8.2) Albumin 3.4 gm/dl (3.4-5.0) Globulin 3.9 gm/dl (2.5-4.0) Albumin/Globulin Ratio 0.9 (0.9-2) Lipase 94 U/L (73-393) Urine Color DK YELLOW Urine Appearance CLOUDY (CLEAR) Urine pH 5.5 (4.5-7.5) Urine Specific Pearl 1.035 (1.000-1.030) Urine Protein 2+ (NEG) Urine Glucose (UA) NEG (NEG) Urine Ketones 1+ (NEG) Urine Occult Blood NEG (NEG) Urine Nitrite NEG (NEG) Urine Bilirubin NEG (NEG) Urine Urobilinogen NEG (NEG) Urine Leukocyte Esterase NEG (NEG) Urine WBC (Auto) 1-5 /hpf (0-5) Urine RBC (Auto) 0-4 /hpf (0-4) Urine Hyaline Casts (Auto) 5-10 /lpf (0-5) Urine Epithelial Cells (Auto) >30 /lpf (0-5) Urine Bacteria (Auto) NEG (NEG) Urine Crystals CALCIUM OXALATE (NONE Urine Pathogenic Casts /lpf (0) Urine Mucus PRESENT (NONE PRSENT) Medications Administered Medications (Trade) Dose Ordered Sig/Kaylin Route Start Time Stop Time Status Last Admin Dose Admin Sodium Chloride/ Sodium Chloride 2,000 ml @ 999 mls/hr Q2H1M ONCE IV 03/19/17 00:45 03/19/17 02:45 DC 03/19/17 00:45 999 MLS/HR Ondansetron HCl (Zofran Inj) 8 mg NOW STAT IV 03/19/17 00:34 03/19/17 00:37 DC 03/19/17 00:55 8 MG Acetaminophen 1000 mg/Empty Bag 100 ml @ 400 mls/hr NOW ONCE IV 03/19/17 00:45 03/19/17 00:59 DC 03/19/17 00:56 400 MLS/HR Ketorolac Tromethamine (Toradol Inj) 30 mg NOW STAT IV 03/19/17 02:28 03/19/17 02:29 DC 03/19/17 02:53 30 MG ED Course Physical exam and history were performed. Nursing notes and EMR were reviewed. Patient appears to have nausea and vomiting symptoms for the past 2 days. On examination the patient appears nontoxic. He is afebrile. IV access was established and labs were obtained. The patient was hydrated with 2 L normal saline and given 8 mg IV Zofran. He does report some epigastric abdominal discomfort with his vomiting, as well as some back pain that has been ongoing for some time. Because of this I did elect to provide the patient 1 g of IV Tylenol and 30 mg IV Toradol. X-rays were performed. The patient's blood work is as above and was reviewed. He does not have a significantly elevated white blood cell count. There is no gross anemia, bandemia, or significant electrolyte imbalance. His urine is with greater than 30 epithelial cells, and is likely contaminated, with culture pending. The patient was not able to provide a stool sample here in the department for C. difficile testing. X-ray of the chest and abdomen was reviewed by myself and my attending, and does not show a significant acute process such as obstruction. The patient may have some increased fecal load, and he does state that he has intermittent bowel movements. Overall the patient appears well for discharge home. He has a history of cancer , but had a CT scan of his abdomen last week. He is also complaining of back pain, but had an MRI of his back performed last week as well. He is requesting pain medication for home, but review of the [place] drug monitoring program shows the patient has oral morphine available, and I do not feel comfortable providing him additional pain medication. I will give him a short course of Zofran. The patient was otherwise invited back to the ER with any new , worsening, or concerning symptoms. He voiced understanding and rated his discomfort a 0/10 at the time of departure. The chart was completed utilizing [employer] Voice Recognition Software. Grammatical errors, random word insertions, pronoun errors, and incomplete sentences are an occasional consequence of this system due to software limitations, ambient noise, and hardware issues. Any formal questions or concerns about the content, text, or information contained within the body of this dictation should be directly addressed to the provider for clarification. . Medical Decision Differential diagnosis: Etiologies such as gastroenteritis, food borne illness, infections, appendicitis , diverticulitis, inflammatory bowel disease, obstruction, GI bleed, biliary pathology, as well as others were entertained. Impression Primary Impression: Vomiting Departure Information Dispostion Home / Self-Care Condition GOOD Prescriptions Ondasetron Odt (ZOFRAN ODT) 4 Mg Tab 4 MG SL Q6H for Nausea, #12 TAB Prov: Joey Clarke PA-C 03/19/17 Referrals Camilo Weiner M.D. (PCP) Forms HOME CARE DOCUMENTATION FORM, IMPORTANT VISIT INFORMATION Patient Instructions My [facility] Additional Instructions You were seen and evaluated today on an emergency basis only. This is not a substitute for, or an effort to provide, complete comprehensive medical care. It is not possible to recognize and treat all injuries or illnesses in a single emergency department visit. For this reason it is recommended that you followup with your primary care physician in the next 2-3 days for recheck of her condition. Drink plenty of fluids and remain well hydrated. Zofran 1 tablet every 6 hrs as needed for nausea. Consider using [id number] MiraLAX or taking a stool softener to assist with constipation You are welcome to return to the emergency department anytime with new, worsening, or concerning symptoms. Problem Qualifiers Primary Impression: Vomiting Vomiting type: unspecified Vomiting Intractability: non-intractable Nausea presence: with nausea Qualified Codes: R11.2 - Nausea with vomiting, unspecified
[2017-03-19 03:52] VITALS: BP 108/80
--- NOTE | 2017-03-19 06:57 | DIAGNOSTIC IMAGING REPORT ---
ABDOMEN 2VIEW W/PA CHEST RTN CLINICAL HISTORY: nausea/vomiting. Hx cancer chest pain COMPARISON STUDY: 03/09/2017 FINDINGS: Central catheter ends in the superior vena cava cava. Lungs are considered clear. Diaphragms smooth. Costophrenic angles are sharp. Bowel pattern is nonobstructive. IMPRESSION: No acute process. No change in the prior exam. No acute process of the abdomen Electronically signed by: Isra Vazquez M.D. 03/19/2017 6:56 AM Dictated Date/Time: 03/19/2017 6:54 AM
== END 2017-03-19 03:54 | disposition home or self-care (01) ==
LOC: C.EDB 00:04
DX: R11.2 Nausea with vomiting, unspecified (principal); Z85.01 Personal history of malignant neoplasm of esophagus; A04.7 Enterocolitis due to Clostridium difficile; K21.9 Gastro-esophageal reflux disease without esophagitis; Z90.49 Acquired absence of other specified parts of digestive tract; Z83.3 Family history of diabetes mellitus; Z82.49 Family history of ischemic heart disease and other diseases of the circulatory system; F17.210 Nicotine dependence, cigarettes, uncomplicated; F12.10 Cannabis abuse, uncomplicated; Z79.899 Other long term (current) drug therapy

== ENCOUNTER 2017-03-22 02:07 | Emergency (ER) | payer OTHER ==
[~2017-03-22] VITALS: Ht 175.3 cm; Wt 123.9 kg
[~2017-03-22 02:07] MED LIST changes: +ONDA4TAB10 SL
[2017-03-22 02:16] VITALS: TEMP 36.9; Ht 175.3 cm; Wt 123.9 kg
[2017-03-22] MEDS ORDERED: SODIUM CHLORIDE 0.9% 1000ML 1,000 ML IV STA (02:29)
[2017-03-22 02:37] LABS: BASO % 0.1 %; BASO ABS # 0.01 K/uL (0-0.2); COMPLETE YES; EOS % 0.4 %; HEMATOCRIT 35.7 % (42-52); IG% 0.6 %; LYMPH ABS # 1.56 K/uL (1.2-3.4); MEAN CELL VOLUME 100.8 fL (80-100); MEAN CORPUSCULAR HEMOGLOBIN 33.3 pg (25-34); MEAN CORPUSCULAR HGB CONC 33.1 g/dl (32-36); MEAN PLATELET VOLUME 9.5 fL (7.4-10.4); MONO % 13.6 %; NEUT % 62.3 %; PLATELET COUNT 239 K/uL (130-400); RED BLOOD COUNT 3.54 M/uL (4.7-6.1); WHITE BLOOD COUNT 6.77 K/uL (4.8-10.8)
[2017-03-22 03:03] LABS: INR 1.2 (0.9-1.1); PROTHROMBIN TIME (PATIENT) 12.5 SECONDS (9.0-12.0)
[2017-03-22 03:06] LABS: ALT/SGPT 40 U/L (12-78); AST/SGOT 22 U/L (15-37); BLOOD UREA NITROGEN 9 mg/dl (7-18); CALCIUM 8.6 mg/dl (8.5-10.1); CARBON DIOXIDE 26 mmol/L (21-32); CHLORIDE 108 mmol/L (98-107); GLUCOSE 91 mg/dl (70-99); POTASSIUM 3.4 mmol/L (3.5-5.1); SODIUM 144 mmol/L (136-145)
[2017-03-22 03:11] LABS: ALKALINE PHOSPHATASE 52 U/L (45-117)
[2017-03-22] MEDS ORDERED: XRL15 PO (03:41)
[2017-03-22] MEDS ORDERED: XRL20 PO (03:41)
[2017-03-22] MEDS ORDERED: MoRPHine SULFATE 4 MG/ML 1 ML CARP\\VIAL IV STA (03:44)
--- NOTE | 2017-03-22 03:52 | EMERGENCY ROOM VISIT NOTE ---
History First contact with patient: 02:10 Chief Complaint: SHORTNESS OF BREATH Stated Complaint: SHORT OF BREATH Nursing Triage Summary: patient brought in by ems patient reports chest pain with breathing patient reports vomiting without nausea patient has esophageal cancer History of Present Illness The patient is a 37 year old male who presents to the Emergency Room with complaints of sharp left-sided chest pains with deep breath. The patient has had the pain for a few days but states it worsened today. The patient has a history of esophageal cancer and sees Dr. Early. He reports he had chemotherapy one week ago. He does report he has pulmonary embolisms and takes Lovenox at home. He states that he does take his medication as prescribed and has not missed any doses. He denies any shortness of breath, palpitations or fevers. He does report that he had one episode of vomiting earlier today but denies any nausea at this time. The patient does have morphine at home but states that he accidentally spilled the bottle on the ground and has not been able to contact his oncologist for a refill. Review of Systems A complete 10 point review of systems was reviewed with the patient with pertinent positives and negatives as per history of present illness. All else were negative. Past Medical/Surgical History Medical Problems: (1) Abscess (2) Acute lymphangitis (3) Cellulitis of scalp (4) Cellulitis of scalp (5) Diverticular disease of colon (6) Diverticulitis (7) Diverticulitis (8) Diverticulitis (9) Esophageal adenocarcinoma (10) Gastroesophageal reflux disease Surgical Problems: (1) History of bowel resection (2) Status post partial colectomy Family History Diabetes mellitus FH: heart disease Hypertension Social History Smoking Status: Current Every Day Smoker Alcohol Use: none Drug Use: marijuana Marital Status: single Housing Status: lives with family Occupation Status: disabled Current/Historical Medications Scheduled Ondasetron Odt (Zofran Odt), 4 MG SL Q6H Ranitidine Hcl (Zantac), 300 MG PO DAILY Rivaroxaban (Xarelto), 20 MG PO TAKE WITH LUNCH Rivaroxaban (Xarelto), 15 MG PO AMHS Ropinirole HCl (Ropinirole HCl), 1 MG PO HS Sertraline HCl (Sertraline HCl), 100 MG PO HS Scheduled PRN Albuterol Hfa (Ventolin Hfa), 2 PUFFS PO Q4H PRN for Wheezing Cholestyramine (Cholestyramine Light), 1 GM PO Q24H PRN for diarrhea Dicyclomine HCl (Dicyclomine HCl), 10 MG PO TID PRN for diarrhea Diphenhy/Alum/Mag/Sucralfa (Magic Swizzle - Diphenhy/Alum/Mag/Sucralfa), 3-4 TSP PO ACHS PRN for Swallowing Pain Morphine Sulfate (Morphine Sulfate), 0.5 ML PO UD PRN for Pain Prochlorperazine Maleate (Prochlorperazine Maleate), 10 MG PO Q6H PRN for Nausea Allergies Coded Allergies: Prednisone (Verified Allergy, Intermediate, HIVES, 03/22/17) Sulfa Antibiotics (Verified Allergy, Intermediate, Hives/Thrush, 03/22/17) Doxycycline (Verified Allergy, Unknown, NEURO COMPLICATIONS, 03/22/17) GMG Mushroom (Verified Allergy, Unknown, GI SYMPTOMS, 03/22/17) Sulfamethoxazole w/Trimethoprim (Verified Allergy, Unknown, hives, 03/22/17 ) Physical Exam Vital Signs Date Time Temp Pulse Resp B/P (MAP) Pulse Ox O2 Delivery O2 Flow Rate FiO2 03/22/17 03:54 103 16 100/63 98 Room Air 03/22/17 02:18 123 03/22/17 02:16 36.9 113 20 98/61 97 Room Air Physical Exam VITALS: Vitals are noted on the nurse's note and reviewed by myself. Vital signs stable. GENERAL: This is a 37-year-old male, in no acute distress, nondiaphoretic, well- developed well-nourished. SKIN: Capillary reflex less than 2 seconds. HEENT: Normocephalic. PERRLA. EOMI. Nares patent. Mucous membranes moist. Neck is supple without nuchal rigidity. HEART: Regular rate and rhythm without murmurs gallops or rubs. LUNGS: Clear to auscultation bilaterally without wheezes, rales or rhonchi. No retractions or accessory muscle use. ABDOMEN: Positive bowel sounds x 4. Soft, nontender to palpation. NEURO: Patient was alert and oriented to person place and time. Medical Decision & Procedures ER Provider Diagnostic Interpretation: CHEST X-RAY: No acute cardiopulmonary abnormality. No change from previous exam. Laboratory Results 03/22/17 02:00 Red Blood Count 3.54, Mean Corpuscular Volume 100.8, Mean Corpuscular Hemoglobin 33.3, Mean Corpuscular Hemoglobin Concent 33.1, Mean Platelet Volume 9.5, Neutrophils (%) (Auto) 62.3, Lymphocytes (%) (Auto) 23.0, Monocytes (%) ( Auto) 13.6, Eosinophils (%) (Auto) 0.4, Basophils (%) (Auto) 0.1, Neutrophils # (Auto) 4.21, Lymphocytes # (Auto) 1.56, Monocytes # (Auto) 0.92, Eosinophils # ( Auto) 0.03, Basophils # (Auto) 0.01 03/22/17 02:00 Test 03/22/17 02:00 White Blood Count 6.77 K/uL (4.8-10.8) Red Blood Count 3.54 M/uL (4.7-6.1) Hemoglobin 11.8 g/dL (14.0-18.0) Hematocrit 35.7 % (42-52) Mean Corpuscular Volume 100.8 fL (80-100) Mean Corpuscular Hemoglobin 33.3 pg (25-34) Mean Corpuscular Hemoglobin Concent 33.1 g/dl (32-36) Platelet Count 239 K/uL (130-400) Mean Platelet Volume 9.5 fL (7.4-10.4) Neutrophils (%) (Auto) 62.3 % Lymphocytes (%) (Auto) 23.0 % Monocytes (%) (Auto) 13.6 % Eosinophils (%) (Auto) 0.4 % Basophils (%) (Auto) 0.1 % Neutrophils # (Auto) 4.21 K/uL (1.4-6.5) Lymphocytes # (Auto) 1.56 K/uL (1.2-3.4) Monocytes # (Auto) 0.92 K/uL (0.11-0.59) Eosinophils # (Auto) 0.03 K/uL (0-0.5) Basophils # (Auto) 0.01 K/uL (0-0.2) RDW Standard Deviation 67.1 fL (36.4-46.3) RDW Coefficient of Variation 18.7 % (11.5-14.5) Immature Granulocyte % (Auto) 0.6 % Immature Granulocyte # (Auto) 0.04 K/uL (0.00-0.02) Prothrombin Time 12.5 SECONDS (9.0-12.0) Prothromb Time International Ratio 1.2 (0.9-1.1) Activated Partial Thromboplast Time 26.5 SECONDS (21.0-31.0) Partial Thromboplastin Ratio 1.0 Anion Gap 10.0 mmol/L (3-11) Est Creatinine Clear Calc Drug Dose 119.6 ml/min Estimated GFR () 98.9 Estimated GFR (Non- 85.3 BUN/Creatinine Ratio 8.0 (10-20) Calcium Level 8.6 mg/dl (8.5-10.1) Total Bilirubin 0.3 mg/dl (0.2-1) Direct Bilirubin < 0.1 mg/dl (0-0.2) Aspartate Amino Transf (AST/SGOT) 22 U/L (15-37) Alanine Aminotransferase (ALT/SGPT) 40 U/L (12-78) Alkaline Phosphatase 52 U/L (45-117) Total Creatine Kinase 37 U/L (39-308) Troponin I < 0.015 ng/ml (0-0.045) Total Protein 7.3 gm/dl (6.4-8.2) Albumin 3.3 gm/dl (3.4-5.0) Medications Administered Medications (Trade) Dose Ordered Sig/Kaylin Route Start Time Stop Time Status Last Admin Dose Admin Sodium Chloride 1,000 ml @ 999 mls/hr Q1H1M STAT IV 03/22/17 02:29 03/22/17 03:29 DC 03/22/17 02:29 999 MLS/HR Morphine Sulfate (MoRPHine SULFATE INJ) 4 mg NOW STAT IV 03/22/17 03:44 03/22/17 03:45 DC 03/22/17 03:51 4 MG ECG Rate (beats per minute): 123 Rhythm: sinus tachycardia Findings: no acute ischemic change, no ectopy ED Course The patient was evaluated as above. Labs were drawn and IV access was obtained. Patient was reevaluated and findings were discussed. He requested something for pain prior to discharge and was given 4 mg morphine IV. Discharge instructions were reviewed with the patient. The patient verbalized understanding of my assessment and treatment plan and was discharged home in good condition. Medical Decision Differential diagnosis includes acute coronary syndrome, pulmonary embolism, pneumothorax, pericarditis, myocarditis, endocarditis, anxiety, musculoskeletal pain, GERD, costochondritis, pneumonia, among others. The patient is a 37-year-old male who presents today complaining of left-sided chest pain. The patient is currently being treated for esophageal cancer and has been seen here multiple times for chest pain. He was diagnosed with pulmonary embolism several weeks ago. He is taking Lovenox at home as prescribed. Labs today show a stable anemia and mild leukopenia. No concerning electrolyte abnormalities. Troponin was not elevated. EKG showed sinus tachycardia. The patient is mildly tachycardic and borderline hypotensive , but this appears to be his baseline after reviewing previous visits. The patient reports that he accidentally dropped his morphine and is requesting more. I informed him that I am not able to provide him with any further narcotics at home, but did agree to give him one dose while in the emergency department. I feel his pain is likely related to his cancer or possibly pulmonary embolism. I do not feel that further workup is necessary today but did recommend that he follow-up with his primary care provider and oncologist this week. The patient's case was reviewed with Dr. Diaz, ED attending physician, who agreed with my assessment and treatment plan. Based on the patient's presentation and work up, I feel the patient is stable for outpatient treatment. The patient was educated to return to the emergency department for any worsening of their current condition or new/concerning symptoms. He will follow up with his PCP and oncologist. Medication reconciliation: I attest that I have personally reviewed the patient 's current medication list. Blood pressure screening: Patient was found to have normal blood pressure on screening and does not require follow-up. Impression Primary Impression: Left sided chest pain Departure Information Dispostion Home / Self-Care Condition GOOD Referrals Camilo Weiner M.D. (PCP) Patient Instructions My [facility] Additional Instructions Continue your morphine at home for pain. Call your oncologist later today to schedule follow-up. Take your Lovenox and other medications as prescribed. Return to the emergency department with difficulty breathing, fevers or any other new/concerning symptoms.
[2017-03-22 03:54] VITALS: BP 100/63; PULSE 103; O2SAT 98
--- NOTE | 2017-03-22 07:24 | DIAGNOSTIC IMAGING REPORT ---
SINGLE VIEW CHEST CLINICAL HISTORY: Atypical chest pain. FINDINGS: An AP, portable, upright chest radiograph is compared to study dated 03/19/2017. Correlation is made with chest CT dated 02/28/2017. The examination is degraded by portable technique, large body habitus, and patient rotation. A right internal jugular central venous infusion port is unchanged in position. The cardiomediastinal silhouette is unremarkable. Mild emphysema and chronic interstitial thickening are similar to previous. There is mild elevation of left hemidiaphragm. No airspace consolidation or pleural effusion is identified. No pneumothorax is seen. The bony thorax is grossly intact. IMPRESSION: Mild emphysema with no acute cardiopulmonary abnormality. No significant change from 03/19/2017. Electronically signed by: Fadi Mao M.D. 03/22/2017 7:22 AM Dictated Date/Time: 03/22/2017 7:21 AM
== END 2017-03-22 04:01 | disposition home or self-care (01) ==
LOC: EDBD 02:07 → C.EDB 02:08
DX: R07.9 Chest pain, unspecified (principal); C15.9 Malignant neoplasm of esophagus, unspecified; I26.99 Other pulmonary embolism without acute cor pulmonale; K21.9 Gastro-esophageal reflux disease without esophagitis; D64.9 Anemia, unspecified; R00.0 Tachycardia, unspecified; F17.200 Nicotine dependence, unspecified, uncomplicated; Z90.49 Acquired absence of other specified parts of digestive tract; Z79.01 Long term (current) use of anticoagulants; Z83.3 Family history of diabetes mellitus; Z82.49 Family history of ischemic heart disease and other diseases of the circulatory system

== ENCOUNTER 2017-03-25 18:17 | Emergency (ER) | payer OTHER ==
[~2017-03-25] VITALS: Ht 172.7 cm; Wt 119.3 kg
[~2017-03-25 18:17] MED LIST changes: -DXM/4 PO; -LCTX PO; -LVNIS120 SQ; -OXYC-57 PO; -OXYC1TAB3 PO; -VNCS125 PO; +XRL15 PO; +XRL20 PO
[2017-03-25 18:23] VITALS: TEMP 37.3
[2017-03-25] MEDS ORDERED: ALUMINUM/MAGNESIUM SUSP 30 ML UDC PO STA (18:34)
[2017-03-25] MEDS ORDERED: SODIUM CHLORIDE 0.9% 1000ML 1,000 ML IV STA (18:34)
[2017-03-25] MEDS ORDERED: ONDANSETRON INJ 2 MG/ML 2 ML VIAL IV STA (18:34)
[2017-03-25 18:37] VITALS: Ht 172.7 cm; Wt 119.3 kg
[2017-03-25 18:38] VITALS: O2SAT 98
--- NOTE | 2017-03-25 18:56 | EMERGENCY ROOM VISIT NOTE ---
History Report prepared by Padilla: Shahram Turk Under the Supervision of: Dr. Sony Garcia D.O. First contact with patient: 18:28 Chief Complaint: SHORTNESS OF BREATH Stated Complaint: SOB, CHEST PAIN Nursing Triage Summary: triage note: pt reports "everytime i breathe i have pain in my chest." pt reports "i have stage 1 throat cancer." pt reports last radiation and chemo tx was 1 week ago. pt reports "this is a new pain and i had blood clots in my lungs a few weeks ago." History of Present Illness The patient is a 37 year old male who presents to the Emergency Room with complaints of constant shortness of breath beginning this morning. The patient states that he also has epigastric chest pain that began this morning as well. He reports that he has not taken any pain medication yet. The patient notes that he also is experiencing vomiting, abdominal pain, coughing, and a decreased frequency in his bowl movements. He denies back pain, hematemesis, nausea, fevers, leg pain, leg edema, loss of appetite, melena, and hematochezia. The patient notes that he also has a history of esophageal cancer that began four months. He states that he has received chemotherapy and radiation. The patient reports that he has a history of pulmonary embolisms and DVTs. He notes that his symptoms feel similar to that when he has a pulmonary embolism. The patient states that he was going to call his PCP and get an appointment, but he over slept. He reports that he does not remember the last CT scan he had. The patient notes that he slowly quit smoking. He states that he is on Xarelto, and he has not missed a dose. Source of History: patient Onset: this morning Position: other (global) Quality: other (shortness of breath) Timing: constant Associated Symptoms: + cough, + chest pain, + vomiting, + abdominal pain, No fevers, No nausea, No back pain, No melena, No hematochezia, No urinary symptoms Note: Associated symptoms: decreased frequency in his bowl movements. Patient denies: hematemesis, leg pain, leg edema, and loss of appetite Review of Systems See HPI for pertinent positives & negatives. A total of 10 systems reviewed and were otherwise negative. Past Medical & Surgical Medical Problems: (1) Abscess (2) Acute lymphangitis (3) Cellulitis of scalp (4) Cellulitis of scalp (5) Diverticular disease of colon (6) Diverticulitis (7) Diverticulitis (8) Diverticulitis (9) Esophageal adenocarcinoma (10) Gastroesophageal reflux disease Surgical Problems: (1) History of bowel resection (2) Status post partial colectomy Family History Diabetes mellitus FH: heart disease Hypertension Social History Smoking Status: Current Every Day Smoker Alcohol Use: none Drug Use: marijuana Marital Status: single Housing Status: lives with family Occupation Status: disabled Current/Historical Medications Scheduled Ondasetron Odt (Zofran Odt), 4 MG SL Q6H Ranitidine Hcl (Zantac), 300 MG PO DAILY Rivaroxaban (Xarelto), 20 MG PO TAKE WITH LUNCH Rivaroxaban (Xarelto), 15 MG PO AMHS Ropinirole HCl (Ropinirole HCl), 1 MG PO HS Sertraline HCl (Sertraline HCl), 100 MG PO HS Scheduled PRN Albuterol Hfa (Ventolin Hfa), 2 PUFFS PO Q4H PRN for Wheezing Cholestyramine (Cholestyramine Light), 1 GM PO Q24H PRN for diarrhea Prochlorperazine Maleate (Prochlorperazine Maleate), 10 MG PO Q6H PRN for Nausea Allergies Coded Allergies: Prednisone (Verified Allergy, Intermediate, HIVES, 03/22/17) Sulfa Antibiotics (Verified Allergy, Intermediate, Hives/Thrush, 03/22/17) Doxycycline (Verified Allergy, Unknown, NEURO COMPLICATIONS, 03/22/17) GMG Mushroom (Verified Allergy, Unknown, GI SYMPTOMS, 03/22/17) Sulfamethoxazole w/Trimethoprim (Verified Allergy, Unknown, hives, 03/22/17 ) Physical Exam Vital Signs Date Time Temp Pulse Resp B/P (MAP) Pulse Ox O2 Delivery O2 Flow Rate FiO2 03/26/17 00:00 94 16 106/57 96 03/25/17 23:04 91 03/25/17 23:01 85 16 106/57 94 Room Air 03/25/17 22:37 90 16 137/100 Room Air 03/25/17 21:42 102 16 99/71 99 Room Air 03/25/17 21:00 91 125/82 03/25/17 19:12 94 03/25/17 19:12 106 16 105/79 96 Room Air 03/25/17 18:38 98 Room Air 03/25/17 18:38 98 Room Air 03/25/17 18:23 37.3 115 28 144/85 98 Room Air Physical Exam GENERAL: Patient is awake, alert, and in no acute distress. Patient is resting comfortably and showing no signs of anxiety EYES: The conjunctivae are clear. The pupils are round and reactive. EARS, NOSE, MOUTH AND THROAT: The nose is without any evidence of any deformity. Mucous membranes are moist tongue is midline NECK: The neck is nontender and supple. RESPIRATORY: Normal respiratory effort is noted there is no evidence of wheezing rhonchi or rales CARDIOVASCULAR: Tachycardic rate and regular rhythm noted there no definite murmurs rubs or gallops. GASTROINTESTINAL: The abdomen is mildly distended, but soft. Upper abdominal was tender to palpation. No guarding or rigidity. Bowel sounds are present in all quadrants. MUSCULOSKELETAL/EXTREMITIES: There is no evidence of gross deformity full range of motion is noted in the hips and shoulders SKIN: There is no obvious evidence of any rash. There are no petechiae, pallor or cyanosis noted. NEUROLOGIC: Patient is awake alert and oriented x3 strength is symmetric patellar reflexes are 2+ bilaterally Medical Decision & Procedures ER Provider Diagnostic Interpretation: Radiology results as stated below per my review and radiologist interpretation: SINGLE VIEW CHEST CLINICAL HISTORY: Dyspnea. Atypical chest pain. Upper abdominal pain. FINDINGS: An AP, portable, upright chest radiograph is compared to study dated 03/22/2017 and correlated with chest CT dated 02/20/2017. The examination is degraded by portable technique and patient rotation. A right internal jugular central venous infusion port is unchanged in position. The heart is top normal for projection. The pulmonary vasculature is noncongested. Emphysema and chronic interstitial thickening are similar to previous. There is no airspace consolidation, large pleural effusion, or pneumothorax. The bony thorax is grossly intact. IMPRESSION: Emphysema with no acute cardiopulmonary abnormality. Electronically signed by: Fadi Mao M.D. 03/25/2017 8:58 PM Dictated Date/Time: 03/25/2017 8:57 PM KUB CLINICAL HISTORY: Upper abdominal pain. FINDINGS: 4 AP supine abdominal radiographs are compared to study dated 03/19/2017 and correlated with abdominal CT dated 03/11/2017. There is a nonobstructed abdominal bowel gas pattern. No evidence of intraperitoneal free air is seen on these supine views. Suture material is noted in the pelvis. There are no abnormal abdominal calcifications. The lung bases are clear as imaged. The bony structures appear intact. IMPRESSION: Unremarkable abdominal radiographs. Electronically signed by: Fadi Mao M.D. 03/25/2017 8:56 PM Dictated Date/Time: 03/25/2017 8:[address] ANGIOGRAM OF THE CHEST CLINICAL HISTORY: Dyspnea. Atypical chest pain. COMPARISON STUDY: Chest x-ray dated 03/25/2017. Chest CT dated 02/28/2017. TECHNIQUE: Following the IV administration of 92 cc of Optiray 320, CT angiogram of the chest was performed from the upper abdomen to the thoracic inlet utilizing the pulmonary embolus protocol. Images are reviewed in the axial, sagittal, and coronal planes. 3-D MIPS images are created and assessed. IV contrast was administered without complication. CT DOSE: 2143.17 mGy.cm FINDINGS: Thyroid: Imaged portions of the thyroid gland are normal in size and attenuation. Thoracic aorta: The thoracic aorta is normal in caliber and demonstrates bovine variant arch anatomy. No dissection is seen. A right internal jugular central venous catheter is in place. Pulmonary vasculature: The pulmonary trunk is normal in caliber. There are segmental and subsegmental pulmonary emboli within the right lower lobe pulmonary artery. This has modestly decreased in size from the 02/28/2017 examination. The remaining pulmonary vessels are clear. Heart: The heart is normal in size and configuration, and without pericardial effusion. There are scattered coronary artery calcifications. Lungs and pleural spaces: Emphysema is observed. The trachea and central airways are clear. Mild diffuse peribronchial thickening suggests reactive airway disease. A small pulmonary infarct is again seen at the right lung base. The lungs are otherwise clear. There is no airspace consolidation typical for pneumonia or pleural effusion. A calcified granuloma is seen in the lingula. Mediastinum: There is no mediastinal lymphadenopathy. [place]: Clear. Axillae: There is no axillary lymphadenopathy. Upper abdomen: Mild circumferential wall thickening is suggested in the distal esophagus. There is a small hiatal hernia. Hepatic steatosis is suggested. And contrast is noted. Skeletal structures: No lytic or blastic bony lesions are seen. A bone island is seen in the right anterior fourth rib. IMPRESSION: 1. There are segmental and subsegmental pulmonary emboli in the right lower lobe pulmonary artery. This has modestly decreased in size from 02/28/2017. 2. A small evolving pulmonary infarct is again seen at the right lung base. 3. Emphysema. 4. There is no airspace consolidation typical for pneumonia or pleural effusion. Mild diffuse peribronchial thickening suggests reactive airway disease. Clinical correlation will be required. 5. Mild circumferential wall thickening is suggested in the distal esophagus. Correlate clinically for evidence of esophagitis. Electronically signed by: Fadi Mao M.D. 03/25/2017 11:12 PM Dictated Date/Time: 03/25/2017 11:[address] SCAN OF THE ABDOMEN AND PELVIS WITH IV CONTRAST CLINICAL HISTORY: Upper abdominal pain. COMPARISON STUDY: Abdominal CT dated 03/11/2017. TECHNIQUE: Following the IV administration of 92 cc of Optiray 320, CT scan of the abdomen and pelvis is performed from the lung bases to the proximal femora. Images are reviewed in the axial, sagittal, and coronal planes. IV contrast was administered without complication. Automated dose control exposure was utilized. CT DOSE: Reported separately under the concurrently performed CT scan of the chest. FINDINGS: Lung bases: The heart is normal in size and without pericardial effusion. A small evolving pulmonary infarct is noted in the right lung base. The lung bases are otherwise clear. A calcified granuloma is noted in the lingula. There is a tiny hiatal hernia. See report of chest CT performed concurrently for detailed intrathoracic findings. Liver: The contrast-enhanced liver is normal in size and contour. The liver demonstrates diffusely diminished attenuation consistent with hepatic steatosis. Fatty sparing is seen adjacent to the gallbladder fossa. There is no intrahepatic biliary ductal dilatation. The hepatic veins and portal veins are patent. Gallbladder: Unremarkable. Spleen: Normal in size and attenuation. Pancreas: A tiny calcification is incidentally noted in the pancreatic tail. Pancreas is otherwise unremarkable. Adrenal glands: Unremarkable. Kidneys: The contrast enhanced kidneys are normal in size and without hydronephrosis. The kidneys enhance symmetrically. A circumaortic left renal vein is incidentally noted. A subcentimeter cortical hypodensity in the left kidney likely represents a cyst but is too small for definitive characterization. There is a punctate nonobstructing left renal calculus. Abdominal vasculature: The abdominal aorta is normal in course and caliber noting mild and age advanced atherosclerotic calcification. Bowel: There are postoperative changes from sigmoid colon resection with colocolonic anastomosis. No bowel obstruction is seen. There is a tiny duodenal diverticulum. The appendix is well-visualized and normal. Peritoneum: There is no intraperitoneal free air or abdominal ascites. There is a fat-containing umbilical hernia. Lymphadenopathy: None. Pelvic viscera: The bladder, prostate, and seminal vesicles are normal as visualized. Skeletal structures: No lytic or blastic lesions are seen. IMPRESSION: 1. There are no acute infectious or inflammatory findings in the abdomen or pelvis. 2. Hepatic steatosis. 3. There are postoperative changes from sigmoid colon resection with colocolonic anastomosis. No bowel obstruction is seen. 4. Punctate nonobstructing left renal calculus. 5. Additional findings as above. Electronically signed by: Fadi Mao M.D. 03/25/2017 11:19 PM Dictated Date/Time: 03/25/2017 11:15 PM Laboratory Results 03/25/17 19:20 Red Blood Count 3.45, Mean Corpuscular Volume 100.3, Mean Corpuscular Hemoglobin 34.8, Mean Corpuscular Hemoglobin Concent 34.7, Mean Platelet Volume 8.9, Neutrophils (%) (Auto) 64.4, Lymphocytes (%) (Auto) 28.5, Monocytes (%) ( Auto) 5.3, Eosinophils (%) (Auto) 0.3, Basophils (%) (Auto) 0.5, Neutrophils # ( Auto) 3.86, Lymphocytes # (Auto) 1.71, Monocytes # (Auto) 0.32, Eosinophils # ( Auto) 0.02, Basophils # (Auto) 0.03 03/25/17 19:20 Test 03/25/17 19:20 03/25/17 20:00 White Blood Count 6.00 K/uL (4.8-10.8) Red Blood Count 3.45 M/uL (4.7-6.1) Hemoglobin 12.0 g/dL (14.0-18.0) Hematocrit 34.6 % (42-52) Mean Corpuscular Volume 100.3 fL (80-100) Mean Corpuscular Hemoglobin 34.8 pg (25-34) Mean Corpuscular Hemoglobin Concent 34.7 g/dl (32-36) Platelet Count 248 K/uL (130-400) Mean Platelet Volume 8.9 fL (7.4-10.4) Neutrophils (%) (Auto) 64.4 % Lymphocytes (%) (Auto) 28.5 % Monocytes (%) (Auto) 5.3 % Eosinophils (%) (Auto) 0.3 % Basophils (%) (Auto) 0.5 % Neutrophils # (Auto) 3.86 K/uL (1.4-6.5) Lymphocytes # (Auto) 1.71 K/uL (1.2-3.4) Monocytes # (Auto) 0.32 K/uL (0.11-0.59) Eosinophils # (Auto) 0.02 K/uL (0-0.5) Basophils # (Auto) 0.03 K/uL (0-0.2) RDW Standard Deviation 67.2 fL (36.4-46.3) RDW Coefficient of Variation 18.7 % (11.5-14.5) Immature Granulocyte % (Auto) 1.0 % Immature Granulocyte # (Auto) 0.06 K/uL (0.00-0.02) Prothrombin Time 12.9 SECONDS (9.0-12.0) Prothromb Time International Ratio 1.2 (0.9-1.1) Activated Partial Thromboplast Time 30.6 SECONDS (21.0-31.0) Partial Thromboplastin Ratio 1.2 Anion Gap 9.0 mmol/L (3-11) Est Creatinine Clear Calc Drug Dose 139.5 ml/min Estimated GFR () 124.3 Estimated GFR (Non- 107.3 BUN/Creatinine Ratio 6.9 (10-20) Calcium Level 9.1 mg/dl (8.5-10.1) Total Bilirubin 0.5 mg/dl (0.2-1) Aspartate Amino Transf (AST/SGOT) 20 U/L (15-37) Alanine Aminotransferase (ALT/SGPT) 35 U/L (12-78) Alkaline Phosphatase 52 U/L (45-117) Total Creatine Kinase 39 U/L (39-308) Creatine Kinase MB 0.6 ng/ml (0.5-3.6) Creatine Kinase MB Ratio 1.5 (0-3.0) Troponin I < 0.015 ng/ml (0-0.045) Total Protein 7.1 gm/dl (6.4-8.2) Albumin 3.3 gm/dl (3.4-5.0) Globulin 3.8 gm/dl (2.5-4.0) Albumin/Globulin Ratio 0.9 (0.9-2) Urine Color YELLOW Urine Appearance CLEAR (CLEAR) Urine pH 6.5 (4.5-7.5) Urine Specific [place] 1.021 (1.000-1.030) Urine Protein NEG (NEG) Urine Glucose (UA) NEG (NEG) Urine Ketones NEG (NEG) Urine Occult Blood NEG (NEG) Urine Nitrite NEG (NEG) Urine Bilirubin NEG (NEG) Urine Urobilinogen NEG (NEG) Urine Leukocyte Esterase NEG (NEG) Laboratory results per my review. Medications Administered Medications (Trade) Dose Ordered Sig/Kaylin Route Start Time Stop Time Status Last Admin Dose Admin Sodium Chloride 1,000 ml @ 999 mls/hr Q1H1M STAT IV 03/25/17 18:34 03/25/17 19:34 DC 03/25/17 19:09 999 MLS/HR Morphine Sulfate (MoRPHine SULFATE INJ) 4 mg Q15M PRN IV 03/25/17 18:45 03/26/17 01:19 DC 03/25/17 22:43 4 MG Ondansetron HCl (Zofran Inj) 4 mg NOW STAT IV 03/25/17 18:34 03/25/17 18:36 DC 03/25/17 19:09 4 MG Al Hydroxide/Mg Hydroxide (Maalox Susp) 30 ml NOW STAT PO 03/25/17 18:34 03/25/17 18:36 DC 03/25/17 19:10 30 ML Oxycodone HCl (Roxicodone Immediate Rel 5MG Home Pack) 1 homepack UD ONCE PO 03/25/17 23:45 03/25/17 23:46 DC 03/25/17 23:55 1 HOMEPACK ECG Indication: SOB/dyspnea Rate (beats per minute): 105 Rhythm: sinus tachycardia Findings: no ectopy, other (no ST segment abnormality) Comparison ECG Date: 03/09/17 Change: no significant change ED Course 1830: The patient was evaluated in room A11A. A complete history and physical examination were performed. 1833: Ordered Maalox Susp 30ml PO, Zofran Inj 4mg IV, NSS 1,000 ml @ 999 mls/hr IV 1845: Ordered Morphine Sulfate 4mg IV 2345: Ordered Oxycodone HCl 1 homepack PO 2346: Upon reevaluation, the patient is resting comfortably. I discussed the results and treatment plan with him. He verbalized agreement of the treatment plan. The patient was discharged home. Medical Decision Differential diagnosis: Etiologies such as infections, reactive airway disease, pneumonia, pneumothorax , COPD, CHF, cardiac ischemia, pulmonary embolism, musculoskeletal, gastrointestinal, as well as others were entertained. Medication Reconciliation: I attest that I have personally reviewed the patient' s current medications list. Blood pressure screening: Patient was found to have normal blood pressure on screening and does not require follow-up. The patient is a 37-year-old male who presented to the emergency department for evaluation of chest pain. The patient is a history of esophagitis as well as esophageal tumor and also has pulmonary embolism which was recently diagnosed. The patient is taking his anticoagulation. His overall condition appear to be consistent with his ongoing pulmonary embolism but he also had some upper abdominal pain. The patient was treated with pain medication in the emergency department. I discussed the patient's laboratory radiographic studies with him. CAT scan of the chest abdomen and pelvis was obtained and showed improvement of his previously noted pulmonary embolism as well as pulmonary infarction. The patient was encouraged to rest and avoid any strenuous activity. He was also encouraged to call his primary care physician to schedule a follow-up appointment. He was also encouraged to return to the emergency apartment immediately if symptoms change worsen or the need arises. I stressed the importance of taking his anticoagulation. Impression Primary Impression: Chest pain Additional Impressions: Pulmonary embolism Esophagitis Scribe Attestation The scribe's documentation has been prepared under my direction and personally reviewed by me in its entirety. I confirm that the note above accurately reflects all work, treatment, procedures, and medical decision making performed by me. Departure Information Dispostion Home / Self-Care Referrals Camilo Weiner M.D. (PCP) Forms HOME CARE DOCUMENTATION FORM, IMPORTANT VISIT INFORMATION Patient Instructions ED Chest Pain Atypical Unkn Cause, Embolism Pulmonary, My [facility] Additional Instructions Call your family in the morning to schedule a follow-up appointment. Rest and avoid any strenuous activity. Continue all medications as prescribed. Consider starting an [id number] proton pump inhibitor such as Prilosec. Try using Maalox or Mylanta as directed for symptomatic relief. Problem Qualifiers Primary Impression: Chest pain Chest pain type: chest pain on breathing Qualified Codes: R07.1 - Chest pain on breathing Additional Impressions: Pulmonary embolism Pulmonary embolism type: other Chronicity: chronic Acute cor pulmonale presence: without acute cor pulmonale Qualified Codes: I27.82 - Chronic pulmonary embolism
[2017-03-25] MEDS: MoRPHine SULFATE 4 MG/ML 1 ML CARP\\VIAL IV PRN ×2 (19:09→22:43)
[2017-03-25 19:30] LABS: BASO % 0.5 %; BASO ABS # 0.03 K/uL (0-0.2); COMPLETE YES; EOS % 0.3 %; HEMATOCRIT 34.6 % (42-52); LYMPH % 28.5 %; LYMPH ABS # 1.71 K/uL (1.2-3.4); MEAN CELL VOLUME 100.3 fL (80-100); MEAN CORPUSCULAR HEMOGLOBIN 34.8 pg (25-34); MEAN CORPUSCULAR HGB CONC 34.7 g/dl (32-36); MEAN PLATELET VOLUME 8.9 fL (7.4-10.4); MONO % 5.3 %; NEUT % 64.4 %; PLATELET COUNT 248 K/uL (130-400); RED BLOOD COUNT 3.45 M/uL (4.7-6.1)
[2017-03-25 19:44] LABS: INR 1.2 (0.9-1.1); PARTIAL THROMBOPLASTIN RATIO 1.2; PROTHROMBIN TIME (PATIENT) 12.9 SECONDS (9.0-12.0)
[2017-03-25 19:48] LABS: ALT/SGPT 35 U/L (12-78); BLOOD UREA NITROGEN 6 mg/dl (7-18); BUN/CREATININE RATIO 6.9 (10-20); CALCIUM 9.1 mg/dl (8.5-10.1); CARBON DIOXIDE 21 mmol/L (21-32); CHLORIDE 110 mmol/L (98-107); CREATININE 0.91 mg/dl (0.60-1.40); GLUCOSE 80 mg/dl (70-99); POTASSIUM 3.8 mmol/L (3.5-5.1); SODIUM 140 mmol/L (136-145)
[2017-03-25 19:53] LABS: ALB/GLOB RATIO 0.9 (0.9-2); ALKALINE PHOSPHATASE 52 U/L (45-117); AST/SGOT 20 U/L (15-37); CKMB/CK RATIO 1.5 (0-3.0)
[2017-03-25 20:25] LABS: URINE APPEARANCE CLEAR (CLEAR); URINE BILIRUBIN NEG (NEG); URINE COLOR YELLOW; URINE NITRITE NEG (NEG); URINE PH 6.5 (4.5-7.5); URINE SPECIFIC GRAVITY 1.021 (1.000-1.030); UROBILINOGEN NEG (NEG)
[2017-03-25 20:37] LABS: MANUAL MICROSCOPIC REQUIRED? NO; REVIEW REQ? NO
--- NOTE | 2017-03-25 20:58 | DIAGNOSTIC IMAGING REPORT ---
KUB CLINICAL HISTORY: Upper abdominal pain. FINDINGS: 4 AP supine abdominal radiographs are compared to study dated 03/19/2017 and correlated with abdominal CT dated 03/11/2017. There is a nonobstructed abdominal bowel gas pattern. No evidence of intraperitoneal free air is seen on these supine views. Suture material is noted in the pelvis. There are no abnormal abdominal calcifications. The lung bases are clear as imaged. The bony structures appear intact. IMPRESSION: Unremarkable abdominal radiographs. Electronically signed by: Fadi Mao M.D. 03/25/2017 8:56 PM Dictated Date/Time: 03/25/2017 8:55 PM
--- NOTE | 2017-03-25 21:00 | DIAGNOSTIC IMAGING REPORT ---
SINGLE VIEW CHEST CLINICAL HISTORY: Dyspnea. Atypical chest pain. Upper abdominal pain. FINDINGS: An AP, portable, upright chest radiograph is compared to study dated 03/22/2017 and correlated with chest CT dated 02/20/2017. The examination is degraded by portable technique and patient rotation. A right internal jugular central venous infusion port is unchanged in position. The heart is top normal for projection. The pulmonary vasculature is noncongested. Emphysema and chronic interstitial thickening are similar to previous. There is no airspace consolidation, large pleural effusion, or pneumothorax. The bony thorax is grossly intact. IMPRESSION: Emphysema with no acute cardiopulmonary abnormality. Electronically signed by: Fadi Mao M.D. 03/25/2017 8:58 PM Dictated Date/Time: 03/25/2017 8:57 PM
[2017-03-25] MEDS ORDERED: OPTIRAY 320 IV PRN (23:00)
--- NOTE | 2017-03-25 23:14 | DIAGNOSTIC IMAGING REPORT ---
CT ANGIOGRAM OF THE CHEST CLINICAL HISTORY: Dyspnea. Atypical chest pain. COMPARISON STUDY: Chest x-ray dated 03/25/2017. Chest CT dated 02/28/2017. TECHNIQUE: Following the IV administration of 92 cc of Optiray 320, CT angiogram of the chest was performed from the upper abdomen to the thoracic inlet utilizing the pulmonary embolus protocol. Images are reviewed in the axial, sagittal, and coronal planes. 3-D MIPS images are created and assessed. IV contrast was administered without complication. CT DOSE: 2143.17 mGy.cm FINDINGS: Thyroid: Imaged portions of the thyroid gland are normal in size and attenuation. Thoracic aorta: The thoracic aorta is normal in caliber and demonstrates bovine variant arch anatomy. No dissection is seen. A right internal jugular central venous catheter is in place. Pulmonary vasculature: The pulmonary trunk is normal in caliber. There are segmental and subsegmental pulmonary emboli within the right lower lobe pulmonary artery. This has modestly decreased in size from the 02/28/2017 examination. The remaining pulmonary vessels are clear. Heart: The heart is normal in size and configuration, and without pericardial effusion. There are scattered coronary artery calcifications. Lungs and pleural spaces: Emphysema is observed. The trachea and central airways are clear. Mild diffuse peribronchial thickening suggests reactive airway disease. A small pulmonary infarct is again seen at the right lung base. The lungs are otherwise clear. There is no airspace consolidation typical for pneumonia or pleural effusion. A calcified granuloma is seen in the lingula. Mediastinum: There is no mediastinal lymphadenopathy. [place]: Clear. Axillae: There is no axillary lymphadenopathy. Upper abdomen: Mild circumferential wall thickening is suggested in the distal esophagus. There is a small hiatal hernia. Hepatic steatosis is suggested. And contrast is noted. Skeletal structures: No lytic or blastic bony lesions are seen. A bone island is seen in the right anterior fourth rib. IMPRESSION: 1. There are segmental and subsegmental pulmonary emboli in the right lower lobe pulmonary artery. This has modestly decreased in size from 02/28/2017. 2. A small evolving pulmonary infarct is again seen at the right lung base. 3. Emphysema. 4. There is no airspace consolidation typical for pneumonia or pleural effusion. Mild diffuse peribronchial thickening suggests reactive airway disease. Clinical correlation will be required. 5. Mild circumferential wall thickening is suggested in the distal esophagus. Correlate clinically for evidence of esophagitis. Electronically signed by: Fadi Mao M.D. 03/25/2017 11:12 PM Dictated Date/Time: 03/25/2017 11:03 PM
--- NOTE | 2017-03-25 23:21 | DIAGNOSTIC IMAGING REPORT ---
CT SCAN OF THE ABDOMEN AND PELVIS WITH IV CONTRAST CLINICAL HISTORY: Upper abdominal pain. COMPARISON STUDY: Abdominal CT dated 03/11/2017. TECHNIQUE: Following the IV administration of 92 cc of Optiray 320, CT scan of the abdomen and pelvis is performed from the lung bases to the proximal femora. Images are reviewed in the axial, sagittal, and coronal planes. IV contrast was administered without complication. Automated dose control exposure was utilized. CT DOSE: Reported separately under the concurrently performed CT scan of the chest. FINDINGS: Lung bases: The heart is normal in size and without pericardial effusion. A small evolving pulmonary infarct is noted in the right lung base. The lung bases are otherwise clear. A calcified granuloma is noted in the lingula. There is a tiny hiatal hernia. See report of chest CT performed concurrently for detailed intrathoracic findings. Liver: The contrast-enhanced liver is normal in size and contour. The liver demonstrates diffusely diminished attenuation consistent with hepatic steatosis. Fatty sparing is seen adjacent to the gallbladder fossa. There is no intrahepatic biliary ductal dilatation. The hepatic veins and portal veins are patent. Gallbladder: Unremarkable. Spleen: Normal in size and attenuation. Pancreas: A tiny calcification is incidentally noted in the pancreatic tail. Pancreas is otherwise unremarkable. Adrenal glands: Unremarkable. Kidneys: The contrast enhanced kidneys are normal in size and without hydronephrosis. The kidneys enhance symmetrically. A circumaortic left renal vein is incidentally noted. A subcentimeter cortical hypodensity in the left kidney likely represents a cyst but is too small for definitive characterization. There is a punctate nonobstructing left renal calculus. Abdominal vasculature: The abdominal aorta is normal in course and caliber noting mild and age advanced atherosclerotic calcification. Bowel: There are postoperative changes from sigmoid colon resection with colocolonic anastomosis. No bowel obstruction is seen. There is a tiny duodenal diverticulum. The appendix is well-visualized and normal. Peritoneum: There is no intraperitoneal free air or abdominal ascites. There is a fat-containing umbilical hernia. Lymphadenopathy: None. Pelvic viscera: The bladder, prostate, and seminal vesicles are normal as visualized. Skeletal structures: No lytic or blastic lesions are seen. IMPRESSION: 1. There are no acute infectious or inflammatory findings in the abdomen or pelvis. 2. Hepatic steatosis. 3. There are postoperative changes from sigmoid colon resection with colocolonic anastomosis. No bowel obstruction is seen. 4. Punctate nonobstructing left renal calculus. 5. Additional findings as above. Electronically signed by: Fadi Mao M.D. 03/25/2017 11:19 PM Dictated Date/Time: 03/25/2017 11:15 PM
[2017-03-25] MEDS ORDERED: OXYCODONE IR HOME PACK PO ONE (23:45)
[2017-03-26] VITALS: BP 106/57; PULSE 94; O2SAT 96
== END 2017-03-26 00:02 | disposition home or self-care (01) ==
LOC: C.EDB 18:19 → C.EDA 03-26 00:02
DX: R07.9 Chest pain, unspecified (principal); I26.99 Other pulmonary embolism without acute cor pulmonale; K20.9 Esophagitis, unspecified; K57.92 Diverticulitis of intestine, part unspecified, without perforation or abscess without bleeding; F17.200 Nicotine dependence, unspecified, uncomplicated; Z86.19 Personal history of other infectious and parasitic diseases; Z85.01 Personal history of malignant neoplasm of esophagus; Z79.899 Other long term (current) drug therapy; Z90.49 Acquired absence of other specified parts of digestive tract; Z88.2 Allergy status to sulfonamides; Z88.8 Allergy status to other drugs, medicaments and biological substances; Z91.018 Allergy to other foods; Z83.3 Family history of diabetes mellitus; Z82.49 Family history of ischemic heart disease and other diseases of the circulatory system

== ENCOUNTER 2017-03-28 22:32 | Emergency (ER) | payer OTHER ==
[~2017-03-28] VITALS: Ht 172.7 cm; Wt 119.6 kg
[~2017-03-28 22:32] MED LIST changes: -BNT10 PO; -MAGIC1 PO; -RXNS20 PO
[2017-03-28 22:40] VITALS: TEMP 37.2; Ht 172.7 cm; Wt 119.6 kg
[2017-03-28] MEDS ORDERED: HYDR-5688 PO (23:13)
[2017-03-28] MEDS ORDERED: CLIN300C10 PO (23:13)
[2017-03-28] MEDS ORDERED: NORCO 5/325MG HOME PACK PO ONE (23:15)
[2017-03-28] MEDS ORDERED: CLINDAMYCIN 150MG HOME PACK PO ONE (23:15)
[2017-03-28 23:26] VITALS: BP 121/68; PULSE 82; O2SAT 98
--- NOTE | 2017-03-29 23:55 | EMERGENCY ROOM VISIT NOTE ---
ED Visit Note First contact with patient: 22:45 CHIEF COMPLAINT: I the cyst on my right testicle. HISTORY OF PRESENT ILLNESS: Mr. Roblero is an 37-year-old white male who ambulates into the ED accompanied by female friend complaining of a abscess on the right side of the scrotum. Historically patient has had previous scrotal abscesses; I personally have drained one in the past. Patient noticed a hard tender area in 2 days ago. Since that time he reports a hard tender area has gradually increased in size and has becoming more tender. He describes his pain as a sharp discomfort. He rates his discomfort 10/10. His pain is nonradiating. His pain worsens with palpation, ambulation and sitting down. He has not identified any alleviating factors related to the pain. He has been using [id number] medications without relief of his discomfort. He denies any associated symptoms including fevers, chills, sweats , other skin eruptions, chest pain, shortness of breath, abdominal pain, decreased appetite, urinary symptoms, recent trauma, drainage, lymphangitis. REVIEW OF SYSTEMS: As noted above in History of Present Illness; all body systems were reviewed with the patient and found to be negative unless noted above otherwise. PAST MEDICAL HISTORY: As noted above and asthma, pneumonia, gastric ulcers, unspecified stomach disorder, unspecified urinary symptoms, bowel obstruction, Crohn's disease, stage I throat cancer. CURRENT MEDICATION: Medications Dose Route/Sig Max Daily Dose Days Date Category Dose Instructions Xarelto (Rivaroxaban) 15 Mg Tab 15 Mg PO AMHS 03/22/17 Reported Xarelto (Rivaroxaban) 20 Mg Tab 20 Mg PO TAKE WITH LUNCH 03/22/17 Reported Zofran Odt (Ondansetron HCl) 4 Mg Tab 4 Mg SL Q6H 03/19/17 Rx Cholestyramine Light (Cholestyramine) 4 Gm Pack 1 Gm PO Q24H PRN 4 02/23/17 Rx Continue as needed while diarrhea persists. Sertraline HCl 50 Mg Tab 100 Mg PO HS 02/03/17 Reported Prochlorperazine Maleate 10 Mg Tab 10 Mg PO Q6H PRN 02/03/17 Reported Zantac (Ranitidine Hcl) 300 Mg Tab 300 Mg PO DAILY 12/23/16 Reported Ventolin Hfa (Albuterol) 200 Puffs/99020 Mcg Aers 2 Puffs PO Q4H PRN 12/23/16 Reported Ropinirole HCl 1 Mg Tab 1 Mg PO HS 06/03/14 Reported ALLERGIES TO MEDICATION: Doxycycline, prednisone, sulfa, Bactrim. SOCIAL HISTORY: Patient is not employed; he feels safe in his home environment; he admits to tobacco use and denies alcohol use. PHYSICAL EXAM: Vital Signs: Date Time Temp Pulse Resp B/P (MAP) Pulse Ox O2 Delivery O2 Flow Rate FiO2 03/28/17 23:26 82 20 121/68 98 03/28/17 22:40 37.2 124 18 112/70 97 Room Air General: 37 year-old male in mild to moderate distress due to pain, nontoxic appearing, afebrile and hemodynamically stable. Neurological: Awake, alert and oriented to person, place and time. Answering questions appropriately and following commands. Skin: Warm, dry and pink. Scrotum: Over the lateral aspect of the left scrotal sac patient has a 3-4 cm indurated area that is erythematous but not edematous. There is a erythematous zone around this area but there is no lymphangitis. This indurated area appears to be an early abscess, but it is not fluctuant. Thorax: Lungs sounds are clear to auscultation and equal bilaterally with symmetrical chest wall movement. No wheezing, rales or rhonchi. No increased respiratory effort. Abdomen: Flat, soft and nontender. Positive bowel sounds in all quadrants. No guarding or rigidity. No inguinal lymphadenopathy. ED COURSE: Patient is assessed as noted above. Patient's medication list was reviewed. Patient was educated about his condition and instructed on his treatment plan; he verbalized understanding and agreement with this plan. CLINICAL IMPRESSION: Abscess of the left scrotum. DISPOSITION: Patient discharged to home in stable condition accompanied by female friends; prior to departure he was reassessed and subjectively reported he was feeling the same.. PLAN: Patient was prescribed clindamycin 300 mg 4 times a day for 10 days. Patient was placed on a sliding pain medication scale including ibuprofen, acetaminophen and [place]; patient was given appropriate precautions for narcotic use. The state database was reviewed and he has had recent prescriptions for narcotics but none should be current and he relates these to his recent diagnosis of cancer. Patient was encouraged to follow-up with his PCP or return to the ED and 36-48 hours for recheck. Patient was encouraged return the ED for worsening pain, fevers, increasing redness/swelling, or red streaking, puslike drainage or any new/concerning symptoms.
== END 2017-03-28 23:29 | disposition home or self-care (01) ==
LOC: C.EDB 22:34 → C.EDC 23:29
DX: N49.2 Inflammatory disorders of scrotum (principal); J45.909 Unspecified asthma, uncomplicated; K50.90 Crohn's disease, unspecified, without complications; Z87.01 Personal history of pneumonia (recurrent); Z72.0 Tobacco use; Z80.8 Family history of malignant neoplasm of other organs or systems; Z79.01 Long term (current) use of anticoagulants; Z79.899 Other long term (current) drug therapy

== ENCOUNTER → 2017-04-08 | Outpatient (CLI) | payer OTHER ==
[~2017-04-08] MED LIST changes: +CLIN300C10 PO; +HYDR-5688 PO; +OMEP20TA40 PO; +OXYC-643 PO; +ZLF/100 PO
[2017-04-08 13:43] VITALS: BP 107/68; PULSE 102; TEMP 36.7; O2SAT 98
--- NOTE | 2017-04-08 14:39 | Radiation Oncology Follow-Up ---
Radiation Oncology Follow-Up Date of Visit Apr 08, 2017. (Maria Teresa Rock PA-C) Reason For Visit One-month follow-up and cancer survivorship care plan (Maria Teresa Rock PA-C) Radiation Completion Date 03/09/17 (Maria Teresa Rock PA-C) Diagnosis (1) Esophageal adenocarcinoma Status: Acute Stage: ll Permanent Comment: -Presented with dysphagia in May 2016 -Upper EGD - 11/16/16 - Biopsy - Adenocarinoma -Upper EGD with EUS - 11/24/16 Stage uT3 uN0 Stage IIB Status post completion of radiation therapy 03/09/2017 received 5040 cGy Last Edited By: Maria Teresa Rock on Mar 18, 2017 08:59 (Maria Teresa Rock PA-C) History of Present Illness Mr. Roblero is a 37-year-old gentleman who recently presented with dysphagia to solid foods starting in May 2016 that got progressively worse. The patient was seen and eventually referred to a Dr. Christos antunez who did attempt to do a upper endoscopy on 09/14/2016 however this was aborted due to complications. 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 antunez obtained biopsies at 36, 38 and 40 cm from the incisors. Pathology from the biopsies at 38 cm and 40 cm from the incisors revealed adenocarcinoma that was moderate to poorly differentiated. The tumor specimens did undergo HER-2 testing which revealed it was not amplified. The patient then underwent a CT of the chest/abdomen/pelvis on 11/19/2016 which revealed equivocal thickening of the distal esophagus but no other evidence of mediastinal lymphadenopathy or distant metastatic disease involving the chest, abdomen or pelvis. The patient did have a repeat upper endoscopy with endoscopic ultrasound on 11/24/2016 which revealed a hypoechoic mass found in the lower third of the esophagus that was encountered from 36 cm from the incisors and extended to 40 cm from the incisors. Dr. Antunez noted the lesion was partially circumferential and involves 60% of the lumen; the endosonographic borders were poorly defined and the mass measured up to 6 mm in thickness and was suggestive of invasion into the submucosa making it uT1b. The patient did have a PET/CT scan on 12/02/2016 which revealed a metabolically active short segment of the distal esophagus which likely corresponds to the patient's known esophageal cancer but no other evidence of metabolic disease. The patient did undergo a repeat upper endoscopy on 01/05/[address] Orestes Dumont due to significant esophagitis found on previous examination and the patient was upstaged to uT3N0; Dr. Dumont noted a medium sized, ulcerating mass with no bleeding found in the lower third of the esophagus and at the gastroesophageal junction, 40-43 cm from the incisors. He he noted the mass was nonobstructing and partially circumferential. The patient was in consultation by Dr. Bin Early for medical oncology who is recommended preoperative chemotherapy and radiation therapy followed by esophagectomy. We are now seeing the patient in consultation discuss the role of radiation therapy. Overall, the patient is doing relatively well. He does continue to have some dysphagia with solid foods but not liquids. He denies any significant weight loss or hematemesis or melena or hematochezia. He does have minimal chest pain due to his cancer and has been medicated with morphine by Dr. Bin Early. Status post completion of radiation therapy 03/09/2017. He received 5040 cGy. (Maria Teresa Rock PA-C) Interim History This past month he has had multiple medical issues which have taken him to the emergency room. In general he is eating a normal diet and has gained weight steadily since the completion of his radiation and chemotherapy. He has no difficulty with swallowing and he has no pain with swallowing. He was seen in the emergency room 03/09/2017 for back pain. He had an MRI of the lumbar spine. This showed degenerative disc disease. He had no herniated disks. There were no signs of metastatic disease. On March 11 he was seen for gastroenteritis. A CT was performed and this showed no acute process within the abdomen or pelvis. Redemonstration of segmental right lower lobe pulmonary emboli and a resolving left lower lobe pulmonary infarct. There is no evidence of any metastatic disease. On March 19 nausea and vomiting. On March 22 shortness of breath. On March 25 he had chest pain. He had a CT of the chest. There are segmental and subsegmental pulmonary emboli in the right lower lobe pulmonary artery. This has mostly decreased in size from 02/28/2017. A small involving pulmonary infarct is again noted at the right lung base. There were no effusions. Mild circumferential wall thickening is suggested in the distal esophagus. On March 28 he was evaluated for scrotal abscess. He was given an antibiotic which he continues and is steadily improved. (Maria Teresa Rock PA-C) Allergies Coded Allergies: Prednisone (Verified Allergy, Intermediate, HIVES, 03/22/17) Sulfa Antibiotics (Verified Allergy, Intermediate, Hives/Thrush, 03/22/17) Doxycycline (Verified Allergy, Unknown, NEURO COMPLICATIONS, 03/22/17) GMG Mushroom (Verified Allergy, Unknown, GI SYMPTOMS, 03/22/17) Sulfamethoxazole w/Trimethoprim (Verified Allergy, Unknown, hives, 03/22/17 ) Home Medications Scheduled Clindamycin Hcl (Clindamycin Hcl), 300 MG PO QID Ondasetron Odt (Zofran Odt), 4 MG SL Q6H Ranitidine Hcl (Zantac), 300 MG PO DAILY Rivaroxaban (Xarelto), 20 MG PO TAKE WITH LUNCH Rivaroxaban (Xarelto), 15 MG PO AMHS Ropinirole HCl (Ropinirole HCl), 1 MG PO HS Sertraline HCl (Sertraline HCl), 100 MG PO HS Scheduled PRN Albuterol Hfa (Ventolin Hfa), 2 PUFFS PO Q4H PRN for Wheezing Cholestyramine (Cholestyramine Light), 1 GM PO Q24H PRN for diarrhea Hydrocodone/Acetaminophen 5MG/325MG ([place] 5MG/325MG), 1 TABLET PO Q6H PRN for Pain Prochlorperazine Maleate (Prochlorperazine Maleate), 10 MG PO Q6H PRN for Nausea Review of Systems Gastrointestinal: Symptoms: WNL, Vomiting GI Comments: Vomiting due to diet intake at times Oral: Symptoms: No Problems Respiratory: Symptoms: WNL Urinary: Symptoms: WNL Skin: Symptoms: No Problems (Maria Teresa Rock PA-C) Physical Exam Vital Signs Date Time Temp Pulse Resp B/P (MAP) Pulse Ox O2 Delivery O2 Flow Rate FiO2 04/08/17 13:43 36.7 102 16 107/68 98 Pain: Patient Pain Scale: 0 - 10 Initial Pain Intensity: 0.0 Fatigue: None General Appearance: no apparent distress Eyes: normal inspection, EOMI ENT: normal ENT inspection, hearing grossly normal Neck: no adenopathy, thyroid normal Respiratory/Chest: lungs clear, no respiratory distress, no accessory muscle use Cardiovascular: regular rate, rhythm, no gallop, no murmur Abdomen: non tender, soft, no organomegaly Extremities: no pedal edema Neurologic/Psychiatric: no motor/sensory deficits, alert, normal mood/affect (Maria Teresa Rock PA-C) Laboratory Studies Test 02/04/17 00:52 02/05/17 15:17 02/05/17 15:18 02/05/17 15:45 POC Troponin I 0.000 ng/ml (0-0.045) POC Lactic Acid Venous 1.26 mmol/L (0.90-1.70) POC Hemoglobin 14.3 g/dl (14.0-18.0) POC Hematocrit 42 % (42-52) POC Sodium 140 mEq/L (135-144) POC Potassium 3.9 mEq/L (3.3-5.0) POC Chloride 104 mEq/L (101-112) POC Total CO2 22 mEq/l (24-31) POC Blood Urea Nitrogen 13 mg/dl (7-18) POC Creatinine 0.8 mg/dl (0.6-1.3) POC Glucose 91 mg/dl (70-99) POC Ionized Calcium (Kayla) 1.18 mmol/l (1.12-1.32) Influenza Type A (RT-PCR) Neg for Influ A (NEG) Influenza Type A Antigen Neg for Influ A (NEG) Influenza Type B Antigen Neg for Influ B (NEG) Influenza Type B (RT-PCR) Neg for Influ B (NEG) Test 02/21/17 16:15 02/21/17 16:40 02/22/17 05:35 02/27/17 23:08 Urine Crystals CALCIUM OXALATE (NONE Lactic Acid Level 1.2 mmol/L (0.4-2.0) Chemistry Specimen Hemolysis Magnesium Level 1.9 mg/dl (1.8-2.4) Thyroid Stimulating Hormone (TSH) 0.981 uIu/ml (0.300-4.500) Test 02/27/17 23:14 03/09/17 14:56 03/09/17 15:05 03/09/17 15:06 POC D-Dimer > 450 ng/mlFEU (0-450) POC Troponin I 0.000 ng/ml (0-0.045) Urine WBC (Auto) 1-5 /hpf (0-5) Urine RBC (Auto) 0-4 /hpf (0-4) Urine Hyaline Casts (Auto) 5-10 /lpf (0-5) Urine Epithelial Cells (Auto) >30 /lpf (0-5) Urine Bacteria (Auto) NEG (NEG) Urine Renal Epithelial Cells /lpf (0-5) Urine Pathogenic Casts /lpf (0) Urine Mucus PRESENT (NONE PRSENT) Platelet Estimate DECREASED Erythrocyte Sedimentation Rate 25 mm/hr (0-14) Creatine Kinase MB < 0.5 ng/ml (0.5-3.6) Creatine Kinase MB Ratio (0-3.0) C-Reactive Protein 1.00 mg/dl (0-0.29) Thyroid Stimulating Hormone (TSH) 0.699 uIu/ml (0.300-4.500) POC Glucose 100 mg/dl (70-99) Test 03/11/17 22:00 03/11/17 22:20 03/11/17 22:34 03/19/17 00:50 Nucleated RBC Absolute Count (auto) 0.04 K/uL (0-0) Nucleated Red Blood Cells % 1.2 % Direct Bilirubin < 0.1 mg/dl (0-0.2) Lipase 76 U/L (73-393) 94 U/L (73-393) Norovirus RNA (PCR) NOT DETECTED POC Hemoglobin 9.2 g/dl (14.0-18.0) POC Hematocrit 27 % (42-52) POC Sodium 142 mEq/L (135-144) POC Potassium 3.5 mEq/L (3.3-5.0) POC Chloride 107 mEq/L (101-112) POC Total CO2 22 mEq/l (24-31) POC Blood Urea Nitrogen 4 mg/dl (7-18) POC Creatinine 0.8 mg/dl (0.6-1.3) POC Glucose 87 mg/dl (70-99) POC Ionized Calcium (Kayla) 1.20 mmol/l (1.12-1.32) Magnesium Level 2.0 mg/dl (1.8-2.4) Globulin 3.9 gm/dl (2.5-4.0) Albumin/Globulin Ratio 0.9 (0.9-2) Test 03/19/17 02:35 03/22/17 02:00 03/25/17 19:20 03/25/17 19:28 Urine Color DK YELLOW Urine Appearance CLOUDY (CLEAR) Urine pH 5.5 (4.5-7.5) Urine Specific [place] 1.035 (1.000-1.030) Urine Protein 2+ (NEG) Urine Glucose (UA) NEG (NEG) Urine Ketones 1+ (NEG) Urine Occult Blood NEG (NEG) Urine Nitrite NEG (NEG) Urine Bilirubin NEG (NEG) Urine Urobilinogen NEG (NEG) Urine Leukocyte Esterase NEG (NEG) Urine WBC (Auto) 1-5 /hpf (0-5) Urine RBC (Auto) 0-4 /hpf (0-4) Urine Hyaline Casts (Auto) 5-10 /lpf (0-5) Urine Epithelial Cells (Auto) >30 /lpf (0-5) Urine Bacteria (Auto) NEG (NEG) Urine Crystals CALCIUM OXALATE (NONE Urine Pathogenic Casts /lpf (0) Urine Mucus PRESENT (NONE PRSENT) White Blood Count 6.77 K/uL (4.8-10.8) 6.00 K/uL (4.8-10.8) Red Blood Count 3.54 M/uL (4.7-6.1) 3.45 M/uL (4.7-6.1) Hemoglobin 11.8 g/dL (14.0-18.0) 12.0 g/dL (14.0-18.0) Hematocrit 35.7 % (42-52) 34.6 % (42-52) Mean Corpuscular Volume 100.8 fL (80-100) 100.3 fL (80-100) Mean Corpuscular Hemoglobin 33.3 pg (25-34) 34.8 pg (25-34) Mean Corpuscular Hemoglobin Concent 33.1 g/dl (32-36) 34.7 g/dl (32-36) Platelet Count 239 K/uL (130-400) 248 K/uL (130-400) Mean Platelet Volume 9.5 fL (7.4-10.4) 8.9 fL (7.4-10.4) Neutrophils (%) (Auto) 62.3 % 64.4 % Lymphocytes (%) (Auto) 23.0 % 28.5 % Monocytes (%) (Auto) 13.6 % 5.3 % Eosinophils (%) (Auto) 0.4 % 0.3 % Basophils (%) (Auto) 0.1 % 0.5 % Neutrophils # (Auto) 4.21 K/uL (1.4-6.5) 3.86 K/uL (1.4-6.5) Lymphocytes # (Auto) 1.56 K/uL (1.2-3.4) 1.71 K/uL (1.2-3.4) Monocytes # (Auto) 0.92 K/uL (0.11-0.59) 0.32 K/uL (0.11-0.59) Eosinophils # (Auto) 0.03 K/uL (0-0.5) 0.02 K/uL (0-0.5) Basophils # (Auto) 0.01 K/uL (0-0.2) 0.03 K/uL (0-0.2) RDW Standard Deviation 67.1 fL (36.4-46.3) 67.2 fL (36.4-46.3) RDW Coefficient of Variation 18.7 % (11.5-14.5) 18.7 % (11.5-14.5) Immature Granulocyte % (Auto) 0.6 % 1.0 % Immature Granulocyte # (Auto) 0.04 K/uL (0.00-0.02) 0.06 K/uL (0.00-0.02) Prothrombin Time 12.5 SECONDS (9.0-12.0) 12.9 SECONDS (9.0-12.0) Prothrombin Time INR 1.2 (0.9-1.1) 1.2 (0.9-1.1) PTT 26.5 SECONDS (21.0-31.0) 30.6 SECONDS (21.0-31.0) Partial Thromboplastin Ratio 1.0 1.2 Sodium Level 144 mmol/L (136-145) 140 mmol/L (136-145) Potassium Level 3.4 mmol/L (3.5-5.1) 3.8 mmol/L (3.5-5.1) Chloride Level 108 mmol/L (98-107) 110 mmol/L (98-107) Carbon Dioxide Level 26 mmol/L (21-32) 21 mmol/L (21-32) Anion Gap 10.0 mmol/L (3-11) 9.0 mmol/L (3-11) Blood Urea Nitrogen 9 mg/dl (7-18) 6 mg/dl (7-18) Creatinine 1.10 mg/dl (0.60-1.40) 0.91 mg/dl (0.60-1.40) Est Creatinine Clear Calc Drug Dose 119.6 ml/min 139.5 ml/min Estimated GFR () 98.9 124.3 Estimated GFR (Non- 85.3 107.3 BUN/Creatinine Ratio 8.0 (10-20) 6.9 (10-20) Random Glucose 91 mg/dl (70-99) 80 mg/dl (70-99) Calcium Level 8.6 mg/dl (8.5-10.1) 9.1 mg/dl (8.5-10.1) Total Bilirubin 0.3 mg/dl (0.2-1) 0.5 mg/dl (0.2-1) Direct Bilirubin < 0.1 mg/dl (0-0.2) Aspartate Amino Transferase (AST) 22 U/L (15-37) 20 U/L (15-37) Alanine Aminotransferase (ALT) 40 U/L (12-78) 35 U/L (12-78) Alkaline Phosphatase 52 U/L (45-117) 52 U/L (45-117) Total Creatine Kinase 37 U/L (39-308) 39 U/L (39-308) Troponin I < 0.015 ng/ml (0-0.045) < 0.015 ng/ml (0-0.045) Total Protein 7.3 gm/dl (6.4-8.2) 7.1 gm/dl (6.4-8.2) Albumin 3.3 gm/dl (3.4-5.0) 3.3 gm/dl (3.4-5.0) Creatine Kinase MB 0.6 ng/ml (0.5-3.6) Creatine Kinase MB Ratio 1.5 (0-3.0) Globulin 3.8 gm/dl (2.5-4.0) Albumin/Globulin Ratio 0.9 (0.9-2) POC D-Dimer > 450 ng/mlFEU (0-450) Test 03/25/17 20:00 Urine Color YELLOW Urine Appearance CLEAR (CLEAR) Urine pH 6.5 (4.5-7.5) Urine Specific [place] 1.021 (1.000-1.030) Urine Protein NEG (NEG) Urine Glucose (UA) NEG (NEG) Urine Ketones NEG (NEG) Urine Occult Blood NEG (NEG) Urine Nitrite NEG (NEG) Urine Bilirubin NEG (NEG) Urine Urobilinogen NEG (NEG) Urine Leukocyte Esterase NEG (NEG) (Maria Teresa Rock PA-C) Additional Studies Multiple studies as reviewed above. (Maria Teresa Rock PA-C) Assessment & Plan Plan: Patient was seen today by Dr. Early. He'll be seen at the multidisciplinary GI clinic in [place] 10/16/2016. He is scheduled for a PET scan and it [facility] here in [place] on 04/14/2017. He continues follow- up with Dr. Early in medical oncology. We asked him to return to our office in 6 months. Today we completed a cancer survivorship care plan. A copy of the document was given to the patient. Especially discussed smoke cessation. He understands the possibility of secondary malignancies related to radiation exposure and continued smoking. We will continue to follow up on this at his recheck visits. (Maria Teresa Rock PA-C) I agree with note created by Maria Teresa Rock PA-C. I reviewed the patient's chart and information with her. I have examined and evaluated the patient. I reviewed relevant clinical information and answered the patient's and/or family' s questions. (Veeral. Early MD) Total Time In Follow-Up I spent 20 minutes speaking to the patient performing examination. I spent 20 minutes reviewing information, preparing the survivorship document, and completing this note. (Maria Teresa Rock PA-C) I spent 15 minutes examining and counseling the patient. (Veeral. Early MD) Copy To Christos Antunez MD; Bin Early M.D.; Camilo Weiner M.D.
== END | disposition home or self-care (01) ==
LOC: C.ONC 13:35
PROVIDERS: ATTEND Physician Assistant Medical
DX: Z08 Encounter for follow-up examination after completed treatment for malignant neoplasm (principal); Z92.3 Personal history of irradiation; Z85.01 Personal history of malignant neoplasm of esophagus

== ENCOUNTER 2017-04-16 16:57 | Emergency (ER) | payer OTHER ==
[~2017-04-16] VITALS: Ht 172.7 cm; Wt 119.4 kg
[~2017-04-16 16:57] MED LIST changes: -OMEP20TA40 PO; -OXYC-643 PO; -ZLF/100 PO
[2017-04-16 17:12] VITALS: O2SAT 97; Ht 172.7 cm; Wt 119.4 kg
--- NOTE | 2017-04-16 17:32 | DIAGNOSTIC IMAGING REPORT ---
CHEST ONE VIEW PORTABLE CLINICAL HISTORY: cp dyspnea COMPARISON STUDY: 03/25/2017 FINDINGS: The bones soft tissues and hemidiaphragms are normal. The cardiomediastinal silhouette is normal. The lungs are clear. The pulmonary vasculature is normal. Central catheter in the superior vena cava IMPRESSION: No acute process. The above report was generated using voice recognition software. It may contain grammatical, syntax or spelling errors. Electronically signed by: Isra Vazquez M.D. 04/16/2017 5:31 PM Dictated Date/Time: 04/16/2017 5:30 PM
[2017-04-16] MEDS ORDERED: SUCRALFATE 1 GM TAB PO STA (17:36)
[2017-04-16] MEDS ORDERED: GI COCKTAIL PO STA (17:36)
[2017-04-16] MEDS ORDERED: ZLF/100 PO (17:42)
[2017-04-16] MEDS ORDERED: OXYC-643 PO (17:42)
[2017-04-16] MEDS ORDERED: OMEP20TA40 PO (17:42)
--- NOTE | 2017-04-16 17:42 | EMERGENCY ROOM VISIT NOTE ---
History Report prepared by Padilla: Lorri Olson Under the Supervision of: Dr. Yan Hawkins M.D. First contact with patient: 17:28 Chief Complaint: CHEST PAIN Stated Complaint: CHEST DISCOMFORT / C-DIFF Nursing Triage Summary: c/o per pt: "chest pain for 24 hrs. no relief with omeprazole yesterday and tums today. no rx or otc pain meds. did not call family dr. mojica #07/13. arrived smiling, laughing, watching [place] on tv. hx esophagus ca, finished chemo one month ago PE last month, recent colon repair for chrohns hx c.diff and asthma" History of Present Illness The patient is a 37 year old male who presents to the Emergency Room with complaints of constant chest pain beginning yesterday. The patient states that he has been seen here many times before for chest pain but this feels different and is a stabbing and burning pain. He reports that he took Omeprazole and Tums without relief of his symptoms. He notes that he follows up with cardiology and has an appointment later this month. The patient states that he takes Xarelto and has not missed any doses. He states that walking slightly worsens his pain. Source of History: patient Onset: yesterday Position: chest Quality: burning, sharp Timing: constant Modifying Factors (Worsening): other (walking) Modifying Factors (Relieving): other (none) Review of Systems See HPI for pertinent positives & negatives. A total of 10 systems reviewed and were otherwise negative. Past Medical & Surgical Medical Problems: (1) Abscess (2) Acute lymphangitis (3) Cellulitis of scalp (4) Cellulitis of scalp (5) Diverticular disease of colon (6) Diverticulitis (7) Diverticulitis (8) Diverticulitis (9) Gastroesophageal reflux disease Surgical Problems: (1) History of bowel resection (2) Status post partial colectomy Family History Diabetes mellitus FH: heart disease Hypertension Social History Smoking Status: Current Every Day Smoker Alcohol Use: none Drug Use: marijuana Marital Status: single Housing Status: lives with family Occupation Status: disabled Current/Historical Medications Scheduled Omeprazole (Cvs Omeprazole), 20 MG PO QAM Rivaroxaban (Xarelto), 20 MG PO TAKE WITH LUNCH Rivaroxaban (Xarelto), 15 MG PO AMHS Ropinirole HCl (Ropinirole HCl), 1 MG PO HS Sertraline HCl (Sertraline HCl), 100 MG PO HS Scheduled PRN Albuterol Hfa (Ventolin Hfa), 2 PUFFS PO Q4H PRN for Wheezing Hydrocodone/Acetaminophen 5MG/325MG ([place] 5MG/325MG), 1 TABLET PO Q6H PRN for Pain Oxycodone/Acetaminophen 5MG/325MG (Oxycodone/Acetaminophen 5MG/325MG), 1 TAB PO TID PRN for SEVERE PAIN Allergies Coded Allergies: Prednisone (Verified Allergy, Intermediate, HIVES, 04/16/17) Sulfa Antibiotics (Verified Allergy, Intermediate, Hives/Thrush, 04/16/17) Doxycycline (Verified Allergy, Unknown, NEURO COMPLICATIONS, 04/16/17) GMG Mushroom (Verified Allergy, Unknown, GI SYMPTOMS, 04/16/17) Sulfamethoxazole w/Trimethoprim (Verified Allergy, Unknown, hives, 04/16/17 ) Physical Exam Vital Signs Date Time Temp Pulse Resp B/P (MAP) Pulse Ox O2 Delivery O2 Flow Rate FiO2 04/16/17 18:36 36.4 92 16 111/75 97 04/16/17 17:25 92 04/16/17 17:12 97 Room Air 04/16/17 17:12 97 Room Air 04/16/17 17:12 36.4 89 16 111/75 97 Room Air Physical Exam GENERAL: Patient is a healthy-appearing well-nourished male HEAD: Normocephalic atraumatic EYES: Ocular movements intact pupils equal and react to light OROPHARYNX mucous membranes are moist no exudates present no erythema or edema present NECK: Supple no nuchal rigidity CHEST: Good equal expansion LUNGS: Clear and equal to auscultation CARDIAC: Normal S1 and S2 ABDOMEN: Soft nontender no guarding BACK: No CVA tenderness EXTREMITIES: No pain upon palpation normal muscle strength in all groups no clubbing cyanosis or edema NEURO: Patient is following commands and answering questions appropriately. Alert and oriented x3 Cranial Nerves 2-12 grossly intact Medical Decision & Procedures ER Provider Diagnostic Interpretation: X-ray results as stated below per interpretation by me and the radiologist: CHEST ONE VIEW PORTABLE FINDINGS: The bones soft tissues and hemidiaphragms are normal. The cardiomediastinal silhouette is normal. The lungs are clear. The pulmonary vasculature is normal. Central catheter in the superior vena cava IMPRESSION: No acute process. The above report was generated using voice recognition software. It may contain grammatical, syntax or spelling errors. Electronically signed by: Isra Vazquez M.D. 04/16/2017 5:31 PM Dictated Date/Time: 04/16/2017 5:30 PM Laboratory Results 04/16/17 17:31 04/16/17 17:31 Test 04/16/17 17:31 Red Blood Count 3.67 M/uL (4.7-6.1) Mean Corpuscular Volume 104.4 fL (80-100) Mean Corpuscular Hemoglobin 37.1 pg (25-34) Mean Corpuscular Hemoglobin Concent 35.5 g/dl (32-36) RDW Standard Deviation 68.1 fL (36.4-46.3) RDW Coefficient of Variation 17.7 % (11.5-14.5) Mean Platelet Volume 8.8 fL (7.4-10.4) Prothrombin Time 11.6 SECONDS (9.0-12.0) Prothromb Time International Ratio 1.1 (0.9-1.1) Activated Partial Thromboplast Time 28.2 SECONDS (21.0-31.0) Partial Thromboplastin Ratio 1.1 Anion Gap 9.0 mmol/L (3-11) Est Creatinine Clear Calc Drug Dose 149.4 ml/min Estimated GFR () 129.0 Estimated GFR (Non- 111.3 BUN/Creatinine Ratio 8.5 (10-20) Calcium Level 9.6 mg/dl (8.5-10.1) Total Bilirubin 0.5 mg/dl (0.2-1) Aspartate Amino Transf (AST/SGOT) 18 U/L (15-37) Alanine Aminotransferase (ALT/SGPT) 36 U/L (12-78) Alkaline Phosphatase 52 U/L (45-117) Total Creatine Kinase 44 U/L (39-308) Creatine Kinase MB < 0.5 ng/ml (0.5-3.6) Creatine Kinase MB Ratio (0-3.0) Total Protein 7.4 gm/dl (6.4-8.2) Albumin 3.5 gm/dl (3.4-5.0) Globulin 3.9 gm/dl (2.5-4.0) Albumin/Globulin Ratio 0.9 (0.9-2) Labs reviewed by ED physician. Medications Administered Medications (Trade) Dose Ordered Sig/Kaylin Route Start Time Stop Time Status Last Admin Dose Admin Sucralfate (Carafate Tab) 1 gm NOW STAT PO 04/16/17 17:36 04/16/17 17:38 DC 04/16/17 18:09 1 GM Famotidine (Pepcid Tab) 20 mg NOW ONCE PO 04/16/17 17:45 04/16/17 17:46 DC 04/16/17 18:10 20 MG Al Hydroxide/Mg Hydroxide (Maalox Susp) 30 ml STK-MED ONCE .ROUTE 04/16/17 18:03 04/16/17 18:04 DC 04/16/17 18:10 30 ML Lidocaine HCl (Viscous Lidocaine 2% Soln) 20 ml STK-MED ONCE .ROUTE 04/16/17 18:03 04/16/17 18:04 DC 04/16/17 18:10 20 ML ECG Indication: chest pain Rate (beats per minute): 21 Findings: no acute ischemic change, no ectopy ED Course 1728: Past medical records reviewed. The patient was evaluated in room B5. A complete history and physical examination was performed. 1736: Carafate Tab 1gm PO, GI Cocktail 24ml PO. 1745: Pepcid Tab 20mg PO. 1839: Upon reexamination the patient is doing well. I discussed results and treatment plan with the patient. He verbalizes agreement and understanding. The patient is ready for discharge. Medical Decision Differential diagnosis: Etiologies such as cardiac ischemia, aortic dissection, pulmonary embolism, pneumonia, pneumothorax, musculoskeletal, infections, pericarditis, myocarditis , esophageal rupture, gastrointestinal, as well as others were entertained. Medication Reconciliation: I attest that I have personally reviewed the patient' s current medication list Blood Pressure Screening: Patient was found to have normal blood pressure on screening and does not require follow up. This is a 37-year-old male who presents emergency department complaining of chest pain. I will note that the patient has been in the emergency department multiple times for his chest pain and has had 6 CAT scans since February 01. I expressed to the patient my concern over this and also noted that he may have developed esophageal cancer from all this radiation. Despite this the patient is insisting that this is the worst chest pain he has ever had. He notes that he has not missed any doses of his anticoagulation pill. He is not tachycardic he is not hypoxic. I feel the likelihood of a recurrent PE is exceptionally low and feel that the dangers of radiation are much greater than the risk of him having a PE. In addition the patient has a normal CK-MB and troponin fraction. As the chest pain has been ongoing for greater than 24 hours and expect his troponin to be elevated. The patient was given a GI cocktail, Pepcid and Carafate. Repeat examination revealed improvement the patient's symptoms. I do feel that the patient is well enough to be discharged home for follow-up with primary care physician. Patient was in agreement with the treatment plan. Impression Primary Impression: Precordial chest pain Scribe Attestation The scribe's documentation has been prepared under my direction and personally reviewed by me in its entirety. I confirm that the note above accurately reflects all work, treatment, procedures, and medical decision making performed by me. Departure Information Dispostion Home / Self-Care Referrals Camilo Weiner M.D. (PCP) Forms HOME CARE DOCUMENTATION FORM, IMPORTANT VISIT INFORMATION Patient Instructions Chest Pain - [facility], [facility] Additional Instructions Follow up with DR Del Toro's office You have been examined and treated today on an emergency basis only. This is not a substitute for, or an effort to provide, complete comprehensive medical care. It is impossible to recognize and treat all injuries or illnesses in a single emergency department visit. It is therefore important that you follow up closely with Dr Weiner. Call as soon as possible for an appointment. Thank you for your time and consideration. I look forward to speaking with you again soon. Please don't hesitate to call us if you have any questions.
[2017-04-16] MEDS ORDERED: FAMOTIDINE 20 MG TAB PO ONE (17:45)
[2017-04-16 17:52] LABS: HEMATOCRIT 38.3 % (42-52); MEAN CELL VOLUME 104.4 fL (80-100); MEAN CORPUSCULAR HEMOGLOBIN 37.1 pg (25-34); MEAN CORPUSCULAR HGB CONC 35.5 g/dl (32-36); MEAN PLATELET VOLUME 8.8 fL (7.4-10.4); PLATELET COUNT 331 K/uL (130-400); RED BLOOD COUNT 3.67 M/uL (4.7-6.1); WHITE BLOOD COUNT 8.46 K/uL (4.8-10.8)
[2017-04-16] MEDS ORDERED: LIDOCAINE HCL 2% VISC SOLN 20 ML UDC ONE (18:03)
[2017-04-16] MEDS ORDERED: ALUMINUM/MAGNESIUM SUSP 30 ML UDC ONE (18:03)
[2017-04-16 18:08] LABS: INR 1.1 (0.9-1.1); PARTIAL THROMBOPLASTIN RATIO 1.1; PROTHROMBIN TIME (PATIENT) 11.6 SECONDS (9.0-12.0)
[2017-04-16 18:19] LABS: ALT/SGPT 36 U/L (12-78); AST/SGOT 18 U/L (15-37); BLOOD UREA NITROGEN 7 mg/dl (7-18); BUN/CREATININE RATIO 8.5 (10-20); CALCIUM 9.6 mg/dl (8.5-10.1); CARBON DIOXIDE 24 mmol/L (21-32); CHLORIDE 110 mmol/L (98-107); CREATININE 0.85 mg/dl (0.60-1.40); GLUCOSE 91 mg/dl (70-99); POTASSIUM 3.8 mmol/L (3.5-5.1); SODIUM 143 mmol/L (136-145)
[2017-04-16 18:24] LABS: ALB/GLOB RATIO 0.9 (0.9-2); ALKALINE PHOSPHATASE 52 U/L (45-117)
[2017-04-16 18:36] VITALS: BP 111/75; PULSE 92; TEMP 36.4; O2SAT 97
== END 2017-04-16 18:41 | disposition home or self-care (01) ==
LOC: EDBD 16:57 → C.EDB 16:58
DX: R07.2 Precordial pain (principal); K21.9 Gastro-esophageal reflux disease without esophagitis; J45.909 Unspecified asthma, uncomplicated; K50.90 Crohn's disease, unspecified, without complications; F17.200 Nicotine dependence, unspecified, uncomplicated; F12.10 Cannabis abuse, uncomplicated; Z85.01 Personal history of malignant neoplasm of esophagus; Z86.711 Personal history of pulmonary embolism; Z86.19 Personal history of other infectious and parasitic diseases; Z90.49 Acquired absence of other specified parts of digestive tract; Z83.3 Family history of diabetes mellitus; Z82.49 Family history of ischemic heart disease and other diseases of the circulatory system; Z79.01 Long term (current) use of anticoagulants